=== PATIENT | male | born 1950 | race Caucasian/White ===

== ENCOUNTER → 2017-10-16 | Outpatient (REF) | payer MEDICARE ==
[2017-10-16 13:39] LABS: BASO % 0.6 % (0.0-1.0); EOS # 0.1 10^3/uL (0.0-0.50); EOS % 2.7 % (0.0-3.0); HEMATOCRIT 48.5 % (42.0-52.0); HEMOGLOBIN 15.5 g/dl (13.5-17.5); IMMATURE GRANULOCYTE % 0.4 % (0-3.0); LYMPH # 1.3 10^3/uL (1.5-4.5); LYMPH % 27.3 % (24.0-44.0); MEAN CORPUSCULAR HEMOGLOBIN 30.3 pg (27.0-33.0); MEAN CORPUSCULAR VOLUME 94.7 fl (80.0-96.0); MONO # 0.5 10^3/uL (0.0-0.8); MONO % 9.6 % (0.0-5.0); NEUTROPHILS # 2.8 10^3/uL (1.8-7.7); NEUTROPHILS % 59.4 % (36.0-66.0); PLATELET COUNT, AUTOMATED 178 10^3/uL (150-450); RED BLOOD COUNT 5.12 10^6/uL (4.30-6.10); RED CELL DISTRIBUTION WIDTH 13.2 % (11.5-14.5); WHITE BLOOD COUNT 4.8 10^3/uL (4.0-10.0)
[2017-10-16 13:57] LABS: FOLATE 16.2 NG/ML; TOTAL 25(OH) VITAMIN D 22.7 NG/ML (30.0-100.0); VITAMIN B12 LEVEL 456 PG/ML
[2017-10-16 14:02] LABS: ESTIMATED AVERAGE GLUCOSE 143 MG/DL (60-110); HEMOGLOBIN A1c 6.6 %
[2017-10-16 14:06] LABS: ALBUMIN 3.8 GM/DL (3.2-5.2); ALBUMIN/GLOBULIN RATIO 1.15 (1.00-1.93); ALKALINE PHOSPHATASE 54 U/L (45-117); ALT/SGPT 8 U/L (12-78); ANION GAP 6 MEQ/L (8-16); AST/SGOT 16 U/L (7-37); BILIRUBIN,TOTAL 0.6 MG/DL (0.2-1.0); BLOOD UREA NITROGEN 23 MG/DL (7-18); CARBON DIOXIDE LEVEL 29 MEQ/L (21-32); CHLORIDE LEVEL 109 MEQ/L (98-107); CHOLESTEROL LEVEL 220 MG/DL (<200); CHOLESTEROL RISK RATIO 5.789 (<5); CREATININE FOR GFR 0.91 MG/DL (0.70-1.30); FREE T4 0.96 NG/DL (0.76-1.46); GLOMERULAR FILTRATION RATE > 60.0 (>49); GLUCOSE, FASTING 99 MG/DL (70-100); HDL CHOLESTEROL 38 MG/DL (>40); LDL CHOLESTEROL 157.6 MG/DL (<100); NON-HDL-C 182 MG/DL; POTASSIUM SERUM 4.5 MEQ/L (3.5-5.1); SODIUM LEVEL 144 MEQ/L (136-145); TOTAL PROTEIN 7.1 GM/DL (6.4-8.2); TRIGLYCERIDES LEVEL 122 MG/DL (<150)
[2017-10-16 14:37] LABS: MALB URINE SIEMENS 12.7 MG/L; MAU/CREAT RATIO 9.6 MCG/MG (0.0-30.0)
== END ==
LOC: M SFHCADAM 07:50
DX: I50.32 Chronic diastolic (congestive) heart failure (principal); E66.01 Morbid (severe) obesity due to excess calories; E55.9 Vitamin D deficiency, unspecified; R73.01 Impaired fasting glucose; E53.8 Deficiency of other specified B group vitamins; Z68.41 Body mass index [BMI] 40.0-44.9, adult
CPT/HCPCS: 82746

== ENCOUNTER → 2017-12-31 | Outpatient (CLI) | payer MEDICARE | LOC: M RAD 12:13 | DX: I87.2 Venous insufficiency (chronic) (peripheral) (principal); M79.605 Pain in left leg; M79.604 Pain in right leg | CPT/HCPCS: 93970 ==

== ENCOUNTER 2018-02-22 19:07 | Inpatient (IN) | payer MEDICARE ==
[2018-02-22 23:46] LABS: BASO % 0.3 % (0.0-1.0); EOS # 0.1 10^3/uL (0.0-0.50); EOS % 1.6 % (0.0-3.0); HEMATOCRIT 46.6 % (42.0-52.0); HEMOGLOBIN 15.3 g/dl (13.5-17.5); IMMATURE GRANULOCYTE % 0.2 % (0-3.0); LYMPH % 15.8 % (24.0-44.0); MEAN CORPUSCULAR HEMOGLOBIN 30.6 pg (27.0-33.0); MEAN CORPUSCULAR HGB CONC 32.8 g/dl (32.0-36.5); MEAN CORPUSCULAR VOLUME 93.2 fl (80.0-96.0); MONO # 0.5 10^3/uL (0.0-0.8); MONO % 8.1 % (0.0-5.0); NEUTROPHILS # 4.6 10^3/uL (1.8-7.7); PLATELET COUNT, AUTOMATED 186 10^3/uL (150-450); RED CELL DISTRIBUTION WIDTH 13.6 % (11.5-14.5); WHITE BLOOD COUNT 6.2 10^3/uL (4.0-10.0)
[2018-02-23 00:03] LABS: ALBUMIN 3.7 GM/DL (3.2-5.2); ALBUMIN/GLOBULIN RATIO 1.16 (1.00-1.93); ALKALINE PHOSPHATASE 56 U/L (45-117); ALT/SGPT 8 U/L (12-78); ANION GAP 10 MEQ/L (8-16); AST/SGOT 17 U/L (7-37); BILIRUBIN,DIRECT 0.1 MG/DL (0.0-0.2); BILIRUBIN,TOTAL 0.5 MG/DL (0.2-1.0); BLOOD UREA NITROGEN 30 MG/DL (7-18); CALCIUM LEVEL 8.5 MG/DL (8.8-10.2); CARBON DIOXIDE LEVEL 25 MEQ/L (21-32); CHLORIDE LEVEL 107 MEQ/L (98-107); CPK CREATINE PHOSPHOKINASE 66 U/L (39-308); CREATININE FOR GFR 1.03 MG/DL (0.70-1.30); GLOMERULAR FILTRATION RATE > 60.0 (>49); GLUCOSE, FASTING 106 MG/DL (70-100); POTASSIUM SERUM 4.3 MEQ/L (3.5-5.1); SODIUM LEVEL 142 MEQ/L (136-145); THYROXINE (T4) 8.9 UG/DL (4.5-12.0); TOTAL PROTEIN 6.9 GM/DL (6.4-8.2); TROPONIN I < 0.02 NG/ML (< 0.10)
[2018-02-23 00:08] LABS: CK-MB VALUE MASS 1.6 NG/ML (<3.6); MB/CK RELATIVE INDEX 2.42 (< OR =4); NT-PRO BNP 728 PG/ML (<125)
[2018-02-23] MEDS: FUROSEMIDE 40 MG/4 ML VIAL (J1940) IV ×3 (01:41→16:00)
[2018-02-23] MEDS ORDERED: ACETAMINOPHEN TAB 650MG DOSE (2X325MG) PO (02:30)
[2018-02-23] MEDS: SINEMET 25-100 MG TAB PO ×5 (06:00→20:48)
[2018-02-23] MEDS: HEPARIN SOD (PORCINE) 5000 UNITS/ML VIAL SC ×3 (06:34→20:49)
[2018-02-23 08:33] LABS: HEMATOCRIT 44.5 % (42.0-52.0); HEMOGLOBIN 14.9 g/dl (13.5-17.5); MEAN CORPUSCULAR HEMOGLOBIN 30.3 pg (27.0-33.0); MEAN CORPUSCULAR HGB CONC 33.5 g/dl (32.0-36.5); MEAN CORPUSCULAR VOLUME 90.4 fl (80.0-96.0); PLATELET COUNT, AUTOMATED 186 10^3/uL (150-450); RED BLOOD COUNT 4.92 10^6/uL (4.30-6.10); RED CELL DISTRIBUTION WIDTH 13.5 % (11.5-14.5); WHITE BLOOD COUNT 5.8 10^3/uL (4.0-10.0)
[2018-02-23 08:59] LABS: ANION GAP 10 MEQ/L (8-16); BLOOD UREA NITROGEN 26 MG/DL (7-18); CALCIUM LEVEL 8.8 MG/DL (8.8-10.2); CARBON DIOXIDE LEVEL 25 MEQ/L (21-32); CHLORIDE LEVEL 107 MEQ/L (98-107); CREATININE FOR GFR 0.95 MG/DL (0.70-1.30); GLOMERULAR FILTRATION RATE > 60.0 (>49); GLUCOSE, FASTING 87 MG/DL (70-100); SODIUM LEVEL 142 MEQ/L (136-145)
[2018-02-23 09:04] LABS: CK-MB VALUE MASS 1.2 NG/ML (<3.6); CPK CREATINE PHOSPHOKINASE 56 U/L (39-308); MB/CK RELATIVE INDEX 2.14 (< OR =4); TROPONIN I < 0.02 NG/ML (< 0.10)
[2018-02-23] MEDS: ASPIRIN 81 MG ENTERIC TAB PO (09:42)
[2018-02-23] MEDS: metOLazone 2.5 MG TAB PO (09:42)
[2018-02-23] MEDS: MULTIVITAMINS/MINERALS THERAP 1 TAB PO (09:42)
[2018-02-23] MEDS: VITAMIN E 200 INTERNATIONAL UNITS CAP PO ×2 (12:33→20:49)
[2018-02-23 17:01] LABS: CPK CREATINE PHOSPHOKINASE 211 U/L (39-308); TROPONIN I < 0.02 NG/ML (< 0.10)
[2018-02-23 17:02] LABS: MB/CK RELATIVE INDEX 0.47 (< OR =4)
[2018-02-23] MEDS: POTASSIUM CHLORIDE 10 MEQ SR TABLET PO (20:49)
[2018-02-23] MEDS: BENZTROPINE 2 MG TAB PO (20:49)
[2018-02-24] MEDS: FUROSEMIDE 40 MG/4 ML VIAL (J1940) IV ×2 (00:21→08:33)
[2018-02-24 04:47] LABS: HEMATOCRIT 48.9 % (42.0-52.0); HEMOGLOBIN 16.3 g/dl (13.5-17.5); MEAN CORPUSCULAR HEMOGLOBIN 30.4 pg (27.0-33.0); MEAN CORPUSCULAR HGB CONC 33.3 g/dl (32.0-36.5); MEAN CORPUSCULAR VOLUME 91.2 fl (80.0-96.0); PLATELET COUNT, AUTOMATED 210 10^3/uL (150-450); RED BLOOD COUNT 5.36 10^6/uL (4.30-6.10); RED CELL DISTRIBUTION WIDTH 13.8 % (11.5-14.5); WHITE BLOOD COUNT 5.8 10^3/uL (4.0-10.0)
[2018-02-24 05:14] LABS: ANION GAP 10 MEQ/L (8-16); BLOOD UREA NITROGEN 31 MG/DL (7-18); CALCIUM LEVEL 9.7 MG/DL (8.8-10.2); CARBON DIOXIDE LEVEL 28 MEQ/L (21-32); CHLORIDE LEVEL 103 MEQ/L (98-107); CREATININE FOR GFR 1.11 MG/DL (0.70-1.30); GLOMERULAR FILTRATION RATE > 60.0 (>49); GLUCOSE, FASTING 128 MG/DL (70-100); POTASSIUM SERUM 3.5 MEQ/L (3.5-5.1); SODIUM LEVEL 141 MEQ/L (136-145)
[2018-02-24] MEDS: HEPARIN SOD (PORCINE) 5000 UNITS/ML VIAL SC (06:00)
[2018-02-24] MEDS: SINEMET 25-100 MG TAB PO ×3 (06:00→12:10)
[2018-02-24] MEDS: VITAMIN E 200 INTERNATIONAL UNITS CAP PO (08:34)
[2018-02-24] MEDS: BENZTROPINE 2 MG TAB PO (08:34)
[2018-02-24] MEDS: POTASSIUM CHLORIDE 10 MEQ SR TABLET PO (08:34)
[2018-02-24] MEDS: ASPIRIN 81 MG ENTERIC TAB PO (08:34)
[2018-02-24] MEDS: MULTIVITAMINS/MINERALS THERAP 1 TAB PO (12:10)
== END 2018-02-24 13:25 | disposition home or self-care (01) | DRG 292 ==
LOC: M ED INP 02-23 03:17 → M ED 19:07 → M ICU 02-23 05:31
DX: I50.33 Acute on chronic diastolic (congestive) heart failure (principal); Z68.41 Body mass index [BMI] 40.0-44.9, adult; G20 Parkinson's disease; E66.01 Morbid (severe) obesity due to excess calories; E55.9 Vitamin D deficiency, unspecified; E53.8 Deficiency of other specified B group vitamins; I48.2 Chronic atrial fibrillation; R73.01 Impaired fasting glucose; I87.2 Venous insufficiency (chronic) (peripheral); K59.00 Constipation, unspecified; Z79.82 Long term (current) use of aspirin; Z79.899 Other long term (current) drug therapy; L97.519 Non-pressure chronic ulcer of other part of right foot with unspecified severity; L97.529 Non-pressure chronic ulcer of other part of left foot with unspecified severity; Z91.14 Patient's other noncompliance with medication regimen

== ENCOUNTER → 2018-02-28 | Outpatient (REF) | payer MEDICARE ==
[2018-02-28 19:26] LABS: HEMATOCRIT 47.9 % (42.0-52.0); MEAN CORPUSCULAR HEMOGLOBIN 30.7 pg (27.0-33.0); MEAN CORPUSCULAR HGB CONC 33.4 g/dl (32.0-36.5); MEAN CORPUSCULAR VOLUME 91.8 fl (80.0-96.0); PLATELET COUNT, AUTOMATED 207 10^3/uL (150-450); RED BLOOD COUNT 5.22 10^6/uL (4.30-6.10); RED CELL DISTRIBUTION WIDTH 13.1 % (11.5-14.5)
[2018-02-28 19:40] LABS: ANION GAP 8 MEQ/L (8-16); BLOOD UREA NITROGEN 35 MG/DL (7-18); CALCIUM LEVEL 9.3 MG/DL (8.8-10.2); CARBON DIOXIDE LEVEL 30 MEQ/L (21-32); CHLORIDE LEVEL 101 MEQ/L (98-107); GLOMERULAR FILTRATION RATE > 60.0 (>49); GLUCOSE, FASTING 95 MG/DL (70-100); MAGNESIUM LEVEL 2.5 MG/DL (1.8-2.4); POTASSIUM SERUM 4.3 MEQ/L (3.5-5.1); SODIUM LEVEL 139 MEQ/L (136-145)
== END ==
LOC: M SFHCADAM 15:29
DX: I50.32 Chronic diastolic (congestive) heart failure (principal)
CPT/HCPCS: 83735

== ENCOUNTER 2018-03-03 22:01 | Emergency (ER) | payer MEDICARE ==
[2018-03-04 00:01] LABS: BASO % 0.1 % (0.0-1.0); EOS # 0.1 10^3/uL (0.0-0.50); EOS % 1.2 % (0.0-3.0); HEMATOCRIT 45.9 % (42.0-52.0); HEMOGLOBIN 15.3 g/dl (13.5-17.5); IMMATURE GRANULOCYTE % 0.3 % (0-3.0); LYMPH # 0.8 10^3/uL (1.5-4.5); LYMPH % 8.2 % (24.0-44.0); MEAN CORPUSCULAR HGB CONC 33.3 g/dl (32.0-36.5); MEAN CORPUSCULAR VOLUME 92.9 fl (80.0-96.0); MONO # 0.8 10^3/uL (0.0-0.8); NEUTROPHILS # 8.2 10^3/uL (1.8-7.7); NEUTROPHILS % 82.2 % (36.0-66.0); PLATELET COUNT, AUTOMATED 182 10^3/uL (150-450); RED BLOOD COUNT 4.94 10^6/uL (4.30-6.10); RED CELL DISTRIBUTION WIDTH 13.3 % (11.5-14.5)
[2018-03-04 00:12] LABS: INR 1.02; PROTHROMBIN TIME 13.5 SECONDS (12.1-14.4)
[2018-03-04 00:13] LABS: PARTIAL THROMBOPLASTIN TIME 28.5 SECONDS (25.4-37.6)
[2018-03-04] MEDS: GASTROGRAFIN SOLUTION 30ML PO ×2 (00:15→00:33)
[2018-03-04 00:26] LABS: ALBUMIN 3.7 GM/DL (3.2-5.2); ALBUMIN/GLOBULIN RATIO 1.16 (1.00-1.93); ALKALINE PHOSPHATASE 60 U/L (45-117); ALT/SGPT 8 U/L (12-78); AMYLASE 36 U/L (25-115); ANION GAP 8 MEQ/L (8-16); AST/SGOT 18 U/L (7-37); BILIRUBIN,DIRECT 0.1 MG/DL (0.0-0.2); BILIRUBIN,TOTAL 0.5 MG/DL (0.2-1.0); BLOOD UREA NITROGEN 30 MG/DL (7-18); CALCIUM LEVEL 8.5 MG/DL (8.8-10.2); CARBON DIOXIDE LEVEL 27 MEQ/L (21-32); CHLORIDE LEVEL 104 MEQ/L (98-107); CK-MB VALUE MASS 1.4 NG/ML (<3.6); CPK CREATINE PHOSPHOKINASE 57 U/L (39-308); CREATININE FOR GFR 1.05 MG/DL (0.70-1.30); GLOMERULAR FILTRATION RATE > 60.0 (>49); GLUCOSE, FASTING 117 MG/DL (70-100); LIPASE 77 U/L (73-393); MB/CK RELATIVE INDEX 2.45 (< OR =4); SODIUM LEVEL 139 MEQ/L (136-145); TOTAL PROTEIN 6.9 GM/DL (6.4-8.2); TROPONIN I < 0.02 NG/ML (< 0.10)
[2018-03-04 00:26] LABS: LACTIC ACID SEPSIS PROTOCOL 1.1 MMOL/L (0.4-2.0)
[2018-03-04 01:43] LABS: KETONE, URINE AUTO RFX TRACE mg/dL (NEGATIVE); LEUKOCYTE ESTERASE UR AUTO RFX NEGATIVE (NEGATIVE); MUCUS, URINE RFX SMALL (NEGATIVE); NITRITE, URINE AUTO RFX NEGATIVE (NEGATIVE); RBC, URINE AUTO RFX 3 /HPF (0-3); SPECIFIC GRAVITY UR AUTO RFX 1.026 (1.002-1.035); SQUAM EPITHELIAL CELL UR AURFX 0 /HPF (0-6); WBC, URINE AUTO RFX 1 /HPF (0-3)
== END 2018-03-04 03:19 | disposition home or self-care (01) ==
LOC: M ED 22:01
DX: K42.9 Umbilical hernia without obstruction or gangrene (principal); G20 Parkinson's disease; I48.91 Unspecified atrial fibrillation; I50.9 Heart failure, unspecified; I87.2 Venous insufficiency (chronic) (peripheral); E66.9 Obesity, unspecified; Z79.899 Other long term (current) drug therapy; Z79.82 Long term (current) use of aspirin
CPT/HCPCS: Q9963

== ENCOUNTER → 2018-03-05 | Outpatient (REF) | payer MEDICARE | LOC: M SFHCADAM 14:19 | DX: R73.03 Prediabetes (principal); Z53.8 Procedure and treatment not carried out for other reasons ==

== ENCOUNTER 2018-04-08 17:13 | Emergency (ER) | payer MEDICARE ==
[2018-04-08 17:47] LABS: CARBOXYHEMOGLOBIN 3.2 % (0.0-1.5)
== END 2018-04-08 20:16 | disposition home or self-care (01) ==
LOC: M ED 17:13
DX: T58.2X1A Toxic effect of carbon monoxide from incomplete combustion of other domestic fuels, accidental (unintentional), initial encounter (principal); Y92.099 Unspecified place in other non-institutional residence as the place of occurrence of the external cause; Y93.9 Activity, unspecified; M54.5 Low back pain; G20 Parkinson's disease; I25.10 Atherosclerotic heart disease of native coronary artery without angina pectoris; Z98.61 Coronary angioplasty status; Z79.899 Other long term (current) drug therapy
CPT/HCPCS: 82375

== ENCOUNTER 2018-04-20 00:20 | Inpatient (IN) | payer MEDICARE ==
[2018-04-20 01:40] LABS: BASO % 0.4 % (0.0-1.0); EOS # 0.1 10^3/uL (0.0-0.50); EOS % 2.3 % (0.0-3.0); HEMATOCRIT 43.5 % (42.0-52.0); HEMOGLOBIN 14.2 g/dl (13.5-17.5); IMMATURE GRANULOCYTE % 0.2 % (0-3.0); LYMPH # 0.8 10^3/uL (1.5-4.5); LYMPH % 17.4 % (24.0-44.0); MEAN CORPUSCULAR HEMOGLOBIN 30.9 pg (27.0-33.0); MEAN CORPUSCULAR HGB CONC 32.6 g/dl (32.0-36.5); MEAN CORPUSCULAR VOLUME 94.8 fl (80.0-96.0); MONO # 0.5 10^3/uL (0.0-0.8); MONO % 10.9 % (0.0-5.0); NEUTROPHILS # 3.3 10^3/uL (1.8-7.7); NEUTROPHILS % 68.8 % (36.0-66.0); PLATELET COUNT, AUTOMATED 180 10^3/uL (150-450); RED BLOOD COUNT 4.59 10^6/uL (4.30-6.10); RED CELL DISTRIBUTION WIDTH 13.4 % (11.5-14.5); WHITE BLOOD COUNT 4.8 10^3/uL (4.0-10.0)
[2018-04-20 02:00] LABS: ALBUMIN 3.4 GM/DL (3.2-5.2); ALKALINE PHOSPHATASE 57 U/L (45-117); ALT/SGPT 9 U/L (12-78); ANION GAP 8 MEQ/L (8-16); AST/SGOT 17 U/L (7-37); BILIRUBIN,DIRECT < 0.1 MG/DL (0.0-0.2); BILIRUBIN,TOTAL 0.4 MG/DL (0.2-1.0); BLOOD UREA NITROGEN 33 MG/DL (7-18); CALCIUM LEVEL 8.2 MG/DL (8.8-10.2); CARBON DIOXIDE LEVEL 27 MEQ/L (21-32); CHLORIDE LEVEL 111 MEQ/L (98-107); GLOMERULAR FILTRATION RATE > 60.0 (>49); GLUCOSE, FASTING 105 MG/DL (70-100); POTASSIUM SERUM 4.1 MEQ/L (3.5-5.1); SODIUM LEVEL 146 MEQ/L (136-145); TOTAL PROTEIN 6.5 GM/DL (6.4-8.2)
[2018-04-20] MEDS: NS 1,000 ML IV (03:28)
[2018-04-20] MEDS ORDERED: LACTULOSE 20 GM/30 ML SYRUP UD PO (05:15)
[2018-04-20] MEDS: NS 0.45% 1,000 ML IV (06:22)
[2018-04-20] MEDS: SINEMET 25-100 MG TAB PO ×5 (06:22→20:21)
[2018-04-20] MEDS: HEPARIN SOD (PORCINE) 5000 UNITS/ML VIAL SC ×3 (06:23→20:21)
[2018-04-20 07:04] LABS: HEMOGLOBIN 14.3 g/dl (13.5-17.5); MEAN CORPUSCULAR HEMOGLOBIN 30.9 pg (27.0-33.0); MEAN CORPUSCULAR HGB CONC 33.3 g/dl (32.0-36.5); MEAN CORPUSCULAR VOLUME 92.9 fl (80.0-96.0); PLATELET COUNT, AUTOMATED 190 10^3/uL (150-450); RED BLOOD COUNT 4.63 10^6/uL (4.30-6.10); RED CELL DISTRIBUTION WIDTH 13.4 % (11.5-14.5); WHITE BLOOD COUNT 5.2 10^3/uL (4.0-10.0)
[2018-04-20 07:27] LABS: ANION GAP 7 MEQ/L (8-16); BLOOD UREA NITROGEN 32 MG/DL (7-18); CALCIUM LEVEL 8.5 MG/DL (8.8-10.2); CARBON DIOXIDE LEVEL 26 MEQ/L (21-32); CHLORIDE LEVEL 113 MEQ/L (98-107); CREATININE FOR GFR 0.74 MG/DL (0.70-1.30); GLOMERULAR FILTRATION RATE > 60.0 (>49); GLUCOSE, FASTING 94 MG/DL (70-100); MAGNESIUM LEVEL 2.3 MG/DL (1.8-2.4); POTASSIUM SERUM 3.7 MEQ/L (3.5-5.1); SODIUM LEVEL 146 MEQ/L (136-145)
[2018-04-20] MEDS: VITAMIN E 200 INTERNATIONAL UNITS CAP PO ×2 (09:43→20:21)
[2018-04-20] MEDS: BENZTROPINE 2 MG TAB PO ×2 (09:43→20:21)
[2018-04-20] MEDS: MULTIVITAMINS/MINERALS THERAP 1 TAB PO (09:44)
[2018-04-20] MEDS: BISACODYL 5 MG TAB PO (09:44)
[2018-04-21] MEDS: HEPARIN SOD (PORCINE) 5000 UNITS/ML VIAL SC ×3 (05:37→22:00)
[2018-04-21] MEDS: SINEMET 25-100 MG TAB PO ×5 (05:38→21:59)
[2018-04-21 07:06] LABS: HEMATOCRIT 44.6 % (42.0-52.0); HEMOGLOBIN 14.4 g/dl (13.5-17.5); MEAN CORPUSCULAR HEMOGLOBIN 30.2 pg (27.0-33.0); MEAN CORPUSCULAR HGB CONC 32.3 g/dl (32.0-36.5); MEAN CORPUSCULAR VOLUME 93.5 fl (80.0-96.0); PLATELET COUNT, AUTOMATED 195 10^3/uL (150-450); RED BLOOD COUNT 4.77 10^6/uL (4.30-6.10); RED CELL DISTRIBUTION WIDTH 13.3 % (11.5-14.5); WHITE BLOOD COUNT 4.4 10^3/uL (4.0-10.0)
[2018-04-21 07:32] LABS: ANION GAP 7 MEQ/L (8-16); BLOOD UREA NITROGEN 22 MG/DL (7-18); CALCIUM LEVEL 8.4 MG/DL (8.8-10.2); CARBON DIOXIDE LEVEL 26 MEQ/L (21-32); CHLORIDE LEVEL 108 MEQ/L (98-107); CREATININE FOR GFR 0.82 MG/DL (0.70-1.30); GLOMERULAR FILTRATION RATE > 60.0 (>49); GLUCOSE, FASTING 99 MG/DL (70-100); POTASSIUM SERUM 3.8 MEQ/L (3.5-5.1); SODIUM LEVEL 141 MEQ/L (136-145)
[2018-04-21] MEDS: FLUBLOK(EGG FREE)(QUAD)INFLUENZA VACC 0.5ML SYRINGE (90682)18YRS&OLDER IM (09:22)
[2018-04-21] MEDS: PREVNAR 13 VACCINE SYRINGE (CPT CODE:90670) IM ×2 (09:24→09:27)
[2018-04-21] MEDS: MULTIVITAMINS/MINERALS THERAP 1 TAB PO (09:28)
[2018-04-21] MEDS: BENZTROPINE 2 MG TAB PO ×2 (09:28→21:59)
[2018-04-21] MEDS: VITAMIN E 200 INTERNATIONAL UNITS CAP PO ×2 (09:28→21:59)
[2018-04-21] MEDS: OLOPATADINE 0.1% OPHTH SOL 5ML(PATANOL) OD ×2 (12:05→17:05)
[2018-04-21] MEDS: ACETAMINOPHEN TAB 650MG DOSE (2X325MG) PO (13:00)
[2018-04-22] MEDS: HEPARIN SOD (PORCINE) 5000 UNITS/ML VIAL SC ×3 (06:09→22:15)
[2018-04-22] MEDS: SINEMET 25-100 MG TAB PO ×5 (06:09→22:15)
[2018-04-22 06:15] LABS: HEMATOCRIT 42.3 % (42.0-52.0); HEMOGLOBIN 13.9 g/dl (13.5-17.5); MEAN CORPUSCULAR HEMOGLOBIN 30.8 pg (27.0-33.0); MEAN CORPUSCULAR HGB CONC 32.9 g/dl (32.0-36.5); MEAN CORPUSCULAR VOLUME 93.6 fl (80.0-96.0); PLATELET COUNT, AUTOMATED 181 10^3/uL (150-450); RED BLOOD COUNT 4.52 10^6/uL (4.30-6.10); RED CELL DISTRIBUTION WIDTH 13.2 % (11.5-14.5); WHITE BLOOD COUNT 4.8 10^3/uL (4.0-10.0)
[2018-04-22 06:37] LABS: ANION GAP 4 MEQ/L (8-16); BLOOD UREA NITROGEN 16 MG/DL (7-18); CALCIUM LEVEL 8.7 MG/DL (8.8-10.2); CARBON DIOXIDE LEVEL 30 MEQ/L (21-32); CHLORIDE LEVEL 109 MEQ/L (98-107); CREATININE FOR GFR 0.86 MG/DL (0.70-1.30); GLOMERULAR FILTRATION RATE > 60.0 (>49); GLUCOSE, FASTING 93 MG/DL (70-100); POTASSIUM SERUM 3.9 MEQ/L (3.5-5.1); SODIUM LEVEL 143 MEQ/L (136-145)
[2018-04-22] MEDS: MULTIVITAMINS/MINERALS THERAP 1 TAB PO (09:15)
[2018-04-22] MEDS: BENZTROPINE 2 MG TAB PO ×2 (09:15→22:15)
[2018-04-22] MEDS: VITAMIN E 200 INTERNATIONAL UNITS CAP PO ×2 (09:15→22:15)
[2018-04-22] MEDS: OLOPATADINE 0.1% OPHTH SOL 5ML(PATANOL) OD ×2 (09:16→16:37)
[2018-04-23] MEDS: SINEMET 25-100 MG TAB PO ×5 (05:55→20:33)
[2018-04-23] MEDS: HEPARIN SOD (PORCINE) 5000 UNITS/ML VIAL SC ×3 (05:55→20:32)
[2018-04-23 06:00] LABS: HEMATOCRIT 42.4 % (42.0-52.0); HEMOGLOBIN 13.8 g/dl (13.5-17.5); MEAN CORPUSCULAR HEMOGLOBIN 30.6 pg (27.0-33.0); MEAN CORPUSCULAR HGB CONC 32.5 g/dl (32.0-36.5); PLATELET COUNT, AUTOMATED 182 10^3/uL (150-450); RED BLOOD COUNT 4.51 10^6/uL (4.30-6.10); RED CELL DISTRIBUTION WIDTH 13.3 % (11.5-14.5); WHITE BLOOD COUNT 4.2 10^3/uL (4.0-10.0)
[2018-04-23 06:25] LABS: ANION GAP 7 MEQ/L (8-16); BLOOD UREA NITROGEN 19 MG/DL (7-18); CALCIUM LEVEL 8.8 MG/DL (8.8-10.2); CARBON DIOXIDE LEVEL 29 MEQ/L (21-32); CHLORIDE LEVEL 109 MEQ/L (98-107); CREATININE FOR GFR 0.95 MG/DL (0.70-1.30); GLOMERULAR FILTRATION RATE > 60.0 (>49); GLUCOSE, FASTING 108 MG/DL (70-100); POTASSIUM SERUM 4.1 MEQ/L (3.5-5.1); SODIUM LEVEL 145 MEQ/L (136-145)
[2018-04-23] MEDS: MULTIVITAMINS/MINERALS THERAP 1 TAB PO (10:21)
[2018-04-23] MEDS: BENZTROPINE 2 MG TAB PO ×2 (10:22→20:33)
[2018-04-23] MEDS: VITAMIN E 200 INTERNATIONAL UNITS CAP PO ×2 (10:22→20:33)
[2018-04-23] MEDS: OLOPATADINE 0.1% OPHTH SOL 5ML(PATANOL) OD ×2 (10:23→17:27)
[2018-04-24] MEDS: HEPARIN SOD (PORCINE) 5000 UNITS/ML VIAL SC ×3 (06:51→20:56)
[2018-04-24] MEDS: SINEMET 25-100 MG TAB PO ×5 (06:51→20:55)
[2018-04-24 06:58] LABS: HEMATOCRIT 42.2 % (42.0-52.0); HEMOGLOBIN 13.8 g/dl (13.5-17.5); MEAN CORPUSCULAR HEMOGLOBIN 30.6 pg (27.0-33.0); MEAN CORPUSCULAR HGB CONC 32.7 g/dl (32.0-36.5); MEAN CORPUSCULAR VOLUME 93.6 fl (80.0-96.0); PLATELET COUNT, AUTOMATED 179 10^3/uL (150-450); RED BLOOD COUNT 4.51 10^6/uL (4.30-6.10); RED CELL DISTRIBUTION WIDTH 13.4 % (11.5-14.5); WHITE BLOOD COUNT 4.1 10^3/uL (4.0-10.0)
[2018-04-24 07:32] LABS: ANION GAP 7 MEQ/L (8-16); BLOOD UREA NITROGEN 22 MG/DL (7-18); CALCIUM LEVEL 8.5 MG/DL (8.8-10.2); CARBON DIOXIDE LEVEL 26 MEQ/L (21-32); CHLORIDE LEVEL 108 MEQ/L (98-107); CREATININE FOR GFR 0.87 MG/DL (0.70-1.30); GLOMERULAR FILTRATION RATE > 60.0 (>49); GLUCOSE, FASTING 95 MG/DL (70-100); POTASSIUM SERUM 3.7 MEQ/L (3.5-5.1); SODIUM LEVEL 141 MEQ/L (136-145)
[2018-04-24] MEDS: VITAMIN E 200 INTERNATIONAL UNITS CAP PO ×2 (09:13→20:55)
[2018-04-24] MEDS: BENZTROPINE 2 MG TAB PO ×2 (09:14→20:55)
[2018-04-24] MEDS: OLOPATADINE 0.1% OPHTH SOL 5ML(PATANOL) OD ×2 (09:14→16:59)
[2018-04-24] MEDS: MULTIVITAMINS/MINERALS THERAP 1 TAB PO (09:14)
[2018-04-25] MEDS: SINEMET 25-100 MG TAB PO ×5 (06:17→21:39)
[2018-04-25] MEDS: HEPARIN SOD (PORCINE) 5000 UNITS/ML VIAL SC ×3 (06:18→21:40)
[2018-04-25 06:45] LABS: HEMATOCRIT 43.1 % (42.0-52.0); HEMOGLOBIN 13.9 g/dl (13.5-17.5); MEAN CORPUSCULAR HEMOGLOBIN 30.5 pg (27.0-33.0); MEAN CORPUSCULAR HGB CONC 32.3 g/dl (32.0-36.5); MEAN CORPUSCULAR VOLUME 94.7 fl (80.0-96.0); PLATELET COUNT, AUTOMATED 177 10^3/uL (150-450); RED BLOOD COUNT 4.55 10^6/uL (4.30-6.10); RED CELL DISTRIBUTION WIDTH 13.3 % (11.5-14.5); WHITE BLOOD COUNT 4.4 10^3/uL (4.0-10.0)
[2018-04-25 07:07] LABS: ANION GAP 7 MEQ/L (8-16); BLOOD UREA NITROGEN 20 MG/DL (7-18); CALCIUM LEVEL 8.3 MG/DL (8.8-10.2); CARBON DIOXIDE LEVEL 27 MEQ/L (21-32); CHLORIDE LEVEL 107 MEQ/L (98-107); CREATININE FOR GFR 0.88 MG/DL (0.70-1.30); GLOMERULAR FILTRATION RATE > 60.0 (>49); GLUCOSE, FASTING 92 MG/DL (70-100); POTASSIUM SERUM 3.9 MEQ/L (3.5-5.1); SODIUM LEVEL 141 MEQ/L (136-145)
[2018-04-25] MEDS: VITAMIN E 200 INTERNATIONAL UNITS CAP PO ×2 (09:30→21:39)
[2018-04-25] MEDS: MULTIVITAMINS/MINERALS THERAP 1 TAB PO (09:30)
[2018-04-25] MEDS: BENZTROPINE 2 MG TAB PO ×2 (09:30→21:39)
[2018-04-25] MEDS: OLOPATADINE 0.1% OPHTH SOL 5ML(PATANOL) OD ×2 (09:31→17:21)
[2018-04-26] MEDS: HEPARIN SOD (PORCINE) 5000 UNITS/ML VIAL SC ×3 (06:58→20:50)
[2018-04-26] MEDS: SINEMET 25-100 MG TAB PO ×5 (06:58→20:50)
[2018-04-26 07:15] LABS: HEMATOCRIT 42.7 % (42.0-52.0); MEAN CORPUSCULAR HEMOGLOBIN 30.5 pg (27.0-33.0); MEAN CORPUSCULAR HGB CONC 32.8 g/dl (32.0-36.5); PLATELET COUNT, AUTOMATED 175 10^3/uL (150-450); RED BLOOD COUNT 4.59 10^6/uL (4.30-6.10); RED CELL DISTRIBUTION WIDTH 13.3 % (11.5-14.5); WHITE BLOOD COUNT 4.5 10^3/uL (4.0-10.0)
[2018-04-26 07:40] LABS: ANION GAP 6 MEQ/L (8-16); BLOOD UREA NITROGEN 17 MG/DL (7-18); CALCIUM LEVEL 8.9 MG/DL (8.8-10.2); CARBON DIOXIDE LEVEL 28 MEQ/L (21-32); CHLORIDE LEVEL 107 MEQ/L (98-107); CREATININE FOR GFR 0.84 MG/DL (0.70-1.30); GLOMERULAR FILTRATION RATE > 60.0 (>49); GLUCOSE, FASTING 100 MG/DL (70-100); POTASSIUM SERUM 4.1 MEQ/L (3.5-5.1); SODIUM LEVEL 141 MEQ/L (136-145)
[2018-04-26] MEDS: MULTIVITAMINS/MINERALS THERAP 1 TAB PO (09:23)
[2018-04-26] MEDS: VITAMIN E 200 INTERNATIONAL UNITS CAP PO ×2 (09:23→20:50)
[2018-04-26] MEDS: OLOPATADINE 0.1% OPHTH SOL 5ML(PATANOL) OD ×2 (09:23→18:22)
[2018-04-26] MEDS: BENZTROPINE 2 MG TAB PO ×2 (10:37→20:50)
[2018-04-26] MEDS: busPIRone 10 MG TAB PO ×2 (12:23→20:50)
[2018-04-27] MEDS: SINEMET 25-100 MG TAB PO ×3 (05:57→13:44)
[2018-04-27] MEDS: HEPARIN SOD (PORCINE) 5000 UNITS/ML VIAL SC (05:57)
[2018-04-27] MEDS: OLOPATADINE 0.1% OPHTH SOL 5ML(PATANOL) OD (09:49)
[2018-04-27] MEDS: busPIRone 10 MG TAB PO (09:49)
[2018-04-27] MEDS: VITAMIN E 200 INTERNATIONAL UNITS CAP PO (09:49)
[2018-04-27] MEDS: MULTIVITAMINS/MINERALS THERAP 1 TAB PO (09:49)
[2018-04-27] MEDS: BENZTROPINE 2 MG TAB PO (09:49)
[2018-04-27 12:26] LABS: BEDSIDE GLUCOSE 101 MG/DL (80-115)
== END 2018-04-27 15:05 | disposition home health service (06) | DRG 57 ==
LOC: M ED 00:20 → M ED INP 04:49 → M MS5PR 06:00
DX: G20 Parkinson's disease (principal); E87.0 Hyperosmolality and hypernatremia; I50.32 Chronic diastolic (congestive) heart failure; N17.9 Acute kidney failure, unspecified; Z68.41 Body mass index [BMI] 40.0-44.9, adult; R53.81 Other malaise; I48.2 Chronic atrial fibrillation; E66.01 Morbid (severe) obesity due to excess calories; F32.9 Major depressive disorder, single episode, unspecified; I87.2 Venous insufficiency (chronic) (peripheral); Z79.82 Long term (current) use of aspirin; Z79.899 Other long term (current) drug therapy

== ENCOUNTER 2018-05-02 06:57 | Day surgery (SDC) | payer MEDICARE ==
[2018-05-02] MEDS: NS 1,000 ML IV (07:15)
[2018-05-02] MEDS ORDERED: PROPOFOL 500 MG/50 ML VIAL As Ordered (07:39)
[2018-05-02] MEDS ORDERED: LIDOCAINE 2% INJ 100 MG/5 ML SDV (FOR ANES.) As Ordered (07:39)
== END 2018-05-02 08:30 | disposition home or self-care (01) ==
LOC: M OPP 06:57
DX: K59.00 Constipation, unspecified (principal); I48.91 Unspecified atrial fibrillation; E66.01 Morbid (severe) obesity due to excess calories; M19.90 Unspecified osteoarthritis, unspecified site; I27.0 Primary pulmonary hypertension; B30.9 Viral conjunctivitis, unspecified; F41.9 Anxiety disorder, unspecified; G20 Parkinson's disease; G47.30 Sleep apnea, unspecified; R06.83 Snoring; Z79.899 Other long term (current) drug therapy; Z80.1 Family history of malignant neoplasm of trachea, bronchus and lung; Z80.3 Family history of malignant neoplasm of breast
CPT/HCPCS: 45378

== ENCOUNTER → 2018-06-10 | Outpatient (REF) | payer MEDICARE ==
[2018-06-10 20:02] LABS: BASO % 0.7 % (0.0-1.0); EOS # 0.1 10^3/uL (0.0-0.50); HEMATOCRIT 46.8 % (42.0-52.0); HEMOGLOBIN 14.9 g/dl (13.5-17.5); IMMATURE GRANULOCYTE % 0.2 % (0-3.0); LYMPH # 1.1 10^3/uL (1.5-4.5); LYMPH % 20.5 % (24.0-44.0); MEAN CORPUSCULAR HEMOGLOBIN 30.2 pg (27.0-33.0); MEAN CORPUSCULAR HGB CONC 31.8 g/dl (32.0-36.5); MEAN CORPUSCULAR VOLUME 94.9 fl (80.0-96.0); MONO # 0.5 10^3/uL (0.0-0.8); MONO % 9.1 % (0.0-5.0); NEUTROPHILS # 3.7 10^3/uL (1.8-7.7); NEUTROPHILS % 67.5 % (36.0-66.0); PLATELET COUNT, AUTOMATED 212 10^3/uL (150-450); RED BLOOD COUNT 4.93 10^6/uL (4.30-6.10); RED CELL DISTRIBUTION WIDTH 13.4 % (11.5-14.5); WHITE BLOOD COUNT 5.5 10^3/uL (4.0-10.0)
[2018-06-10 20:12] LABS: ALKALINE PHOSPHATASE 52 U/L (45-117); ALT/SGPT 9 U/L (12-78); ANION GAP 7 MEQ/L (8-16); AST/SGOT 13 U/L (7-37); BILIRUBIN,TOTAL 0.4 MG/DL (0.2-1.0); BLOOD UREA NITROGEN 24 MG/DL (7-18); CALCIUM LEVEL 8.5 MG/DL (8.8-10.2); CARBON DIOXIDE LEVEL 28 MEQ/L (21-32); CHLORIDE LEVEL 106 MEQ/L (98-107); CHOLESTEROL LEVEL 196 MG/DL (<200); CREATININE FOR GFR 0.92 MG/DL (0.70-1.30); GLOMERULAR FILTRATION RATE > 60.0 (>49); GLUCOSE, FASTING 98 MG/DL (70-100); POTASSIUM SERUM 4.3 MEQ/L (3.5-5.1); SODIUM LEVEL 141 MEQ/L (136-145); TRIGLYCERIDES LEVEL 109 MG/DL (<150)
[2018-06-10 20:13] LABS: ALBUMIN 3.9 GM/DL (3.2-5.2); ALBUMIN/GLOBULIN RATIO 1.34 (1.00-1.93); CHOLESTEROL RISK RATIO 5.025 (<5); FREE T4 1.12 NG/DL (0.76-1.46); HDL CHOLESTEROL 39 MG/DL (>40); LDL CHOLESTEROL 135 MG/DL (<100); NON-HDL-C 157 MG/DL; TOTAL PROTEIN 6.8 GM/DL (6.4-8.2)
[2018-06-10 21:10] LABS: ESTIMATED AVERAGE GLUCOSE 134 MG/DL (60-110); HEMOGLOBIN A1c 6.3 %
== END ==
LOC: M SFHCADAM 11:35
DX: I50.32 Chronic diastolic (congestive) heart failure (principal); E66.01 Morbid (severe) obesity due to excess calories; F41.9 Anxiety disorder, unspecified; R73.01 Impaired fasting glucose
CPT/HCPCS: 84443

== ENCOUNTER 2018-07-14 12:01 | Emergency (ER) | payer MEDICARE ==
[~2018-07-14] VITALS: Ht 175.3 cm; Wt 127.3 kg
[~2018-07-14 12:01] MED LIST: AMIL5TAB4 PO; ASPI1TAB PO; ASPI325T PO; AUGM875T28 PO; BENZ2TAB5 PO; BISO5TAB5 PO; BUSP10TA PO; CARB25TA9 PO; EUCECRE3 TOP; FURO40TA2 PO; FURO80TA2 PO; KLOR10TA76 PO; LACT10SO29 PO; METO25TA PO; MIRA1TAB3 PO; TYLE167L PO; VITA100T20 PO; VITAE20CA PO; VITATAB73 PO; VITMTA PO; XARE20TA PO; [UNRECOGNIZED DRUG - OTHER]
[2018-07-14] MEDS ORDERED: BUSP10TA PO (12:13)
[2018-07-14 13:09] LABS: HEMOGLOBIN 15.8 g/dl (13.5-17.5); MEAN CORPUSCULAR HEMOGLOBIN 30.3 pg (27.0-33.0); MEAN CORPUSCULAR HGB CONC 32.9 g/dl (32.0-36.5); MEAN CORPUSCULAR VOLUME 92.1 fl (80.0-96.0); PLATELET COUNT, AUTOMATED 211 10^3/uL (150-450); RED BLOOD COUNT 5.21 10^6/uL (4.30-6.10); WHITE BLOOD COUNT 5.5 10^3/uL (4.0-10.0)
[2018-07-14 13:54] LABS: BLOOD UREA NITROGEN 24 MG/DL (7-18); CALCIUM LEVEL 8.4 MG/DL (8.8-10.2); CARBON DIOXIDE LEVEL 27 MEQ/L (21-32); CHLORIDE LEVEL 107 MEQ/L (98-107); CREATININE FOR GFR 0.82 MG/DL (0.70-1.30); GLOMERULAR FILTRATION RATE > 60.0 (>49); GLUCOSE, FASTING 106 MG/DL (70-100); POTASSIUM SERUM 3.9 MEQ/L (3.5-5.1); SODIUM LEVEL 141 MEQ/L (136-145)
[2018-07-14 14:12] VITALS: BP 144/64
== END 2018-07-14 14:30 | disposition home or self-care (01) ==
LOC: M ED 12:01
DX: F41.9 Anxiety disorder, unspecified (principal); G20 Parkinson's disease; I48.91 Unspecified atrial fibrillation; E66.8 Other obesity; Z79.899 Other long term (current) drug therapy

== ENCOUNTER → 2018-10-17 | Outpatient (REF) | payer MEDICARE ==
[~2018-10-17] MED LIST changes: +ASPI-1 PO; -ASPI1TAB PO; -ASPI325T PO; +ASPI81TA26 PO; -VITA100T20 PO; +VITA100T51 PO
[2018-10-17 15:53] LABS: ALBUMIN 3.7 GM/DL (3.2-5.2); ALT/SGPT 11 U/L (12-78); BILIRUBIN,TOTAL 0.4 MG/DL (0.2-1.0); BLOOD UREA NITROGEN 28 MG/DL (7-18); CALCIUM LEVEL 8.7 MG/DL (8.8-10.2); CARBON DIOXIDE LEVEL 29 MEQ/L (21-32); CHLORIDE LEVEL 107 MEQ/L (98-107); CREATININE FOR GFR 0.94 MG/DL (0.70-1.30); GLOMERULAR FILTRATION RATE > 60.0 (>49); GLUCOSE, FASTING 137 MG/DL (70-100); POTASSIUM SERUM 3.9 MEQ/L (3.5-5.1); SODIUM LEVEL 141 MEQ/L (136-145); TOTAL PROTEIN 6.6 GM/DL (6.4-8.2)
[2018-10-17 16:00] LABS: HEMATOCRIT 44.4 % (42.0-52.0); HEMOGLOBIN 14.2 g/dl (13.5-17.5); MEAN CORPUSCULAR HEMOGLOBIN 30.5 pg (27.0-33.0); MEAN CORPUSCULAR VOLUME 95.3 fl (80.0-96.0); PLATELET COUNT, AUTOMATED 198 10^3/uL (150-450); RED BLOOD COUNT 4.66 10^6/uL (4.30-6.10); WHITE BLOOD COUNT 5.8 10^3/uL (4.0-10.0)
== END ==
LOC: M SFHCADAM 13:30
PROVIDERS: ATTEND Physician Assistant
DX: R60.0 Localized edema (principal)

== ENCOUNTER 2018-10-20 17:38 | Inpatient (IN) | payer MEDICARE ==
[~2018-10-20] VITALS: Ht 175.3 cm; Wt 129.0 kg
[2018-10-20] MEDS ORDERED: FURO40TA2 PO (18:01)
--- NOTE | 2018-10-20 18:48 | REPVR ---
EXAM: CT Head Without Contrast EXAM DATE/TIME: 10/20/2018 6:05 PM CLINICAL HISTORY: 68 years old, male; Signs and symptoms; Other: Vertigo TECHNIQUE: Imaging protocol: Axial computed tomography images of the head/brain without contrast. Radiation optimization: All CT scans at this facility use at least one of these dose optimization techniques: automated exposure control; mA and/or kV adjustment per patient size (includes targeted exams where dose is matched to clinical indication); or iterative reconstruction. COMPARISON: No relevant prior studies available. FINDINGS: Brain: Global cerebral atrophy is consistent with patient's age. No hemorrhage. No significant white matter disease. No edema. Ventricles: Unremarkable. No ventriculomegaly. Bones/joints: Unremarkable. No acute fracture. Sinuses: Visualized sinuses are unremarkable. No acute sinusitis. Mastoid air cells: Visualized mastoid air cells are unremarkable. No mastoid effusion. Soft tissues: Unremarkable. IMPRESSION: No acute abnormality. Electronically signed by: Tawanda Eubanks On 10/20/2018 18:48:40 PM
[2018-10-20 19:08] LABS: BASO % 0.2 % (0.0-1.0); EOS % 0.3 % (0.0-3.0); HEMATOCRIT 49.1 % (42.0-52.0); LYMPH # 0.6 10^3/uL (1.5-4.5); LYMPH % 6.7 % (24.0-44.0); MEAN CORPUSCULAR HEMOGLOBIN 30.6 pg (27.0-33.0); MEAN CORPUSCULAR HGB CONC 32.6 g/dl (32.0-36.5); MEAN CORPUSCULAR VOLUME 93.9 fl (80.0-96.0); MONO # 0.6 10^3/uL (0.0-0.8); MONO % 6.7 % (0.0-5.0); NEUTROPHILS % 85.8 % (36.0-66.0); PLATELET COUNT, AUTOMATED 185 10^3/uL (150-450); RED BLOOD COUNT 5.23 10^6/uL (4.30-6.10); WHITE BLOOD COUNT 9.3 10^3/uL (4.0-10.0)
--- NOTE | 2018-10-20 19:31 | ECGEPIP ---
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
[2018-10-20 19:41] LABS: BLOOD UREA NITROGEN 28 MG/DL (7-18); CALCIUM LEVEL 8.7 MG/DL (8.8-10.2); CARBON DIOXIDE LEVEL 28 MEQ/L (21-32); CHLORIDE LEVEL 109 MEQ/L (98-107); CPK CREATINE PHOSPHOKINASE 3661 U/L (39-308); CREATININE FOR GFR 0.91 MG/DL (0.70-1.30); GLOMERULAR FILTRATION RATE > 60.0 (>49); GLUCOSE, FASTING 105 MG/DL (70-100); POTASSIUM SERUM 3.9 MEQ/L (3.5-5.1); SODIUM LEVEL 144 MEQ/L (136-145)
[2018-10-20] MEDS ORDERED: ISOVUE-370 76% 100ML VIAL (Q9967) As Ordered ONE (19:52)
[2018-10-20] MEDS ORDERED: ACETAMINOPHEN TAB 650MG DOSE (2X325MG) PO ONE (20:30)
--- NOTE | 2018-10-20 20:37 | REPVR ---
EXAM: CT Angiography Chest With Contrast EXAM DATE/TIME: 10/20/2018 7:58 PM CLINICAL HISTORY: 68 years old, male; Signs and symptoms and abnormal findings; Abnormal diagnostic tests; Elevated d-dimer; Cough and shortness of breath; Additional info: Cough, SOB, altered mentation and elevated d-dimer TECHNIQUE: Imaging protocol: Axial computed tomographic angiography images of the chest with intravenous contrast using CT angiography protocol. Coronal and sagittal reformatted images were created and reviewed. 3D rendering: MIP reconstructed images were created and reviewed. Radiation optimization: All CT scans at this facility use at least one of these dose optimization techniques: automated exposure control; mA and/or kV adjustment per patient size (includes targeted exams where dose is matched to clinical indication); or iterative reconstruction. Contrast material: ISOVUE 370 Contrast volume: 100 ml Contrast route: IV COMPARISON: CR Ribs uni W-PA CHEST ONLY LEFT 10/20/2018 6:45 PM FINDINGS: Limitations: This examination is limited for evaluation of peripheral pulmonary emboli given motion induced artifact. Pulmonary arteries: The main pulmonary trunk and right and left main pulmonary arteries are well-opacified without filling defects. No definite evidence of pulmonary artery embolism is seen. Aorta: Unremarkable. No aortic aneurysm. No aortic dissection. Lungs: Groundglass opacities are present within the dependent portions of both lungs, likely atelectasis. Dependent pulmonary edema or lower lobe pneumonitis is not excluded. No masood pulmonary consolidation is present. There are tiny calcified granulomas within the posterior right and left lower lobes. Pleural space: Normal. No pneumothorax. No pleural effusion. Heart: No CT scan evidence of right heart dysfunction. There are findings suggestive of left atrial enlargement. Spleen: Tiny calcified granuloma within the spleen. Lymph nodes: Unremarkable. No enlarged lymph nodes. Bones/joints: Degenerative spondylosis of the thoracic spine. No fracture or suspicious bone lesion. IMPRESSION: 1. No definite evidence of pulmonary artery embolism. 2. Left atrial enlargement. 3. Dependent groundglass lung opacities. Differential diagnosis includes atelectasis, dependent edema, and nonspecific pneumonitis. 4. Evidence of prior granulomatous disease. Electronically signed by: Tawanda Eubanks On 10/20/2018 20:36:50 PM
[2018-10-20 20:54] LABS: APPEARANCE, URINE CLEAR (CLEAR); BACTERIA, URINE AUTO NEGATIVE (NEGATIVE); BILIRUBIN, URINE AUTO NEGATIVE (NEGATIVE); BLOOD, URINE BLOOD NEGATIVE (NEGATIVE); COLOR, URINE YELLOW (YELLOW); GLUCOSE, URINE (UA) AUTO NEGATIVE (NEGATIVE); KETONE, URINE AUTO 1+ mg/dL (NEGATIVE); LEUKOCYTE ESTERASE, URINE AUTO NEGATIVE (NEGATIVE); MUCUS, URINE SMALL (NEGATIVE); NITRITE, URINE AUTO NEGATIVE (NEGATIVE); PROTEIN, URINE AUTO NEGATIVE (NEGATIVE); RBC, URINE AUTO 4 /HPF (0-3); SPECIFIC GRAVITY URINE AUTO 1.027 (1.002-1.035); SQUAMOUS EPITHELIAL CELL UR AU 0 /HPF (0-6); WBC, URINE AUTO 0 /HPF (0-3)
[2018-10-20] MEDS ORDERED: FUROSEMIDE 40 MG/4 ML VIAL (J1940) IV ONE (21:00)
[2018-10-20] MEDS ORDERED: ASPI81TA21 PO (21:23)
[2018-10-20] MEDS ORDERED: MUPI2OI TOP (21:23)
[2018-10-20] MEDS ORDERED: VITA-157 PO (21:23)
[2018-10-20] MEDS ORDERED: B COTAB3 PO (21:23)
[2018-10-20] MEDS ORDERED: VITMTA PO (21:23)
[2018-10-20] MEDS ORDERED: ACETAMINOPHEN 500 MG TAB PO PRN (22:00)
[2018-10-20] MEDS ORDERED: KETOROLAC 30 MG/ML VIAL (J1885) IV ONE (22:00)
--- NOTE | 2018-10-20 22:14 | HPEPDOC ---
General Date of Admission 10/20/18 Attending Physician: JAE MURDOCK MD Chief Complaint The patient is a 68-year-old male admitted with a reason for visit of rib pain after fall. Source: Patient, RN/, Old records Exam Limitations: No limitations Severity: Moderate Associated Symptoms: Shortness of breath, Weakness, Dizziness, Mechanical fall History of Present Illness 68 year old male with Morbid obesity, ALEXI not on BIPAP, Parkinson's disease, physical deconditioning with recurrent falls , Chronic A fib , Chronic diastolic CHF, chronic venous stasis presents to the ED s/p 2 mechanical falls today and complaining of left sided lower chest , flank and left upper quadrant pain where hurt himself when he fell. The pain is causing him to have difficulty in deep breathing . He also complained of dizziness and generalized weakness. He says that today his walker was far and he could not reach it before trying to walk. After the first fall he could get up by himself but he tried walking to sit in the sofa and he fell again this time he could not get up. He was down on the floor for about 2 to 3 hours shouting for help. Then his neighbor heard him and called the police and EMS. In the ED he had a CT head which was negative . he also had a CT angio of the chest for SOB and chest pain which was negative for Pulmonary embolism . Did show Left atrial enlargement. Dependent ground glass lung opacities. Differential diagnosis includes atelectasis, dependent edema, and nonspecific pneumonitis. Evidence of prior granulomatous disease. He also had a left Rib xray which was negative for any fractures. His labs has mild elevation of CPK and he was noted to have bipedal edema. He is admitted for [facility] anical fall, inability to ambulate, mild rhabdomyolysis and CHF exacerbation. He does say he does not take his lasix regularly. Home Medications Scheduled Aspirin (Aspir-Low) 81 Mg Tablet., 81 MG PO DAILY, (Reported) Benztropine Mesylate (Benztropine Mesylate) 2 Mg Tab, 2 MG PO BID, (Reported) Buspirone HCl (Buspirone HCl) 10 Mg Tab, 10 MG PO TID, (Reported) Carbidopa/Levodopa (Carbidopa-Levodopa 25-100 Tab) 1 Tab Tab, 2 TAB PO 5XD, (Reported) Multivitamins (Thera M Plus Tablet) 1 Each Tablet, 1 TAB PO DAILY, (Reported) Mupirocin (Mupirocin) 22 Gm Oint...g., 1 APLCT TOP DAILY, (Reported) TO FOOT ULCERS Vitamin B Complex (Vitamin B Complex) 1 Each Tablet, 1 TAB PO DAILY, (Reported) Vitamin E (Dl,Tocopheryl Acet) (Vitamin E) 400 Unit Capsule, 400 UNIT PO DAILY, (Reported) Scheduled PRN Furosemide (Furosemide) 40 Mg Tablet, 40 MG PO DAILY PRN for EDEMA, (Reported) Allergies Coded Allergies: No Known Allergies (Verified , 04/23/18) Past Medical History Medical History PARKINSON'S, DX 2011 - DR CHO MORBID OBESITY VIT D DEF VIT B12 DEF A FIB, CHRONIC - REFUSES ANTICOAG. CHF, CHRONIC DIASTOLIC IMPAIRED FASTING GLUCOSE CHRONIC VENOUS INSUFF, EDEMA CHR CONSTIPATION ECHO 02/23: EF 60%, LAE 63 MM, MILD PULM HTN MRI C SPINE AT NM NEURO, SPONDYLOSIS ALEXI, SEVERE Does not use BIPAP has returned machine 3 years back as he had to pay UMBILICAL HERNIA Surgical History APPENDECTOMY 1959 TONSILLECTOMY 1960 L ANKLE SURGERY 2012 COLONOSCOPY 04/2018 Social History * Smoker: Denies Alcohol: Denies Drugs: denies Review of Systems Constitutional: Denies: Chills, Fever, Night Sweats Eyes: Denies: Pain, Vision change ENT: Denies: Head Aches, Ear Pain, Dysphagia Skin: Reports: Rash, Lesions Pulmonary: Denies: Dyspnea, Cough Cardiovascular: Reports: Chest Pain, Edema, Lt Headedness Gastrointestinal: Denies: Nausea, Vomiting, Abdominal Pain, Diarrhea Genitourinary: Denies: Dysuria, Frequency, Incontinence, Retention Musculoskeletal: Reports: Leg Pain, Joint Pain Neurological: Reports: Weakness, Incoordination Physical Examination General Exam: Positive: Alert, Cooperative, Mild Distress (due to pain from the fall) Eye Exam: Positive: PERRLA, Conjunctiva & lids normal, EOMI; Negative: Sclera icteric ENT Exam: Positive: Atraumatic, Mucous membr. moist/pink, Pharynx Normal Chest Exam: Positive: Normal air movement, Diminished Heart Exam: Positive: Rate Normal, Irregular Rhythm, Normal S1, Normal S2; Negative: Murmurs, Rubs Telemetry: Positive: Atrial fibrillation Abdomen Exam: Positive: Normal bowel sounds, Soft, Tenderness (left flank and left upper quadrant), Other (obese) Extremity Exam: Positive: Edema, Tenderness, Swelling Skin Exam: Positive: Breakdown (abrasions on both the knees left> right), Other skin issue (bilateral erythematous stasis dermatitis with some rash ) Neuro Exam: Positive: Normal Speech, Strength at 5/5 X4 ext, Other (static trmor) Psych Exam: Positive: Memory Intact, Oriented x 3 Vital Signs Vital Signs Date Time Temp Pulse Resp B/P (MAP) Pulse Ox O2 Delivery O2 Flow Rate FiO2 10/20/18 20:50 98.1 10/20/18 20:09 104 114/75 (88) 96 Room Air 10/20/18 17:53 18 Laboratory Data Labs 24H Laboratory Tests 2 10/20/18 18:29: Immature Granulocyte % (Auto) 0.3, White Blood Count 9.3, Red Blood Count 5.23, Hemoglobin 16.0, Hematocrit 49.1, Mean Corpuscular Volume 93.9, Mean Corpuscular Hemoglobin 30.6, Mean Corpuscular Hemoglobin Concent 32.6, Red Cell Distribution Width 13.6, Platelet Count 185, Neutrophils (%) (Auto) 85.8H, Lymphocytes (%) (Auto) 6.7L, Monocytes (%) (Auto) 6.7H, Eosinophils (%) (Auto) 0.3, Basophils (%) (Auto) 0.2, Neutrophils # (Auto) 8.0H, Lymphocytes # (Auto) 0.6L, Monocytes # (Auto) 0.6, Eosinophils # (Auto) 0.0, Basophils # (Auto) 0.0, Nucleated Red Blood Cells % (auto) 0.0, D-Dimer, Quantitative 1611.88H, Anion Gap 7L, Glomerul ar Filtration Rate > 60.0, Blood Urea Nitrogen 28H, Creatinine 0.91, Sodium Level 144, Potassium Level 3.9, Chloride Level 109H, Carbon Dioxide Level 28, Calcium Level 8.7L, Total Creatine Kinase 3661H, Ammonia < 10, Creatine Kinase MB 88.0H, Creatine Kinase MB Relative Index 2.40, Troponin I 0.10, Thyroid Stimulating Hormone (TSH) 2.940 10/20/18 20:40: Urine Appearance CLEAR, Urine Color YELLOW, Urine pH 5.0, Urine Specific [place] 1.027, Urine Protein NEGATIVE, Urine Glucose (UA) NEGATIVE, Urine Ketones 1+H, Urine Urobilinogen 2.0H, Urine Bilirubin NEGATIVE, Urine Leukocyte Esterase NEGATIVE, Urine Blood NEGATIVE, Urine Nitrite NEGATIVE, Urine WBC (Auto) 0, Urine RBC (Auto) 4H, Urine Hyaline Casts (Auto) 0, Urine Bacteria (Auto) NEGATIVE, Urine Squamous Epithelial Cells 0, Urine Mucus (Auto) SMALL, Urine Sperm (Auto) CBC/BMP Laboratory Tests 10/20/18 18:29 Red Blood Count 5.23, Mean Corpuscular Volume 93.9, Mean Corpuscular Hemoglobin 30.6, Mean Corpuscular Hemoglobin Concent 32.6, Red Cell Distribution Width 13.6, Neutrophils (%) (Auto) 85.8 H, Lymphocytes (%) (Auto) 6.7 L, Monocytes (%) (Auto) 6.7 H, Eosinophils (%) (Auto) 0.3, Basophils (%) (Auto) 0.2, Neutrophils # (Auto) 8.0 H, Lymphocytes # (Auto) 0.6 L, Monocytes # (Auto) 0.6, Eosinophils # (Auto) 0.0, Basophils # (Auto) 0.0, Calcium Level 8.7 L, Total Creatine Kinase 3661 H Assessment/Plan 68 year old male with Morbid obesity, ALEXI not on BIPAP, Parkinson's disease, physical deconditioning with recurrent falls , Chronic A fib , Chronic diastolic CHF, chronic venous stasis presents to the ED s/p 2 mechanical falls today and complaining of left sided lower chest , flank and left upper quadrant pain where hurt himself when he fell. The pain is causing him to have difficulty in deep breathing . He also complained of dizziness and generalized weakness. He says that today his walker was far and he could not reach it before trying to walk. After the first fall he could get up by himself but he tried walking to sit in the sofa and he fell again this time he could not get up. He was down on the floor for about 2 to 3 hours shouting for help. Then his neighbor heard him and called the police and EMS. In the ED he had a CT head which was negative . he also had a CT angio of the chest for SOB and chest pain which was negative for Pulmonary embolism . Did show Left atrial enlargement. Dependent ground glass lung opacities. Differential diagnosis includes atelectasis, dependent edema, and nonspecific pneumonitis. Evidence of prior granulomatous disease. He had a left rib xray which was negative for any rib fractures. His labs has mild elevation of CPK and he was noted to have bipedal edema. He is admitted for mechanical fall, inability to ambulate, mild rhabdomyolysis and CHF exacerbation. Mechanical fall with inability to ambulate due to Parkinson disease related movement disorder. has had several falls this year. Was in rehab for a month earlier this year. has been progressively deteriorating in his balance and movement with generalized deconditioning. pain control with tylenol and ketorolac PT and OT may need placement Diastolic CHF exacerbation will continue with IV lasix fluid and slat restricted diet Parkinson's disease continue home med Rhabdomyolysis due to fall and being down for several hours. will not give fluid as patient is clearly fluid overloaded at this point Chronic venous stasis with stasis dermatitis continue lasix . will try TEDS if he can tolerate it. ALEXI was prescribed BIPAP has not used it for 3 years or more as he had to pay for the machine so he returned it. Morbid obesity complicating care Intertriginous candidiasis will give nystatin powder A fib rate controlled , not on any meds. On ASA. refused anticoagulation in the past. DVT prophylaxis ordered. Plan / VTE VTE Prophylaxis Ordered?: Yes JAE MURDOCK MD Oct 20, 2018 21:05
[2018-10-20 23:05] VITALS: BP 129/69
[2018-10-20] MEDS: HEPARIN SOD (PORCINE) 5000 UNITS/ML VIAL SC SCH (23:42)
[2018-10-20] MEDS: NYSTATIN 100,000 UNITS/GM TOPICAL PWD 15 GM TOP SCH (23:43)
[2018-10-21] MEDS: SINEMET 25-100 MG TAB PO SCH ×5 (05:28→20:05)
[2018-10-21 06:00] VITALS: BP 113/72
[2018-10-21 06:57] LABS: BASO % 0.3 % (0.0-1.0); EOS # 0.1 10^3/uL (0.0-0.50); HEMATOCRIT 42.9 % (42.0-52.0); HEMOGLOBIN 14.1 g/dl (13.5-17.5); LYMPH # 0.9 10^3/uL (1.5-4.5); LYMPH % 14.4 % (24.0-44.0); MEAN CORPUSCULAR HEMOGLOBIN 30.5 pg (27.0-33.0); MEAN CORPUSCULAR HGB CONC 32.9 g/dl (32.0-36.5); MEAN CORPUSCULAR VOLUME 92.7 fl (80.0-96.0); MONO # 0.6 10^3/uL (0.0-0.8); MONO % 10.6 % (0.0-5.0); NEUTROPHILS # 4.3 10^3/uL (1.8-7.7); NEUTROPHILS % 72.4 % (36.0-66.0); PLATELET COUNT, AUTOMATED 189 10^3/uL (150-450); RED BLOOD COUNT 4.63 10^6/uL (4.30-6.10)
[2018-10-21 07:23] LABS: BLOOD UREA NITROGEN 27 MG/DL (7-18); CALCIUM LEVEL 8.6 MG/DL (8.8-10.2); CARBON DIOXIDE LEVEL 27 MEQ/L (21-32); CHLORIDE LEVEL 110 MEQ/L (98-107); GLOMERULAR FILTRATION RATE > 60.0 (>49); GLUCOSE, FASTING 100 MG/DL (70-100); MAGNESIUM LEVEL 2.3 MG/DL (1.8-2.4); POTASSIUM SERUM 3.8 MEQ/L (3.5-5.1); SODIUM LEVEL 143 MEQ/L (136-145)
[2018-10-21] MEDS: busPIRone 10 MG TAB PO SCH ×3 (08:52→20:06)
[2018-10-21] MEDS: ASPIRIN 81 MG ENTERIC TAB PO SCH (08:52)
[2018-10-21] MEDS: HEPARIN SOD (PORCINE) 5000 UNITS/ML VIAL SC SCH ×2 (08:53→20:06)
[2018-10-21] MEDS: NYSTATIN 100,000 UNITS/GM TOPICAL PWD 15 GM TOP SCH ×2 (08:53→20:06)
[2018-10-21] MEDS ORDERED: FUROSEMIDE 40 MG/4 ML VIAL (J1940) IV SCH ×2 (09:00)
--- NOTE | 2018-10-21 09:06 | IPNPDOC ---
Subjective Date Seen The patient was seen on 10/21/18. Subjective Chief Complaint/HPI fall Events since last encounter States he felt dizzy and fell at home. See H&P for details. feels better today, thinks maybe he had vertigo. PT/OT eval pending. has wounds to LLE that he uses bleach bath and foam dressings for. Pulmonary: Denies: Dyspnea, Cough, Pleuritic Chest Pain, Other Symptoms Cardiovascular: Denies: Chest Pain, Palpitations, Orthopnea, Paroxysmal Noc. Dyspnea, Lt Headedness Gastrointestinal: Denies: Nausea, Vomiting, Abdominal Pain, Diarrhea, Constipation Genitourinary: Denies: Dysuria, Frequency, Incontinence, Retention Objective Physical Examination General Exam: Positive: Alert, Cooperative, Mild Distress (due to pain from the fall) Eye Exam: Positive: PERRLA, Conjunctiva & lids normal, EOMI; Negative: Sclera icteric ENT Exam: Positive: Atraumatic, Mucous membr. moist/pink, Pharynx Normal Chest Exam: Positive: Normal air movement, Diminished Heart Exam: Positive: Rate Normal, Irregular Rhythm, Normal S1, Normal S2; Negative: Murmurs, Rubs Telemetry: Positive: Atrial fibrillation Abdomen Exam: Positive: Normal bowel sounds, Soft, Other (obese, umbilical hernia, soft, reducible); Negative: Tenderness Extremity Exam: Positive: Edema, Tenderness, Swelling Skin Exam: Positive: Breakdown (abrasions on both the knees left> right), Other skin issue (bilateral erythematous stasis dermatitis with some rash ) Neuro Exam: Positive: Normal Speech, Strength at 5/5 X4 ext, Other (static tremor) Psych Exam: Positive: Memory Intact, Oriented x 3 Assessment /Plan Problems (1) Fall Status: Acute Problem Specific Plan: Consult Specialist Problem Text: PT/OT eval pending. will consult PFS (2) Afib Status: Chronic Problem Text: rate controlled. patient refuses anti-coagulation. On Heparin for DVT prophylaxis. (3) Parkinson disease Status: Chronic (4) CHF (congestive heart failure) Status: Chronic Problem Text: appears well compensated. received lasix 40 mg IV q12 hrs with significant diuresis. Will resume 40 mg po daily, which is home dosing. (5) Anxiety Status: Chronic Response to Treatment: Stable Problem Text: follows at [facility] as an outpatient Plan/VTE VTE Prophylaxis Ordered?: Yes VS, I&O, 24H, [facility] Vital Signs/I&O Vital Signs Date Time Temp Pulse Resp B/P (MAP) Pulse Ox O2 Delivery O2 Flow Rate FiO2 10/21/18 06:00 97.1 90 18 113/72 (86) 93 10/20/18 22:45 Room Air I&O- Last 24 Hours up to 6 AM 10/21/18 06:00 Intake Total 0 ml Output Total 1475 ml Balance -1475 ml Laboratory Data 24H LABS Laboratory Tests 2 10/20/18 18:29: Immature Granulocyte % (Auto) 0.3, White Blood Count 9.3, Red Blood Count 5.23, Hemoglobin 16.0, Hematocrit 49.1, Mean Corpuscular Volume 93.9, Mean Corpuscular Hemoglobin 30.6, Mean Corpuscular Hemoglobin Concent 32.6, Red Cell Distribution Width 13.6, Platelet Count 185, Neutrophils (%) (Auto) 85.8H, Lymphocytes (%) (Auto) 6.7L, Monocytes (%) (Auto) 6.7H, Eosinophils (%) (Auto) 0.3, Basophils (%) (Auto) 0.2, Neutrophils # (Auto) 8.0H, Lymphocytes # (Auto) 0.6L, Monocytes # (Auto) 0.6, Eosinophils # (Auto) 0.0, Basophils # (Auto) 0.0, Nucleated Red Blood Cells % (auto) 0.0, D-Dimer, Quantitative 1611.88H, Anion Gap 7L, Glomerular Filtration Rate > 60.0, Blood Urea Nitrogen 28H, Creatinine 0.91, Sodium Level 144, Potassium Level 3.9, Chloride Level 109H, Carbon Dioxide Level 28, Calcium Level 8.7L, Total Creatine Kinase 3661H, Ammonia < 10, Creatine Kinase MB 88.0H, Creatine Kinase MB Relative Index 2.40, Troponin I 0.10, Thyroid Stimulating Hormone (TSH) 2.940 10/20/18 20:40: Urine Appearance CLEAR, Urine Color YELLOW, Urine pH 5.0, Urine Specific [place] 1.027, Urine Protein NEGATIVE, Urine Glucose (UA) NEGATIVE, Urine Ketones 1+H, Urine Urobilinogen 2.0H, Urine Bilirubin NEGATIVE, Urine Leukocyte Esterase NEGATIVE, Urine Blood NEGATIVE, Urine Nitrite NEGATIVE, Urine WBC (Auto) 0, Urine RBC (Auto) 4H, Urine Hyaline Casts (Auto) 0, Urine Bacteria (Auto) NEGATIVE, Urine Squamous Epithelial Cells 0, Urine Mucus (Auto) SMALL, Urine Sperm (Auto) 10/21/18 06:46: Immature Granulocyte % (Auto) 0.3, White Blood Count 6.0, Red Blood Count 4.63, Hemoglobin 14.1, Hematocrit 42.9, Mean Corpuscular Volume 92.7, Mean Corpuscular Hemoglobin 30.5, Mean Corpuscular Hemoglobin Concent 32.9, Red Cell Distribution Width 13.8, Platelet Count 189, Neutrophils (%) (Auto) 72.4H, Lymphocytes (%) (Auto) 14.4L, Monocytes (%) (Auto) 10.6H, Eosinophils (%) (Auto) 2.0, Basophils (%) (Auto) 0.3, Neutrophils # (Auto) 4.3, Lymphocytes # (Auto) 0.9L, Monocytes # (Auto) 0.6, Eosinophils # (Auto) 0.1, Basophils # (Auto) 0.0, Nucleated Red Blood Cells % (auto) 0.0, Anion Gap 6L, Glomerular Filtration Rate > 60.0, Blood Urea Nitrogen 27H, Creatinine 1.00, Sodium Level 143, Potassium Level 3.8, Chloride Level 110H, Carbon Dioxide Level 27, Calcium Level 8.6L, Magnesium Level 2.3 CBC/BMP Laboratory Tests 10/20/18 18:29 Red Blood Count 5.23, Mean Corpuscular Volume 93.9, Mean Corpuscular Hemoglobin 30.6, Mean Corpuscular Hemoglobin Concent 32.6, Red Cell Distribution Width 13.6, Neutrophils (%) (Auto) 85.8 H, Lymphocytes (%) (Auto) 6.7 L, Monocytes (%) (Auto) 6.7 H, Eosinophils (%) (Auto) 0.3, Basophils (%) (Auto) 0.2, Neutrophils # (Auto) 8.0 H, Lymphocytes # (Auto) 0.6 L, Monocytes # (Auto) 0.6, Eosinophils # (Auto) 0.0, Basophils # (Auto) 0.0, Calcium Level 8.7 L, Total Creatine Kinase 3661 H 10/21/18 06:46 Red Blood Count 4.63, Mean Corpuscular Volume 92.7, Mean Corpuscular Hemoglobin 30.5, Mean Corpuscular Hemoglobin Concent 32.9, Red Cell Distribution Width 13.8, Neutrophils (%) (Auto) 72.4 H, Lymphocytes (%) (Auto) 14.4 L, Monocytes (%) (Auto) 10.6 H, Eosinophils (%) (Auto) 2.0, Basophils (%) (Auto) 0.3, Neutrophils # (Auto) 4.3, Lymphocytes # (Auto) 0.9 L, Monocytes # (Auto) 0.6, Eosinophils # (Auto) 0.1, Basophils # (Auto) 0.0, Calcium Level 8.6 L Attending Note Attending Note Patient seen and examined. Feels essentially back to normal. Before his fall, he experienced sense that he was being pulled to the left as he tried to walk. He had visual disturbance also that made it seem like everything was covered in mist and had sense that he was looking through the wrong end of a telescope. No headache. No history of migraines. These visual distortions have now resolved. Carolyn Mccarty Oct 21, 2018 09:06 Paresh Solis MD Oct 21, 2018 09:52
--- NOTE | 2018-10-21 09:35 | REP ---
Left rib series four views: There is no rib fracture or other rib abnormality. PA chest: Comparison is 04/20/2018. There is no pneumothorax, hemothorax or pulmonary contusion. No pleural thickening. Cardiac size appears enlarged, unchanged. Electronically Signed by Vipin Palafox MD 10/21/2018 07:39 A
[2018-10-21 14:00] VITALS: BP 135/79
[2018-10-21] MEDS: KETOROLAC 30 MG/ML VIAL (J1885) IV PRN (16:51)
[2018-10-21 22:00] VITALS: BP 122/67
[2018-10-22 06:00] VITALS: BP 164/69
[2018-10-22] MEDS: SINEMET 25-100 MG TAB PO SCH ×5 (06:19→20:12)
[2018-10-22 06:40] LABS: BASO % 0.4 % (0.0-1.0); EOS # 0.2 10^3/uL (0.0-0.50); EOS % 4.5 % (0.0-3.0); HEMATOCRIT 44.4 % (42.0-52.0); LYMPH % 21.5 % (24.0-44.0); MEAN CORPUSCULAR HEMOGLOBIN 29.5 pg (27.0-33.0); MEAN CORPUSCULAR HGB CONC 31.5 g/dl (32.0-36.5); MEAN CORPUSCULAR VOLUME 93.7 fl (80.0-96.0); MONO # 0.5 10^3/uL (0.0-0.8); MONO % 10.3 % (0.0-5.0); NEUTROPHILS # 2.8 10^3/uL (1.8-7.7); NEUTROPHILS % 63.1 % (36.0-66.0); PLATELET COUNT, AUTOMATED 179 10^3/uL (150-450); RED BLOOD COUNT 4.74 10^6/uL (4.30-6.10); WHITE BLOOD COUNT 4.5 10^3/uL (4.0-10.0)
[2018-10-22 06:57] LABS: BLOOD UREA NITROGEN 28 MG/DL (7-18); CALCIUM LEVEL 8.2 MG/DL (8.8-10.2); CARBON DIOXIDE LEVEL 28 MEQ/L (21-32); CHLORIDE LEVEL 106 MEQ/L (98-107); CREATININE FOR GFR 0.98 MG/DL (0.70-1.30); GLOMERULAR FILTRATION RATE > 60.0 (>49); GLUCOSE, FASTING 102 MG/DL (70-100); POTASSIUM SERUM 3.3 MEQ/L (3.5-5.1); SODIUM LEVEL 141 MEQ/L (136-145)
[2018-10-22] MEDS ORDERED: POTASSIUM CHLORIDE 10 MEQ SR TABLET PO ONE (08:30)
--- NOTE | 2018-10-22 08:36 | IPNPDOC ---
Subjective Date Seen The patient was seen on 10/22/18. Subjective Chief Complaint/HPI denies further dizziness. S/p PT eval yesterday with recommendations for sib- acute rehab. Patient is agreeable. Skin: Reports: Breakdown (chronic venous stasis of BLE ) Pulmonary: Denies: Dyspnea, Cough Cardiovascular: Denies: Chest Pain, Palpitations, Orthopnea, Paroxysmal Noc. D yspnea, Lt Headedness Gastrointestinal: Denies: Nausea, Vomiting, Abdominal Pain, Diarrhea, Constipation Objective Physical Examination General Exam: Positive: Alert, Cooperative; Negative: Mild Distress Eye Exam: Positive: PERRLA, Conjunctiva & lids normal, EOMI; Negative: Sclera icteric ENT Exam: Positive: Atraumatic, Mucous membr. moist/pink, Pharynx Normal Chest Exam: Positive: Normal air movement, Diminished Heart Exam: Positive: Rate Normal, Irregular Rhythm, Normal S1, Normal S2; Negative: Murmurs, Rubs Telemetry: Positive: Atrial fibrillation Abdomen Exam: Positive: Normal bowel sounds, Soft, Tenderness (left flank and left upper quadrant), Other (obese) Extremity Exam: Positive: Edema, Tenderness, Swelling Skin Exam: Positive: Breakdown (abrasions on both the knees left> right), Other skin issue (bilateral erythematous stasis dermatitis with some rash : foam dressing to Bilateral feet) Neuro Exam: Positive: Normal Speech, Strength at 5/5 X4 ext, Other (static tremor) Psych Exam: Positive: Memory Intact, Oriented x 3 Assessment /Plan Problems (1) Fall Status: Acute Problem Specific Plan: Consult Specialist Problem Text: 10/22/18: consider subacute rehab upon DC PT/OT eval pending. will consult PFS (2) Afib Status: Chronic Response to Treatment: Stable Problem Text: rate controlled. patient refuses anti-coagulation. On Heparin for DVT prophylaxis. (3) Parkinson disease Status: Chronic Response to Treatment: Stable Problem Specific Plan: Monitor Clinically (4) CHF (congestive heart failure) Status: Chronic Problem Text: 10/22/18: mild hypokalemia today after increased lasix dosing. 1 time replacement ordered. Appears well compensated. appears well compensated. received lasix 40 mg IV q12 hrs with significant diuresis. Will resume 40 mg po daily, which is home dosing. (5) Anxiety Status: Chronic Response to Treatment: Stable Problem Text: follows at the [facility] as an outpatient Plan/VTE VTE Prophylaxis Ordered?: Yes VS, I&O, 24H, [facility] Vital Signs/I&O Vital Signs Date Time Temp Pulse Resp B/P (MAP) Pulse Ox O2 Delivery O2 Flow Rate FiO2 10/22/18 06:00 97.8 98 20 164/69 (100) 94 10/20/18 22:45 Room Air I&O- Last 24 Hours up to 6 AM 10/22/18 06:00 Intake Total 1590 ml Output Total 1290 ml Balance 300 ml Laboratory Data 24H LABS Laboratory Tests 2 10/22/18 05:24: Immature Granulocyte % (Auto) 0.2, White Blood Count 4.5, Red Blood Count 4.74, Hemoglobin 14.0, Hematocrit 44.4, Mean Corpuscular Volume 93.7, Mean Corpuscular Hemoglobin 29.5, Mean Corpuscular Hemoglobin Concent 31.5L, Red Cell Dis tribution Width 13.5, Platelet Count 179, Neutrophils (%) (Auto) 63.1, Lymphocytes (%) (Auto) 21.5L, Monocytes (%) (Auto) 10.3H, Eosinophils (%) (Auto) 4.5H, Basophils (%) (Auto) 0.4, Neutrophils # (Auto) 2.8, Lymphocytes # (Auto) 1.0L, Monocytes # (Auto) 0.5, Eosinophils # (Auto) 0.2, Basophils # (Auto) 0.0, Nucleated Red Blood Cells % (auto) 0.0, Anion Gap 7L, Glomerular Filtration Rate > 60.0, Blood Urea Nitrogen 28H, Creatinine 0.98, Sodium Level 141, Potassium Level 3.3L, Chloride Level 106, Carbon Dioxide Level 28, Calcium Level 8.2L CBC/BMP Laboratory Tests 10/22/18 05:24 Red Blood Count 4.74, Mean Corpuscular Volume 93.7, Mean Corpuscular Hemoglobin 29.5, Mean Corpuscular Hemoglobin Concent 31.5 L, Red Cell Distribution Width 13.5, Neutrophils (%) (Auto) 63.1, Lymphocytes (%) (Auto) 21.5 L, Monocytes (%) (Auto) 10.3 H, Eosinophils (%) (Auto) 4.5 H, Basophils (%) (Auto) 0.4, Neutrophils # (Auto) 2.8, Lymphocytes # (Auto) 1.0 L, Monocytes # (Auto) 0.5, Eosinophils # (Auto) 0.2, Basophils # (Auto) 0.0, Calcium Level 8.2 L Carolyn Mccarty Oct 22, 2018 08:36 Paresh Solis MD Oct 22, 2018 11:47
[2018-10-22] MEDS: NYSTATIN 100,000 UNITS/GM TOPICAL PWD 15 GM TOP SCH ×2 (09:01→20:12)
[2018-10-22] MEDS: HEPARIN SOD (PORCINE) 5000 UNITS/ML VIAL SC SCH ×2 (09:01→20:12)
[2018-10-22] MEDS: ASPIRIN 81 MG ENTERIC TAB PO SCH (09:02)
[2018-10-22] MEDS: FUROSEMIDE 40 MG TAB PO SCH (09:02)
[2018-10-22] MEDS: busPIRone 10 MG TAB PO SCH ×3 (09:02→20:11)
[2018-10-22] MEDS: KETOROLAC 30 MG/ML VIAL (J1885) IV PRN (10:03)
[2018-10-22 14:00] VITALS: BP 149/69
[2018-10-22 22:00] VITALS: BP 124/64
[2018-10-23] MEDS: SINEMET 25-100 MG TAB PO SCH ×2 (05:40→09:00)
[2018-10-23 06:00] VITALS: BP 128/64
[2018-10-23 06:36] LABS: BASO % 0.2 % (0.0-1.0); EOS # 0.2 10^3/uL (0.0-0.50); EOS % 5.8 % (0.0-3.0); HEMATOCRIT 43.3 % (42.0-52.0); LYMPH # 0.9 10^3/uL (1.5-4.5); LYMPH % 20.9 % (24.0-44.0); MEAN CORPUSCULAR HEMOGLOBIN 29.9 pg (27.0-33.0); MEAN CORPUSCULAR HGB CONC 32.3 g/dl (32.0-36.5); MEAN CORPUSCULAR VOLUME 92.5 fl (80.0-96.0); MONO # 0.4 10^3/uL (0.0-0.8); MONO % 10.2 % (0.0-5.0); NEUTROPHILS # 2.6 10^3/uL (1.8-7.7); NEUTROPHILS % 62.9 % (36.0-66.0); PLATELET COUNT, AUTOMATED 180 10^3/uL (150-450); RED BLOOD COUNT 4.68 10^6/uL (4.30-6.10); WHITE BLOOD COUNT 4.1 10^3/uL (4.0-10.0)
[2018-10-23 06:55] LABS: BLOOD UREA NITROGEN 23 MG/DL (7-18); CALCIUM LEVEL 8.4 MG/DL (8.8-10.2); CARBON DIOXIDE LEVEL 28 MEQ/L (21-32); CHLORIDE LEVEL 110 MEQ/L (98-107); CREATININE FOR GFR 0.82 MG/DL (0.70-1.30); GLOMERULAR FILTRATION RATE > 60.0 (>49); GLUCOSE, FASTING 102 MG/DL (70-100); POTASSIUM SERUM 3.5 MEQ/L (3.5-5.1); SODIUM LEVEL 143 MEQ/L (136-145)
[2018-10-23] MEDS: NYSTATIN 100,000 UNITS/GM TOPICAL PWD 15 GM TOP SCH (09:00)
[2018-10-23] MEDS: ASPIRIN 81 MG ENTERIC TAB PO SCH (09:00)
[2018-10-23] MEDS: busPIRone 10 MG TAB PO SCH (09:00)
[2018-10-23] MEDS: FUROSEMIDE 40 MG TAB PO SCH (09:00)
[2018-10-23] MEDS: HEPARIN SOD (PORCINE) 5000 UNITS/ML VIAL SC SCH (09:00)
[2018-10-23] MEDS ORDERED: FURO40TA2 PO (09:25)
--- NOTE | 2018-10-23 11:25 | DSES ---
DATE OF ADMISSION: 10/20/2018 DATE OF DISCHARGE: 10/23/2018 PCP: Teresa Castellon PA-C HISTORY: This is a 68-year-old male, morbidly obese, history of Parkinson's disease, obstructive sleep apnea, noncompliant with CPAP with physical deconditioning who suffered a fall at home who presented to the emergency room after suffering two falls today can complaining of left sided lower chest flank and left upper quadrant pain where he hurt himself when he fell, he was having difficulty deep breathing as the result of the pain. He was admitted to the hospital for mechanical fall with decreased ability to ambulate, acute diastolic congestive heart failure, and rhabdomyolysis as he was on the floor for 2-3 hours and had and elevated [place] 3661 on presentation. During his hospitalization his respiratory status has improved with IV Lasix, he has been transitioned back over to his at home oral dose. His renal function remains stable despite an elevated CK. He underwent x-rays of the ribs in the emergency room which were negative for fracture. He also underwent CT scan of the head which was without any acute abnormality. CT angio was without any acute findings as well. He has had some improvement during his hospitalization. He has been seen by physical therapy who have recommended short term rehabilitation. Patient and family services have coordinated this for him and he will be discharged for short term rehabilitation. This patient would likely benefit from [facility] assisted living and I have had this conversation with him before, hopefully, we will be able to transition into this as we move forward. DISCHARGE DIAGNOSES: Include: Acute on chronic diastolic congestive heart failure. Mechanical fall with decreased ability to ambulate, and generalized weakness. Rhabdomyolysis. Parkinson's disease. Morbid obesity. Obstructive sleep apnea, noncompliance with CPAP. DISCHARGE MEDICATIONS: Include: Aspirin 81 mg by mouth daily, benztropine 2 mg by mouth twice a day, buspirone 10 mg by mouth three times a day, carbidopa/levodopa 25/100 two tablets five times daily, furosemide 40 mg daily, multivitamin one tablet daily, nystatin powder topically to abdominal folds and groin daily, vitamin B complex one tablet daily, vitamin E 400 units by mouth daily. DISCHARGE PLAN: Followup with Teresa Castellon upon discharge from short term rehabilitation. His activity should be as tolerated. His diet should be 2 gram sodium with 1800 mL fluid restriction.
[2018-10-23] MEDS ORDERED: CALCIUM CARBONATE 500 MG CHEW U/D PO ONE (11:45)
== END 2018-10-23 13:07 | DRG 292 ==
LOC: M ED 17:38 → EDBD 17:38 → M ED INP 21:46 → M MSPAV 23:04
PROVIDERS: ADMIT Internal Medicine Nephrology; ATTEND Family Medicine
DX: I50.33 Acute on chronic diastolic (congestive) heart failure (principal); M62.82 Rhabdomyolysis; Z68.41 Body mass index [BMI] 40.0-44.9, adult; E66.01 Morbid (severe) obesity due to excess calories; G47.33 Obstructive sleep apnea (adult) (pediatric); G20 Parkinson's disease; R29.6 Repeated falls; I48.2 Chronic atrial fibrillation; B37.2 Candidiasis of skin and nail; E55.9 Vitamin D deficiency, unspecified; I87.2 Venous insufficiency (chronic) (peripheral); F41.9 Anxiety disorder, unspecified; E53.8 Deficiency of other specified B group vitamins; R73.01 Impaired fasting glucose; K59.09 Other constipation; Z90.49 Acquired absence of other specified parts of digestive tract; Z79.82 Long term (current) use of aspirin; Z79.899 Other long term (current) drug therapy; Z91.19 Patient's noncompliance with other medical treatment and regimen

== ENCOUNTER → 2018-10-30 | Outpatient (REF) | payer MEDICARE ==
[~2018-10-30] MED LIST changes: +ASPI81TA21 PO; +B COTAB3 PO; +MUPI2OI TOP; +VITA-157 PO
[2018-10-30 10:40] LABS: HEMOGLOBIN 16.1 g/dl (13.5-17.5); MEAN CORPUSCULAR HEMOGLOBIN 30.3 pg (27.0-33.0); MEAN CORPUSCULAR HGB CONC 32.2 g/dl (32.0-36.5); MEAN CORPUSCULAR VOLUME 94.2 fl (80.0-96.0); PLATELET COUNT, AUTOMATED 223 10^3/uL (150-450); RED BLOOD COUNT 5.31 10^6/uL (4.30-6.10)
[2018-10-30 11:14] LABS: BLOOD UREA NITROGEN 18 MG/DL (7-18); CALCIUM LEVEL 8.9 MG/DL (8.8-10.2); CARBON DIOXIDE LEVEL 30 MEQ/L (21-32); CHLORIDE LEVEL 103 MEQ/L (98-107); CREATININE FOR GFR 1.05 MG/DL (0.70-1.30); GLOMERULAR FILTRATION RATE > 60.0 (>49); GLUCOSE, FASTING 93 MG/DL (70-100); NT-PRO BNP 670 PG/ML (<125); POTASSIUM SERUM 3.9 MEQ/L (3.5-5.1); SODIUM LEVEL 139 MEQ/L (136-145)
== END ==
PROVIDERS: ATTEND Family Medicine
DX: I50.9 Heart failure, unspecified (principal)

== ENCOUNTER → 2018-11-12 | Outpatient (REF) | payer MEDICARE ==
[2018-11-12 10:48] LABS: BLOOD UREA NITROGEN 13 MG/DL (7-18); CALCIUM LEVEL 8.9 MG/DL (8.8-10.2); CARBON DIOXIDE LEVEL 28 MEQ/L (21-32); CHLORIDE LEVEL 105 MEQ/L (98-107); CREATININE FOR GFR 0.91 MG/DL (0.70-1.30); GLOMERULAR FILTRATION RATE > 60.0 (>49); GLUCOSE, FASTING 118 MG/DL (70-100); NT-PRO BNP 708 PG/ML (<125); POTASSIUM SERUM 3.4 MEQ/L (3.5-5.1); SODIUM LEVEL 140 MEQ/L (136-145)
[2018-11-12 10:53] LABS: HEMATOCRIT 43.8 % (42.0-52.0); HEMOGLOBIN 14.4 g/dl (13.5-17.5); MEAN CORPUSCULAR HEMOGLOBIN 30.3 pg (27.0-33.0); MEAN CORPUSCULAR HGB CONC 32.9 g/dl (32.0-36.5); PLATELET COUNT, AUTOMATED 184 10^3/uL (150-450); RED BLOOD COUNT 4.76 10^6/uL (4.30-6.10); WHITE BLOOD COUNT 3.7 10^3/uL (4.0-10.0)
== END ==
PROVIDERS: ATTEND Family Medicine
DX: I50.9 Heart failure, unspecified (principal)

== ENCOUNTER → 2018-12-17 | Outpatient (REF) | payer MEDICARE ==
[2018-12-17 19:22] LABS: ALBUMIN 3.7 GM/DL (3.2-5.2); BLOOD UREA NITROGEN 20 MG/DL (7-18); CALCIUM LEVEL 8.7 MG/DL (8.8-10.2); CARBON DIOXIDE LEVEL 28 MEQ/L (21-32); CHLORIDE LEVEL 105 MEQ/L (98-107); CREATININE FOR GFR 0.88 MG/DL (0.70-1.30); GLOMERULAR FILTRATION RATE > 60.0 (>49); GLUCOSE, FASTING 98 MG/DL (70-100); PHOSPHORUS LEVEL 3.7 MG/DL (2.5-4.9); POTASSIUM SERUM 4.2 MEQ/L (3.5-5.1); SODIUM LEVEL 140 MEQ/L (136-145)
== END ==
LOC: M SFHCADAM 15:02
PROVIDERS: ATTEND Physician Assistant Medical
DX: I50.32 Chronic diastolic (congestive) heart failure (principal)
CPT/HCPCS: 80069; G0463

== ENCOUNTER → 2019-03-19 | Outpatient (REF) | payer MEDICARE, MEDICAID ==
[~2019-03-19] MED LIST changes: -BISO5TAB5 PO; +BISO5TAB9 PO
[2019-03-19 09:12] LABS: BASO % 0.6 % (0.0-1.0); EOS # 0.2 10^3/uL (0.0-0.5); EOS % 4.4 % (0.0-3.0); HEMOGLOBIN 15.5 g/dl (13.5-17.5); LYMPH # 1.5 10^3/uL (1.5-5.0); LYMPH % 29.6 % (24.0-44.0); MEAN CORPUSCULAR HEMOGLOBIN 30.5 pg (27.0-33.0); MEAN CORPUSCULAR VOLUME 92.3 fl (80.0-96.0); MONO # 0.5 10^3/uL (0.0-0.8); NEUTROPHILS # 2.8 10^3/uL (1.5-8.5); NEUTROPHILS % 56.2 % (36.0-66.0); PLATELET COUNT, AUTOMATED 196 10^3/uL (150-450); RED BLOOD COUNT 5.09 10^6/uL (4.30-6.10)
[2019-03-19 09:20] LABS: HEMOGLOBIN A1c 6.3 %
[2019-03-19 09:36] LABS: ALBUMIN 3.9 GM/DL (3.2-5.2); ALT/SGPT < 6 U/L (12-78); BILIRUBIN,TOTAL 0.6 MG/DL (0.2-1.0); BLOOD UREA NITROGEN 21 MG/DL (7-18); CALCIUM LEVEL 9.4 MG/DL (8.8-10.2); CARBON DIOXIDE LEVEL 27 MEQ/L (21-32); CHLORIDE LEVEL 107 MEQ/L (98-107); CHOLESTEROL LEVEL 200 MG/DL (<200); CREATININE FOR GFR 0.99 MG/DL (0.70-1.30); FREE T4 0.99 NG/DL (0.76-1.46); GLOMERULAR FILTRATION RATE > 60.0 (>49); GLUCOSE, FASTING 102 MG/DL (70-100); HDL CHOLESTEROL 40 MG/DL (>40); LDL CHOLESTEROL 139 MG/DL (<100); MAGNESIUM LEVEL 2.2 MG/DL (1.8-2.4); NON-HDL-C 160 MG/DL; POTASSIUM SERUM 3.7 MEQ/L (3.5-5.1); SODIUM LEVEL 143 MEQ/L (136-145); TOTAL PROTEIN 6.7 GM/DL (6.4-8.2); TRIGLYCERIDES LEVEL 107 MG/DL (<150)
[2019-03-19 09:39] LABS: TOTAL 25(OH) VITAMIN D 27.5 NG/ML (30.0-100.0)
== END ==
PROVIDERS: ATTEND Physician Assistant Medical
DX: I50.32 Chronic diastolic (congestive) heart failure (principal); I48.2 Chronic atrial fibrillation; G20 Parkinson's disease; E53.8 Deficiency of other specified B group vitamins; E55.9 Vitamin D deficiency, unspecified; R73.01 Impaired fasting glucose

== ENCOUNTER → 2019-05-16 | Outpatient (REF) | payer MEDICARE, MEDICAID ==
[~2019-05-16] MED LIST changes: +ACET-907 PO; +ASPI-161 PO; +CALC500T60 PO; +CIPR-249 PO; +DOXY100C37 PO; +ENTA1TAB PO; +FLAG500T PO; +LOPE2TAB12 PO; +MECL12.575 PO; +MOM30SS PO; +PEPT525S PO; +ZOFR4TAB16 PO
[2019-05-16 19:29] LABS: BLOOD UREA NITROGEN 13 MG/DL (7-18); CALCIUM LEVEL 8.8 MG/DL (8.8-10.2); CARBON DIOXIDE LEVEL 30 MEQ/L (21-32); CHLORIDE LEVEL 107 MEQ/L (98-107); GLOMERULAR FILTRATION RATE > 60.0 (>49); GLUCOSE, FASTING 107 MG/DL (70-100); POTASSIUM SERUM 3.6 MEQ/L (3.5-5.1); SODIUM LEVEL 142 MEQ/L (136-145)
== END ==
LOC: M SFHCADAM 15:27
PROVIDERS: ATTEND Physician Assistant Medical
DX: K52.9 Noninfective gastroenteritis and colitis, unspecified (principal)
CPT/HCPCS: 80048; 83735; G0463

== ENCOUNTER → 2019-05-17 | Outpatient (REF) | payer MEDICARE, MEDICAID ==
[~2019-05-17] MED LIST changes: -ACET-907 PO; -ASPI-161 PO; -CALC500T60 PO; -CIPR-249 PO; -DOXY100C37 PO; -ENTA1TAB PO; -FLAG500T PO; -LOPE2TAB12 PO; -MECL12.575 PO; -MOM30SS PO; -PEPT525S PO; -ZOFR4TAB16 PO
== END ==
LOC: M SFHCADAM 10:55
PROVIDERS: ATTEND Physician Assistant Medical
DX: R19.7 Diarrhea, unspecified (principal)

== ENCOUNTER 2019-05-29 03:40 | Inpatient (IN) | payer MEDICARE, MEDICAID ==
[~2019-05-29] VITALS: Ht 175.3 cm; Wt 124.4 kg
[2019-05-29] MEDS: GASTROGRAFIN SOLUTION 30ML PO SCH ×4 (04:10→05:00)
[2019-05-29 04:24] LABS: BASO % 0.6 % (0.0-1.0); EOS # 0.3 10^3/uL (0.0-0.5); EOS % 5.4 % (0.0-3.0); HEMATOCRIT 46.3 % (42.0-52.0); HEMOGLOBIN 15.4 g/dl (13.5-17.5); LYMPH # 1.2 10^3/uL (1.5-5.0); LYMPH % 24.2 % (24.0-44.0); MEAN CORPUSCULAR HGB CONC 33.3 g/dl (32.0-36.5); MEAN CORPUSCULAR VOLUME 93.2 fl (80.0-96.0); MONO # 0.4 10^3/uL (0.0-0.8); MONO % 8.7 % (0.0-5.0); NEUTROPHILS # 3.1 10^3/uL (1.5-8.5); NEUTROPHILS % 60.9 % (36.0-66.0); PLATELET COUNT, AUTOMATED 187 10^3/uL (150-450); RED BLOOD COUNT 4.97 10^6/uL (4.30-6.10)
[2019-05-29] MEDS ORDERED: NS 500 ML IV ONE (04:30)
[2019-05-29] MEDS ORDERED: LOPE2TAB12 PO (04:33)
[2019-05-29] MEDS ORDERED: CALC500T60 PO (04:33)
[2019-05-29] MEDS ORDERED: ENTA1TAB PO (04:33)
[2019-05-29] MEDS ORDERED: FURO40TA2 PO (04:33)
[2019-05-29] MEDS ORDERED: PEPT525S PO (04:33)
[2019-05-29] MEDS ORDERED: ASPI-161 PO (04:33)
[2019-05-29] MEDS ORDERED: ZOFR4TAB16 PO (04:33)
[2019-05-29] MEDS ORDERED: MOM30SS PO (04:33)
[2019-05-29] MEDS ORDERED: ACET-907 PO (04:33)
[2019-05-29 04:36] LABS: ALBUMIN 3.7 GM/DL (3.2-5.2); ALT/SGPT 11 U/L (12-78); BILIRUBIN,DIRECT < 0.1 MG/DL (0.0-0.2); BILIRUBIN,TOTAL 0.7 MG/DL (0.2-1.0); BLOOD UREA NITROGEN 20 MG/DL (7-18); CALCIUM LEVEL 8.5 MG/DL (8.8-10.2); CARBON DIOXIDE LEVEL 31 MEQ/L (21-32); CHLORIDE LEVEL 105 MEQ/L (98-107); CREATININE FOR GFR 1.06 MG/DL (0.70-1.30); GLOMERULAR FILTRATION RATE > 60.0 (>49); GLUCOSE, FASTING 106 MG/DL (70-100); LIPASE 39 U/L (73-393); POTASSIUM SERUM 3.5 MEQ/L (3.5-5.1); SODIUM LEVEL 142 MEQ/L (136-145)
[2019-05-29] MEDS ORDERED: ISOVUE-370 76% 100ML VIAL (Q9967) As Ordered ONE (05:50)
--- NOTE | 2019-05-29 06:23 | REPVR ---
PROCEDURE INFORMATION: Exam: CT Abdomen And Pelvis With Contrast Exam date and time: 05/29/2019 4:18 AM Age: 69 years old Clinical history: Other: Diarrhea; Additional info: Severe ongoing diarrhea TECHNIQUE: Imaging protocol: Computed tomography of the abdomen and pelvis with intravenous contrast. Radiation optimization: All CT scans at this facility use at least one of these dose optimization techniques: automated exposure control; mA and/or kV adjustment per patient size (includes targeted exams where dose is matched to clinical indication); or iterative reconstruction. Contrast material: ISO; Contrast volume: 100 ml; Contrast route: AC; Other contrast: Route: Oral, Material: gastro, Volume: 580ml; COMPARISON: CT ABD/PEL W/PO CONTRAST ONLY 03/04/2018 1:31 AM FINDINGS: Lungs: There are mild bibasilar chronic changes. Heart: The left atrium is significantly dilated. Liver: The liver is hypoattenuated. Gallbladder and bile ducts: Normal. No calcified stones. No ductal dilation. Pancreas: Normal. No ductal dilation. Spleen: Evaluation of the spleen is limited due to heterogeneous phase of imaging. Adrenals: Normal. No mass. Kidneys and ureters: There is 2.3 cm exophytic left lower renal pole cyst. There is 1.4 cm right upper renal pole cyst. There is 1.3 cm right lower renal pole cyst. There is no hydronephrosis Stomach and bowel: There is apparent thickening of the rectum. There is sigmoid colon diverticulosis. Appendix: No evidence of appendicitis. Intraperitoneal space: Unremarkable. No free air. No significant fluid collection. Vasculature: There is mild aortic and iliac calcifications. Lymph nodes: Unremarkable. No enlarged lymph nodes. Bladder: Unremarkable as visualized. Reproductive: Unremarkable as visualized. Bones/joints: There is bulky anterior thoracic spine and lumbar spine osteophytes. There are multilevel lumbar spine DJD and facet arthrosis multilevel neural foraminal narrowing. Soft tissues: There is moderate size bilateral, left more than right fat containing inguinal hernias. There is 4.6 x 4.8 cm periumbilical fat-containing hernia. Other findings: There is a partially imaged 2.4 x 1.6 cm right infrahilar partially calcified nodule (axial image 1). IMPRESSION: 1. Apparent thickening rectal wall suspicious for proctitis. 2. Sigmoid diverticulosis. 3. Moderate colonic stool burden. 4. Moderate bilateral, left more than right fat containing inguinal hernias. 5. 4.6 x 4.8 cm periumbilical fat-containing hernia. 6. Fatty infiltration of the liver. 7. Significant left atrial dilatation which could be secondary to mitral valvular disease. Correlate with echocardiography. 8. 2.4 x 1.6 cm partially calcified partially imaged right infrahilar nodule could be partially calcified lymph node however correlation with dedicated CT of the chest is suggested. Electronically signed by: Zheng Kelly On 05/29/2019 06:22:43 AM
[2019-05-29] MEDS ORDERED: FLAG500T PO (06:31)
[2019-05-29] MEDS ORDERED: DOXY100C37 PO (06:31)
[2019-05-29] MEDS: CIPROFLOXACIN 400 MG in IV 1 EA IV SCH ×2 (07:57→21:14)
[2019-05-29] MEDS ORDERED: NS 1,000 ML IV ONE (08:00)
[2019-05-29] MEDS ORDERED: ACETAMINOPHEN TAB 650MG DOSE (2X325MG) PO PRN (09:30)
[2019-05-29] MEDS: metroNIDAZOLE 500 MG in IV 1 EA IV SCH ×2 (10:02→18:09)
--- NOTE | 2019-05-29 10:13 | HPE ---
DATE OF ADMISSION: 05/29/2019 PRIMARY CARE PROVIDER: Teresa Castellon NP. Patient is a [facility] patient. CHIEF COMPLAINT: Diarrhea. HISTORY OF PRESENT ILLNESS: This is a 69-year-old male with a past medical history significant for Parkinson's disease, morbid obesity, atrial fibrillation chronic, refused anticoagulation, B12 and D deficiency, chronic diastolic failure ejection fraction (EF) of 60%, obstructive sleep apnea (ALEXI), umbilical hernia, panic disorder, generalized anxiety disorder, colonoscopy by Dr. Cortez in April 2018, presents to the emergency room with complaint of bilateral lower extremity weakness secondary to persistent diarrhea that he has had for about 6 weeks. According to the patient, he had seen Teresa Castellon with a 2-week history of diarrhea on 05/16/2019. The patient states that the diarrhea is about 2-3 times at nighttime, 3-4 times during the day with causing significant weakness that he is taking [id number] to get to the bathroom and from the bathroom with his walker. Patient lives at [facility] and has had about an 8-10 pound weight loss without fever, nausea or vomiting. Denies any bright red blood per rectum, melena, black tarry stools or hematemesis. Patient was using Pepto Bismol to help with no improvement. Patient denies being on a bowel regimen at home. No recent antibiotic use and no history of C difficile in the past. He has not had any recent travel or any sick contacts. He complains of some lightheadedness today but no falls and he has been very, very careful using his walker. Patient describes worsening of abdominal distention over the past few days with gurgling. He had about a 5/10 pain that is all over the abdomen, sometime will radiate to both sides to the back to the rectum. Otherwise, has had no other complaints. Denies any shortness of breath, palpitations aside from one episode of lightheadedness. No dizziness or falls at home. No fever or chills. Has a weight loss of about 8-10 pounds. Appetite has been decreased and not eating very much at home but no dysphagia or odynophagia. PAST MEDICAL HISTORY: Morbid obesity. Vitamin D and B12 deficiencies. Chronic atrial fibrillation refused anticoagulation. Parkinson's disease 2011, Dr. Barry Diastolic heart failure, EF of 60%. Mild pulmonary hypertension. Spondylosis. Chronic venous insufficiency and chronic edema. Chronic constipation. Impaired glucose. Obstructive sleep apnea which is severe requiring BiPAP. Umbilical hernia. Panic disorder. Generalized anxiety disorder. ALLERGIES: No known drug allergies. PAST SURGICAL HISTORY: Appendectomy. Tonsillectomy. Left ankle surgery. Colonoscopy by Dr. Cortez in 2018. FAMILY HISTORY: Father at age 75 with bone cancer. Mother at age 72 with lung cancer. She had been a smoker. Sister with borderline diabetes in her 60s. SOCIAL HISTORY: Patient denies any cigarette, drug use or alcohol use. Previously drank on the weekends but none currently. 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 Currently retired. Healthcare proxy is his ex- [phone]. REVIEW OF SYSTEMS: Per history of present illness (HPI). 12-point system otherwise negative. PHYSICAL EXAMINATION: Temperature 96.8, pulse 86, respiratory rate 16, blood pressure 182/93, pulse ox 96% on room air. Generally, patient is awake, alert, oriented to person, place and time. He appears disheveled, older than his stated age. Obese. No jugular venous distention (JVD). No thyromegaly. Anicteric. No jaundice. Pupils round and reactive. No cervical lymphadenopathy. Moist mucous membranes. Lungs are clear to auscultation. No wheezing, rales or rhonchi. Heart: S1, S2, sinus rhythm. No murmurs, rubs or gallops. Abdomen is obese, soft, slightly tender but no rebound or guarding. Hyperactive bowel sounds. No hepatosplenomegaly. Extremities: Petechial hemorrhages noted in bilateral lower extremities. Chronic venous stasis changes and 1+ pitting edema. White count 5, hemoglobin 15, hematocrit 46, platelet count 187. Sodium 142, potassium 3.5, chloride 105, bicarbonate 31, BUN 20, creatinine 1.06, glucose 106, lactic acid 1.1, calcium 8.5, total bilirubin 0.7, direct bilirubin less than 0.1, AST 16, ALT 11, alkaline phosphatase 49, total protein 7, albumin 3.7, lipase 39. Microbiology: None. Imaging study: CT abdomen and pelvis: Apparent thickening of the rectal wall suspicious for proctitis, sigmoid diverticulosis, moderate colonic stool burden. Moderate bilateral left more than right fat containing inguinal hernia 4 x 6 x 4.8. Periumbilical fat containing hernia. Fatty infiltration of the liver. Significant left atrial dilatation secondary to mitral valve disease. Correlate with echocardiogram. 2.4 x 1.6 partially calcified right infrahilar nodule, could be calcified lymph node with dedicated CT chest suggested. ASSESSMENT/PLAN: This is a 69-year-old male with history of chronic diastolic heart failure, chronic constipation, EF of 60%. Obstructive sleep apnea, umbilical hernia, panic disorder, generalized anxiety disorder with moderate chronic stool burden admitted for proctitis. IMPRESSION: 1. Proctitis with possible overflow diarrhea from moderate colonic stool burden. Patient has been sent for a GI panel and currently on Cipro, Flagyl. Differ to primary team [facility] for any bowel regimen for the moderate colonic stool burden. Currently on liquid diet. Can advance if tolerated. 2. Abnormal right infrahilar nodule 2.4 x 1.6 cm. Differ to [facility] for dedicated CT of the chest if warranted versus outpatient followup. 3. Parkinson disease: May resume on home dose of carbidopa levadopa. 4. Morbid obesity: Outpatient followup. 5. Vitamin D and B12 deficiency. Placed on vitamins. 6. History of chronic atrial fibrillation: Currently rate controlled. Refuses anticoagulation. 7. Chronic diastolic heart failure: 2 liter fluid restriction with strict input and output and daily weights. He may resume home medications. 8. Chronic venous insufficiency: Elevate lower extremities. 9. Obstructive sleep apnea currently not on CPAP. 10. Umbilical hernia: No incarceration. 11. Panic disorder: Resume all psych medications. 12. Deep venous thrombosis (DVT) prophylaxis with compression stockings and Lovenox once daily. Patient has been signed out to [facility]. HASEEB
[2019-05-29] MEDS: busPIRone 10 MG TAB PO SCH ×2 (10:18→18:09)
[2019-05-29] MEDS: MULTIVITAMINS/MINERALS THERAP 1 TAB PO SCH (10:18)
[2019-05-29] MEDS: ASPIRIN 81 MG ENTERIC TAB PO SCH (10:18)
[2019-05-29] MEDS: SINEMET 25-100 MG TAB PO SCH ×4 (10:40→21:16)
[2019-05-29] MEDS: VITAMIN E 400 INTERNATIONAL UNITS CAP PO SCH (10:40)
[2019-05-29] MEDS: BENZTROPINE 2 MG TAB PO SCH ×2 (10:40→21:16)
[2019-05-29] MEDS: ENTACAPONE 200MG TABLET (COMTAN) PO SCH (11:58)
[2019-05-29 15:56] VITALS: BP 134/73
[2019-05-29 22:00] VITALS: BP 130/73
[2019-05-30] MEDS: metroNIDAZOLE 500 MG in IV 1 EA IV SCH ×3 (02:02→17:38)
[2019-05-30 06:00] VITALS: BP 142/73
[2019-05-30 06:18] LABS: BASO % 0.5 % (0.0-1.0); EOS # 0.2 10^3/uL (0.0-0.5); HEMATOCRIT 43.2 % (42.0-52.0); LYMPH % 18.1 % (24.0-44.0); MEAN CORPUSCULAR HEMOGLOBIN 30.6 pg (27.0-33.0); MEAN CORPUSCULAR HGB CONC 32.4 g/dl (32.0-36.5); MEAN CORPUSCULAR VOLUME 94.5 fl (80.0-96.0); MONO # 0.6 10^3/uL (0.0-0.8); MONO % 10.1 % (0.0-5.0); NEUTROPHILS # 3.7 10^3/uL (1.5-8.5); NEUTROPHILS % 67.1 % (36.0-66.0); PLATELET COUNT, AUTOMATED 180 10^3/uL (150-450); RED BLOOD COUNT 4.57 10^6/uL (4.30-6.10); WHITE BLOOD COUNT 5.5 10^3/uL (4.0-10.0)
[2019-05-30] MEDS: SINEMET 25-100 MG TAB PO SCH ×5 (06:21→20:44)
[2019-05-30] MEDS: ENTACAPONE 200MG TABLET (COMTAN) PO SCH ×2 (06:21→12:15)
[2019-05-30] MEDS: BENZTROPINE 2 MG TAB PO SCH ×2 (06:21→17:39)
[2019-05-30 06:49] LABS: ALT/SGPT 9 U/L (12-78); BILIRUBIN,TOTAL 1.1 MG/DL (0.2-1.0); BLOOD UREA NITROGEN 13 MG/DL (7-18); CALCIUM LEVEL 8.2 MG/DL (8.8-10.2); CARBON DIOXIDE LEVEL 26 MEQ/L (21-32); CHLORIDE LEVEL 109 MEQ/L (98-107); CREATININE FOR GFR 0.82 MG/DL (0.70-1.30); GLOMERULAR FILTRATION RATE > 60.0 (>49); GLUCOSE, FASTING 93 MG/DL (70-100); POTASSIUM SERUM 3.4 MEQ/L (3.5-5.1); SODIUM LEVEL 141 MEQ/L (136-145)
--- NOTE | 2019-05-30 08:32 | IPNPDOC ---
Date Seen The patient was seen on 05/30/19. Progress Note SUBJECTIVE: Patient is a -year-old [RACE] [GENDER] with OBJECTIVE PHYSICAL EXAMINATION: VITAL SIGNS: Please see below. GENERAL: HEENT: CARDIOVASCULAR: . RESPIRATORY: . ABDOMINAL: EXTREMITIES: NEUROLOGICAL: PSYCHOLOGICAL: LABORATORY DATA, IMAGING STUDIES, MICROBIOLOGY: Please see below. Echocardiogram: . DVT prophylaxis ordered?: ASSESSMENT AND PLAN: Pt is a 69-yoM with history of chronic HFpEF (EF 60%), chronic constipation, ALEXI, umbilical hernia, panic disorder, generalized anxiety disorder with moderate chronic stool burden admitted for proctitis. IMPRESSION: #Proctitis with possible overflow diarrhea from moderate colonic stool burden. GI panel neg, cont Cipro, Flagyl (started 05/29/19). Advance diet as tolerated. #Abnormal right infrahilar nodule 2.4 x 1.6 cm: differ to [facility] for dedicated CT of the chest if warranted versus outpatient followup. #Hx of chronic atrial fibrillation: CHADSVASC 3, Rate controlled. Refuses anticoagulation. #Chronic diastolic heart failure: 2 L fluid restriction with strict input and output and daily weights, resume home medications. #Parkinson disease: continue home meds # Morbid obesity (BMI 40): Outpatient followup. #Vitamin D and B12 deficiency: cont vitamins. # Chronic venous insufficiency: Elevate lower extremities. #ALEXI: currently not on CPAP. #Umbilical hernia: No incarceration, +BM, monitor. #Panic disorder: continue home medications. DVT prophylaxis with compression stockings and Lovenox once daily DNR/DNI VS[facility] Vital Signs/I&O Vital Signs Date Time Temp Pulse Resp B/P (MAP) Pulse Ox O2 Delivery O2 Flow Rate FiO2 05/30/19 06:00 97.5 77 18 142/73 (96) 94 Room Air I&O- Last 24 Hours up to 6 AM 05/30/19 06:00 Intake Total 1580 ml Output Total 275 ml Balance 1305 ml Laboratory Data 24H LABS Laboratory Tests 2 05/29/19 09:18: Urine Color EDNA, Urine Appearance CLEAR, Urine pH 5.0, Urine Specific [place] 1.032, Urine Protein NEGATIVE, Urine Glucose (UA) NEGATIVE, Urine Ketones TRACEH, Urine Blood NEGATIVE, Urine Nitrite NEGATIVE, Urine Bilirubin NEGATIVE, Urine Urobilinogen 0.2, Urine Leukocyte Esterase NEGATIVE, Urine WBC (Auto) 1, Urine RBC (Auto) 4H, Urine Hyaline Casts (Auto) 0, Urine Bacteria (Auto) NEGATIVE, Urine Squamous Epithelial Cells 0, Urine Mucus (Auto) SMALL, Urine Sperm (Auto) 05/30/19 05:42: Immature Granulocyte % (Auto) 0.2, Neutrophils (%) (Auto) 67.1H, Lymphocytes (%) (Auto) 18.1L, Monocytes (%) (Auto) 10.1H, Eosinophils (%) (Auto) 4.0H, B asophils (%) (Auto) 0.5, Neutrophils # (Auto) 3.7, Lymphocytes # (Auto) 1.0L, Monocytes # (Auto) 0.6, Eosinophils # (Auto) 0.2, Basophils # (Auto) 0.0, Nucleated Red Blood Cells % (auto) 0.0, Anion Gap 6L, Glomerular Filtration Rate > 60.0, Calcium Level 8.2L, Total Bilirubin 1.1#H, Aspartate Amino Transf (AST/SGOT) 12, Alanine Aminotransferase (ALT/SGPT) 9L, Alkaline Phosphatase 40L, Total Protein 6.0L, Albumin 3.0L, Albumin/Globulin Ratio 1.00 CBC/BMP Laboratory Tests 05/30/19 05:42 Microbiology Microbiology 05/29/19 Gastrointestinal Tract Panel (PCR) - Final, Complete KOR,ODETTE Mares MD May 30, 2019 08:32
[2019-05-30] MEDS: ASPIRIN 81 MG ENTERIC TAB PO SCH (08:39)
[2019-05-30] MEDS: CIPROFLOXACIN 400 MG in IV 1 EA IV SCH ×2 (08:39→20:44)
[2019-05-30] MEDS: VITAMIN E 400 INTERNATIONAL UNITS CAP PO SCH (08:40)
[2019-05-30] MEDS: MULTIVITAMINS/MINERALS THERAP 1 TAB PO SCH (08:40)
[2019-05-30] MEDS: busPIRone 10 MG TAB PO SCH ×2 (08:40→17:38)
[2019-05-30] MEDS ORDERED: POTASSIUM CHLORIDE 10 MEQ SR TABLET PO ONE (09:00)
--- NOTE | 2019-05-30 09:31 | IPNPDOC ---
Subjective Date Seen The patient was seen on 05/30/19. Subjective Chief Complaint/HPI Abd pain improved. Stool somewhat frequent "pudding consistency". No blood Constitutional: Denies: Chills, Fever Pulmonary: Denies: Dyspnea, Cough Cardiovascular: Denies: Chest Pain, Palpitations Gastrointestinal: Reports: Diarrhea; Denies: Nausea, Vomiting, Abdominal Pain, Constipation Objective Physical Examination General Exam: Positive: Alert, No Acute Distress Chest Exam: Positive: Clear to auscultation; Negative: Rales, Rhonchi, Wheezing Heart Exam: Positive: Rate Normal, Regular Rhythm Abdomen Exam: Positive: Normal bowel sounds, Soft; Negative: Tenderness Extremity Exam: Positive: Edema (trace - 1+ edmea with venous stasis changes) Assessment /Plan Problems (1) Proctitis Status: Acute Problem Text: cont Cipro/Flagyl Advance diet as tolerated (2) Lung nodule Problem Text: . 2.4 x 1.6 cm partially calcified partially imaged right infrahilar nodule could be partially calcified lymph node however correlation with dedicated CT of the chest is suggested. Get CT chest (3) Parkinson disease Status: Chronic Response to Treatment: Stable (4) Diastolic CHF, chronic Status: Chronic Response to Treatment: Stable (5) Afib Status: Chronic Response to Treatment: Stable Problem Text: declines anticoag (6) Umbilical hernia Status: Chronic Problem Text: remains asx 05/29 CT AP: 4. Moderate bilateral, left more than right fat containing inguinal hernias. 5. 4.6 x 4.8 cm periumbilical fat-containing hernia. Plan/VTE VTE Prophylaxis Ordered?: Yes (start Lovenox) Plan Therapy: PT VS, I&O, 24H, [facility] Vital Signs/I&O Vital Signs Date Time Temp Pulse Resp B/P (MAP) Pulse Ox O2 Delivery O2 Flow Rate FiO2 05/30/19 06:00 97.5 77 18 142/73 (96) 94 Room Air I&O- Last 24 Hours up to 6 AM 05/30/19 06:00 Intake Total 1580 ml Output Total 275 ml Balance 1305 ml Laboratory Data 24H LABS Laboratory Tests 2 05/30/19 05:42: Immature Granulocyte % (Auto) 0.2, Neutrophils (%) (Auto) 67.1H, Lymphocytes (%) (Auto) 18.1L, Monocytes (%) (Auto) 10.1H, Eosinophils (%) (Auto) 4.0H, Basophils (%) (Auto) 0.5, Neutrophils # (Auto) 3.7, Lymphocytes # (Auto) 1.0L, Monocytes # (Auto) 0.6, Eosinophils # (Auto) 0.2, Basophils # (Auto) 0.0, Nucleated Red Blood Cells % (auto) 0.0, Anion Gap 6L, Glomerular Filtration Rate > 60.0, Calcium Level 8.2L, Total Bilirubin 1.1#H, Aspartate Amino Transf (AST/SGOT) 12, Alanine Aminotransferase (ALT/SGPT) 9L, Alkaline Phosphatase 40L, Total Protein 6.0L, Albumin 3.0L, Albumin/Globulin Ratio 1.00 CBC/BMP Laboratory Tests 05/30/19 05:42 Microbiology Microbiology 05/29/19 Gastrointestinal Tract Panel (PCR) - Final, Complete FERMIN PITTMAN PA-C May 30, 2019 09:31 Albert Swan M.D. May 30, 2019 18:13
[2019-05-30] MEDS: ENOXAPARIN 40 MG/0.4 ML SYRINGE (J1650) SC SCH (11:02)
[2019-05-30 14:00] VITALS: BP 106/62
[2019-05-30 22:00] VITALS: BP 126/70
[2019-05-31] MEDS: metroNIDAZOLE 500 MG in IV 1 EA IV SCH ×3 (02:02→17:41)
[2019-05-31] MEDS: ENTACAPONE 200MG TABLET (COMTAN) PO SCH ×2 (05:39→12:47)
[2019-05-31] MEDS: SINEMET 25-100 MG TAB PO SCH ×5 (05:39→20:54)
[2019-05-31] MEDS: BENZTROPINE 2 MG TAB PO SCH ×2 (05:40→17:41)
[2019-05-31 06:00] VITALS: BP 139/86
[2019-05-31 06:05] LABS: HEMATOCRIT 44.2 % (42.0-52.0); HEMOGLOBIN 14.2 g/dl (13.5-17.5); MEAN CORPUSCULAR HEMOGLOBIN 30.3 pg (27.0-33.0); MEAN CORPUSCULAR HGB CONC 32.1 g/dl (32.0-36.5); MEAN CORPUSCULAR VOLUME 94.2 fl (80.0-96.0); PLATELET COUNT, AUTOMATED 167 10^3/uL (150-450); RED BLOOD COUNT 4.69 10^6/uL (4.30-6.10); WHITE BLOOD COUNT 4.5 10^3/uL (4.0-10.0)
[2019-05-31 06:28] LABS: ALBUMIN 3.2 GM/DL (3.2-5.2); ALT/SGPT 9 U/L (12-78); BILIRUBIN,TOTAL 0.7 MG/DL (0.2-1.0); BLOOD UREA NITROGEN 10 MG/DL (7-18); CALCIUM LEVEL 8.8 MG/DL (8.8-10.2); CARBON DIOXIDE LEVEL 26 MEQ/L (21-32); CHLORIDE LEVEL 110 MEQ/L (98-107); CREATININE FOR GFR 0.86 MG/DL (0.70-1.30); GLOMERULAR FILTRATION RATE > 60.0 (>49); GLUCOSE, FASTING 94 MG/DL (70-100); POTASSIUM SERUM 3.7 MEQ/L (3.5-5.1); SODIUM LEVEL 141 MEQ/L (136-145); TOTAL PROTEIN 6.6 GM/DL (6.4-8.2)
[2019-05-31] MEDS: VITAMIN E 400 INTERNATIONAL UNITS CAP PO SCH (09:35)
[2019-05-31] MEDS: ASPIRIN 81 MG ENTERIC TAB PO SCH (09:35)
[2019-05-31] MEDS: busPIRone 10 MG TAB PO SCH ×2 (09:35→17:41)
[2019-05-31] MEDS: CIPROFLOXACIN 400 MG in IV 1 EA IV SCH ×2 (09:35→20:54)
[2019-05-31] MEDS: ENOXAPARIN 40 MG/0.4 ML SYRINGE (J1650) SC SCH (09:35)
[2019-05-31] MEDS: MULTIVITAMINS/MINERALS THERAP 1 TAB PO SCH (09:35)
[2019-05-31 09:57] VITALS: BP 132/81
--- NOTE | 2019-05-31 11:40 | REP ---
REASON FOR EXAM: Calcified nodule seen on lung base images obtained 05/29/2019 during abdominal and pelvis CT scanning. There is no mediastinal or hilar adenopathy. Benign calcified mediastinal and right hilar lymph nodes are noted. There are no pleural or pericardial effusions. There is no changed in the imaged upper abdomen compared to the prior abdominal and pelvic CT. The images osseous structures are unchanged compared to the prior chest CT of 10/20/2018. Evaluation of the lung abernathy show no acute abnormal nodules, masses, or opacities. The lung abernathy are essentially unchanged when compared to the latest prior chest CT 10/20/2018. Mild bibasilar dependent subsegmental atelectatic changes are present status quo. There is unchanged pleural thickening in the lower lobe region bilaterally. IMPRESSION: Stable chronic changes as described above. There is no evidence of acute disease. Electronically Signed by Tyler Burden DO 05/31/2019 12:24 P
[2019-05-31 14:00] VITALS: BP 118/77
--- NOTE | 2019-05-31 15:36 | IPNPDOC ---
Subjective Date Seen The patient was seen on 05/31/19. Objective Physical Examination General Exam: Positive: Alert, No Acute Distress Chest Exam: Positive: Clear to auscultation; Negative: Rales, Rhonchi, Wheezing Heart Exam: Positive: Rate Normal, Regular Rhythm Abdomen Exam: Positive: Normal bowel sounds, Soft; Negative: Tenderness Extremity Exam: Positive: Edema (trace - 1+ edmea with venous stasis changes) Assessment /Plan Problems (1) Proctitis Status: Acute Problem Text: cont Cipro/Flagyl Advance diet as tolerated (2) Lung nodule Problem Text: . 2.4 x 1.6 cm partially calcified partially imaged right infrahilar nodule could be partially calcified lymph node however correlation with dedicated CT of the chest is suggested. Get CT chest (3) Parkinson disease Status: Chronic Response to Treatment: Stable (4) Diastolic CHF, chronic Status: Chronic Response to Treatment: Stable (5) Afib Status: Chronic Response to Treatment: Stable Problem Text: declines anticoag (6) Umbilical hernia Status: Chronic Problem Text: remains asx 05/29 CT AP: 4. Moderate bilateral, left more than right fat containing inguinal hernias. 5. 4.6 x 4.8 cm periumbilical fat-containing hernia. Plan/VTE VTE Prophylaxis Ordered?: Yes (start Lovenox) Plan Therapy: PT VS, I&O, 24H, Fishbone Vital Signs/I&O Vital Signs Date Time Temp Pulse Resp B/P (MAP) Pulse Ox O2 Delivery O2 Flow Rate FiO2 05/31/19 14:00 97.7 69 22 118/77 (91) 94 Room Air I&O- Last 24 Hours up to 6 AM 05/31/19 05:59 Intake Total 740 ml Output Total 1150 ml Balance -410 ml Laboratory Data 24H LABS Laboratory Tests 2 05/31/19 05:39: Nucleated Red Blood Cells % (auto) 0.0, Anion Gap 5L, Glomerular Filtration Rate > 60.0, Calcium Level 8.8, Total Bilirubin 0.7, Aspartate Amino Transf (AST/S GOT) 15, Alanine Aminotransferase (ALT/SGPT) 9L, Alkaline Phosphatase 46, Total Protein 6.6, Albumin 3.2, Albumin/Globulin Ratio 0.94L CBC/BMP Laboratory Tests 05/31/19 05:39 Microbiology Microbiology 05/29/19 Gastrointestinal Tract Panel (PCR) - Final, Complete Reji,Pedro D MD May 31, 2019 15:36
[2019-05-31 22:00] VITALS: BP 113/56
[2019-06-01] MEDS: ENTACAPONE 200MG TABLET (COMTAN) PO SCH ×2 (05:38→13:06)
[2019-06-01] MEDS: CIPROFLOXACIN 500 MG TAB PO SCH ×2 (05:38→17:20)
[2019-06-01] MEDS: metroNIDAZOLE (FLAGYL) 500 MG TAB PO SCH ×3 (05:38→21:23)
[2019-06-01] MEDS: SINEMET 25-100 MG TAB PO SCH ×5 (05:39→21:23)
[2019-06-01] MEDS: BENZTROPINE 2 MG TAB PO SCH ×2 (05:39→17:20)
[2019-06-01 06:00] VITALS: BP 128/72
[2019-06-01 06:39] LABS: HEMATOCRIT 43.4 % (42.0-52.0); HEMOGLOBIN 14.1 g/dl (13.5-17.5); MEAN CORPUSCULAR HEMOGLOBIN 30.2 pg (27.0-33.0); MEAN CORPUSCULAR HGB CONC 32.5 g/dl (32.0-36.5); MEAN CORPUSCULAR VOLUME 92.9 fl (80.0-96.0); PLATELET COUNT, AUTOMATED 172 10^3/uL (150-450); RED BLOOD COUNT 4.67 10^6/uL (4.30-6.10); WHITE BLOOD COUNT 4.2 10^3/uL (4.0-10.0)
[2019-06-01 07:00] LABS: ALBUMIN 3.2 GM/DL (3.2-5.2); ALT/SGPT 8 U/L (12-78); BILIRUBIN,TOTAL 0.6 MG/DL (0.2-1.0); BLOOD UREA NITROGEN 8 MG/DL (7-18); CALCIUM LEVEL 8.5 MG/DL (8.8-10.2); CARBON DIOXIDE LEVEL 28 MEQ/L (21-32); CHLORIDE LEVEL 109 MEQ/L (98-107); CREATININE FOR GFR 0.86 MG/DL (0.70-1.30); GLOMERULAR FILTRATION RATE > 60.0 (>49); GLUCOSE, FASTING 92 MG/DL (70-100); POTASSIUM SERUM 3.6 MEQ/L (3.5-5.1); SODIUM LEVEL 143 MEQ/L (136-145); TOTAL PROTEIN 6.4 GM/DL (6.4-8.2)
[2019-06-01] MEDS: MULTIVITAMINS/MINERALS THERAP 1 TAB PO SCH (09:26)
[2019-06-01] MEDS: ASPIRIN 81 MG ENTERIC TAB PO SCH (09:26)
[2019-06-01] MEDS: VITAMIN E 400 INTERNATIONAL UNITS CAP PO SCH (09:26)
[2019-06-01] MEDS: busPIRone 10 MG TAB PO SCH ×2 (09:26→17:20)
[2019-06-01] MEDS: ENOXAPARIN 40 MG/0.4 ML SYRINGE (J1650) SC SCH (09:26)
[2019-06-01 14:00] VITALS: BP 124/72
--- NOTE | 2019-06-01 14:50 | IPN ---
DATE: 06/01/2019 [place] is fairly stable. He is a little despondent today. He does feel better after talking to Dr. Mendoza last night. He is having some mild abdominal distress today. He is on oral Cipro and Flagyl for his proctitis. CT scan of the chest showed no concerning lung nodules. PHYSICAL EXAMINATION: Afebrile. Vital signs stable. He is alert and conversant. LUNGS: Clear. HEART: Regular rhythm. ABDOMEN: Soft, nontender, nondistended. No masses. EXTREMITIES: Trace peripheral edema. LABORATORIES: CMP unremarkable. CBC normal. IMPRESSION: 1. Proctitis. Plan discharge to [facility] tomorrow on oral antibiotics. I think that the antibiotics are probably what is bothering her stomach. 2. Lung nodule, not confirmed by CT scan. 3. Parkinson's, stable. He requires placement from this.
[2019-06-01 22:00] VITALS: BP 121/69
[2019-06-02] MEDS: BENZTROPINE 2 MG TAB PO SCH ×2 (05:54→17:40)
[2019-06-02] MEDS: metroNIDAZOLE (FLAGYL) 500 MG TAB PO SCH ×3 (05:54→21:08)
[2019-06-02] MEDS: CIPROFLOXACIN 500 MG TAB PO SCH ×2 (05:54→17:40)
[2019-06-02] MEDS: SINEMET 25-100 MG TAB PO SCH ×5 (05:54→21:09)
[2019-06-02] MEDS: ENTACAPONE 200MG TABLET (COMTAN) PO SCH ×2 (05:54→12:57)
[2019-06-02 06:00] VITALS: BP 149/85
[2019-06-02 08:03] LABS: ALBUMIN 3.4 GM/DL (3.2-5.2); ALT/SGPT 12 U/L (12-78); BILIRUBIN,TOTAL 0.5 MG/DL (0.2-1.0); BLOOD UREA NITROGEN 14 MG/DL (7-18); CARBON DIOXIDE LEVEL 25 MEQ/L (21-32); CHLORIDE LEVEL 112 MEQ/L (98-107); CREATININE FOR GFR 0.92 MG/DL (0.70-1.30); GLOMERULAR FILTRATION RATE > 60.0 (>49); GLUCOSE, FASTING 104 MG/DL (70-100); POTASSIUM SERUM 3.8 MEQ/L (3.5-5.1); SODIUM LEVEL 142 MEQ/L (136-145); TOTAL PROTEIN 6.7 GM/DL (6.4-8.2)
[2019-06-02 08:53] LABS: HEMATOCRIT 45.2 % (42.0-52.0); HEMOGLOBIN 14.8 g/dl (13.5-17.5); MEAN CORPUSCULAR HEMOGLOBIN 30.6 pg (27.0-33.0); MEAN CORPUSCULAR HGB CONC 32.7 g/dl (32.0-36.5); MEAN CORPUSCULAR VOLUME 93.6 fl (80.0-96.0); PLATELET COUNT, AUTOMATED 190 10^3/uL (150-450); RED BLOOD COUNT 4.83 10^6/uL (4.30-6.10); WHITE BLOOD COUNT 4.3 10^3/uL (4.0-10.0)
[2019-06-02] MEDS: MULTIVITAMINS/MINERALS THERAP 1 TAB PO SCH (09:52)
[2019-06-02] MEDS: VITAMIN E 400 INTERNATIONAL UNITS CAP PO SCH (09:52)
[2019-06-02] MEDS: ENOXAPARIN 40 MG/0.4 ML SYRINGE (J1650) SC SCH (09:52)
[2019-06-02] MEDS: ASPIRIN 81 MG ENTERIC TAB PO SCH (09:52)
[2019-06-02] MEDS: busPIRone 10 MG TAB PO SCH ×2 (09:52→17:41)
--- NOTE | 2019-06-02 11:09 | IPNPDOC ---
Subjective Date Seen The patient was seen on 06/02/19. Subjective Chief Complaint/HPI diarrhea Events since last encounter Patient is down to 1-2 loose stools per day. denies c/o. Constitutional: Denies: Chills, Fever, Night Sweats Pulmonary: Denies: Dyspnea, Cough Cardiovascular: Denies: Chest Pain, Palpitations, Orthopnea, Paroxysmal Noc. Dy spnea, Lt Headedness Gastrointestinal: Denies: Nausea, Vomiting, Abdominal Pain, Diarrhea, Constipation Objective Physical Examination General Exam: Positive: Alert, No Acute Distress Chest Exam: Positive: Clear to auscultation; Negative: Rales, Rhonchi, Wheezing Heart Exam: Positive: Rate Normal, Regular Rhythm Abdomen Exam: Positive: Normal bowel sounds, Soft; Negative: Tenderness Assessment /Plan Problems (1) Proctitis Status: Acute Problem Text: 06/02/2019: PT eval today, plan on return to [facility] tomorrow. cont Cipro/Flagyl Advance diet as tolerated 04/2018 colon poor prep but no obvious lesion-Reindl 05/28/19 IBD serology P (2) Lung nodule Problem Text: 06/02/2019: .CT chest completed: unchanged. Stable chronic changes as described above. There is no evidence of acute disease. Electronically Signed by Tyler Burden DO 05/31/2019 12:24 P 2.4 x 1.6 cm partially calcified partially imaged right infrahilar nodule could be partially calcified lymph node however correlation with dedicated CT of the chest is suggested. (3) Parkinson disease Status: Chronic Response to Treatment: Stable (4) Diastolic CHF, chronic Status: Chronic Response to Treatment: Stable (5) Afib Status: Chronic Response to Treatment: Stable Problem Text: declines anticoag (6) Umbilical hernia Status: Chronic Problem Text: remains asx 05/29 CT AP: 4. Moderate bilateral, left more than right fat containing inguinal hernias. 5. 4.6 x 4.8 cm periumbilical fat-containing hernia. Plan/VTE VTE Prophylaxis Ordered?: Yes (start Lovenox) Plan Therapy: PT VS, I&O, 24H, Fishbone Vital Signs/I&O Vital Signs Date Time Temp Pulse Resp B/P (MAP) Pulse Ox O2 Delivery O2 Flow Rate FiO2 06/02/19 06:00 98.6 71 17 149/85 (106) 94 Room Air I&O- Last 24 Hours up to 6 AM 06/02/19 06:00 Intake Total 960 ml Output Total 300 ml Balance 660 ml Laboratory Data 24H LABS Laboratory Tests 2 06/02/19 05:53: Nucleated Red Blood Cells % (auto) 0.0, Anion Gap 5L, Glomerular Filtration Rate > 60.0, Calcium Level 9.0, Total Bilirubin 0.5, Aspartate Amino Transf (AST/SGOT) 46H, Alanine Aminotransferase (ALT/SGPT) 12, Alkaline Phosphatase 50, Total Protein 6.7, Albumin 3.4, Albumin/Globulin Ratio 1.03 CBC/BMP Laboratory Tests 06/02/19 05:53 Microbiology Microbiology 05/29/19 Gastrointestinal Tract Panel (PCR) - Final, Complete Carolyn Mccarty Jun 02, 2019 11:09 Albert Swan M.D. Jun 02, 2019 16:56
[2019-06-02 14:00] VITALS: BP 133/69
[2019-06-02 22:00] VITALS: BP 137/86
[2019-06-03] MEDS: SINEMET 25-100 MG TAB PO SCH ×5 (05:30→21:02)
[2019-06-03] MEDS: metroNIDAZOLE (FLAGYL) 500 MG TAB PO SCH ×3 (05:30→21:01)
[2019-06-03] MEDS: BENZTROPINE 2 MG TAB PO SCH ×2 (05:30→17:22)
[2019-06-03] MEDS: CIPROFLOXACIN 500 MG TAB PO SCH ×2 (05:30→17:21)
[2019-06-03] MEDS: ENTACAPONE 200MG TABLET (COMTAN) PO SCH ×2 (05:30→13:09)
[2019-06-03 06:00] VITALS: BP 134/86
[2019-06-03] MEDS: MULTIVITAMINS/MINERALS THERAP 1 TAB PO SCH (08:51)
[2019-06-03] MEDS: busPIRone 10 MG TAB PO SCH ×2 (08:51→17:22)
[2019-06-03] MEDS: VITAMIN E 400 INTERNATIONAL UNITS CAP PO SCH (08:52)
[2019-06-03] MEDS: ASPIRIN 81 MG ENTERIC TAB PO SCH (08:52)
[2019-06-03] MEDS: ENOXAPARIN 40 MG/0.4 ML SYRINGE (J1650) SC SCH (08:52)
[2019-06-03] MEDS: MECLIZINE 12.5 MG TAB PO SCH ×3 (09:00→21:01)
--- NOTE | 2019-06-03 09:52 | IPNPDOC ---
Subjective Date Seen The patient was seen on 06/03/19. Subjective Chief Complaint/HPI diarrhea Events since last encounter Patient has had 2 episodes of weakness, dizziness and vomiting with position change. patient states this has happened before and caused his falls at home. Usually is associated with position change. BP stable during positions change, no orthostasis observed. Constitutional: Denies: Chills, Fever, Night Sweats ENT: Denies: Head Aches, Ear Pain, Dysphagia Skin: Denies: Rash, Lesions, Breakdown Pulmonary: Denies: Dyspnea, Cough Cardiovascular: Denies: Chest Pain, Palpitations, Orthopnea, Paroxysmal Noc. Dyspnea, Lt Headedness Gastrointestinal: Denies: Nausea, Vomiting, Abdominal Pain, Diarrhea, Constipation Neurological: Reports: Weakness, Other Symptoms (dizziness); Denies: Change in speech, Confusion, Seizures Objective Physical Examination General Exam: Positive: Alert, No Acute Distress Chest Exam: Positive: Clear to auscultation; Negative: Rales, Rhonchi, Wheezing Heart Exam: Positive: Rate Normal, Regular Rhythm Abdomen Exam: Positive: Normal bowel sounds, Soft; Negative: Tenderness Neuro Exam: Positive: Other (left lateral nystagmus observed with + dizziness and nausea with EOM) Assessment /Plan Problems (1) Dizziness Problem Text: PT eval for BPPV. Will trial meclizine. patient agreeable. (2) Proctitis Status: Acute Problem Text: 06/02/2019: PT eval today, plan on return to [facility] tomorrow. cont Cipro/Flagyl Advance diet as tolerated 04/2018 colon poor prep but no obvious lesion-Reindl 05/28/19 IBD serology P (3) Lung nodule Problem Text: 06/02/2019: .CT chest completed: unchanged. Stable chronic changes as described above. There is no evidence of acute disease. Electronically Signed by Tyler Burden DO 05/31/2019 12:24 P 2.4 x 1.6 cm partially calcified partially imaged right infrahilar nodule could be partially calcified lymph node however correlation with dedicated CT of the chest is suggested. (4) Parkinson disease Status: Chronic Response to Treatment: Stable (5) Diastolic CHF, chronic Status: Chronic Response to Treatment: Stable (6) Afib Status: Chronic Response to Treatment: Stable Problem Text: declines anticoag (7) Umbilical hernia Status: Chronic Problem Text: remains asx 05/29 CT AP: 4. Moderate bilateral, left more than right fat containing inguinal hernias. 5. 4.6 x 4.8 cm periumbilical fat-containing hernia. Plan/VTE VTE Prophylaxis Ordered?: Yes (start Lovenox) Plan Therapy: PT VS, I&O, 24H, Fishbone Vital Signs/I&O Vital Signs Date Time Temp Pulse Resp B/P (MAP) Pulse Ox O2 Delivery O2 Flow Rate FiO2 06/03/19 06:00 97.7 75 16 134/86 (102) 94 Room Air I&O- Last 24 Hours up to 6 AM 06/03/19 06:00 Intake Total 2100 ml Output Total 825 ml Balance 1275 ml Laboratory Data 24H LABS Laboratory Tests 2 06/02/19 17:51: Bedside Glucose (Misc Panel) 137H Microbiology Microbiology 05/29/19 Gastrointestinal Tract Panel (PCR) - Final, Complete Carolyn Mccarty [facility] Jun 03, 2019 09:52
[2019-06-03 14:00] VITALS: BP 156/58
[2019-06-03 14:10] LABS: Chitobioside Carbohydrat (ACCA 8 units (0-90); Laminaribioside Carbohyd (ALCA 27 units (0-60); Mannobioside Carbohydrat (AMCA 11 units (0-100); Saccharomyces cerevisiae IgG A 17 units (0-50)
[2019-06-03 22:00] VITALS: BP 101/68
[2019-06-04] MEDS: ENTACAPONE 200MG TABLET (COMTAN) PO SCH ×2 (05:27→11:47)
[2019-06-04] MEDS: metroNIDAZOLE (FLAGYL) 500 MG TAB PO SCH (05:27)
[2019-06-04] MEDS: CIPROFLOXACIN 500 MG TAB PO SCH (05:27)
[2019-06-04] MEDS: BENZTROPINE 2 MG TAB PO SCH (05:27)
[2019-06-04] MEDS: SINEMET 25-100 MG TAB PO SCH ×3 (05:27→11:47)
[2019-06-04 06:00] VITALS: BP 110/69
[2019-06-04 08:33] LABS: BASO % 0.5 % (0.0-1.0); EOS # 0.3 10^3/uL (0.0-0.5); EOS % 7.8 % (0.0-3.0); HEMATOCRIT 42.6 % (42.0-52.0); LYMPH # 0.7 10^3/uL (1.5-5.0); LYMPH % 18.2 % (24.0-44.0); MEAN CORPUSCULAR HEMOGLOBIN 30.8 pg (27.0-33.0); MEAN CORPUSCULAR HGB CONC 32.9 g/dl (32.0-36.5); MEAN CORPUSCULAR VOLUME 93.8 fl (80.0-96.0); MONO # 0.4 10^3/uL (0.0-0.8); MONO % 10.4 % (0.0-5.0); NEUTROPHILS # 2.4 10^3/uL (1.5-8.5); NEUTROPHILS % 62.8 % (36.0-66.0); PLATELET COUNT, AUTOMATED 174 10^3/uL (150-450); RED BLOOD COUNT 4.54 10^6/uL (4.30-6.10); WHITE BLOOD COUNT 3.8 10^3/uL (4.0-10.0)
[2019-06-04] MEDS: VITAMIN E 400 INTERNATIONAL UNITS CAP PO SCH (08:50)
[2019-06-04] MEDS: MULTIVITAMINS/MINERALS THERAP 1 TAB PO SCH (08:50)
[2019-06-04] MEDS: MECLIZINE 12.5 MG TAB PO SCH (08:50)
[2019-06-04] MEDS: ASPIRIN 81 MG ENTERIC TAB PO SCH (08:50)
[2019-06-04] MEDS: busPIRone 10 MG TAB PO SCH (08:50)
[2019-06-04] MEDS: ENOXAPARIN 40 MG/0.4 ML SYRINGE (J1650) SC SCH (08:51)
[2019-06-04 09:04] LABS: ALBUMIN 3.2 GM/DL (3.2-5.2); ALT/SGPT 19 U/L (12-78); BILIRUBIN,TOTAL 0.5 MG/DL (0.2-1.0); BLOOD UREA NITROGEN 17 MG/DL (7-18); CALCIUM LEVEL 8.4 MG/DL (8.8-10.2); CARBON DIOXIDE LEVEL 26 MEQ/L (21-32); CHLORIDE LEVEL 113 MEQ/L (98-107); GLOMERULAR FILTRATION RATE > 60.0 (>49); GLUCOSE, FASTING 97 MG/DL (70-100); POTASSIUM SERUM 3.6 MEQ/L (3.5-5.1); SODIUM LEVEL 143 MEQ/L (136-145); TOTAL PROTEIN 6.2 GM/DL (6.4-8.2)
[2019-06-04] MEDS ORDERED: FLAG500T PO (12:05)
[2019-06-04] MEDS ORDERED: CIPR-249 PO (12:05)
[2019-06-04] MEDS ORDERED: MECL12.575 PO (12:05)
--- NOTE | 2019-06-05 19:10 | DSES ---
DATE OF ADMISSION: 05/29/2019 DATE OF DISCHARGE: 06/04/2019 PRIMARY CARE PROVIDER: YULIYA Lowe ATTENDING PHYSICIAN: Elías Alfaro MD HISTORY OF PRESENT ILLNESS: 69-year-old gentleman who presented to [facility] Emergency Department (ED) for complaints of recurrent diarrhea since 05/16/2019. Patient was worked up in the ED. CT abdomen and pelvis completed as well as chest CT. Patient was noted to have thickening of the rectal wall suspicious for proctitis and some sigmoid diverticulosis with moderate colonic stool burden. Patient was also noted to have bilateral fat containing inguinal hernias as well as a periumbilical fat containing hernia, fatty infiltration of the liver, atrial dilation. Chest CT proved stable chronic changes with no acute disease. Patient was subsequently admitted to the family medicine service. HOSPITAL COURSE: Patient was placed on ciprofloxacin as well as Flagyl. He tolerated that well and his stool frequency slowed significantly and he is down to one bowel movement per day. Patient notes that his stool has started to bulk more and is less soft. Patient developed some symptoms of significant dizziness associated with position change. This was also accompanied by left lateral nystagmus as well as concerns for benign paroxysmal positional vertigo (BPPV) versus central hypofunction related to his Parkinsonism. His symptoms improved with meclizine three times a day as needed as well as physical therapy treatment for the BPPV. Patient was able to ambulate 200 feet without difficulty today and has returned to his baseline activity. On physical exam today, vital signs are stable, he is afebrile. Hemoglobin and hematocrit are stable. White blood cell count is 3.8. Chemistry showed normal electrolytes as well as stable renal function. HEENT: Neck is supple without lymphadenopathy or jugular venous distention (JVD). CARDIOVASCULAR: Heart rate and rhythm are regular. PULMONARY: Lungs are clear. ABDOMEN: Soft and nontender. BILATERAL LOWER EXTREMITIES: Without any edema. NEUROLOGIC: Patient is alert and oriented times three. PSYCHIATRIC: Affect was flat. Conversation is appropriate and congruent. Patient does maintain eye contact. ASSESSMENT AND DISCHARGE DIAGNOSES: 1. Proctitis. 2. Diverticulosis. 3. Dizziness most likely associated with BPPV. 4. Pulmonary nodule. 5. Parkinson's disease. 6. Morbid obesity. 7. History of chronic atrial fibrillation. 8. Diastolic congestive heart failure. 9. Chronic venous insufficiency. 10. History of obstructive sleep apnea (ALEXI). 11. Inguinal and umbilical hernia. PLAN: Patient will be discharged back to [facility] living. Diet is 2 gram sodium. Activity is as tolerated. MEDICATIONS: Are as follows: New prescriptions: - ciprofloxacin 500 mg by mouth twice a day - meclizine 12.5 mg by mouth three times a day as needed for dizziness - Flagyl 500 mg one by mouth every 8 hours for the next 7 days Continued medications include: - Tylenol 325 mg tablet two by mouth every 4 hours as needed for pain - aspirin enteric-coated 81 mg by mouth daily - benztropine mesylate 2 mg by mouth twice a day - Pepto Bismol 30 mL by mouth four times a day as needed for dyspepsia - buspirone 10 mg tablets two by mouth twice a day - calcium carbonate 500 mg two by mouth three times a day as needed for dyspepsia - carbidopa-levodopa two tablets by mouth five times per day - entacapone 200 mg by mouth twice a day - furosemide 40 mg by mouth daily - loperamide 2 mg by mouth twice a day as needed for diarrhea - Milk of Magnesia 10 mL by mouth daily as needed for constipation - multivitamin one tablet daily - Zofran 4 mg by mouth every 4 hours as needed for nausea - vitamin B complex one by mouth daily - vitamin E 400 IU daily Patient is to followup with his primary care provider (PCP) within the next 5-7 days. Patient is discharged in stable and satisfactory condition with no further questions at the time of discharge.
== END 2019-06-04 13:39 | DRG 394 ==
LOC: M ED 03:40 → M ED INP 07:24 → M MSPAV 15:56
PROVIDERS: ADMIT General Practice; ATTEND Family Medicine
DX: K62.89 Other specified diseases of anus and rectum (principal); I48.20 Chronic atrial fibrillation, unspecified; I50.32 Chronic diastolic (congestive) heart failure; Z68.41 Body mass index [BMI] 40.0-44.9, adult; G20 Parkinson's disease; E66.01 Morbid (severe) obesity due to excess calories; E53.8 Deficiency of other specified B group vitamins; R19.7 Diarrhea, unspecified; K40.20 Bilateral inguinal hernia, without obstruction or gangrene, not specified as recurrent; H81.10 Benign paroxysmal vertigo, unspecified ear; R73.01 Impaired fasting glucose; E55.9 Vitamin D deficiency, unspecified; R91.1 Solitary pulmonary nodule; I87.2 Venous insufficiency (chronic) (peripheral); G47.33 Obstructive sleep apnea (adult) (pediatric); F41.0 Panic disorder [episodic paroxysmal anxiety]; K57.30 Diverticulosis of large intestine without perforation or abscess without bleeding; K42.9 Umbilical hernia without obstruction or gangrene; F41.1 Generalized anxiety disorder; I27.20 Pulmonary hypertension, unspecified; K59.09 Other constipation; Z90.49 Acquired absence of other specified parts of digestive tract; Z79.899 Other long term (current) drug therapy; Z79.82 Long term (current) use of aspirin

== ENCOUNTER 2019-06-05 13:24 | Emergency (ER) | payer MEDICARE, MEDICAID ==
[~2019-06-05] VITALS: Ht 175.3 cm; Wt 125.0 kg
[~2019-06-05 13:24] MED LIST changes: +ACET-907 PO; +ASPI-161 PO; +CALC500T60 PO; +CIPR-249 PO; +DOXY100C37 PO; +ENTA1TAB PO; +FLAG500T PO; +LOPE2TAB12 PO; +MECL12.575 PO; +MOM30SS PO; +PEPT525S PO; +ZOFR4TAB16 PO
--- NOTE | 2019-06-05 14:27 | REP ---
Clinical: Altered mental status. Comparison: 10/20/2018 . Findings: Age-related atrophy and microvascular ischemic changes are appreciated. The ventricles and sulci are symmetric. Resendiz-white differentiation is maintained. There is no evidence for acute intracranial hemorrhage, mass/mass effect, pathology or infarction. No extra-axial fluid collection. Calvarium is intact. Paranasal sinuses and mastoid air cells are clear. Impression: Age related atrophy and microvascular ischemic changes. No acute intracranial hemorrhage, infarction, or mass/mass effect. Electronically Signed by Emmanuel Hassan MD 06/05/2019 02:18 P
[2019-06-05 14:49] LABS: BILIRUBIN, URINE MANUAL NEGATIVE (NEGATIVE); GLUCOSE, URINE (UA) MANUAL NEGATIVE (NEGATIVE); KETONE, URINE MANUAL NEGATIVE (NEGATIVE); UROBILINOGEN, URINE MANUAL NORMAL (NORMAL)
[2019-06-05 14:52] LABS: BASO % 0.9 % (0.0-1.0); EOS # 0.3 10^3/uL (0.0-0.5); EOS % 5.5 % (0.0-3.0); HEMATOCRIT 48.6 % (42.0-52.0); HEMOGLOBIN 15.8 g/dl (13.5-17.5); LYMPH # 0.7 10^3/uL (1.5-5.0); LYMPH % 15.4 % (24.0-44.0); MEAN CORPUSCULAR HGB CONC 32.5 g/dl (32.0-36.5); MEAN CORPUSCULAR VOLUME 95.3 fl (80.0-96.0); MONO # 0.4 10^3/uL (0.0-0.8); NEUTROPHILS # 3.1 10^3/uL (1.5-8.5); PLATELET COUNT, AUTOMATED 184 10^3/uL (150-450); WHITE BLOOD COUNT 4.5 10^3/uL (4.0-10.0)
[2019-06-05 15:24] LABS: ALBUMIN 3.6 GM/DL (3.2-5.2); ALT/SGPT 21 U/L (12-78); BILIRUBIN,DIRECT < 0.1 MG/DL (0.0-0.2); BILIRUBIN,TOTAL 0.5 MG/DL (0.2-1.0); BLOOD UREA NITROGEN 16 MG/DL (7-18); CALCIUM LEVEL 8.5 MG/DL (8.8-10.2); CARBON DIOXIDE LEVEL 26 MEQ/L (21-32); CHLORIDE LEVEL 112 MEQ/L (98-107); CK-MB VALUE MASS < 1.0 NG/ML (<3.6); CPK CREATINE PHOSPHOKINASE 44 U/L (39-308); CREATININE FOR GFR 0.99 MG/DL (0.70-1.30); GLOMERULAR FILTRATION RATE > 60.0 (>49); GLUCOSE, FASTING 112 MG/DL (70-100); MB/CK RELATIVE INDEX 2.27 (< OR =4); POTASSIUM SERUM 3.6 MEQ/L (3.5-5.1); SODIUM LEVEL 144 MEQ/L (136-145); TOTAL PROTEIN 6.7 GM/DL (6.4-8.2); TROPONIN I < 0.02 NG/ML (< 0.10)
--- NOTE | 2019-06-05 16:15 | ECGEPIP ---
[facility] - ED Test Date: 2019-06-05 Pat Name: MOSES TSANG Department: Room: - Gender: Male Yoke Presser: EILEEN : 1950 Requested By: Melinda Mishra Order Number: [id number] Reading MD: Melinda Mishra Measurements Intervals [place] Rate: 79 P: [place]: 0 QRS: 1 QRSD: 102 T: -11 QT: 393 QTc: 451 Interpretive Statements ATRIAL FIBRILLATION WITH ABERRANT CONDUCTION OR VENTRICULAR PREMATURE COMPLEXES ABNORMAL RHYTHM ECG NSTTW abnormalities low voltage limb DECREASED RATE 10/20/18 Electronically Signed on 06-05-2019 16:15:06 EST by Melinda Mishra
[2019-06-05 16:34] VITALS: BP 156/88
[2019-06-05] MEDS ORDERED: ALPRAZolam 0.25 MG TAB PO ONE (17:00)
== END 2019-06-05 17:24 | disposition home or self-care (01) ==
LOC: EDBD 13:24 → M ED 13:24
DX: G20 Parkinson's disease (principal); I48.91 Unspecified atrial fibrillation; F41.1 Generalized anxiety disorder; F41.0 Panic disorder [episodic paroxysmal anxiety]; I11.9 Hypertensive heart disease without heart failure; Z79.82 Long term (current) use of aspirin; Z79.899 Other long term (current) drug therapy

== ENCOUNTER → 2019-08-22 | Outpatient (REF) | payer MEDICARE, MEDICAID ==
[~2019-08-22] MED LIST changes: +BISO5TAB14 PO; -BISO5TAB9 PO; -MECL12.575 PO; +MECL12.589 PO
[2019-08-22 09:36] LABS: BASO % 0.2 % (0.0-1.0); EOS # 0.1 10^3/uL (0.0-0.5); EOS % 1.8 % (0.0-3.0); HEMATOCRIT 48.2 % (42.0-52.0); HEMOGLOBIN 15.7 g/dl (13.5-17.5); LYMPH % 22.8 % (24.0-44.0); MEAN CORPUSCULAR HGB CONC 32.6 g/dl (32.0-36.5); MEAN CORPUSCULAR VOLUME 95.1 fl (80.0-96.0); MONO # 0.4 10^3/uL (0.0-0.8); MONO % 7.9 % (0.0-5.0); NEUTROPHILS # 3.1 10^3/uL (1.5-8.5); NEUTROPHILS % 67.1 % (36.0-66.0); PLATELET COUNT, AUTOMATED 180 10^3/uL (150-450); RED BLOOD COUNT 5.07 10^6/uL (4.30-6.10); WHITE BLOOD COUNT 4.6 10^3/uL (4.0-10.0)
[2019-08-22 10:11] LABS: ALBUMIN 3.9 GM/DL (3.2-5.2); ALT/SGPT 9 U/L (12-78); BILIRUBIN,TOTAL 0.5 MG/DL (0.2-1.0); BLOOD UREA NITROGEN 19 MG/DL (7-18); CALCIUM LEVEL 8.9 MG/DL (8.8-10.2); CARBON DIOXIDE LEVEL 28 MEQ/L (21-32); CHLORIDE LEVEL 107 MEQ/L (98-107); CHOLESTEROL LEVEL 192 MG/DL (<200); CHOLESTEROL RISK RATIO 5.647 (<5); CREATININE FOR GFR 0.96 MG/DL (0.70-1.30); GLOMERULAR FILTRATION RATE > 60.0 (>49); GLUCOSE, FASTING 108 MG/DL (70-100); HDL CHOLESTEROL 34 MG/DL (>40); LDL CHOLESTEROL 137 MG/DL (<100); NON-HDL-C 158 MG/DL; POTASSIUM SERUM 4.5 MEQ/L (3.5-5.1); SODIUM LEVEL 140 MEQ/L (136-145); TRIGLYCERIDES LEVEL 107 MG/DL (<150)
[2019-08-22 10:14] LABS: VITAMIN B12 LEVEL 615 PG/ML (247-911)
[2019-08-22 13:15] LABS: HEMOGLOBIN A1c 6.2 %
== END ==
PROVIDERS: ATTEND Physician Assistant Medical
DX: I50.32 Chronic diastolic (congestive) heart failure (principal); R60.1 Generalized edema; E78.5 Hyperlipidemia, unspecified; E53.8 Deficiency of other specified B group vitamins; R73.03 Prediabetes; Z79.899 Other long term (current) drug therapy

== ENCOUNTER → 2019-09-23 | Outpatient (REF) | payer MEDICARE, MEDICAID ==
[2019-09-23 11:59] LABS: BASO % 0.5 % (0.0-1.0); EOS # 0.1 10^3/uL (0.0-0.5); EOS % 2.6 % (0.0-3.0); HEMATOCRIT 48.4 % (42.0-52.0); HEMOGLOBIN 16.1 g/dl (13.5-17.5); LYMPH # 0.8 10^3/uL (1.5-5.0); MEAN CORPUSCULAR HEMOGLOBIN 31.8 pg (27.0-33.0); MEAN CORPUSCULAR HGB CONC 33.3 g/dl (32.0-36.5); MEAN CORPUSCULAR VOLUME 95.5 fl (80.0-96.0); MONO # 0.3 10^3/uL (0.0-0.8); MONO % 7.7 % (0.0-5.0); PLATELET COUNT, AUTOMATED 180 10^3/uL (150-450); RED BLOOD COUNT 5.07 10^6/uL (4.30-6.10); WHITE BLOOD COUNT 4.3 10^3/uL (4.0-10.0)
[2019-09-23 12:27] LABS: HEMOGLOBIN A1c 6.5 %
[2019-09-23 12:46] LABS: ALBUMIN 3.9 GM/DL (3.2-5.2); ALT/SGPT 11 U/L (12-78); BILIRUBIN,TOTAL 0.7 MG/DL (0.2-1.0); BLOOD UREA NITROGEN 19 MG/DL (7-18); CARBON DIOXIDE LEVEL 30 MEQ/L (21-32); CHLORIDE LEVEL 105 MEQ/L (98-107); CHOLESTEROL LEVEL 203 MG/DL (<200); CREATININE FOR GFR 1.01 MG/DL (0.70-1.30); GLOMERULAR FILTRATION RATE > 60.0 (>49); GLUCOSE, FASTING 114 MG/DL (70-100); HDL CHOLESTEROL 35 MG/DL (>40); LDL CHOLESTEROL 141 MG/DL (<100); NON-HDL-C 168 MG/DL; POTASSIUM SERUM 3.9 MEQ/L (3.5-5.1); SODIUM LEVEL 140 MEQ/L (136-145); TOTAL PROTEIN 7.1 GM/DL (6.4-8.2); TRIGLYCERIDES LEVEL 134 MG/DL (<150)
== END ==
PROVIDERS: ATTEND Physician Assistant Medical
DX: I50.32 Chronic diastolic (congestive) heart failure (principal); E53.8 Deficiency of other specified B group vitamins; E78.2 Mixed hyperlipidemia; R60.1 Generalized edema; R73.03 Prediabetes

== ENCOUNTER → 2019-10-03 | Outpatient (REF) | payer MEDICARE, MEDICAID ==
[2019-10-03 10:03] LABS: BASO % 0.7 % (0.0-1.0); EOS # 0.2 10^3/uL (0.0-0.5); EOS % 3.7 % (0.0-3.0); HEMATOCRIT 47.1 % (42.0-52.0); HEMOGLOBIN 15.2 g/dl (13.5-17.5); LYMPH # 0.9 10^3/uL (1.5-5.0); LYMPH % 19.4 % (24.0-44.0); MEAN CORPUSCULAR HEMOGLOBIN 30.6 pg (27.0-33.0); MEAN CORPUSCULAR HGB CONC 32.3 g/dl (32.0-36.5); MONO # 0.4 10^3/uL (0.0-0.8); MONO % 8.9 % (0.0-5.0); NEUTROPHILS # 3.1 10^3/uL (1.5-8.5); NEUTROPHILS % 67.1 % (36.0-66.0); PLATELET COUNT, AUTOMATED 173 10^3/uL (150-450); RED BLOOD COUNT 4.96 10^6/uL (4.30-6.10); WHITE BLOOD COUNT 4.6 10^3/uL (4.0-10.0)
[2019-10-03 10:29] LABS: ALBUMIN 3.6 GM/DL (3.2-5.2); BLOOD UREA NITROGEN 23 MG/DL (7-18); CALCIUM LEVEL 8.7 MG/DL (8.8-10.2); CARBON DIOXIDE LEVEL 31 MEQ/L (21-32); CHLORIDE LEVEL 109 MEQ/L (98-107); CREATININE FOR GFR 0.98 MG/DL (0.70-1.30); GLOMERULAR FILTRATION RATE > 60.0 (>49); GLUCOSE, FASTING 115 MG/DL (70-100); PHOSPHORUS LEVEL 3.1 MG/DL (2.5-4.9); POTASSIUM SERUM 4.7 MEQ/L (3.5-5.1); SODIUM LEVEL 142 MEQ/L (136-145)
[2019-10-03 10:49] LABS: HEMOGLOBIN A1c 6.4 %
[2019-10-03 11:04] LABS: ALBUMIN 3.6 GM/DL (3.2-5.2); ALT/SGPT 8 U/L (12-78); BILIRUBIN,TOTAL 0.6 MG/DL (0.2-1.0); BLOOD UREA NITROGEN 24 MG/DL (7-18); CALCIUM LEVEL 8.9 MG/DL (8.8-10.2); CARBON DIOXIDE LEVEL 30 MEQ/L (21-32); CHLORIDE LEVEL 109 MEQ/L (98-107); CHOLESTEROL LEVEL 195 MG/DL (<200); CHOLESTEROL RISK RATIO 5.909 (<5); CREATININE FOR GFR 0.97 MG/DL (0.70-1.30); GLOMERULAR FILTRATION RATE > 60.0 (>49); GLUCOSE, FASTING 112 MG/DL (70-100); HDL CHOLESTEROL 33 MG/DL (>40); LDL CHOLESTEROL 143 MG/DL (<100); NON-HDL-C 162 MG/DL; POTASSIUM SERUM 4.7 MEQ/L (3.5-5.1); SODIUM LEVEL 142 MEQ/L (136-145); TOTAL PROTEIN 6.9 GM/DL (6.4-8.2); TRIGLYCERIDES LEVEL 95 MG/DL (<150); VITAMIN B12 LEVEL 630 PG/ML (247-911)
== END ==
PROVIDERS: ATTEND Physician Assistant Medical
DX: I50.23 Acute on chronic systolic (congestive) heart failure (principal); E53.8 Deficiency of other specified B group vitamins; E78.2 Mixed hyperlipidemia; R73.03 Prediabetes

== ENCOUNTER → 2019-11-17 | Outpatient (REF) | payer MEDICARE, MEDICAID ==
[2019-11-17 18:28] LABS: CREATININE, URINE 52.9 MG/DL; MALB URINE SIEMENS 9.1 MG/L; MAU/CREAT RATIO 17.2 MCG/MG (0.0-30.0)
== END ==
PROVIDERS: ATTEND Physician Assistant Medical
DX: R73.03 Prediabetes (principal); I50.32 Chronic diastolic (congestive) heart failure; R60.1 Generalized edema; E53.8 Deficiency of other specified B group vitamins; E78.2 Mixed hyperlipidemia

== ENCOUNTER → 2020-05-20 | Outpatient (REF) | payer MEDICARE, MEDICAID ==
[~2020-05-20] MED LIST changes: -LACT10SO29 PO; +LACT20EL PO
[2020-05-20 08:42] LABS: BASO % 0.5 % (0.0-1.0); EOS # 0.3 10^3/uL (0.0-0.5); HEMATOCRIT 46.7 % (42.0-52.0); HEMOGLOBIN 15.1 g/dl (13.5-17.5); LYMPH % 22.5 % (24.0-44.0); MEAN CORPUSCULAR HEMOGLOBIN 31.3 pg (27.0-33.0); MEAN CORPUSCULAR HGB CONC 32.3 g/dl (32.0-36.5); MEAN CORPUSCULAR VOLUME 96.7 fl (80.0-96.0); MONO # 0.4 10^3/uL (0.0-0.8); MONO % 8.4 % (0.0-5.0); NEUTROPHILS # 2.6 10^3/uL (1.5-8.5); NEUTROPHILS % 60.1 % (36.0-66.0); PLATELET COUNT, AUTOMATED 172 10^3/uL (150-450); RED BLOOD COUNT 4.83 10^6/uL (4.30-6.10); WHITE BLOOD COUNT 4.3 10^3/uL (4.0-10.0)
[2020-05-20 08:48] LABS: HEMOGLOBIN A1c 5.9 %
[2020-05-20 08:59] LABS: ALBUMIN 3.8 GM/DL (3.2-5.2); ALT/SGPT < 6 U/L (12-78); BILIRUBIN,TOTAL 0.7 MG/DL (0.2-1.0); BLOOD UREA NITROGEN 18 MG/DL (7-18); CALCIUM LEVEL 9.3 MG/DL (8.8-10.2); CARBON DIOXIDE LEVEL 29 MEQ/L (21-32); CHLORIDE LEVEL 107 MEQ/L (98-107); CHOLESTEROL LEVEL 182 MG/DL (<200); CHOLESTEROL RISK RATIO 5.352 (<5); CREATININE FOR GFR 1.05 MG/DL (0.70-1.30); FREE T4 0.99 NG/DL (0.76-1.46); GLOMERULAR FILTRATION RATE > 60.0 (>49); GLUCOSE, FASTING 101 MG/DL (70-100); HDL CHOLESTEROL 34 MG/DL (>40); LDL CHOLESTEROL 123 MG/DL (<100); NON-HDL-C 148 MG/DL; POTASSIUM SERUM 4.7 MEQ/L (3.5-5.1); SODIUM LEVEL 140 MEQ/L (136-145); TOTAL PROTEIN 6.5 GM/DL (6.4-8.2); TRIGLYCERIDES LEVEL 124 MG/DL (<150)
[2020-05-20 11:52] LABS: VITAMIN B12 LEVEL 602 PG/ML (247-911)
== END ==
PROVIDERS: ATTEND Physician Assistant Medical
DX: I50.32 Chronic diastolic (congestive) heart failure (principal); E78.2 Mixed hyperlipidemia; R73.03 Prediabetes

== ENCOUNTER → 2020-06-23 | Outpatient (REF) | payer MEDICARE, MEDICAID ==
[~2020-06-23] MED LIST changes: -MECL12.589 PO; +MECL12.590 PO
== END ==
PROVIDERS: ATTEND Internal Medicine
DX: Z20.828 Contact with and (suspected) exposure to other viral communicable diseases (principal)

== ENCOUNTER → 2020-06-28 | Outpatient (REF) | payer MEDICARE, MEDICAID | PROVIDERS: ATTEND Internal Medicine | DX: Z20.828 Contact with and (suspected) exposure to other viral communicable diseases (principal) ==

== ENCOUNTER → 2020-07-05 | Outpatient (REF) | payer MEDICARE, MEDICAID | PROVIDERS: ATTEND Internal Medicine | DX: Z20.828 Contact with and (suspected) exposure to other viral communicable diseases (principal) ==

== ENCOUNTER → 2020-07-12 | Outpatient (REF) | payer MEDICARE, MEDICAID | PROVIDERS: ATTEND Internal Medicine | DX: Z11.52 Encounter for screening for COVID-19 (principal) ==

== ENCOUNTER → 2020-07-19 | Outpatient (REF) | payer MEDICARE, MEDICAID | PROVIDERS: ATTEND Internal Medicine | DX: Z20.822 Contact with and (suspected) exposure to COVID-19 (principal) ==

== ENCOUNTER → 2020-07-26 | Outpatient (REF) | payer MEDICARE, MEDICAID | PROVIDERS: ATTEND Internal Medicine | DX: Z20.822 Contact with and (suspected) exposure to COVID-19 (principal) ==

== ENCOUNTER → 2020-08-02 | Outpatient (REF) | payer MEDICARE, MEDICAID | PROVIDERS: ATTEND Internal Medicine | DX: Z20.822 Contact with and (suspected) exposure to COVID-19 (principal) ==

== ENCOUNTER → 2020-08-09 | Outpatient (REF) | payer MEDICARE, MEDICAID | PROVIDERS: ATTEND Internal Medicine | DX: Z20.822 Contact with and (suspected) exposure to COVID-19 (principal) ==

== ENCOUNTER → 2020-08-16 | Outpatient (REF) | payer MEDICARE, MEDICAID | PROVIDERS: ATTEND Internal Medicine | DX: Z20.822 Contact with and (suspected) exposure to COVID-19 (principal) ==

== ENCOUNTER → 2020-08-23 | Outpatient (REF) | payer MEDICARE, MEDICAID | PROVIDERS: ATTEND Internal Medicine | DX: Z20.822 Contact with and (suspected) exposure to COVID-19 (principal) ==

== ENCOUNTER 2020-11-03 11:15 | Inpatient (IN) | payer MEDICARE, MEDICAID ==
[~2020-11-03] VITALS: Ht 175.3 cm; Wt 124.1 kg
[2020-11-03] MEDS: VITAMIN E 400 INTERNATIONAL UNITS CAP PO SCH (09:00)
[~2020-11-03 11:15] MED LIST changes: +MECL-136 PO; -MECL12.590 PO; -VITA-157 PO; +VITAE40CA PO
--- NOTE | 2020-11-03 12:47 | REP ---
INDICATION: headache. COMPARISON: Comparison head CT study 05 June 2019.. TECHNIQUE: Helical scanning is acquired. 5 mm axial images were reformatted. Coronal MPR images were generated. FINDINGS: Bone window settings demonstrate an intact bony calvarium. There is no evidence of skull fracture or incidental bony calvarial lesion. The visualized paranasal sinuses appear clear. No intraorbital abnormality is seen. On soft tissue window setting images; the lateral, third, and fourth ventricles are normal in size and position. Resendiz-white differentiation pattern is normal above and below the tentorium. There are is no evidence of intracranial hemorrhage. No mass, edema, infarction, or midline shift is seen. No extra-axial fluid collection is appreciated. There is vascular calcification in the distal carotid arteries at the carotid siphons. Minimal generalized volume loss is present. No change from comparison study. IMPRESSION: Mild generalized volume loss and vascular calcification again noted. No acute intracranial abnormality.. <Electronically signed by Ham Bryant > 11/03/20 [id number]
[2020-11-03 12:54] LABS: BASO % 0.6 % (0.0-1.0); EOS # 0.2 10^3/uL (0.0-0.5); EOS % 3.3 % (0.0-3.0); HEMATOCRIT 47.8 % (42.0-52.0); HEMOGLOBIN 15.6 g/dl (13.5-17.5); LYMPH # 0.9 10^3/uL (1.5-5.0); LYMPH % 17.3 % (24.0-44.0); MEAN CORPUSCULAR HGB CONC 32.6 g/dl (32.0-36.5); MONO # 0.3 10^3/uL (0.0-0.8); MONO % 6.3 % (2.0-8.0); NEUTROPHILS # 3.8 10^3/uL (1.5-8.5); NEUTROPHILS % 72.3 % (36.0-66.0); PLATELET COUNT, AUTOMATED 173 10^3/uL (150-450); RED BLOOD COUNT 5.03 10^6/uL (4.30-6.10); WHITE BLOOD COUNT 5.2 10^3/uL (4.0-10.0)
[2020-11-03 12:58] LABS: PROTHROMBIN TIME 13.4 SECONDS (12.5-14.3)
[2020-11-03 12:59] LABS: PARTIAL THROMBOPLASTIN TIME 30.3 SECONDS (24.2-38.5)
[2020-11-03] MEDS ORDERED: MECL-136 PO (12:59)
[2020-11-03] MEDS ORDERED: OYST1TAB PO (12:59)
[2020-11-03] MEDS ORDERED: GABA-1171 PO (12:59)
[2020-11-03] MEDS ORDERED: EQL50TAB2 PO (12:59)
[2020-11-03 13:38] LABS: BLOOD UREA NITROGEN 19 MG/DL (7-18); CALCIUM LEVEL 9.2 MG/DL (8.8-10.2); CARBON DIOXIDE LEVEL 28 MEQ/L (21-32); CHLORIDE LEVEL 107 MEQ/L (98-107); CPK CREATINE PHOSPHOKINASE 36 U/L (39-308); CREATININE FOR GFR 0.82 MG/DL (0.70-1.30); FREE T4 0.99 NG/DL (0.76-1.46); GLOMERULAR FILTRATION RATE > 60.0 (>49); GLUCOSE, FASTING 114 MG/DL (70-100); MAGNESIUM LEVEL 2.2 MG/DL (1.8-2.4); MB/CK RELATIVE INDEX 2.78 (< OR =4); PHOSPHORUS LEVEL 2.5 MG/DL (2.5-4.9); POTASSIUM SERUM 4.1 MEQ/L (3.5-5.1); SODIUM LEVEL 139 MEQ/L (136-145); TROPONIN I < 0.02 NG/ML (< 0.10)
--- NOTE | 2020-11-03 13:57 | REP ---
INDICATION: CVA. COMPARISON: Comparison chest x-ray 20 October 2018. TECHNIQUE: Portable upright AP chest radiograph. FINDINGS: The lungs are well inflated and free of infiltrate. Pleural angles are sharp. Heart size is normal. Pulmonary vasculature is not increased. Exam quality is inhibited by patient body habitus. IMPRESSION: No active disease. <Electronically signed by Ham Bryant > 11/03/20 1855
[2020-11-03 14:03] LABS: RSV AMPLIFICATION NEGATIVE (NEGATIVE)
[2020-11-03] MEDS ORDERED: ACETAMINOPHEN TAB 650MG DOSE (2X325MG) PO PRN (14:35)
[2020-11-03] MEDS ORDERED: MECLIZINE 12.5 MG TAB PO PRN (14:35)
[2020-11-03] MEDS ORDERED: LOPERAMIDE 2 MG CAPLET PO PRN (14:35)
[2020-11-03] MEDS ORDERED: MOM 30ML SUSPENSION UDC PO PRN (14:35)
[2020-11-03 15:15] VITALS: BP 142/73
[2020-11-03 16:52] LABS: ALBUMIN 3.5 GM/DL (3.2-5.2); ALT/SGPT 20 U/L (12-78); BILIRUBIN,DIRECT < 0.1 MG/DL (0.0-0.2); BILIRUBIN,TOTAL 0.7 MG/DL (0.2-1.0); PROLACTIN 6.3 NG/ML (2.1-17.7); TOTAL PROTEIN 6.6 GM/DL (6.4-8.2)
[2020-11-03] MEDS: MULTIVITAMINS/MINERALS THERAP 1 TAB PO SCH (17:15)
[2020-11-03] MEDS: SINEMET 25-100 MG TAB PO SCH ×2 (17:15→22:01)
[2020-11-03] MEDS: busPIRone 10 MG TAB PO SCH (17:15)
[2020-11-03] MEDS: ASPIRIN 81MG ENTERIC TABLET PO SCH (17:15)
[2020-11-03] MEDS: BENZTROPINE 2 MG TAB PO SCH (18:00)
[2020-11-03] MEDS ORDERED: KETOROLAC 30 MG/ML 1ML VIAL IV ONE (18:30)
[2020-11-03] MEDS ORDERED: METOCLOPRAMIDE INJ 10MG/2ML VIAL (J2765 PER 1) IV ONE (18:30)
[2020-11-03] MEDS ORDERED: FUROSEMIDE 40MG/4ML VIAL (J1940) IV ONE (18:35)
[2020-11-03] MEDS ORDERED: metOLazone 5 MG TAB PO ONE (18:35)
--- NOTE | 2020-11-03 19:01 | HPEPDOC ---
[facility] Medical History & Physical Date of Admission Nov 03, 2020 Date of Service: Nov 03, 2020 History and Physical CHIEF COMPLAINT: I couldn't talk. I couldn't walk and my neck hurts HISTORY OF PRESENT ILLNESS: 70-year-old male group home patient with past medical history significant for chronic atrial fibrillation refused anticoagulation only on aspirin 81 mg, was brought in by ambulance due to altered mental status with history of Parkinson's disease since 2011 was in his usual state of health yesterday but woke up this morning, unable to speak. Patient said that his neck hurt and felt like his whole head was in a plastic bubble and felt very hot. This lasted until midmorning when EMS arrived. He denied any fever, chills, headache, nausea, vomiting, abdominal pain, shortness of breath, chest pain, pressure, tightness, lightheadedness or dizziness during this time. No medications were taken for pain. By the time EMS arrived, he was able to whisper his words. He denied any receptive aphasia and could understand questions and he knew the right words to use that could not speak. He denied any dysphagia, choking sensation odynophagia. . He usually walks with a walker but was unable to stand up and walk today due to worsening lower extremity weakness. He has chronic low back pain and has paresthesias unchanged from before. He denied any urine or bowel incontinence. In the emergency room. CT of the head was negative. Chest x-ray was unremarkable. Patient was able to speak appropriately without any expressive aphasia. Urine was negative. CBC, metabolic panel were negative coronavirus was negative. MRI of the brain, MRI of the lumbar spine are pending. Hospitalist was asked to admit the patient for evaluation of expressive aphasia and bilateral lower extremity weakness. PAST MEDICAL HISTORY: Morbid obesity. Vitamin D and B12 deficiencies. Chronic atrial fibrillation refused anticoagulation. Parkinson's disease 2011, Dr. Barry Diastolic heart failure, EF of 60%. Mild pulmonary hypertension. Spondylosis. Chronic venous insufficiency and chronic edema. Chronic constipation. Impaired glucose. Obstructive sleep apnea which is severe requiring BiPAP. Umbilical hernia. Panic disorder. Generalized anxiety disorder. ALLERGIES: No known drug allergies. PAST SURGICAL HISTORY: Appendectomy. Tonsillectomy. Left ankle surgery. Colonoscopy by Dr. Cortez in 2018. FAMILY HISTORY: Father at age 75 with bone cancer. Mother at age 72 with lung cancer. She had been a smoker. Sister with borderline diabetes in her 60s. SOCIAL HISTORY: Patient denies any cigarette, drug use or alcohol use. Previously drank on the weekends but none currently. 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 Currently retired. Healthcare proxy is his ex- [phone]. REVIEW OF SYSTEMS: 10 POINT ROS NEGATIVE ASIDE FROM + FINDINGS ON HPI PHYSICAL EXAMINATION: VITALS: SEE BELOW GEN: Awake, alert, oriented 3. Speech is fluent. No distress HEENT: Thick neck. Tongue is midline. Face is symmetric. No JVD, thyromegaly or cervical lymphadenopathy HEART: S1, S2, irregularly irregular, not tachycardic LUNGS: Air entry is equal bilaterally. Clear to auscultation ABD: Obese, soft, nontender, nondistended, normoactive bowel sounds. No rebound or guarding EXT: Chronic venous stasis changes with brownish discoloration. Chronic 1-2+ pitting edema bilaterally NEURO: Face is symmetric. Tongue is midline. Uvula is midline. Speech is fluent. Motor function 5 out of 5 times bilateral upper extremities 4 out of 5 bilateral lower extremities. Negative Babinski bilaterally . DTRs intact. LABS/MICROBIOLOGY/IMAGING STUDIES: SEE BELOW ASSESSMENT AND PLAN: 70-year-old male group home patient with past medical history significant for chronic atrial fibrillation refused anticoagulation only on aspirin 81 mg, was brought in by ambulance due to altered mental status with history of Parkinson's disease since 2011 was in his usual state of health yesterday but woke up this morning, unable to speak. Patient said that his neck hurt and felt like his whole head was in a plastic bubble and felt very hot. This lasted until midmorning when EMS arrived. He denied any fever, chills, headache, nausea, vomiting, abdominal pain, shortness of breath, chest pain, pressure, tightness, lightheadedness or dizziness during this time. No medications were taken for pain. By the time EMS arrived, he was able to whisper his words. He denied any receptive aphasia and could understand questions and he knew the right words to use that could not speak. He denied any dysphagia, choking sensation odynophagia. . He usually walks with a walker but was unable to stand up and walk today due to worsening lower extremity weakness. He has chronic low back pain and has paresthesias unchanged from before. He denied any urine or bowel incontinence. In the emergency room. CT of the head was negative. Chest x-ray was unremarkable. Patient was able to speak appropriately without any expressive aphasia. Urine was negative. CBC, metabolic panel were negative coronavirus was negative. MRI of the brain, MRI of the lumbar spine are pending. Hospitalist was asked to admit the patient for evaluation of expressive aphasia and bilateral lower extremity weakness. Expressive aphasia, resolved/ transient ischemic attack Bilateral lower extremity weakness Headache Uncontrolled hypertension Chronic lower extremity edema Morbid obesity. Vitamin D and B12 deficiencies. Chronic atrial fibrillation refused anticoagulation. Parkinson's disease 2012, Dr. Barry Diastolic heart failure, EF of 60%. Mild pulmonary hypertension. Spondylosis. Chronic venous insufficiency and chronic edema. Chronic constipation. Impaired glucose. Obstructive sleep apnea which is severe requiring BiPAP. Umbilical hernia. Panic disorder. Generalized anxiety disorder. Plan: Due to risk factor of atrial fibrillation and neurologic deficits. Patient will be evaluated for CVA with MRI, MRA of the brain neurochecks every 4 hourly for the next 24 hours due to lower extremity weakness and complaints of back pain. MRI of the lumbar spine will also be obtained. Neurologist, Dr. Barry has been consulted. Patient still refuses to be on anticoagulation and incessant only taking aspirin. A. fib is rate controlled. He is resumed on all his home med ications are no signs of aspiration at this time due to fall risk. He will be placed on fall precautions with assisted ambulation only, but activity as tolerated with a walker. Physical therapy, occupational therapy, and acute rehabilitation unit screen ordered. Patient has been given 1 dose of IV Reglan and Toradol for his headache. Blood pressure is treated with his home medications, but we need to titrate for better pressure control. May resume his home BiPAP. Vital Signs Vital Signs Date Time Temp Pulse Resp B/P (MAP) Pulse Ox O2 Delivery O2 Flow Rate FiO2 11/03/20 14:15 102 94 11/03/20 12:00 136/73 (94) 11/03/20 11:21 96.6 20 Room Air Laboratory Data Labs 24H Laboratory Tests 2 11/03/20 11:53: Immature Granulocyte % (Auto) 0.2, Neutrophils (%) (Auto) 72.3H, Lymphocytes (%) (Auto) 17.3L, Monocytes (%) (Auto) 6.3, Eosinophils (%) (Auto) 3.3H, Basophils (%) (Auto) 0.6, Neutrophils # (Auto) 3.8, Lymphocytes # (Auto) 0.9L, Monocytes # (Auto) 0.3, Eosinophils # (Auto) 0.2, Basophils # (Auto) 0.0, Nucleated Red Blood Cells % (auto) 0.0, Prothrombin Time 13.4, Prothromb Time International Ratio 1.00, Activated Partial Thromboplast Time 30.3, Anion Gap 4L, Glomerular Filtration Rate > 60.0, Calcium Level 9.2, Phosphorus Level 2.5, Magnesium Level 2.2, Total Creatine Kinase 36L, Creatine Kinase MB 1.0, Creatine Kinase MB Relative Index 2.78, Troponin I < 0.02, Thyroid Stimulating Hormone (TSH) 2.600, Free Thyroxine 0.99 11/03/20 13:02: Urine Color YELLOW, Urine Appearance CLEAR, Urine pH 5.0, Urine Specific [place] 1.023, Urine Protein NEGATIVE, Urine Glucose (UA) NEGATIVE, Urine Ketones TRACEH, Urine Blood 1+H, Urine Nitrite NEGATIVE, Urine Bilirubin 1+H, Urine Urobilinogen 0.2, Urine Leukocyte Esterase NEGATIVE, Urine WBC (Auto) 1, Urine RBC (Auto) 8H, Urine Hyaline Casts (Auto) 0, Urine Bacteria (Auto) NEGATIVE, Urine Squamous Epithelial Cells 0, Urine Mucus (Auto) SMALL, Urine Sperm (Auto) , Coronavirus (COVID-19)(PCR) NEGATIVE, Influenza Type A (RT-PCR) NEGATIVE, Influenza Type B (RT-PCR) NEGATIVE, Respiratory Syncytial Virus (PCR) NEGATIVE CBC/BMP Laboratory Tests 11/03/20 11:53 Microbiology Microbiology 11/03/20 Group A Streptococcus Screen (JORGE) - Final, Resulted 11/03/20 Group A Streptococcus Screen (JORGE), Resulted Pending Home Medications Scheduled Aspirin (Aspirin EC) 81 Mg Tablet.dr, 81 MG PO DAILY Benztropine Mesylate (Benztropine Mesylate) 2 Mg Tab, 2 MG PO BID 0600, 1800 Buspirone HCl (Buspirone HCl) 10 Mg Tab, 20 MG PO BID 0900, 1800 Calcium Carbonate (Calcium) 500 Mg Tablet, 1,000 MG PO BID Carbidopa/Levodopa (Carbidopa-Levodopa 25-100 Tab) 1 Tab Tab, 2 TAB PO 5XD 0600, 0900, 1200, 1700, 2100 Entacapone (Entacapone) 200 Mg Tablet, 200 MG PO QID 0600, 0900, 1200, 1500 Furosemide (Furosemide) 40 Mg Tablet, 40 MG PO DAILY Gabapentin (Gabapentin) 100 Mg Capsule, 100 MG PO TID Multivitamins (Thera M Plus Tablet) 1 Each Tablet, 1 TAB PO DAILY Vitamin B Complex (Vitamin B Complex) 1 Each Tablet, 1 TAB PO DAILY Vitamin E (Dl,Tocopheryl Acet) (Vitamin E) 400 Unit Capsule, 400 UNIT PO DAILY Scheduled PRN Acetaminophen (Tylenol) 325 Mg Tablet, 650 MG PO Q4H PRN for PAIN Bismuth Subsalicylate (Pepto-Bismol) 525 Mg/15 Ml Oral.susp, 30 ML PO QID PRN for DYSPEPSIA Loperamide HCl (Imodium A-D) 2 Mg Tablet, 2 MG PO BID PRN for DIARRHEA Meclizine HCl (Meclizine HCl) 12.5 Mg Tablet, 12.5 MG PO TID PRN for MINOR DISCOMFORT Milk Of Magnesia (Milk of Magnesia) 2,400 Mg/10 Ml Oral.susp, 10 ML PO DAILY PRN for CONSTIPATION Ondansetron HCl (Zofran) 4 Mg Tablet, 4 MG PO Q4H PRN for NAUSEA Allergies Coded Allergies: No Known Allergies (Verified , 04/23/18) A-FIB/CHADSVASC A-FIB History Current/History of A-Fib/PAF?: Yes Current PO Anticoag Therapy: No Age/Risk Factor Scoring CHADSVASC: CHADSVASC Response (Comments) Value Age Risk Factor Age 65-74 years old 1 Gender Risk Factor Male 0 Hx of CHF Yes 1 Hx of HTN Yes 1 Hx of Stroke/TIA/or VTE No 0 Hx of Diabetes No 0 Hx of Vascular Disease No 0 Total 3 Treatment Treatment ordered: NONE Reason Anticoagulant not given: Patient refusal ZAYRA SANTAMARIA MD Nov 03, 2020 14:50
--- NOTE | 2020-11-03 20:30 | REPVR ---
PROCEDURE INFORMATION: Exam: MR Head Without Contrast Exam date and time: 11/03/2020 7:59 PM Age: 70 years old Clinical indication: Pain; Headache not specified; Additional info: CVA TECHNIQUE: Imaging protocol: MR of the head without contrast. COMPARISON: CT Head without contrast 11/03/2020 12:25 PM FINDINGS: Mild age-related volume loss. Major vascular flow voids at the skull base are preserved. No extra-axial fluid collection. No midline shift or intracranial mass effect. Mild nonspecific white matter gliosis, probable chronic microvascular ischemia. No cerebral edema or pathologic susceptibility. No diffusion restriction. Visualized paranasal sinuses and mastoid air cells are clear. IMPRESSION: No acute intracranial abnormality. Electronically signed by: Erik Reardon On 11/03/2020 20:30:04 PM
--- NOTE | 2020-11-03 20:31 | REPVR ---
PROCEDURE INFORMATION: Exam: MRA Head Without Contrast; Arteriography Exam date and time: 11/03/2020 7:59 PM Age: 70 years old Clinical indication: Pain; Headache; Additional info: CVA TECHNIQUE: Imaging protocol: Magnetic resonance angiography head without contrast. Exam focused on the arteries. COMPARISON: CT Head without contrast 11/03/2020 12:25 PM FINDINGS: ANTERIOR CIRCULATION: Right internal carotid artery: Intracranial segment is patent with no significant stenosis. No aneurysm. Right middle cerebral artery: No occlusion or significant stenosis. No aneurysm. Right anterior cerebral artery: No occlusion or significant stenosis. No aneurysm. Left internal carotid artery: Intracranial segment is patent with no significant stenosis. No aneurysm. Left middle cerebral artery: No occlusion or significant stenosis. No aneurysm. Left anterior cerebral artery: No occlusion or significant stenosis. No aneurysm. POSTERIOR CIRCULATION: Right vertebral artery: No occlusion or significant stenosis. No aneurysm. Left vertebral artery: No occlusion or significant stenosis. No aneurysm. Basilar artery: No occlusion or significant stenosis. No aneurysm. Right posterior cerebral artery: No occlusion or significant stenosis. No aneurysm. Left posterior cerebral artery: No occlusion or significant stenosis. No aneurysm. IMPRESSION: No stenosis or occlusion. Electronically signed by: Erik Reardon On 11/03/2020 20:31:33 PM
--- NOTE | 2020-11-03 20:40 | REPVR ---
PROCEDURE INFORMATION: Exam: MR Lumbar Spine Without Contrast Exam date and time: 11/03/2020 7:59 PM Age: 70 years old Clinical indication: Low back pain; Additional info: B/l blu yin TECHNIQUE: Imaging protocol: Multiplanar magnetic resonance images of the lumbar spine without intravenous contrast. COMPARISON: No relevant prior studies available. FINDINGS: Patient motion. Vertebral body height and AP alignment is preserved. Multilevel disc desiccation and disc space narrowing. There is degenerative endplate signal. No evidence of discitis/osteomyelitis. Conus medullaris terminates L1. No epidural fluid collection. L1-L2: Mild disc bulge with mild facet joint arthropathy and bilateral facet joint effusions. No significant central or foraminal stenosis. L2-L3: Mild disc bulge with ohrn-za-rbrogwfr bilateral facet joint arthropathy. No significant central or foraminal stenosis. L3-L4: Awbt-ig-wcuvelal disc bulge with moderate facet joint arthropathy and posterior laxity of ligamentum flavum. No significant central canal stenosis. There is ucaz-sw-wvtqrxur bilateral foraminal stenosis. L4-L5: Disc osteophyte complex with moderate bilateral facet joint arthropathy and posterior laxity of ligamentum flavum. There is moderate to severe central canal stenosis, moderate right foraminal stenosis and mild left foraminal stenosis. L5-S1: Disc osteophyte complex with bilateral facet joint arthropathy. There is mild central canal stenosis and moderate to severe bilateral foraminal stenosis. IMPRESSION: Degenerative findings as above greatest at L4-L5 where there is moderate to severe central canal stenosis. Electronically signed by: Erik Reardon On 11/03/2020 20:39:51 PM
[2020-11-03] MEDS: OYSTER SHELL CALCIUM 500 MG TAB PO SCH (21:00)
[2020-11-03 22:00] VITALS: BP 132/75
--- NOTE | 2020-11-03 23:04 | ECGEPIP ---
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
[2020-11-04] MEDS: SINEMET 25-100 MG TAB PO SCH ×5 (05:58→21:08)
[2020-11-04] MEDS: BENZTROPINE 2 MG TAB PO SCH ×2 (05:58→17:55)
[2020-11-04 06:00] VITALS: BP 135/77
[2020-11-04] MEDS: ENTACAPONE 200MG TABLET (COMTAN) PO SCH ×4 (06:00→15:11)
[2020-11-04] MEDS: OYSTER SHELL CALCIUM 500 MG TAB PO SCH ×2 (08:43→21:00)
[2020-11-04] MEDS: busPIRone 10 MG TAB PO SCH ×2 (08:44→17:54)
[2020-11-04] MEDS: MULTIVITAMINS/MINERALS THERAP 1 TAB PO SCH (08:44)
[2020-11-04] MEDS: VITAMIN E 400 INTERNATIONAL UNITS CAP PO SCH (08:44)
[2020-11-04] MEDS: ASPIRIN 81MG ENTERIC TABLET PO SCH (08:45)
[2020-11-04] MEDS: FUROSEMIDE 40 MG TAB PO SCH (08:45)
--- NOTE | 2020-11-04 11:05 | IPNPDOC ---
Date Seen The patient was seen on 11/04/20. Progress Note SUBJECTIVE: still c/o b/l LE weakness. no expressive or receptive aphasia. denies "feeling like my whole head is in a bubble." no f/chills /sob/cough/ PHYSICAL EXAMINATION: VITALS: SEE BELOW GEN: Awake, alert, oriented 3. Speech is fluent. No distress HEENT: NCAT Thick neck. Tongue is midline. Face is symmetric. No JVD, thyromegaly or cervical lymphadenopathy HEART: S1, S2, irregularly irregular, not tachycardic LUNGS: Air entry is equal bilaterally. Clear to auscultation ABD: Obese, soft, nontender, nondistended, normoactive bowel sounds. No rebound or guarding EXT: Chronic venous stasis changes with brownish discoloration. Chronic 1-2+ pitting edema bilaterally NEURO: Face is symmetric. Tongue is midline. Uvula is midline. Speech is fluent. Motor function 5 out of 5 times bilateral upper extremities 4 out of 5 bilateral lower extremities. Negative Babinski bilaterally . DTRs intact. LABS/MICROBIOLOGY/IMAGING STUDIES: SEE BELOW ASSESSMENT AND PLAN: 70-year-old male [facility] patient with past medical history significant for chronic atrial fibrillation refused anticoagulation only on aspirin 81 mg, was brought in by ambulance due to altered mental status with history of Parkinson's disease since 2011 was in his usual state of health yesterday but woke up this morning, unable to speak. Patient said that his neck hurt and felt like his whole head was in a plastic bubble and felt very hot. This lasted until midmorning when EMS arrived. He denied any fever, chills, headache, nausea, vomiting, abdominal pain, shortness of breath, chest pain, pressure, tightness, lightheadedness or dizziness during this time. No medications were taken for pain. By the time EMS arrived, he was able to whisper his words. He denied any receptive aphasia and could understand questions and he knew the right words to use that could not speak. He denied any dysphagia, choking sensation o dynophagia. . He usually walks with a walker but was unable to stand up and walk today due to worsening lower extremity weakness. He has chronic low back pain and has paresthesias unchanged from before. He denied any urine or bowel incontinence. In the emergency room. CT of the head was negative. Chest x-ray was unremarkable. Patient was able to speak appropriately without any expressive aphasia. Urine was negative. CBC, metabolic panel were negative coronavirus was negative. MRI of the brain, MRI of the lumbar spine are pending. Hospitalist was asked to admit the patient for evaluation of expressive aphasia and bilateral lower extremity weakness. Expressive aphasia, resolved/ transient ischemic attack-normal MRI Brain/MRA brain -outpt neuro fu within 7 days. neurology consulted. back to baseline mentation Severe spinal stenosis lumbar spine -c/o Bilateral lower extremity weakness -PT/OT consulted. outpt referral to neurosurgery. -lives at [facility] -per physical therapy. Headache -resolved Uncontrolled hypertension -improved Chronic lower extremity edema - on lasix Morbid obesity. -complicating care Vitamin D and B12 deficiencies. -chronic Chronic atrial fibrillation refused anticoagulation. -on asa. mri brain negative for cva Parkinson's disease 2011, Dr. Barry -neurology consulted to adjust meds if needed Diastolic heart failure, EF of 60%. -compensated Mild pulmonary hypertension. -complicating care Spondylosis. Chronic venous insufficiency and chronic edema. -on lasix. fluid restrict 2l Chronic constipation. -bowel regimen disposition: dc in am . home care referral for pt/ot services. pfs aware. VS, I&O, 24H, Fishbone Vital Signs/I&O Vital Signs Date Time Temp Pulse Resp B/P (MAP) Pulse Ox O2 Delivery O2 Flow Rate FiO2 11/04/20 06:00 98.6 76 18 135/77 (96) 96 Room Air I&O- Last 24 Hours up to 6 AM 11/04/20 06:00 Intake Total 0 ml Output Total 1000 ml Balance -1000 ml Laboratory Data 24H LABS Laboratory Tests 2 11/03/20 11:53: Immature Granulocyte % (Auto) 0.2, Neutrophils (%) (Auto) 72.3H, Lymphocytes (%) (Auto) 17.3L, Monocytes (%) (Auto) 6.3, Eosinophils (%) (Auto) 3.3H, Basophils (%) (Auto) 0.6, Neutrophils # (Auto) 3.8, Lymphocytes # (Auto) 0.9L, Monocytes # (Auto) 0.3, Eosinophils # (Auto) 0.2, Basophils # (Auto) 0.0, Nucleated Red Blood Cells % (auto) 0.0, Prothrombin Time 13.4, Prothromb Time International Ratio 1.00, Activated Partial Thromboplast Time 30.3, Anion Gap 4L, Glomerular Filtration Rate > 60.0, Calcium Level 9.2, Phosphorus Level 2.5, Magnesium Level 2.2, Total Creatine Kinase 36L, Creatine Kinase MB 1.0, Creatine Kinase MB Relative Index 2.78, Troponin I < 0.02, Thyroid Stimulating Hormone (TSH) 2.600, Free Thyroxine 0.99 11/03/20 13:02: Urine Color YELLOW, Urine Appearance CLEAR, Urine pH 5.0, Urine Specific [place] 1.023, Urine Protein NEGATIVE, Urine Glucose (UA) NEGATIVE, Urine Ketones TRACEH, Urine Blood 1+H, Urine Nitrite NEGATIVE, Urine Bilirubin 1+H, Urine Urobilinogen 0.2, Urine Leukocyte Esterase NEGATIVE, Urine WBC (Auto) 1, Urine RBC (Auto) 8H, Urine Hyaline Casts (Auto) 0, Urine Bacteria (Auto) NEGATIVE, Urine Squamous Epithelial Cells 0, Urine Mucus (Auto) SMALL, Urine Sperm (Auto) , Coronavirus (COVID-19)(PCR) NEGATIVE, Influenza Type A (RT-PCR) NEGATIVE, Influenza Type B (RT-PCR) NEGATIVE, Respiratory Syncytial Virus (PCR) NEGATIVE 11/03/20 15:57: Total Bilirubin 0.7, Direct Bilirubin < 0.1, Aspartate Amino Transf (AST/SGOT) 22, Alanine Aminotransferase (ALT/SGPT) 20, Alkaline Phosphatase 41L, Ammonia 15, Total Protein 6.6, Albumin 3.5, Albumin/Globulin Ratio 1.1, Procalcitonin 0.05, Prolactin 6.3 CBC/BMP Laboratory Tests 11/03/20 11:53 Microbiology Microbiology 11/03/20 Group A Streptococcus Screen (JORGE) - Final, Complete 11/03/20 Group A Streptococcus Screen (JORGE) - Final, Complete ZAYRA SANTAMARIA MD Nov 04, 2020 11:05
[2020-11-04 14:00] VITALS: BP 135/81
[2020-11-04 22:00] VITALS: BP 131/77
[2020-11-05] MEDS: BENZTROPINE 2 MG TAB PO SCH (05:48)
[2020-11-05] MEDS: SINEMET 25-100 MG TAB PO SCH ×2 (05:48→08:21)
[2020-11-05] MEDS: ENTACAPONE 200MG TABLET (COMTAN) PO SCH ×2 (05:48→08:22)
[2020-11-05 06:34] VITALS: BP 137/90
[2020-11-05] MEDS: MULTIVITAMINS/MINERALS THERAP 1 TAB PO SCH (08:21)
[2020-11-05] MEDS: VITAMIN E 400 INTERNATIONAL UNITS CAP PO SCH (08:21)
[2020-11-05] MEDS: ASPIRIN 81MG ENTERIC TABLET PO SCH (08:22)
[2020-11-05] MEDS: busPIRone 10 MG TAB PO SCH (08:22)
[2020-11-05] MEDS: OYSTER SHELL CALCIUM 500 MG TAB PO SCH (08:22)
[2020-11-05] MEDS: FUROSEMIDE 40 MG TAB PO SCH (08:23)
--- NOTE | 2020-11-05 09:30 | DS.PDOC ---
Discharge Summary General Date of Admission Nov 03, 2020 at 14:30 Date of Discharge 11/05/20 Discharge Summary DISCHARGE DIAGNOSES: Expressive aphasia, resolved/ transient ischemic attack Bilateral lower extremity weakness Headache Uncontrolled hypertension Chronic lower extremity edema Morbid obesity. Vitamin D and B12 deficiencies. Chronic atrial fibrillation refused anticoagulation. Parkinson's disease 2011, Dr. Barry Diastolic heart failure, EF of 60%. Mild pulmonary hypertension. Spondylosis. Chronic venous insufficiency and chronic edema. Chronic constipation. Impaired glucose. Obstructive sleep apnea which is severe requiring BiPAP. Umbilical hernia. Panic disorder. Generalized anxiety disorder. DISCHARGE MEDICATIONS: SEE BELOW DISCHARGE INSTRUCTIONS: NEUROLOGIST 1WK/PCP 5DAY FU APPT HOSPITAL COURSE: 70-year-old male [place] [facility] patient with past medical history significant for chronic atrial fibrillation refused anticoagulation only on aspirin 81 mg, was brought in by ambulance due to altered mental status with history of Parkinson's disease since 2011 was in his usual state of health yesterday but woke up this morning, unable to speak. Patient said that his neck hurt and felt like his whole head was in a plastic bubble and felt very hot. This lasted until midmorning when EMS arrived. He denied any fever, chills, headache, nausea, vomiting, abdominal pain, shortness of breath, chest pain, pressure, tightness, lightheadedness or dizziness during this time. No medications were taken for pain. By the time EMS arrived, he was able to whisper his words. He denied any receptive aphasia and could understand questions and he knew the right words to use that could not speak. He denied any dysphagia, choking sensation odynophagia. . He usually walks with a walker but was unable to stand up and walk today due to worsening lower extremity weakness. He has chronic low back pain and has paresthesias unchanged from before. He denied any urine or bowel incontinence. In the emergency room. CT of the head was negative. Chest x-ray was unremarkable. Patient was able to speak appropriately without any expressive aphasia. Urine was negative. CBC, metabolic panel were negative coronavirus was negative. MRI of the brain, MRI of the lumbar spine are pending. Hospitalist was asked to admit the patient for evaluation of expressive aphasia and bilateral lower extremity weakness. Expressive aphasia, resolved/ transient ischemic attack-normal MRI Brain/MRA brain -outpt neuro fu within 7 days. neurology consulted. back to baseline mentation Severe spinal stenosis lumbar spine -c/o Bilateral lower extremity weakness -PT/OT consulted. outpt referral to neurosurgery. -lives at [facility] -per physical therapy. Headache -resolved Uncontrolled hypertension -improved Chronic lower extremity edema - on lasix Morbid obesity. -complicating care Vitamin D and B12 deficiencies. -chronic Chronic atrial fibrillation refused anticoagulation. -on asa. mri brain negative for cva Parkinson's disease 2011, Dr. Barry -neurology consulted to adjust meds if needed Diastolic heart failure, EF of 60%. -compensated Mild pulmonary hypertension. -complicating care Spondylosis. Chronic venous insufficiency and chronic edema. -on lasix. fluid restrict 2l Chronic constipation. -bowel regimen TIME SPENT ON DISCHARGE: 30 MIN DISCHARGE PHYSICAL EXAMINATION: VITALS: SEE BELOW GEN: Awake, alert, oriented 3. Speech is fluent. No distress. No use of respiratory accessory mm. no tripod positioning HEENT: NCAT Thick neck. Tongue is midline. Face is symmetric. No JVD, thyromegaly or cervical lymphadenopathy HEART: S1, S2, irregularly irregular, not tachycardic no s3 no carotid bruit LUNGS: Air entry is equal bilaterally. Clear to auscultation. no kyphoscoliosis ABD: Obese, soft, nontender, nondistended, normoactive bowel sounds. No rebound or guarding EXT: Chronic venous stasis changes with brownish discoloration. Chronic 1-2+ pitting edema bilaterally NEURO: Face is symmetric. Tongue is midline. Uvula is midline. Speech is fluent. Motor function 5 out of 5 times bilateral upper extremities 4 out of 5 bilateral lower extremities. Negative Babinski bilaterally . DTRs intact. LABS/MICROBIOLOGY/IMAGING STUDIES: SEE BELOW Vital Signs/I&Os Vital Signs Date Time Temp Pulse Resp B/P (MAP) Pulse Ox O2 Delivery O2 Flow Rate FiO2 11/05/20 06:34 96.8 87 20 137/90 (106) 97 Room Air I&O- Last 24 Hours up to 6 AM 11/05/20 06:00 Intake Total 1050 ml Output Total 1500 ml Balance -450 ml Microbiology Microbiology 11/03/20 Group A Streptococcus Screen (JORGE) - Final, Complete 11/03/20 Group A Streptococcus Screen (JORGE) - Final, Complete Discharge Medications Scheduled Aspirin (Aspirin EC) 81 Mg Tablet., 81 MG PO DAILY, (Reported) Benztropine Mesylate (Benztropine Mesylate) 2 Mg Tab, 2 MG PO BID, (Reported) 0600, 1800 Buspirone HCl (Buspirone HCl) 10 Mg Tab, 20 MG PO BID, (Reported) 0900, 1800 Calcium Carbonate (Calcium) 500 Mg Tablet, 1,000 MG PO BID, (Reported) Carbidopa/Levodopa (Carbidopa-Levodopa 25-100 Tab) 1 Tab Tab, 2 TAB PO 5XD, (Reported) 0600, 0900, 1200, 1700, 2100 Entacapone (Entacapone) 200 Mg Tablet, 200 MG PO QID, (Reported) 0600, 0900, 1200, 1500 Furosemide (Furosemide) 40 Mg Tablet, 40 MG PO DAILY, (Reported) Gabapentin (Gabapentin) 100 Mg Capsule, 100 MG PO TID, (Reported) Multivitamins (Thera M Plus Tablet) 1 Each Tablet, 1 TAB PO DAILY, (Reported) Vitamin B Complex (Vitamin B Complex) 1 Each Tablet, 1 TAB PO DAILY, (Reported) Vitamin E (Dl,Tocopheryl Acet) (Vitamin E) 400 Unit Capsule, 400 UNIT PO DAILY, (Reported) Scheduled PRN Acetaminophen (Tylenol) 325 Mg Tablet, 650 MG PO Q4H PRN for PAIN, (Reported) Bismuth Subsalicylate (Pepto-Bismol) 525 Mg/15 Ml Oral.susp, 30 ML PO QID PRN for DYSPEPSIA, (Reported) Loperamide HCl (Imodium A-D) 2 Mg Tablet, 2 MG PO BID PRN for DIARRHEA, (Reported) Meclizine HCl (Meclizine HCl) 12.5 Mg Tablet, 12.5 MG PO TID PRN for MINOR DISCOMFORT, (Reported) Milk Of Magnesia (Milk of Magnesia) 2,400 Mg/10 Ml Oral.susp, 10 ML PO DAILY PRN for CONSTIPATION, (Reported) Ondansetron HCl (Zofran) 4 Mg Tablet, 4 MG PO Q4H PRN for NAUSEA, (Reported) Allergies Coded Allergies: No Known Allergies (Verified , 04/23/18) ZAYRA SANTAMARIA MD Nov 05, 2020 09:29
--- NOTE | 2020-11-06 18:27 | CR ---
CONSULTATION DATE: 11/04/2020 REFERRING PHYSICIAN: Gloria Kate MD REASON FOR CONSULTATION: Difficulty walking, talking and neck pain. HISTORY OF PRESENT ILLNESS: Fransisco Chaudhari is a 70-year-old man with a history of chronic atrial fibrillation, GI bleed, Parkinson's disease since 2011, who woke up in the morning and had trouble speaking. He felt his legs were freezing and had trouble walking. He had freezing episodes when walking He felt neck pain and felt his whole head was in a plastic bubble and felt hot. The patient denied fever, chills, headaches, abdominal pain, shortness of breath, chest pain, dizziness. The patient was able to answer and understand questions. He said that he knew the right word but could not say it at times. He denied dysphagia, dysarthria , diplopia, urinary incontinence, falls or loss of consciousness. PAST MEDICAL HISTORY: 1. Morbid obesity. 2. GI bleed. 3. Chronic atrial fibrillation and anticoagulation was stopped due to his GI bleed. 4. Parkinson's disease. 5. Pulmonary hypertension. 6. Spondylosis. 7. Chronic venous insufficiency and edema. 8. Constipation. 9. Obstructive sleep apnea syndrome on BiPAP. 10. Panic disorder. 11. Generalized anxiety. CURRENT MEDICATIONS: Sinemet 25/100 mg, 5 times aday with Comtan 200 mg qid, Benztropine 2 mg bid, Aspirin, Buspar, Calcium, Lasix, Gabaoentin 100 mg tid, B, E and multivitamins, Meclizine, Zofran, Tylenol, Bismuth, imodium. ALLERGIES: None. PAST SURGICAL HISTORY: 1. Appendectomy. 2. Tonsillectomy. 3. Left ankle surgery. 4. Colonoscopy. FAMILY HISTORY: Father of bone cancer. Mother of lung cancer. Sister with borderline diabetes. SOCIAL HISTORY: The patient denies smoking, alcohol, illicit drugs. He lives at [facility]. REVIEW OF SYSTEMS: All systems were reviewed and found to be noncontributory except as mentioned in history of present illness. PHYSICAL EXAMINATION: VITAL SIGNS: Temperature 97.6, pulse 77, respiratory rate 18, blood pressure 135/81, 98% saturation on room air. HEART: Irregular rate and rhythm. LUNGS: Clear to auscultation. ABDOMEN: Soft, nontender, nondistended. EXTREMITIES: 1-2+ pedal edema. He has venous stasis changes in his ankles and shins. He has a resting tremor of both hands, right worse. NEUROLOGICAL: The patient is awake, alert, oriented to place, person and time. Normal speech, comprehension and repetition. Extraocular muscles are intact. No facial weakness. Tongue and uvula are midline. 5/5 strength in all four extremities. He has bilateral cogwheel rigidity. Gait is shuffling. He uses a walker for ambulation. DIAGNOSTIC STUDIES: MRI scan of brain showed mild small vessel ischemic disease of brain. MRA brain was unremarkable. MRI of lumbosacral spine showed L4-5 moderate severe lumbosacral stenosis with bilateral foraminal stenosis at L4-5, L5-S1 levels. Scans were reviewed. CBC, \metabolic profile were normal. TSH was 2.6 and T4 was 0.99. Prolactin level was 6.3. ASSESSMENT: 1. Multifactorial gait difficulty. 2. Parkinson's disease. 3. Moderately severe lumbosacral spinal stenosis with bilateral foraminal stenosis. 4. Mild small vessel ischemic disease of the brain without stroke. 5. Atrial fibrillation with a history of GI bleed due to which his anticoagulation was stopped. PLAN: 1. Continue carbidopa/levodopa 25/100 mg five times a day. 2. Entacapone 200 mg p.o. q.i.d. with carbidopa/levodopa. 3. Benztropine 2 mg p.o. b.i.d. 4. Aspirin 81 mg p.o. daily. 5. Physical and occupational therapy. 6. Refer to orthopedics on an outpatient basis. 7. Consider rasagiline 1 mg on outpatient basis for further treatment of his Parkinson's disease. He should continue using walker and wheelchair as needed. 8. Follow with our office in 1-2 weeks after hospital discharge. HASEEB
--- NOTE | 2020-11-07 10:05 | EEG ---
ELECTROENCEPHALOGRAM DATE: 11/04/2020 DIAGNOSIS: Altered mental status. EEG# [id number]. REFERRING PHYSICIAN: Gloria Kate MD HISTORY: Patient is a 70-year-old man with a history of Parkinsonism currently taking Sinemet, Comtan, benztropine, metolazone, buspirone, Lasix, etc. He was admitted at [facility] due to difficulty walking, weakness of the legs, and altered mental status. TECHNICAL DESCRIPTION: This digital EEG was recorded by 21-scalp, ear, and two EKG electrodes and was reviewed in bipolar and referential montages following reformatting in 10-20 international electrode placement system. INTERPRETATION: Patient was noted to be in awake and drowsy states during this EEG. Resting and awake background rhythm consisted of well-formed posterior dominant rhythm with anterior-posterior gradient comprising 9 Hz alpha activity measuring 15-40 microvolts in amplitude, which was symmetric and reactive to eye opening. Attenuation of posterior dominant rhythm was seen during transition into drowsiness. Stage 1 and 2 sleep were reviewed and were symmetric bilaterally. Hyperventilation was not performed. Photic stimulation remained unremarkable. EKG revealed normal sinus rhythm. No focal, lateralizing, or epileptiform abnormalities were seen. No relevant clinical activity was noted. EKG revealed atrial fibrillation and irregular heartbeat. CONCLUSION: This EEG in awake, drowsy states, stage 1 and 2 sleep is within normal limits.
== END 2020-11-05 10:35 | DRG 92 ==
LOC: EDBD 11:15 → M ED 11:15 → M ED INP 14:30 → ENRESERV 14:46 → M MS5PR 15:15
PROVIDERS: ADMIT General Practice; ATTEND General Practice
DX: R47.01 Aphasia (principal); I48.20 Chronic atrial fibrillation, unspecified; Z68.41 Body mass index [BMI] 40.0-44.9, adult; G45.9 Transient cerebral ischemic attack, unspecified; I50.32 Chronic diastolic (congestive) heart failure; G20 Parkinson's disease; E66.01 Morbid (severe) obesity due to excess calories; M48.061 Spinal stenosis, lumbar region without neurogenic claudication; I11.0 Hypertensive heart disease with heart failure; E55.9 Vitamin D deficiency, unspecified; E53.8 Deficiency of other specified B group vitamins; I27.20 Pulmonary hypertension, unspecified; M47.816 Spondylosis without myelopathy or radiculopathy, lumbar region; R60.0 Localized edema; Z79.82 Long term (current) use of aspirin; Z90.49 Acquired absence of other specified parts of digestive tract; Z79.899 Other long term (current) drug therapy; Z20.822 Contact with and (suspected) exposure to COVID-19; K59.09 Other constipation; R53.1 Weakness; R51.9 Headache, unspecified; F41.0 Panic disorder [episodic paroxysmal anxiety]; G47.33 Obstructive sleep apnea (adult) (pediatric); R73.01 Impaired fasting glucose; K42.9 Umbilical hernia without obstruction or gangrene

== ENCOUNTER → 2020-11-25 | Outpatient (REF) | payer MEDICARE, MEDICAID ==
[~2020-11-25] MED LIST changes: +EQL50TAB2 PO; +GABA-1171 PO; +OYST1TAB PO
[2020-11-25 09:20] LABS: BASO % 0.5 % (0.0-1.0); EOS # 0.3 10^3/uL (0.0-0.5); EOS % 6.3 % (0.0-3.0); HEMATOCRIT 44.8 % (42.0-52.0); HEMOGLOBIN 14.7 g/dl (13.5-17.5); LYMPH % 22.9 % (24.0-44.0); MEAN CORPUSCULAR HEMOGLOBIN 31.5 pg (27.0-33.0); MEAN CORPUSCULAR HGB CONC 32.8 g/dl (32.0-36.5); MEAN CORPUSCULAR VOLUME 95.9 fl (80.0-96.0); MONO # 0.3 10^3/uL (0.0-0.8); MONO % 7.7 % (2.0-8.0); NEUTROPHILS # 2.7 10^3/uL (1.5-8.5); NEUTROPHILS % 62.1 % (36.0-66.0); PLATELET COUNT, AUTOMATED 198 10^3/uL (150-450); RED BLOOD COUNT 4.67 10^6/uL (4.30-6.10); WHITE BLOOD COUNT 4.4 10^3/uL (4.0-10.0)
[2020-11-25 09:37] LABS: HEMOGLOBIN A1c 6.1 %
[2020-11-25 09:57] LABS: ALBUMIN 3.5 GM/DL (3.2-5.2); ALT/SGPT 8 U/L (12-78); BILIRUBIN,TOTAL 0.5 MG/DL (0.2-1.0); BLOOD UREA NITROGEN 20 MG/DL (7-18); CALCIUM LEVEL 8.7 MG/DL (8.8-10.2); CARBON DIOXIDE LEVEL 26 MEQ/L (21-32); CHLORIDE LEVEL 106 MEQ/L (98-107); CHOLESTEROL LEVEL 185 MG/DL (<200); CHOLESTEROL RISK RATIO 5.285 (<5); CREATININE FOR GFR 0.95 MG/DL (0.70-1.30); GLOMERULAR FILTRATION RATE > 60.0 (>49); GLUCOSE, FASTING 125 MG/DL (70-100); HDL CHOLESTEROL 35 MG/DL (>40); LDL CHOLESTEROL 117 MG/DL (<100); NON-HDL-C 150 MG/DL; POTASSIUM SERUM 3.8 MEQ/L (3.5-5.1); SODIUM LEVEL 140 MEQ/L (136-145); TOTAL PROTEIN 6.6 GM/DL (6.4-8.2); TRIGLYCERIDES LEVEL 166 MG/DL (<150)
[2020-11-25 13:26] LABS: FOLATE > 24.0 NG/ML; TOTAL 25(OH) VITAMIN D 25.3 NG/ML (30.0-100.0); VITAMIN B12 LEVEL 489 PG/ML
== END ==
PROVIDERS: ATTEND Physician Assistant Medical
DX: R73.03 Prediabetes (principal); E66.1 Drug-induced obesity; E53.8 Deficiency of other specified B group vitamins; E55.9 Vitamin D deficiency, unspecified

== ENCOUNTER → 2021-03-30 | Outpatient (REF) | payer MEDICARE, MEDICAID ==
[~2021-03-30] MED LIST changes: -DOXY100C37 PO; +DOXY1CAP62 PO; -KLOR10TA76 PO; +POTA-136 PO
[2021-03-30 11:10] LABS: BLOOD UREA NITROGEN 26 MG/DL (7-18); CALCIUM LEVEL 8.9 MG/DL (8.8-10.2); CARBON DIOXIDE LEVEL 28 MEQ/L (21-32); CHLORIDE LEVEL 110 MEQ/L (98-107); CREATININE FOR GFR 1.02 MG/DL (0.70-1.30); GLOMERULAR FILTRATION RATE > 60.0 (>49); GLUCOSE, FASTING 129 MG/DL (70-100); POTASSIUM SERUM 3.8 MEQ/L (3.5-5.1); SODIUM LEVEL 142 MEQ/L (136-145)
== END ==
PROVIDERS: ATTEND Physician Assistant Medical
DX: I87.2 Venous insufficiency (chronic) (peripheral) (principal)

== ENCOUNTER → 2021-04-12 | Outpatient (REF) | payer MEDICARE, MEDICAID ==
[2021-04-12 10:58] LABS: APPEARANCE, URINE CLEAR (CLEAR); BACTERIA, URINE AUTO NEGATIVE (NEGATIVE); BILIRUBIN, URINE AUTO 1+ (NEGATIVE); BLOOD, URINE BLOOD NEGATIVE (NEGATIVE); CALCIUM OXALATE CRYSTALS MODERATE; COLOR, URINE YELLOW (YELLOW); GLUCOSE, URINE (UA) AUTO NEGATIVE (NEGATIVE); KETONE, URINE AUTO TRACE mg/dL (NEGATIVE); LEUKOCYTE ESTERASE, URINE AUTO NEGATIVE (NEGATIVE); MUCUS, URINE SMALL (NEGATIVE); NITRITE, URINE AUTO NEGATIVE (NEGATIVE); PROTEIN, URINE AUTO NEGATIVE (NEGATIVE); RBC, URINE AUTO 1 /HPF (0-3); SPECIFIC GRAVITY URINE AUTO 1.021 (1.002-1.035); SQUAMOUS EPITHELIAL CELL UR AU 0 /HPF (0-6); UROBILINOGEN, URINE AUTO 0.2 mg/dL (0.0-2.0); WBC, URINE AUTO 3 /HPF (0-3)
== END ==
PROVIDERS: ATTEND Family Medicine
DX: R35.0 Frequency of micturition (principal)

== ENCOUNTER → 2021-04-19 | Outpatient (REF) | payer MEDICARE, MEDICAID ==
[~2021-04-19] MED LIST changes: +DOXY-443 PO; -DOXY1CAP62 PO
[2021-04-19 13:40] LABS: BASO % 0.4 % (0.0-1.0); EOS # 0.3 10^3/uL (0.0-0.5); EOS % 5.9 % (0.0-3.0); HEMATOCRIT 47.6 % (42.0-52.0); HEMOGLOBIN 15.4 g/dl (13.5-17.5); MEAN CORPUSCULAR HEMOGLOBIN 31.2 pg (27.0-33.0); MEAN CORPUSCULAR HGB CONC 32.4 g/dl (32.0-36.5); MEAN CORPUSCULAR VOLUME 96.6 fl (80.0-96.0); MONO # 0.5 10^3/uL (0.0-0.8); MONO % 10.1 % (2.0-8.0); NEUTROPHILS % 63.2 % (36.0-66.0); PLATELET COUNT, AUTOMATED 185 10^3/uL (150-450); RED BLOOD COUNT 4.93 10^6/uL (4.30-6.10); WHITE BLOOD COUNT 4.8 10^3/uL (4.0-10.0)
[2021-04-19 14:19] LABS: ALBUMIN 3.7 GM/DL (3.2-5.2); ALT/SGPT 16 U/L (12-78); BILIRUBIN,TOTAL 0.5 MG/DL (0.2-1.0); BLOOD UREA NITROGEN 21 MG/DL (7-18); CALCIUM LEVEL 9.6 MG/DL (8.8-10.2); CARBON DIOXIDE LEVEL 34 MEQ/L (21-32); CHLORIDE LEVEL 108 MEQ/L (98-107); CHOLESTEROL LEVEL 197 MG/DL (<200); CHOLESTEROL RISK RATIO 5.969 (<5); CREATININE FOR GFR 1.16 MG/DL (0.70-1.30); GLOMERULAR FILTRATION RATE > 60.0 (>49); GLUCOSE, FASTING 84 MG/DL (70-100); HDL CHOLESTEROL 33 MG/DL (>40); LDL CHOLESTEROL 128 MG/DL (<100); NON-HDL-C 164 MG/DL; SODIUM LEVEL 145 MEQ/L (136-145); TOTAL 25(OH) VITAMIN D 28.6 NG/ML (30.0-100.0); TOTAL PROTEIN 6.7 GM/DL (6.4-8.2); TRIGLYCERIDES LEVEL 178 MG/DL (<150); VITAMIN B12 LEVEL 621 PG/ML (247-911)
[2021-04-19 14:21] LABS: CREATININE, URINE 86.5 MG/DL; MALB URINE SIEMENS 8.7 MG/L
[2021-04-19 14:31] LABS: HEMOGLOBIN A1c 6.3 %
== END ==
LOC: M SFHCADAM 10:06
PROVIDERS: ATTEND Physician Assistant Medical
DX: I50.32 Chronic diastolic (congestive) heart failure (principal); G20 Parkinson's disease; E66.01 Morbid (severe) obesity due to excess calories; E55.9 Vitamin D deficiency, unspecified; E78.2 Mixed hyperlipidemia; G47.33 Obstructive sleep apnea (adult) (pediatric); R73.03 Prediabetes; E53.8 Deficiency of other specified B group vitamins
CPT/HCPCS: 80053; 80061; 82043; 82306; 82607; 83036; 84443; 85025; G0463

== ENCOUNTER → 2021-05-18 | Outpatient (REF) | payer MEDICARE, MEDICAID ==
[2021-05-18 11:30] LABS: BASO % 0.5 % (0.0-1.0); EOS # 0.4 10^3/uL (0.0-0.5); EOS % 8.7 % (0.0-3.0); HEMATOCRIT 42.9 % (42.0-52.0); HEMOGLOBIN 13.9 g/dl (13.5-17.5); LYMPH % 25.1 % (24.0-44.0); MEAN CORPUSCULAR HEMOGLOBIN 30.8 pg (27.0-33.0); MEAN CORPUSCULAR HGB CONC 32.4 g/dl (32.0-36.5); MEAN CORPUSCULAR VOLUME 95.1 fl (80.0-96.0); MONO # 0.4 10^3/uL (0.0-0.8); MONO % 10.4 % (2.0-8.0); NEUTROPHILS # 2.2 10^3/uL (1.5-8.5); NEUTROPHILS % 55.1 % (36.0-66.0); PLATELET COUNT, AUTOMATED 173 10^3/uL (150-450); RED BLOOD COUNT 4.51 10^6/uL (4.30-6.10)
[2021-05-18 12:05] LABS: BLOOD UREA NITROGEN 21 MG/DL (7-18); CALCIUM LEVEL 8.9 MG/DL (8.8-10.2); CARBON DIOXIDE LEVEL 27 MEQ/L (21-32); CHLORIDE LEVEL 108 MEQ/L (98-107); GLOMERULAR FILTRATION RATE > 60.0 (>49); GLUCOSE, FASTING 150 MG/DL (70-100); POTASSIUM SERUM 3.9 MEQ/L (3.5-5.1); SODIUM LEVEL 141 MEQ/L (136-145)
[2021-05-18 12:06] LABS: ALBUMIN 3.4 GM/DL (3.2-5.2); ALT/SGPT 12 U/L (12-78); BILIRUBIN,TOTAL 0.5 MG/DL (0.2-1.0); CHOLESTEROL LEVEL 179 MG/DL (<200); CHOLESTEROL RISK RATIO 5.774 (<5); HDL CHOLESTEROL 31 MG/DL (>40); LDL CHOLESTEROL 121 MG/DL (<100); NON-HDL-C 148 MG/DL; TOTAL PROTEIN 6.5 GM/DL (6.4-8.2); TRIGLYCERIDES LEVEL 136 MG/DL (<150)
[2021-05-18 12:13] LABS: HEMOGLOBIN A1c 6.2 %
== END ==
PROVIDERS: ATTEND Physician Assistant Medical
DX: I50.32 Chronic diastolic (congestive) heart failure (principal); E66.01 Morbid (severe) obesity due to excess calories; E78.01 Familial hypercholesterolemia; G47.33 Obstructive sleep apnea (adult) (pediatric); G20 Parkinson's disease; Z79.899 Other long term (current) drug therapy

== ENCOUNTER → 2021-06-07 | Outpatient (REF) | payer MEDICARE, MEDICAID ==
[~2021-06-07] MED LIST changes: +COLA100C5 PO; +EUCECRE8 TOP; +KEPP250T5 PO; +LEVE250T5 PO; +MIRA1POW3 PO; +MIRA3350 PO; +MIRT-62 PO; +TUMS500C PO; +VITA-298 PO
[2021-06-08 10:22] LABS: APPEARANCE, URINE CLEAR (CLEAR); BACTERIA, URINE AUTO NEGATIVE (NEGATIVE); BILIRUBIN, URINE AUTO NEGATIVE (NEGATIVE); BLOOD, URINE BLOOD NEGATIVE (NEGATIVE); CALCIUM OXALATE CRYSTALS SMALL; COLOR, URINE AMBER (YELLOW); GLUCOSE, URINE (UA) AUTO NEGATIVE (NEGATIVE); KETONE, URINE AUTO TRACE mg/dL (NEGATIVE); LEUKOCYTE ESTERASE, URINE AUTO NEGATIVE (NEGATIVE); MUCUS, URINE SMALL (NEGATIVE); NITRITE, URINE AUTO NEGATIVE (NEGATIVE); PROTEIN, URINE AUTO NEGATIVE (NEGATIVE); RBC, URINE AUTO 0 /HPF (0-3); SPECIFIC GRAVITY URINE AUTO 1.023 (1.002-1.035); SQUAMOUS EPITHELIAL CELL UR AU 0 /HPF (0-6); UROBILINOGEN, URINE AUTO 0.2 mg/dL (0.0-2.0); WBC, URINE AUTO 1 /HPF (0-3)
== END ==
PROVIDERS: ATTEND Family Medicine
DX: R35.0 Frequency of micturition (principal); R32 Unspecified urinary incontinence; R30.9 Painful micturition, unspecified

== ENCOUNTER 2021-06-16 07:58 | Inpatient (IN) | payer MEDICARE, MEDICAID ==
[~2021-06-16] VITALS: Ht 175.3 cm; Wt 129.0 kg
[~2021-06-16 07:58] MED LIST changes: -COLA100C5 PO; -EUCECRE8 TOP; -KEPP250T5 PO; -LEVE250T5 PO; -MIRA1POW3 PO; -MIRA3350 PO; -MIRT-62 PO; -TUMS500C PO; -VITA-298 PO
--- OUTSIDE RECORDS SUMMARY | 2021-06-16 09:24 | CCD ---
Author Author [facility] Organization [facility] Address Unknown Phone Unavailable Care Team Providers Care Broom Man Name Role Phone Teresa Castellon Unavailable PROBLEMS Type Condition ICD9-CM Code [id number] Code Onset Dates Condition S tatus W/U Status Risk SNOMED Code Notes Problem Morbid (severe) obesity due to excess calories E66 .01 Active confirmed 252163912 Problem Generalized edema R60.1 Active confirmed 44 3487304 Problem Vitamin D deficiency E55.9 Active confirmed 67886028 Problem B12 deficiency E53.8 Active confirmed 38921 4004 Problem Mixed hyperlipidemia E78.2 Active confirmed 953458965 Problem Slow transit constipation K59.01 Active confirmed 15597886 Problem ALEXI (obstructive sleep apnea) G47.33 Active confirm ed 81426703 Problem Distal paresthesia R20.2 Active confirmed 7 9557898 Problem Venous insufficiency I87.2 Active confirmed 15159705 Increase furosemide 40 mg from just one in the morning to one in the morning and one at noon, check a basic metabolic profile in one week Problem Adjustment disorder with anxiety F43.22 Active conf irmed 39692051 Problem 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 to breakdown of skin L97.511 Active confirmed 194294844 Problem Tinnitus of both ears H93.13 Active confirmed [id number] He is agreeable to a referral to audiology Problem Physical deconditioning R53.81 Active confirmed 85394289580483 Problem Chronic diastolic (congestive) heart failure I50.3 2 Active confirmed 858462264 Problem Altered mental status, unspecified altered mental stat us type R41.82 Active confirmed 093741122 Problem Anxiety F41.9 Active confirmed 75211416 Problem Parkinson's disease G20 Active confirmed 07639832 Problem Panic disorder F41.0 Active confirmed 19719 1005 Problem Longstanding persistent atrial fibrillation I48.11 Active confirmed 675387802 Problem Generalized anxiety disorder F41.1 Active confirme d 96529861 Problem Type 2 diabetes mellitus wit hout complication, without long-term current use of insulin E11.9 Active confirmed 574544779 ALLERGIES No Known Allergies ENCOUNTERS from 1952 to 2021-05-20 Encounter Location Date Provider Diagnosis [facility] [address] [place] [address] May, Teresa Castellon Venous insufficiency I87.2 IMMUNIZATIONS Vaccine Route Administration Date Status Influenza 18 yrs & older Flublok Unknown Apr 21, 2018 Administered Pneumococcal Adult 0.5mL Pneumovax 23 IM Intramuscular November 17 020 Administered TDAP 0.5mL (Boostrix) IM Intramuscular December 09, 2015 Administe red Pneumococcal 0.5mL Prevnar 13 Unknown Apr 21, 2018 Ad ministered Influenza 6mo & up Fluzone Unknown Jul 05, 2017 Admin istered Influenza 6mo & up Fluzone IM Intramuscular Jun 14, 2015 Admi nistered SOCIAL HISTORY Tobacco Use: Social History Observation Description Date Details (start date - stop date) Never Smoker Sex Assigned At : Social History Observation Description Sex Assigned At Unknown Audit Question Answer Notes Total Score: 0 Interpretation: Alcohol Education Drug and Alcohol Question Answer Notes Total Score: 0 Interpretation: No problems reported Alcohol Screening: Question Answer Notes Points 2 Interpretation Negative BMI Care Goal Follow-Up Question Answer Notes Above Normal BMI Follow-Up Dietary management educatio n, guidance, and counseling Tobacco Use: Question Answer Notes Are you a: never smoker REASON FOR REFERRAL No Information VITAL SIGNS No information MEDICATIONS Medication SIG (Take, Route, Frequency, Duration) Notes Start Da te End Date Status Sinemet 25-100 MG 2 tablet Orally five times daily for 30 days Jun, Active Benztropine Mesylate 2 MG 1 tab Orally Twice a day for 30 day(s) Oct, Active Imodium A-D 2 MG 1 tablet as needed Orally twice daily May, Active Furosemide 40 MG 1 tablet Orally twice a day for 30 Days Active Melatonin 3 MG 1 tablet at bedtime as needed Orally Once a day for 30 day(s) Jul, Not-Taking Meclizine HCl 12.5 MG 1 tablet as needed Orally three times purnima y for 30 Days Active Milk of Magnesia 2400 MG/10ML 5 ml Orally Twice a day, PRN for 3 0 day(s) November, Active Acetaminophen 325 MG 2 tablet as needed ,PRN every 4 hrs for 30 days November, Active Hospital bed as directed G20 Daily for 1 days Aug, Not-Taking diphenhydrAMINE HCl 25 MG 1 tab Orally every 6 hrs prn pruritis for 5 day(s) Apr, Active Calcium 500 MG 1 tablet with meals Orally Twice a day for 30 da y(s) Dec, Active Gabapentin 100 MG 1 capsule Orally three times a day for 30 days Active busPIRone HCl 10 MG 2 tablet Orally Twice a day for 30 days Dec, Active Vitamin B Complex . 1 tab(s) Orally daily for 30 day(s) Active Ondansetron HCl 4 MG TAKE ONE TABLET BY MOUTH EVERY 4 HOURS N EEDED for 30 Active Multi Vitamin Daily 1 tablet Orally Once a day for 30 day(s) Active Aspirin 81 MG 1 tablet Orally Once a day for 30 day(s) Active Simvastatin 40 MG 1 tablet in the evening Orally Once a day for 90 day(s) November, Not-Taking Eucerin - as directed bilateral legs a fter washing with soap and water daily for 90 days Oct, Not-Taking Pepto-Bismol Max Strength 525 MG/15ML 30 ml Orally Fou r times a Day as needed for dyspepsia for 30 Days May, Active Vitamin E 400 UNIT 1 capsule Orally Once a day for 30 day(s) Dec, Active Comtan 200 MG 1 tablet Orally four times a day for 30 days Mar, Active PROCEDURES No Information RESULTS No Results REASON FOR VISIT lasix MEDICAL (GENERAL) HISTORY Type Description Date Medical History Parkinson's, dx 2011 - Dr Barry Medical History morbid obesity Medical History Vit D def Medical History Vit B12 def Medical History A fib, chronic - refuses anticoag. Medical History CHF, chronic diastolic Medical History DM2 Medical History chronic venous insuff, edema Medical History chr constipation Medical History echo 02/23: EF 60%, LAE 63 mm, mikld pulm HTN Medical History MRI C spoine at [facility], spondylosis Medical History ALEXI, severe--returned BIPAP (referred ba ck to [facility] 02/23) Medical History Umbillical hernia Medical History panic d/o/ARAM Medical History COVID vaccine - ?Pfizer Surgical History appendectomy 1959 Surgical History tonsillectomy 1959 Surgical History L ankle surgery 2012 Surgical History Colonoscopy 04/2018 Hospitalization History CHF, A fib 2001 Hospitalization History cellulitis both lower legs 08/27/15 Hospitalization History CHF, umbillical hernia 02/2018 Hospitalization History Dehydration 04/2018 Hospitalization History [facility] 2018 Hospitalization History TIA, expressive aphasia 10/27 Goals Section No Information Health Concerns No Information MEDICAL EQUIPMENT No Information MENTAL STATUS No Information FUNCTIONAL STATUS No Information ASSESSMENTS Encounter Date Diagnosis Assessment Notes Treatment Notes Treatm ent Clinical Notes May, Venous insufficiency (ICD-10 - I87.2) PLAN OF TREATMENT Medication Medication Name Sig Start Date Stop Date Multi Vitamin Daily 1 tablet Orally Once a day for 30 day(s) Pepto-Bismol Max Strength 525 MG/15ML 30 ml Orally Fou r times a Day as needed for dyspepsia for 30 Days May, Gabapentin 100 MG 1 capsule Orally three times a day for 30 days Furosemide 40 MG 1 tablet Orally twice a day for 30 Days Sinemet 25-100 MG 2 tablet Orally five times daily for 30 days 1 Jun, Benztropine Mesylate 2 MG 1 tab Orally Twice a day for 30 day(s) Oct, Aspirin 81 MG 1 tablet Orally Once a day for 30 day(s) Calcium 500 MG 1 tablet with meals Orally Twice a day f or 30 day(s) Dec, Comtan 200 MG 1 tablet Orally four times a day for 30 days Mar, Vitamin B Complex . 1 tab(s) Orally daily for 30 day(s) Next Appt Details Provider Name:Teresa Barrycea, 2021-10-31 09:00:00 AM, [address], , [place], [address], Insurance Providers Payer Name Payer Address Payer Phone Insured Name Patient Relati onship to Insured Coverage Start Date Coverage End Date MEDICAID [id number] [address] [facility] [id number] [place] MEDICARE Part A and B [address] [facility] [id number] [phone] [employer] self
--- OUTSIDE RECORDS SUMMARY | 2021-06-16 09:24 | CCD ---
Author Author [facility] Organization [facility] Address Unknown Phone Unavailable Care Team Providers Care Industrial Economics Teacher Name Role Phone Teresa Castellon Unavailable PROBLEMS Type Condition ICD9-CM Code [id number] Code Onset Dates Condition S tatus W/U Status Risk SNOMED Code Notes Problem Morbid (severe) obesity due to excess calories E66 .01 Active confirmed 346615609 Problem Generalized edema R60.1 Active confirmed 44 4132657 Problem Vitamin D deficiency E55.9 Active confirmed 34589829 Problem B12 deficiency E53.8 Active confirmed 50948 4004 Problem Mixed hyperlipidemia E78.2 Active confirmed 504549938 Problem Slow transit constipation K59.01 Active confirmed 94776743 Problem ALEXI (obstructive sleep apnea) G47.33 Active confirm ed 96839568 Problem Distal paresthesia R20.2 Active confirmed 7 3380191 Problem Venous insufficiency I87.2 Active confirmed 92609422 Increase furosemide 40 mg from just one in the morning to one in the morning and one at noon, check a basic metabolic profile in one week Problem Adjustment disorder with anxiety F43.22 Active conf irmed 27038077 Problem 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 to breakdown of skin L97.511 Active confirmed 928747160 Problem Tinnitus of both ears H93.13 Active confirmed [id number] He is agreeable to a referral to audiology Problem Physical deconditioning R53.81 Active confirmed [id number] Problem Chronic diastolic (congestive) heart failure I50.3 2 Active confirmed 217707837 Problem Altered mental status, unspecified altered mental stat us type R41.82 Active confirmed 309685786 Problem Anxiety F41.9 Active confirmed 09054085 Problem Parkinson's disease G20 Active confirmed 69884327 Problem Panic disorder F41.0 Active confirmed 13451 1005 Problem Longstanding persistent atrial fibrillation I48.11 Active confirmed 363126811 Problem Generalized anxiety disorder F41.1 Active confirme d 60346587 Problem Type 2 diabetes mellitus wit hout complication, without long-term current use of insulin E11.9 Active confirmed 914457128 ALLERGIES No Known Allergies ENCOUNTERS from 1950 to 2021-05-17 Encounter Location Date Provider Diagnosis [facility] [address] [place] [address] May, Teresa Castellon Venous insufficiency I87.2 IMMUNIZATIONS Vaccine Route Administration Date Status Pneumococcal Adult 0.5mL Pneumovax 23 IM Intramuscular November 17 020 Administered Influenza 18 yrs & older Flublok Unknown Apr 21, 2018 Administered TDAP 0.5mL (Boostrix) IM Intramuscular December [...] as needed Orally twice daily May, Active Multi Vitamin Daily 1 tablet Orally Once a day for 30 day(s) Active Melatonin 3 MG 1 tablet at [...] times a day for 30 days Active Furosemide 40 MG 1 tablet Orally Once a day for 30 Days Active Vitamin B Complex . 1 tab(s) Orally daily for 30 day(s) Active Ondansetron HCl 4 MG TAKE ONE TABLET BY MOUTH EVERY 4 HOURS N EEDED for 30 Active Vitamin E 400 UNIT 1 capsule Orally Once a day for 30 day(s) Dec, Active Aspirin 81 MG 1 tablet Orally [...] for dyspepsia for 30 Days May, Active busPIRone HCl 10 MG 2 tablet Orally Twice a day for 30 days Dec, Active Comtan 200 MG 1 tablet Orally four times a day for 30 days Mar, Active PROCEDURES No Information RESULTS No Results REASON FOR VISIT refill MEDICAL (GENERAL) HISTORY Type Description Date Medical [...] HTN Medical History MRI C spoine at [facility], spondylosis Medical History ALEXI, severe--returned BIPAP (referred ba ck to [facility] 02/23) Medical History Umbillical hernia Medical [...] Medication Name Sig Start Date Stop Date Furosemide 40 MG 1 tablet Orally Once a day for 30 Days Pepto-Bismol Max Strength 525 MG/15ML 30 ml Orally Fou r times a Day as needed for dyspepsia for 30 Days May, Gabapentin 100 MG 1 capsule Orally three times a day for 30 days Multi Vitamin Daily 1 tablet Orally Once a day for 30 day(s) Sinemet 25-100 MG 2 tablet Orally five [...] Details Provider Name:Teresa Barrycea, 2021-10-31 09:00:00 AM, [address], , [place], [address], Insurance Providers Payer Name Payer Address Payer Phone Insured Name Patient Relati onship to Insured Coverage Start Date Coverage End Date MEDICAID [place] [address] [facility] [address] [place] MEDICARE Part A and B [address] [facility] [address] [phone] [employer] [employer] self
--- OUTSIDE RECORDS SUMMARY | 2021-06-16 09:24 | CCD ---
Author Author [facility] Organization [facility] Address Unknown Phone Unavailable Care Team Providers Care Cash Van Salesperson Name Role Phone Teresa Castellon Unavailable PROBLEMS Type Condition ICD9-CM Code [id number] Code Onset Dates Condition S tatus W/U Status Risk SNOMED Code Notes Problem Morbid (severe) obesity due to excess calories E66 .01 Active confirmed 282719922 Problem Generalized edema R60.1 Active confirmed 44 5281001 Problem Vitamin D deficiency E55.9 Active confirmed 56733739 Problem B12 deficiency E53.8 Active confirmed 93957 4004 Problem Mixed hyperlipidemia E78.2 Active confirmed 635359629 Problem Slow transit constipation K59.01 Active confirmed 75369466 Problem ALEXI (obstructive sleep apnea) G47.33 Active confirm ed 19555404 Problem Distal paresthesia R20.2 Active confirmed 7 2418431 Problem Venous insufficiency I87.2 Active confirmed 16360441 Increase furosemide 40 mg from just one in the morning to one in the morning and one at noon, check a basic metabolic profile in one week Problem Adjustment disorder with anxiety F43.22 Active conf irmed 31265011 Problem 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 to breakdown of skin L97.511 Active confirmed 895252630 Problem Tinnitus of both ears H93.13 Active confirmed 1881273119931 He is agreeable to a referral to audiology Problem Physical deconditioning R53.81 Active confirmed 59595072519832 Problem Chronic diastolic (congestive) heart failure I50.3 2 Active confirmed 006082994 Problem Altered mental status, unspecified altered mental stat us type R41.82 Active confirmed 669435950 Problem Anxiety F41.9 Active confirmed 34085385 Problem Parkinson's disease G20 Active confirmed 54868067 Problem Panic disorder F41.0 Active confirmed 84138 1005 Problem Longstanding persistent atrial fibrillation I48.11 Active confirmed 701303821 Problem Generalized anxiety disorder F41.1 Active confirme d 18687036 Problem Type 2 diabetes mellitus wit hout complication, without long-term current use of insulin E11.9 Active confirmed 482936312 ALLERGIES No Known Allergies ENCOUNTERS from 1950 to 2021-05-09 Encounter Location Date Provider Diagnosis [facility] [address] [place] [address] May, Teresa Castellon IMMUNIZATIONS Vaccine Route Administration Date Status Influenza [...] days Active Furosemide 40 MG 1 tablet in am & 1 at noon Orally Twice a day for 30 Days Active Vitamin [...] Information RESULTS No Results REASON FOR VISIT refills MEDICAL (GENERAL) HISTORY Type Description Date Medical [...] HTN Medical History MRI C spoine at [facility], spondylosis Medical History ALEXI, severe--returned BIPAP (referred ba ck to [facility] 02/23) Medical History Umbillical hernia Medical [...] No Information FUNCTIONAL STATUS No Information ASSESSMENTS No Information PLAN OF TREATMENT Medication Medication Name Sig Start Date Stop Date Multi Vitamin Daily 1 tablet Orally Once a day for 30 day(s) Pepto-Bismol Max Strength 525 MG/15ML 30 ml Orally Fou r times a Day as needed for dyspepsia for 30 Days May, Calcium 500 MG 1 tablet with meals Orally Twice a day f or 30 day(s) Dec, Gabapentin 100 MG 1 capsule Orally three times a day for 30 days Sinemet 25-100 MG 2 tablet Orally five times daily for 30 days Jun, Vitamin B Complex . 1 tab(s) Orally daily for 30 day(s) Aspirin 81 MG 1 tablet Orally Once a day for 30 day(s) Benztropine Mesylate 2 MG 1 tab Orally Twice a day for 30 day(s) Oct, Comtan 200 MG 1 tablet Orally four times a day for 30 days Mar, Next Appt Details Provider Name:Teresa Castellon, 2021-10-31 09:00:00 AM, [address], , [place], [address], Insurance Providers Payer Name Payer Address Payer Phone Insured Name Patient Relati onship to Insured Coverage Start Date Coverage End Date MEDICAID [place] [address] [facility] [address] [place] self MEDICARE Part A and B [address] [facility] [address] [employer] [employer]
--- OUTSIDE RECORDS SUMMARY | 2021-06-16 09:24 | CCD ---
Author Author [facility] Organization [facility] Address Unknown Phone Unavailable Care Team Providers Care Metal Control Coordinator Name Role Phone Teresa Castellon Unavailable PROBLEMS Type Condition ICD9-CM Code [id number] Code Onset Dates Condition S tatus W/U Status Risk SNOMED Code Notes Problem Morbid (severe) obesity due to excess calories E66 .01 Active confirmed 864273599 Problem Generalized edema R60.1 Active confirmed 44 9824655 Problem Vitamin D deficiency E55.9 Active confirmed 05394484 Problem B12 deficiency E53.8 Active confirmed 38814 4004 Problem Mixed hyperlipidemia E78.2 Active confirmed 842625152 Problem Slow transit constipation K59.01 Active confirmed 15756587 Problem ALEXI (obstructive sleep apnea) G47.33 Active confirm ed 57718669 Problem Distal paresthesia R20.2 Active confirmed 7 5665652 Problem Venous insufficiency I87.2 Active confirmed 12412718 Increase furosemide 40 mg from just one in the morning to one in the morning and one at noon, check a basic metabolic profile in one week Problem Adjustment disorder with anxiety F43.22 Active conf irmed 21920133 Problem 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 to breakdown of skin L97.511 Active confirmed 957199396 Problem Tinnitus of both ears H93.13 Active confirmed 0324171897334 He is agreeable to a referral to audiology Problem Physical deconditioning R53.81 Active confirmed 56565303936454 Problem Chronic diastolic (congestive) heart failure I50.3 2 Active confirmed 782820048 Problem Altered mental status, unspecified altered mental stat us type R41.82 Active confirmed 807127076 Problem Anxiety F41.9 Active confirmed 90732127 Problem Parkinson's disease G20 Active confirmed 29752413 Problem Panic disorder F41.0 Active confirmed 27230 1005 Problem Longstanding persistent atrial fibrillation I48.11 Active confirmed 465026383 Problem Generalized anxiety disorder F41.1 Active confirme d 58076333 Problem Type 2 diabetes mellitus wit hout complication, without long-term current use of insulin E11.9 Active confirmed 382938709 ALLERGIES No Known Allergies ENCOUNTERS from 1950 to 2021-04-26 Encounter Location Date Provider Diagnosis [facility] [address] [place] [address] Apr, Teresa Castellon Medicare annual wellness visit, subseque nt Z00.00 ; Chronic diastolic (congestive) heart failure I50.32 ; Parkinson's disease G20 ; Generalized edema R60.1 ; Morbid (severe) obesity due to excess calories E66.01 ; B12 deficiency E53.8 ; Vitamin D deficiency E55.9 ; Mixed hyperlipidemia E78.2 ; ALEXI (obstructive sleep apnea) G47.33 ; Physical deconditioning R53.81 and Type 2 diabetes mellitus without complication, without long-term current use of insulin E11.9 IMMUNIZATIONS Vaccine Route Administration Date Status Influenza [...] REASON FOR REFERRAL No Information VITAL SIGNS Weight 282.2 lbs Apr, Height 69 in Apr, BMI 41.67 kg/m2 Apr, Heart Rate 92 /min Apr, Respiratory Rate 18 /min Apr, Temperature 98 degrees Fahrenheit Apr, Oximetry 96 Apr, Blood pressure systolic 130 mm Hg Apr, Blood pressure diastolic 80 mm Hg Apr, MEDICATIONS Medication SIG (Take, Route, Frequency, Duration) Notes Start Da te End Date Status Melatonin 3 MG 1 tablet at bedtime as needed Orally Once a day for 30 day(s) Jul, Not-Taking Pepto-Bismol Max Strength 525 MG/15ML 30 ml Orally Fou r times a Day as needed for dyspepsia for 30 Days May, Active Imodium A-D 2 MG 1 tablet as needed Orally twice daily May, Active Multi Vitamin Daily 1 tablet Orally Once a day for 30 day(s) Active Aspirin 81 MG 1 tablet Orally Once a day for 30 day(s) Active Meclizine HCl 12.5 MG 1 tablet as [...] prn pruritis for 5 day(s) Apr, Active Sinemet 25-100 MG 2 tablet Orally five times daily Jun, Active Benztropine Mesylate 2 MG 1 tab Orally Twice a day for 30 day(s) Oct, Active Furosemide 40 MG 1 tablet in am & 1 at noon Orally Twice a day for 30 Days Active Comtan 200 MG 1 tablet Orally four times a day Mar, 9 Active Ondansetron HCl 4 MG TAKE ONE TABLET BY MOUTH EVERY 4 HOURS N EEDED for 30 Active Vitamin E 400 UNIT 1 capsule Orally Once a day for 30 day(s) Dec, Active Calcium 500 MG 1 tablet with meals Orally Twice a day for 30 da y(s) Dec, Active Simvastatin 40 MG 1 tablet in the evening Orally Once a day for 90 day(s) November, Not-Taking Eucerin - as directed bilateral legs a fter washing with soap and water daily for 90 days Oct, Not-Taking Gabapentin 100 MG 1 capsule Orally three times a day Active busPIRone HCl 10 MG 2 tablet Orally Twice a day for 30 days Dec, Active Vitamin B Complex . 1 tab(s) Orally daily for 30 day(s) Active PROCEDURES No Information RESULTS Component Value Reference Range CBC with Differential Reviewed date:04/21/2021 16:09:55 Interpretation: Performing Lab:[facility] LABORATORY [address] [facility] [address] , ,[place] [address] WHITE BLOOD COUNT 4.8 4.0-10.0 RED BLOOD COUNT 4.93 4.30-6.10 HEMOGLOBIN 15.4 13.5-17.5 HEMATOCRIT 47.6 42.0-52.0 MEAN CORPUSCULAR VOLUME 96.6 80.0-96.0 MEAN CORPUSCULAR HEMOGLOBIN 31.2 27.0-33.0 MEAN CORPUSCULAR HGB CONC 32.4 32.0-36.5 RED CELL DISTRIBUTION WIDTH 13.5 11.5-14.5 PLATELET COUNT, AUTOMATED 185 150-450 NEUTROPHILS % 63.2 36.0-66.0 LYMPH % 20.0 24.0-44.0 MONO % 10.1 2.0-8.0 EOS % 5.9 0.0-3.0 BASO % 0.4 0.0-1.0 NEUTROPHILS # 3.0 1.5-8.5 LYMPH # 1.0 1.5-5.0 MONO # 0.5 0.0-0.8 EOS # 0.3 0.0-0.5 BASO # 0.0 0.0-0.2 Comprehensive Metabolic Profile (CMP) Reviewed date:04/21/2021 16:09:55 Interpretation: Performing Lab:[facility] LABORATORY [address] [facility] [address] , ,[place] [address] GLUCOSE, FASTING 84 70-100 BLOOD UREA NITROGEN 21 7-18 CREATININE FOR GFR 1.16 0.70-1.30 GLOMERULAR FILTRATION RATE > 60.0 >49 SODIUM LEVEL 145 136-145 POTASSIUM SERUM 4.0 3.5-5.1 CHLORIDE LEVEL 108 98-107 CARBON DIOXIDE LEVEL 34 21-32 CALCIUM LEVEL 9.6 8.8-10.2 AST/SGOT 17 7-37 ALT/SGPT 16 12-78 ALKALINE PHOSPHATASE 41 45-117 BILIRUBIN,TOTAL 0.5 0.2-1.0 TOTAL PROTEIN 6.7 6.4-8.2 ALBUMIN 3.7 3.2-5.2 ALBUMIN/GLOBULIN RATIO 1.2 HEMOGLOBIN A1c Reviewed date:04/21/2021 16:09:55 Interpretation: Performing Lab:[facility] LABORATORY [address] [place] [address] , ,[place] [address] HEMOGLOBIN A1c 6.3 ESTIMATED AVERAGE GLUCOSE 134 60-110 LIPID PANEL (CARDIAC RISK) Reviewed date:04/21/2021 16:09:55 Interpretation: Performing Lab:[facility] LABORATORY [address] [place] [address] , ,[place] [address] TRIGLYCERIDES LEVEL 178 <150 CHOLESTEROL LEVEL 197 <200 HDL CHOLESTEROL 33 >40 LDL CHOLESTEROL 128 <100 NON-HDL-C 164 CHOLESTEROL RISK RATIO 5.969 <5 TSH Reviewed date:04/21/2021 16:09:55 Interpretation: Performing Lab:[facility] LABORATORY [address] [facility] [address] , ,[facility] THYROID STIMULATING HORMONE 2.040 0.358-3.740 MICROALBUMIN RANDOM Reviewed date:04/21/2021 16:09:55 Interpretation: Performing Lab:[facility] LABORATORY [address] [facility] [address] , ,[facility] CREATININE, URINE 86.5 MALB URINE SIEMENS 8.7 SIENNA/CREAT RATIO 10.0 0.0-30.0 VITAMIN D 25-HYDROXY Reviewed date:04/21/2021 16:09:55 Interpretation: Performing Lab:[facility] LABORATORY [address] [facility] [address] , ,[place] [address] TOTAL 25(OH) VITAMIN D 28.6 30.0-100.0 VITAMIN B12 LEVEL Reviewed date:04/21/2021 16:09:55 Interpretation: Performing Lab:[facility], [facility] LABORATORY [address] [facility] [address] , ,[place] [address] VITAMIN B12 LEVEL [phone] REASON FOR VISIT MED evaluation MEDICAL (GENERAL) HISTORY Type Description Date Medical [...] HTN Medical History MRI C spoine at [facility], spondylosis Medical History ALEXI, severe--returned BIPAP (referred ba ck to [facility] 02/23) Medical History Umbillical hernia Medical History panic d/o/ARAM Medical History COVID vaccine - ?Pfizer Surgical History appendectomy 1959 Surgical History tonsillectomy 1959 Surgical History L ankle surgery 2012 Surgical History Colonoscopy 04/2018 Hospitalization History CHF, A fib 2001 Hospitalization History cellulitis both lower legs 08/27/15 Hospitalization History CHF, umbillical hernia 02/2018 Hospitalization History Dehydration 04/2018 Hospitalization History [facility] Rehab 2018 Hospitalization History TIA, expressive aphasia 10/27 Goals Section No Information Health Concerns No Information MEDICAL EQUIPMENT No Information MENTAL STATUS No Information FUNCTIONAL STATUS No Information ASSESSMENTS Encounter Date Diagnosis Assessment Notes Treatment Notes Treatm ent Clinical Notes Apr, Medicare annual wellness visit, subsequent (ICD- 10 - Z00.00) Counseled on RHM, safety, imms. Apr, Chronic diastolic (congestive) heart failure (IC D-10 - I50.32) Appears compensated, this is really the best I have seen him in a long time. He looks great. Apr, Parkinson's disease (ICD-10 - G20) Symptoms stable, follows with Neuro, TV the end of the month. Apr, Generalized edema (ICD-10 - R60.1) Apr, Morbid (severe) obesity due to excess calories ( ICD-10 - E66.01) Pt was counselled on the importance of diet and exercise in maintaining a healthy weight and that patients weight currently poses a health risk. Pt verbalizes understanding Apr, B12 deficiency (ICD-10 - E53.8) Repeat BW today Apr, Vitamin D deficiency (ICD-10 - E55.9) Repeat BW today Apr, Mixed hyperlipidemia (ICD-10 - E78.2) Repeat BW today Apr, ALEXI (obstructive sleep apnea) (ICD-10 - G47.33) Declines CPAP. Apr, Physical deconditioning (ICD-10 - R53.81) Apr, Type 2 diabetes mellitus wit hout complication, without long-term current use of insulin (ICD-10 - E11.9) Due for f/u BW today. PLAN OF TREATMENT Treatment Notes Assessment Notes Clinical Notes Medicare annual wellness visit, subsequent Counseled on RHM, safety, imms. Chronic diastolic (congestive) heart failure Appears c ompensated, this is really the best I have seen him in a long time. He looks great. Parkinson's disease Symptoms stable, follows [facility], TV the end of the month. Morbid (severe) obesity due to excess calories Pt was counselled on the importance of diet and exercise in maintaining a healthy weight and that patients weight currently poses a health risk. Pt verbalizes understanding B12 deficiency Repeat BW today Vitamin D deficiency Repeat BW today Mixed hyperlipidemia Repeat BW today ALXEI (obstructive sleep apnea) Declines CPAP. Type 2 diabetes mellitus without complic ation, without long-term current use of insulin Due for f/u BW today. Next Appt Details BW today f/u in 6 m Reason: Provider Name:Teresa Castellon, 2021-10-31 09:00:00 AM, [address], , [place], [address], Insurance Providers Payer Name Payer Address Payer Phone Insured Name Patient Relati onship to Insured Coverage Start Date Coverage End Date MEDICAID [place] [address] [facility] [id number] [phone] [place] [employer] self MEDICARE Part A and B [address] [facility] [phone] [employer] self
--- OUTSIDE RECORDS SUMMARY | 2021-06-16 09:24 | CCD ---
Author Author [facility] Organization [facility] Address Unknown Phone Unavailable Care Team Providers Care Transportation Aide Name Role Phone Teresa Castellon Unavailable PROBLEMS Type Condition ICD9-CM Code [id number] Code Onset Dates Condition S tatus W/U Status Risk SNOMED Code Notes Problem Morbid (severe) obesity due to excess calories E66 .01 Active confirmed 324419237 Problem Generalized edema R60.1 Active confirmed 44 0059595 Problem Vitamin D deficiency E55.9 Active confirmed 56408948 Problem B12 deficiency E53.8 Active confirmed 59196 4004 Problem Mixed hyperlipidemia E78.2 Active confirmed 960722888 Problem Slow transit constipation K59.01 Active confirmed 72424529 Problem Distal paresthesia R20.2 Active confirmed 7 2369917 Problem Pre-diabetes R73.03 Active confirmed 8312823 02 Problem Physical deconditioning R53.81 Active confirmed 03724730250529 Problem Venous insufficiency I87.2 Active confirmed 52864269 Increase furosemide 40 mg from just one in the morning to one in the morning and one at noon, check a basic metabolic profile in one week Problem Adjustment disorder with anxiety F43.22 Active conf irmed 28529651 Problem Tinnitus of both ears H93.13 Active confirmed [id number] He is agreeable to a referral to audiology Problem Anxiety F41.9 Active confirmed 04246926 Problem Chronic diastolic (congestive) heart failure I50.3 2 Active confirmed 776695513 Problem Altered mental status, unspecified altered mental stat us type R41.82 Active confirmed 304563626 Problem ALEXI (obstructive sleep apnea) G47.33 Active confirm ed 60213932 Problem Parkinson's disease G20 Active confirmed 40956828 Problem 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 to breakdown of skin L97.511 Active confirmed 589961651 Problem Panic disorder F41.0 Active confirmed 34383 1005 Problem Longstanding persistent atrial fibrillation I48.11 Active confirmed 901341087 Problem Generalized anxiety disorder F41.1 Active confirme d [id number] ALLERGIES No Known Allergies ENCOUNTERS from 1950 to 2021-04-15 Encounter Location Date Provider Diagnosis [facility] [phone] [place] [address] Apr, Teresa Castellon Altered mental status, unspe cified altered mental status type R41.82 IMMUNIZATIONS Vaccine Route Administration Date Status Influenza [...] Notes Start Da te End Date Status Benztropine Mesylate 2 MG 1 tab Orally Twice a day for 30 day(s) Oct, Active Multi Vitamin Daily 1 tablet Orally Once a day for 30 day(s) Active Comtan 200 MG 1 tablet Orally four times a day Mar, 9 Active Eucerin - as directed bilateral legs a fter washing with soap and water daily for 90 days Oct, Not-Taking Vitamin B Complex . 1 tab(s) Orally daily for 30 day(s) Active Milk of Magnesia 2400 MG/10ML 5 ml Orally Twice a day, PRN for 3 0 day(s) November, Active Sinemet 25-100 MG 2 tablet Orally five times daily Jun, Active Pepto-Bismol Max Strength 525 MG/15ML 30 ml Orally Fou r times a Day as needed for dyspepsia for 30 Days May, Active Ondansetron HCl 4 MG TAKE ONE TABLET BY MOUTH EVERY 4 HOURS N EEDED for 30 Active Aspirin 81 MG 1 tablet Orally Once a day for 30 day(s) Active Simvastatin 40 MG 1 tablet in the evening Orally Once a day for 90 day(s) November, Not-Taking Gabapentin 100 MG 1 capsule Orally three times a day Active Melatonin 3 MG 1 tablet at bedtime as needed Orally Once a day for 30 day(s) Jul, Not-Taking Hospital bed as directed G20 Daily for 1 days Aug, Not-Taking Furosemide 40 MG 1 tablet in am & 1 at noon Orally Twice a day for 30 Days Active Acetaminophen 325 MG 2 tablet as needed ,PRN every 4 hrs for 30 days November, Active busPIRone HCl 10 MG 2 tablet Orally Twice a day for 30 days Dec, Active Calcium 500 MG 1 tablet with meals Orally Twice a day for 30 da y(s) Dec, Active Imodium A-D 2 MG 1 tablet as needed Orally twice daily May, Active diphenhydrAMINE HCl 25 MG 1 tab Orally every 6 hrs prn pruritis for 5 day(s) Apr, Active Vitamin E 400 UNIT 1 capsule Orally Once a day for 30 day(s) Dec, Active Meclizine HCl 12.5 MG 1 tablet as needed Orally three times purnima y for 30 Days Active PROCEDURES No Information RESULTS No Results REASON FOR VISIT itching to back MEDICAL (GENERAL) HISTORY Type Description Date Medical History Parkinson's, dx 2011 - Dr Barry Medical History morbid obesity Medical History Vit D def Medical History Vit B12 def Medical History A fib, chronic - refuses anticoag. Medical History CHF, chronic diastolic Medical History impaired fasting glucose Medical History chronic venous insuff, edema Medical History chr constipation Medical History echo 02/23: EF 60%, LAE 63 mm, mikld pulm HTN Medical History MRI C [place] [facility] [place] [facility], spondylosis Medical History ALEXI, severe--returned BIPAP (referred ba ck to [place] [facility] 02/23) Medical History Umbillical hernia Medical [...] Treatment Notes Treatm ent Clinical Notes Apr, Altered mental status, unspe cified altered mental status type (ICD- 10 - R41.82) PLAN OF TREATMENT Medication Medication Name Sig Start Date Stop Date Vitamin E 400 UNIT 1 capsule Orally Once a day for 30 day(s) Dec, diphenhydrAMINE HCl 25 MG 1 tab Orally every 6 hrs prn pruri tis for 5 day(s) Apr, Furosemide 40 MG 1 tablet in am & 1 at noon Orally Twice a day f or 30 Days Treatment Notes Test Name Order Date URINE CULTURE 2021-04-08 [facility]A URINALYSIS 2021-04-08 Next Appt Details Provider Name:Teresa Barrycea, 2021-04-19 09:30:00 AM, [address], , [place], [address], Insurance Providers Payer Name Payer Address Payer Phone Insured Name Patient Relati onship to Insured Coverage Start Date Coverage End Date MEDICAID [employer] [address] [facility] [id number] [phone] [employer]ANG MEDICARE Part A and B [address] [facility] [address] [phone] [employer]
--- OUTSIDE RECORDS SUMMARY | 2021-06-16 09:24 | CCD ---
Author Author [facility] Organization [facility] Address Unknown Phone Unavailable Care Team Providers Care Inspector Wreath Name Role Phone Teresa Castellon Unavailable PROBLEMS Type Condition ICD9-CM Code [id number] Code Onset Dates Condition S tatus W/U Status Risk SNOMED Code Notes Problem Morbid (severe) obesity due to excess calories E66 .01 Active confirmed 606956382 Problem Generalized edema R60.1 Active confirmed 44 7496261 Problem Vitamin D deficiency E55.9 Active confirmed 46625768 Problem B12 deficiency E53.8 Active confirmed 16019 4004 Problem Mixed hyperlipidemia E78.2 Active confirmed 480817131 Problem Slow transit constipation K59.01 Active confirmed 02506114 Problem ALEXI (obstructive sleep apnea) G47.33 Active confirm ed 30052489 Problem Distal paresthesia R20.2 Active confirmed 7 0186129 Problem Venous insufficiency I87.2 Active confirmed 69295368 Increase furosemide 40 mg from just one in the morning to one in the morning and one at noon, check a basic metabolic profile in one week Problem Adjustment disorder with anxiety F43.22 Active conf irmed 25873669 Problem 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 to breakdown of skin L97.511 Active confirmed 032615665 Problem Tinnitus of both ears H93.13 Active confirmed 6162611989260 He is agreeable to a referral to audiology Problem Physical deconditioning R53.81 Active confirmed 00154846671846 Problem Chronic diastolic (congestive) heart failure I50.3 2 Active confirmed 398177011 Problem Altered mental status, unspecified altered mental stat us type R41.82 Active confirmed 161450184 Problem Anxiety F41.9 Active confirmed 25832847 Problem Parkinson's disease G20 Active confirmed 22340637 Problem Panic disorder F41.0 Active confirmed 55811 1005 Problem Longstanding persistent atrial fibrillation I48.11 Active confirmed 270351525 Problem Generalized anxiety disorder F41.1 Active confirme d 17867427 Problem Type 2 diabetes mellitus wit hout complication, without long-term current use of insulin E11.9 Active confirmed 069903424 ALLERGIES No Known Allergies ENCOUNTERS from 1950 to 2021-04-22 Encounter Location Date Provider Diagnosis [facility] [address] [place] [address] Mar, Teresa Castellon IMMUNIZATIONS Vaccine Route Administration Date [...] 30 day(s) Active PROCEDURES No Information RESULTS No Results REASON FOR VISIT call back MEDICAL (GENERAL) HISTORY Type Description Date [...] HTN Medical History MRI C spoine at [place] [facility], spondylosis Medical History ALEXI, severe--returned BIPAP (referred ba ck to [place] [facility] 02/23) Medical History Umbillical hernia Medical [...] Information ASSESSMENTS No Information PLAN OF TREATMENT Next Appt Details Provider Name:Teresa Barrycea, 2021-10-31 09:00:00 AM, [facility] [facility] , [place], [address], Insurance Providers Payer Name Payer Address Payer Phone Insured Name Patient Relati onship to Insured Coverage Start Date Coverage End Date MEDICARE Part A and B [address] [facility] [address] [phone] [employer] self MEDICAID ditlo [address] [facility] [id number] [employer]
--- OUTSIDE RECORDS SUMMARY | 2021-06-16 09:24 | CCD ---
Author Author [facility] Organization [facility] Address Unknown Phone Unavailable Care Team Providers Care Drum Saw Operator Name Role Phone Teresa Castellon Unavailable PROBLEMS Type Condition ICD9-CM Code [id number] Code Onset Dates Condition S tatus W/U Status Risk SNOMED Code Notes Problem Morbid (severe) obesity due to excess calories E66 .01 Active confirmed 397772507 Problem Generalized edema R60.1 Active confirmed 44 1810184 Problem Vitamin D deficiency E55.9 Active confirmed 90618054 Problem B12 deficiency E53.8 Active confirmed 86613 4004 Problem Mixed hyperlipidemia E78.2 Active confirmed 286996953 Problem Slow transit constipation K59.01 Active confirmed 78906998 Problem Distal paresthesia R20.2 Active confirmed 7 8596042 Problem Pre-diabetes R73.03 Active confirmed 4378460 02 Problem Physical deconditioning R53.81 Active confirmed 07499434714300 Problem Venous insufficiency I87.2 Active confirmed 53593559 Increase furosemide 40 mg from just one in the morning to one in the morning and one at noon, check a basic metabolic profile in one week Problem Adjustment disorder with anxiety F43.22 Active conf irmed 37346597 Problem Tinnitus of both ears H93.13 Active confirmed 6969149502877 He is agreeable to a referral to audiology Problem Anxiety F41.9 Active confirmed 31669392 Problem Chronic diastolic (congestive) heart failure I50.3 2 Active confirmed 501731616 Problem Altered mental status, unspecified altered mental stat us type R41.82 Active confirmed 568053351 Problem ALEXI (obstructive sleep apnea) G47.33 Active confirm ed 63792292 Problem Parkinson's disease G20 Active confirmed 57478425 Problem 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 to breakdown of skin L97.511 Active confirmed 259625644 Problem Panic disorder F41.0 Active confirmed 16764 1005 Problem Longstanding persistent atrial fibrillation I48.11 Active confirmed 610174202 Problem Generalized anxiety disorder F41.1 Active confirme d 69087450 ALLERGIES No Known Allergies ENCOUNTERS from 1950 to 2021-04-12 Encounter Location Date Provider Diagnosis [facility] [address] [place] [address] Apr, 2021 Teresa Castellon IMMUNIZATIONS Vaccine Route Administration Date [...] HTN Medical History MRI C spoine at [place] [facility], spondylosis Medical History ALEXI, severe--returned BIPAP (referred ba ck to [place] [facility] 02/23) Medical History Umbillical hernia Medical History panic d/o/ARAM Medical History COVID vaccine - ?Pfizer Surgical History appendectomy 1959 Surgical History tonsillectomy 1959 Surgical History L ankle surgery 2012 Surgical History Colonoscopy 04/2018 Hospitalization History CHF, A fib 2001 Hospitalization History cellulitis both lower legs 08/27/15 Hospitalization History CHF, umbillical hernia 02/2018 Hospitalization History Dehydration 04/2018 Hospitalization History [facility] Rehab 2018 Hospitalization History TIA, [...] Twice a day f or 30 Days Next Appt Details Provider Name:Teresa Castellon, 2021-04-19 09:30:00 AM, [address], , [place], [address], Insurance Providers Payer Name Payer Address Payer Phone Insured Name Patient Relati onship to Insured Coverage Start Date Coverage End Date MEDICARE Part A and B [address] [place] [address] [place] [employer] MEDICAID [employer] [address] [facility] [phone] [place]
--- OUTSIDE RECORDS SUMMARY | 2021-06-16 09:24 | CCD ---
Author Author [facility] Organization [facility] Address Unknown Phone Unavailable Care Team Providers Care Desizing Machine Offbearer Name Role Phone Teresa Castellon Unavailable PROBLEMS Type Condition ICD9-CM Code EME13-OH Code Onset Dates Condition S tatus W/U Status Risk SNOMED Code Notes Problem Morbid (severe) obesity due to excess calories E66 .01 Active confirmed 985803777 Problem Generalized edema R60.1 Active confirmed 44 9250037 Problem Vitamin D deficiency E55.9 Active confirmed 36038108 Problem B12 deficiency E53.8 Active confirmed 91050 4004 Problem Mixed hyperlipidemia E78.2 Active confirmed 867352873 Problem Slow transit constipation K59.01 Active confirmed 59427407 Problem ALEXI (obstructive sleep apnea) G47.33 Active confirm ed 85766509 Problem Distal paresthesia R20.2 Active confirmed 7 6077218 Problem Venous insufficiency I87.2 Active confirmed 27490875 Increase furosemide 40 mg from just one in the morning to one in the morning and one at noon, check a basic metabolic profile in one week Problem Adjustment disorder with anxiety F43.22 Active conf irmed 35152585 Problem 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 to breakdown of skin L97.511 Active confirmed 305608044 Problem Tinnitus of both ears H93.13 Active confirmed 7956669247096 He is agreeable to a referral to audiology Problem Physical deconditioning R53.81 Active confirmed 59227795341976 Problem Chronic diastolic (congestive) heart failure I50.3 2 Active confirmed 941156734 Problem Altered mental status, unspecified altered mental stat us type R41.82 Active confirmed 266385142 Problem Anxiety F41.9 Active confirmed 69057190 Problem Parkinson's disease G20 Active confirmed 47443007 Problem Panic disorder F41.0 Active confirmed 34787 1005 Problem Longstanding persistent atrial fibrillation I48.11 Active confirmed 569747086 Problem Generalized anxiety disorder F41.1 Active confirme d 31854640 Problem Type 2 diabetes mellitus wit hout complication, without long-term current use of insulin E11.9 Active confirmed 912520816 ALLERGIES No Known Allergies ENCOUNTERS from 1950 to 2021-04-22 Encounter Location Date Provider Diagnosis [facility] [address] [place] [address] Apr, 2021 Teresa Castellon IMMUNIZATIONS Vaccine Route [...] Information RESULTS No Results REASON FOR VISIT Blood work results MEDICAL (GENERAL) HISTORY Type Description Date Medical [...] HTN Medical History MRI C [place]ine at [place] [facility], spondylosis Medical History ALEXI, severe--returned BIPAP (referred ba ck to [place] [facility] 02/23) Medical History Umbillical hernia Medical [...] Details Provider Name:Teresa Barrycea, 2021-10-31 09:00:00 AM, [address], , [place], [address], Insurance Providers Payer Name Payer Address Payer Phone Insured Name Patient Relati onship to Insured Coverage Start Date Coverage End Date MEDICAID [employer] [address] [facility] [address] [place] MEDICARE Part A and B [address] [facility] [phone] [employer]
--- OUTSIDE RECORDS SUMMARY | 2021-06-16 09:24 | CCD ---
Author Author [facility] Organization [facility] Address Unknown Phone Unavailable Care Team Providers Care Forest Patrolman Name Role Phone Teresa Castellon Unavailable PROBLEMS Type Condition ICD9-CM Code [id number] Code Onset Dates Condition S tatus W/U Status Risk SNOMED Code Notes Problem Morbid (severe) obesity due to excess calories E66 .01 Active confirmed 378677270 Problem Generalized edema R60.1 Active confirmed 44 1754044 Problem Vitamin D deficiency E55.9 Active confirmed 49174031 Problem B12 deficiency E53.8 Active confirmed 46728 4004 Problem Mixed hyperlipidemia E78.2 Active confirmed 719025346 Problem Slow transit constipation K59.01 Active confirmed 24252772 Problem ALEXI (obstructive sleep apnea) G47.33 Active confirm ed 84336224 Problem Distal paresthesia R20.2 Active confirmed 7 6080596 Problem Venous insufficiency I87.2 Active confirmed 68967920 Increase furosemide 40 mg from just one in the morning to one in the morning and one at noon, check a basic metabolic profile in one week Problem Adjustment disorder with anxiety F43.22 Active conf irmed 01922876 Problem 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 to breakdown of skin L97.511 Active confirmed 282798251 Problem Tinnitus of both ears H93.13 Active confirmed 0723537088080 He is agreeable to a referral to audiology Problem Physical deconditioning R53.81 Active confirmed 48908233878917 Problem Chronic diastolic (congestive) heart failure I50.3 2 Active confirmed 155978026 Problem Altered mental status, unspecified altered mental stat us type R41.82 Active confirmed 089095600 Problem Anxiety F41.9 Active confirmed 62848487 Problem Parkinson's disease G20 Active confirmed 42776206 Problem Panic disorder F41.0 Active confirmed 17540 1005 Problem Longstanding persistent atrial fibrillation I48.11 Active confirmed 962235593 Problem Generalized anxiety disorder F41.1 Active confirme d 38000598 Problem Type 2 diabetes mellitus wit hout complication, without long-term current use of insulin E11.9 Active confirmed 112406057 ALLERGIES No Known Allergies ENCOUNTERS from 1950 to 2021-06-07 Encounter Location Date Provider Diagnosis [facility] [address] [place] [address] May, Teresa Cande IMMUNIZATIONS Vaccine Route Administration Date Status Influenza [...] a day for 30 day(s) Oct, Active Comtan 200 MG 1 tablet Orally four times a day for 30 days Mar, Active Eucerin - as directed bilateral legs a fter washing with soap and water daily for 90 days Oct, Not-Taking Melatonin 3 MG 1 tablet at bedtime as needed Orally Once a day for 30 day(s) Jul, Not-Taking Multi Vitamin Daily 1 tablet Orally Once a day for 30 day(s) Active Sinemet 25-100 MG 2 tablet Orally five times daily for 30 days Jun, Active Meclizine HCl 12.5 MG 1 tablet as needed Orally three times purnima y for 30 Days Active Imodium A-D 2 MG 1 tablet as needed Orally twice daily May, Active Acetaminophen 325 MG 2 tablet as needed ,PRN every 4 hrs for 30 days November, Active Hospital bed as directed G20 Daily for 1 days Aug, Not-Taking diphenhydrAMINE HCl 25 MG 1 tab Orally every 6 hrs prn pruritis for 5 day(s) Apr, Active Gabapentin 100 MG 1 capsule Orally three times a day for 30 days Active Furosemide 40 MG 1 tablet Orally twice a day for 30 Days Active busPIRone HCl 10 MG 2 tablet Orally Twice a day for 30 days Dec, Active Aspirin 81 MG 1 tablet Orally Once a day for 30 day(s) Active Simvastatin 40 MG 1 tablet in the evening Orally Once a day for 90 day(s) November, Not-Taking Remeron 15 MG 1 tablet at bedtime Orally qhs for 30 day(s) May, Active Calcium 500 MG 1 tablet with meals Orally Twice a day for 30 da y(s) Dec, Active Milk of Magnesia 2400 MG/10ML 5 ml Orally Twice a day, PRN for 3 0 day(s) November, Active Ondansetron HCl 4 MG TAKE ONE TABLET BY MOUTH EVERY 4 HOURS N EEDED for 30 Active Pepto-Bismol Max Strength 525 MG/15ML 30 ml Orally Fou r times a Day as needed for dyspepsia for 30 Days May, Active Vitamin E 400 UNIT 1 capsule Orally Once a day for 30 day(s) Dec, Active Vitamin B Complex . 1 tab(s) Orally daily for 30 day(s) Active PROCEDURES No Information RESULTS No Results REASON FOR VISIT Medications MEDICAL (GENERAL) HISTORY Type Description Date Medical [...] HTN Medical History [facility], spondylosis Medical History ALEXI, severe--returned BIPAP (referred ba ck to [facility] 02/23) Medical History Umbillical hernia Medical History panic d/o/ARAM Medical History COVID vaccine - ?Pfizer Surgical History appendectomy 1959 Surgical History tonsillectomy 1959 Surgical History L ankle surgery 2012 Surgical History Colonoscopy 04/2018 Hospitalization History CHF, A fib 2001 Hospitalization History cellulitis both lower legs 08/27/15 Hospitalization History CHF, umbillical hernia 02/2018 Hospitalization History Dehydration 04/2018 Hospitalization History [facility] Rehab 2018 Hospitalization History TIA, expressive aphasia 10/27 Goals Section No Information Health Concerns No Information MEDICAL EQUIPMENT No Information MENTAL STATUS No Information FUNCTIONAL STATUS No Information ASSESSMENTS No Information PLAN OF TREATMENT Medication Medication Name Sig Start Date Stop Date Remeron 15 MG 1 tablet at bedtime Orally qhs for 30 day(s) May, Pepto-Bismol Max Strength 525 MG/15ML 30 ml Orally Fou r times a Day as needed for dyspepsia for 30 Days May, Furosemide 40 MG 1 tablet Orally twice a day for 30 Days Sinemet 25-100 MG 2 tablet Orally five times daily for 30 days Jun, Multi Vitamin Daily 1 tablet Orally Once a day for 30 day(s) Benztropine Mesylate 2 MG 1 tab Orally Twice a day for 30 day(s) Oct, Comtan 200 MG 1 tablet Orally four times a day for 30 days Mar, Calcium 500 MG 1 tablet with meals Orally Twice a day f or 30 day(s) Dec, Gabapentin 100 MG 1 capsule Orally three times a day for 30 days Vitamin B Complex . 1 tab(s) Orally daily for 30 day(s) Aspirin 81 MG 1 tablet Orally Once a day for 30 day(s) Next Appt Details Provider Name:Teresa Castellon, 2021-10-31 09:00:00 AM, [address], , [place], [address], Insurance Providers Payer Name Payer Address Payer Phone Insured Name Patient Relati onship to Insured Coverage Start Date Coverage End Date MEDICARE Part A and B [address] [facility] [phone] [phone] MOS[place] [employer] [facility] MEDICAID [employer] [address] [facility] [id number] [employer] [employer] self
--- OUTSIDE RECORDS SUMMARY | 2021-06-16 09:24 | CCD ---
Author Author [facility] Organization [facility] Address Unknown Phone Unavailable Care Team Providers Care Net Developer Contract Name Role Phone Teresa Castellon Unavailable PROBLEMS Type Condition ICD9-CM Code ZSY72-UT Code Onset Dates Condition S tatus W/U Status Risk SNOMED Code Notes Problem Morbid (severe) obesity due to excess calories E66 .01 Active confirmed 516580328 Problem Generalized edema R60.1 Active confirmed 44 5696762 Problem Vitamin D deficiency E55.9 Active confirmed 51620805 Problem B12 deficiency E53.8 Active confirmed 82386 4004 Problem Mixed hyperlipidemia E78.2 Active confirmed 272697943 Problem Slow transit constipation K59.01 Active confirmed 82542217 Problem ALEXI (obstructive sleep apnea) G47.33 Active confirm ed 17065845 Problem Distal paresthesia R20.2 Active confirmed 7 5494283 Problem Venous insufficiency I87.2 Active confirmed 84952172 Increase furosemide 40 mg from just one in the morning to one in the morning and one at noon, check a basic metabolic profile in one week Problem Adjustment disorder with anxiety F43.22 Active conf irmed 31692977 Problem 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 to breakdown of skin L97.511 Active confirmed 680726405 Problem Tinnitus of both ears H93.13 Active confirmed 6499766343056 He is agreeable to a referral to audiology Problem Physical deconditioning R53.81 Active confirmed 25249543998917 Problem Chronic diastolic (congestive) heart failure I50.3 2 Active confirmed 300132857 Problem Altered mental status, unspecified altered mental stat us type R41.82 Active confirmed 636046750 Problem Anxiety F41.9 Active confirmed 43375893 Problem Parkinson's disease G20 Active confirmed 35527438 Problem Panic disorder F41.0 Active confirmed 74040 1005 Problem Longstanding persistent atrial fibrillation I48.11 Active confirmed 310903542 Problem Generalized anxiety disorder F41.1 Active confirme d 84033802 Problem Type 2 diabetes mellitus wit hout complication, without long-term current use of insulin E11.9 Active confirmed 750362138 ALLERGIES No Known Allergies ENCOUNTERS from 1950 to 2021-06-01 Encounter Location Date Provider Diagnosis [facility] [address] [place] [address] May, Teresa Castellon IMMUNIZATIONS Vaccine Route [...] Information RESULTS No Results REASON FOR VISIT mertazapine MEDICAL (GENERAL) HISTORY Type Description Date Medical [...] HTN Medical History MRI C spoine at [facility], spondylosis Medical History ALEXI, severe--returned BIPAP (referred ba ck to [facility] 02/23) Medical History Umbillical hernia Medical History panic d/o/ARAM Medical History COVID vaccine - ?Pfizer Surgical History appendectomy 1959 Surgical History tonsillectomy 1959 Surgical History L ankle surgery 2012 Surgical History Colonoscopy 04/2018 Hospitalization History CHF, A fib 2001 Hospitalization History cellulitis both lower legs 08/27/15 Hospitalization History CHF, umbillical hernia 02/2018 Hospitalization History Dehydration 04/2018 Hospitalization History [facility] Rehab 2018 Hospitalization History TIA, expressive aphasia [...] times daily for 30 days 1 Jun, Multi Vitamin Daily 1 tablet Orally [...] Details Provider Name:Teresa Castellon, 2021-10-31 09:00:00 AM, [address], , [place], [address], Insurance Providers Payer Name Payer Address Payer Phone Insured Name Patient Relati onship to Insured Coverage Start Date Coverage End Date MEDICARE Part A and B [address] [place] [address] [phone] [employer] self MEDICAID [employer] [address] [facility] [address] MOS[employer] self
--- OUTSIDE RECORDS SUMMARY | 2021-06-16 09:24 | CCD ---
Author Author [facility] Organization [facility] Address Unknown Phone Unavailable Care Team Providers Care Shop Coordinator Name Role Phone Teresa Castellon Unavailable PROBLEMS Type Condition ICD9-CM Code GZU86-CH Code Onset Dates Condition S tatus W/U Status Risk SNOMED Code Notes Problem Morbid (severe) obesity due to excess calories E66 .01 Active confirmed 564033401 Problem Generalized edema R60.1 Active confirmed 44 2666402 Problem Vitamin D deficiency E55.9 Active confirmed 65514230 Problem B12 deficiency E53.8 Active confirmed 37827 4004 Problem Mixed hyperlipidemia E78.2 Active confirmed 048558040 Problem Slow transit constipation K59.01 Active confirmed 36587128 Problem ALEXI (obstructive sleep apnea) G47.33 Active confirm ed 88935832 Problem Distal paresthesia R20.2 Active confirmed 7 2781139 Problem Venous insufficiency I87.2 Active confirmed 04167312 Increase furosemide 40 mg from just one in the morning to one in the morning and one at noon, check a basic metabolic profile in one week Problem Adjustment disorder with anxiety F43.22 Active conf irmed 21272375 Problem 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 to breakdown of skin L97.511 Active confirmed 103457446 Problem Tinnitus of both ears H93.13 Active confirmed 2256582683419 He is agreeable to a referral to audiology Problem Physical deconditioning R53.81 Active confirmed 49573693229483 Problem Chronic diastolic (congestive) heart failure I50.3 2 Active confirmed 718670162 Problem Altered mental status, unspecified altered mental stat us type R41.82 Active confirmed 166786310 Problem Anxiety F41.9 Active confirmed 06315416 Problem Parkinson's disease G20 Active confirmed 16134498 Problem Panic disorder F41.0 Active confirmed 63245 1005 Problem Longstanding persistent atrial fibrillation I48.11 Active confirmed 287426780 Problem Generalized anxiety disorder F41.1 Active confirme d 58701250 Problem Type 2 diabetes mellitus wit hout complication, without long-term current use of insulin E11.9 Active confirmed 978426380 ALLERGIES No Known Allergies ENCOUNTERS from 1950 to 2021-06-01 Encounter Location Date Provider Diagnosis [facility] [address] [place] [address] May, Teresa Castellon IMMUNIZATIONS Vaccine Route [...] Information RESULTS No Results REASON FOR VISIT extreme anxiety MEDICAL (GENERAL) HISTORY Type Description Date Medical [...] 02/2018 Hospitalization History Dehydration 04/2018 Hospitalization History [facility] Rehab 2018 Hospitalization History TIA, [...] Details Provider Name:Teresa Castellon, 2021-10-31 09:00:00 AM, [address], , [place], [address], Insurance Providers Payer Name Payer Address Payer Phone Insured Name Patient Relati onship to Insured Coverage Start Date Coverage End Date MEDICARE Part A and B [address] [facility] [address] [phone] [employer] self MEDICAID [employer] [address] [facility] [address] MOS[employer] self
--- OUTSIDE RECORDS SUMMARY | 2021-06-16 09:24 | CCD ---
Author Author [facility] Organization [facility] Address Unknown Phone Unavailable Care Team Providers Care Swim Instructor Name Role Phone Teresa Castellon Unavailable PROBLEMS Type Condition ICD9-CM Code NGG80-DR Code Onset Dates Condition S tatus W/U Status Risk SNOMED Code Notes Problem Morbid (severe) obesity due to excess calories E66 .01 Active confirmed 177851591 Problem Generalized edema R60.1 Active confirmed 44 0817379 Problem Vitamin D deficiency E55.9 Active confirmed 66574108 Problem B12 deficiency E53.8 Active confirmed 03858 4004 Problem Mixed hyperlipidemia E78.2 Active confirmed 420509179 Problem Slow transit constipation K59.01 Active confirmed 81131176 Problem ALEXI (obstructive sleep apnea) G47.33 Active confirm ed 02198933 Problem Distal paresthesia R20.2 Active confirmed 7 7007769 Problem Venous insufficiency I87.2 Active confirmed 34378793 Increase furosemide 40 mg from just one in the morning to one in the morning and one at noon, check a basic metabolic profile in one week Problem Adjustment disorder with anxiety F43.22 Active conf irmed 12203511 Problem 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 to breakdown of skin L97.511 Active confirmed 460579194 Problem Tinnitus of both ears H93.13 Active confirmed 4758299404339 He is agreeable to a referral to audiology Problem Physical deconditioning R53.81 Active confirmed 28749109992186 Problem Chronic diastolic (congestive) heart failure I50.3 2 Active confirmed 459277832 Problem Altered mental status, unspecified altered mental stat us type R41.82 Active confirmed 253862352 Problem Anxiety F41.9 Active confirmed 48188149 Problem Parkinson's disease G20 Active confirmed 85765702 Problem Panic disorder F41.0 Active confirmed 35022 1005 Problem Longstanding persistent atrial fibrillation I48.11 Active confirmed 238373420 Problem Generalized anxiety disorder F41.1 Active confirme d 28697669 Problem Type 2 diabetes mellitus wit hout complication, without long-term current use of insulin E11.9 Active confirmed 063777278 ALLERGIES No Known Allergies ENCOUNTERS from 1950 to 2021-05-09 Encounter Location Date Provider Diagnosis [facility] [address] [place] [address] May, Teresa Castellon IMMUNIZATIONS Vaccine Route [...] HTN Medical History MRI C spoine at [facility], spondylosis Medical History ALEXI, severe--returned BIPAP (referred ba ck to [facility] 02/23) Medical History Umbillical hernia Medical [...] Details Provider Name:Teresa Castellon, 2021-10-31 09:00:00 AM, [address], , [place], [address], Insurance Providers Payer Name Payer Address Payer Phone Insured Name Patient Relati onship to Insured Coverage Start Date Coverage End Date MEDICARE Part A and B [address] [place] [address] [employer] self MEDICAID [employer] [address] [facility] [address] [employer]
--- OUTSIDE RECORDS SUMMARY | 2021-06-16 09:24 | CCD ---
Author Author [facility] Organization [facility] Address Unknown Phone Unavailable Care Team Providers Care Steel Hanger Name Role Phone Elías Alfaro Unavailable PROBLEMS Type Condition ICD9-CM Code BUO98-GT Code Onset Dates Condition S tatus W/U Status Risk SNOMED Code Notes Problem Morbid (severe) obesity due to excess calories E66 .01 Active confirmed 725481464 Problem Generalized edema R60.1 Active confirmed 44 7243525 Problem Vitamin D deficiency E55.9 Active confirmed 74304195 Problem B12 deficiency E53.8 Active confirmed 24887 4004 Problem Mixed hyperlipidemia E78.2 Active confirmed 959027665 Problem Slow transit constipation K59.01 Active confirmed 59996359 Problem ALEXI (obstructive sleep apnea) G47.33 Active confirm ed 04739295 Problem Distal paresthesia R20.2 Active confirmed 7 1077056 Problem Venous insufficiency I87.2 Active confirmed 88410458 Increase furosemide 40 mg from just one in the morning to one in the morning and one at noon, check a basic metabolic profile in one week Problem Adjustment disorder with anxiety F43.22 Active conf irmed 26544872 Problem 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 to breakdown of skin L97.511 Active confirmed 426404300 Problem Tinnitus of both ears H93.13 Active confirmed 8868136693421 He is agreeable to a referral to audiology Problem Physical deconditioning R53.81 Active confirmed 91891278185807 Problem Chronic diastolic (congestive) heart failure I50.3 2 Active confirmed 566621018 Problem Altered mental status, unspecified altered mental stat us type R41.82 Active confirmed 184046350 Problem Anxiety F41.9 Active confirmed 92851843 Problem Parkinson's disease G20 Active confirmed 99168238 Problem Panic disorder F41.0 Active confirmed 01676 1005 Problem Longstanding persistent atrial fibrillation I48.11 Active confirmed 358549949 Problem Generalized anxiety disorder F41.1 Active confirme d 65938716 Problem Type 2 diabetes mellitus wit hout complication, without long-term current use of insulin E11.9 Active confirmed 970772877 ALLERGIES No Known Allergies ENCOUNTERS from 1950 to 2021-05-04 Encounter Location Date Provider Diagnosis [facility] [address] [facility] [phone] [place] [address] Apr, Elías Alfaro IMMUNIZATIONS Vaccine Route Administration Date Status Influenza [...] Information RESULTS No Results REASON FOR VISIT SOB after COVID booster MEDICAL (GENERAL) HISTORY Type Description Date Medical [...] HTN Medical History [place] [facility], spondylosis Medical History ALEXI, severe--returned BIPAP (referred ba ck to [place] [facility] 02/23) Medical History Umbillical hernia Medical [...] OF TREATMENT Next Appt Details Provider Name:Teresa Castellon, 2021-10-31 09:00:00 AM, [address], , [place], [address], Insurance Providers Payer Name Payer Address Payer Phone Insured Name Patient Relati onship to Insured Coverage Start Date Coverage End Date MEDICARE Part A and B [address] [facility] [address] [phone] MOS[employer]ANG MEDICAID [employer] [address] [facility] [address] MOS[employer]ANG
--- OUTSIDE RECORDS SUMMARY | 2021-06-16 09:25 | CCD ---
Author Author [facility] Organization [facility] Address Unknown Phone Unavailable Care Team Providers Care Puppy Trainer Name Role Phone Shantelrohan Jenae Unavailable PROBLEMS Type Condition ICD9-CM Code TKF16-CS Code Onset Dates Condition S tatus W/U Status Risk SNOMED Code Notes Problem Generalized edema R60.1 Active confirmed 44 0952218 Problem Parkinson's disease G20 Active confirmed 36087414 Problem B12 deficiency E53.8 Active confirmed 55811 4004 Problem Morbid (severe) obesity due to excess calories E66 .01 Active confirmed 954643549 Problem Slow transit constipation K59.01 Active confirmed 44663077 Problem Vitamin D deficiency E55.9 Active confirmed 35109414 Problem Pre-diabetes R73.03 Active confirmed 2947282 02 Problem Mixed hyperlipidemia E78.2 Active confirmed 506590351 Problem Physical deconditioning R53.81 Active confirmed 94321014301024 Problem Venous insufficiency I87.2 Active confirmed 10037207 Increase furosemide 40 mg from just one in the morning to one in the morning and one at noon, check a basic metabolic profile in one week Problem Anxiety F41.9 Active confirmed 45602569 Problem Generalized anxiety disorder F41.1 Active confirme d 72788633 Problem ALEXI (obstructive sleep apnea) G47.33 Active confirm ed 76038037 Problem Tinnitus of both ears H93.13 Active confirmed 8557759521526 He is agreeable to a referral to audiology Problem Distal paresthesia R20.2 Active confirmed 7 1927882 Problem Chronic diastolic (congestive) heart failure I50.3 2 Active confirmed 926819364 Problem Adjustment disorder with anxiety F43.22 Active conf irmed 28450789 Problem 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 to breakdown of skin L97.511 Active confirmed 742494085 Problem Panic disorder F41.0 Active confirmed 25609 1005 Problem Longstanding persistent atrial fibrillation I48.11 Active confirmed 744395735 ALLERGIES No Known Allergies ENCOUNTERS from 1950 to 2021-04-12 Encounter Location Date Provider Diagnosis [facility] [address] [place] [address] Apr, 2021 Jenae Anita-Tartell Urinary frequency R35.0 IMMUNIZATIONS Vaccine Route Administration Date Status Influenza [...] Notes Start Da te End Date Status Comtan 200 MG 1 tablet Orally four times a day Mar, 201 9 Active Vitamin B Complex . 1 tab(s) Orally daily for 30 day(s) Active Sinemet 25-100 MG 2 tablet Orally five times daily Jun, Active Simvastatin 40 MG 1 tablet in the evening Orally Once a day for 90 day(s) November, Not-Taking Vitamin E 400 UNIT 1 capsule Orally Once a day for 30 day(s) Dec, Active Melatonin 3 MG 1 tablet at bedtime as needed Orally Once a day for 30 day(s) Jul, Not-Taking Calcium 500 MG 1 tablet with meals Orally Twice a day for 30 da y(s) Dec, Active Ondansetron HCl 4 MG TAKE ONE TABLET BY MOUTH EVERY 4 HOURS N EEDED for 30 Active Milk of Magnesia 2400 MG/10ML 5 ml Orally Twice a day, PRN for 3 0 day(s) November, Active Pepto-Bismol Max Strength 525 MG/15ML 30 ml Orally Fou r times a Day as needed for dyspepsia for 30 Days May, Active Hospital bed as directed G20 Daily for 1 days Aug, Not-Taking busPIRone HCl 10 MG 2 tablet Orally Twice a day for 30 days Dec, Active Acetaminophen 325 MG 2 tablet as needed ,PRN every 4 hrs for 30 days November, Active Multi Vitamin Daily 1 tablet Orally Once a day for 30 day(s) Active Imodium A-D 2 MG 1 tablet as needed Orally twice daily May, Active Gabapentin 100 MG 1 capsule Orally three times a day Active Meclizine HCl 12.5 MG 1 tablet as needed Orally three times purnima y for 30 Days Active Furosemide 40 MG 1 tablet in am & 1 at noon Orally Twice a day for 30 Days Active Aspirin 81 MG 1 tablet Orally Once a day for 30 day(s) Active Eucerin - as directed bilateral legs a fter washing with soap and water daily for 90 days Oct, Not-Taking Benztropine Mesylate 2 MG 1 tab Orally Twice a day for 30 day(s) Oct, Active PROCEDURES No Information RESULTS No Results REASON FOR VISIT No Information MEDICAL (GENERAL) HISTORY Type Description Date Medical [...] HTN Medical History MRI C [place] [facility] [place] [facility], spondylosis Medical History ALEXI, severe--returned BIPAP (referred ba ck to [place] [facility] 02/23) Medical History Umbillical hernia Medical History panic d/o/ARAM Medical History COVID vaccine - ?Pfizer Surgical History appendectomy 1959 Surgical History tonsillectomy 1960 Surgical History L ankle surgery 2012 Surgical History Colonoscopy 04/2018 Hospitalization History CHF, A fib 2001 Hospitalization History cellulitis both lower legs 08/27/15 Hospitalization History CHF, umbillical hernia 02/2018 Hospitalization History Dehydration 04/2018 Hospitalization History [facility] Rehab 2018 Hospitalization History TIA, expressive aphasia 10/27 Goals Section No Information Health Concerns No Information MEDICAL EQUIPMENT No Information MENTAL STATUS No Information FUNCTIONAL STATUS No Information ASSESSMENTS Encounter Date Diagnosis Assessment Notes Treatment Notes Treatm ent Clinical Notes Apr, Urinary frequency (ICD-10 - R35.0) PLAN OF TREATMENT Medication Medication Name Sig Start Date Stop Date Furosemide 40 MG 1 tablet in am & 1 at noon Orally Twice a day f or 30 Days Future Test Test Name Order Date UA URINALYSIS [id number] URINE CULTURE [id number] Next Appt Details Provider Name:Teresa Barrycea, 2021-04-19 09:30:00 AM, [address], , [place], [address], Insurance Providers Payer Name Payer Address Payer Phone Insured Name Patient Relati onship to Insured Coverage Start Date Coverage End Date MEDICARE Part A and B [address] [place] [address] [employer] [employer] MEDICAID [employer] [address] [facility] [address] MOS[employer]
--- OUTSIDE RECORDS SUMMARY | 2021-06-16 09:25 | CCD ---
Author Author [facility] Organization [facility] Address Unknown Phone Unavailable Care Team Providers Care Ios Programmer Name Role Phone Ginette Madsen Unavailable PROBLEMS Type Condition ICD9-CM Code VAR50-YH Code Onset Dates Condition S tatus W/U Status Risk SNOMED Code Notes Problem Generalized edema R60.1 Active confirmed 44 2459507 Problem Parkinson's disease G20 Active confirmed 85876166 Problem B12 deficiency E53.8 Active confirmed 85440 4004 Problem Morbid (severe) obesity due to excess calories E66 .01 Active confirmed 791576423 Problem Slow transit constipation K59.01 Active confirmed 86518698 Problem Vitamin D deficiency E55.9 Active confirmed 19538017 Problem Pre-diabetes R73.03 Active confirmed 9426239 02 Problem Mixed hyperlipidemia E78.2 Active confirmed 317590108 Problem Physical deconditioning R53.81 Active confirmed 13788449840788 Problem Venous insufficiency I87.2 Active confirmed 94708701 Increase furosemide 40 mg from just one in the morning to one in the morning and one at noon, check a basic metabolic profile in one week Problem Anxiety F41.9 Active confirmed 38300632 Problem Generalized anxiety disorder F41.1 Active confirme d 06975449 Problem ALEXI (obstructive sleep apnea) G47.33 Active confirm ed 98191743 Problem Tinnitus of both ears H93.13 Active confirmed 6120846096473 He is agreeable to a referral to audiology Problem Distal paresthesia R20.2 Active confirmed 7 4723616 Problem Chronic diastolic (congestive) heart failure I50.3 2 Active confirmed 174482354 Problem Adjustment disorder with anxiety F43.22 Active conf irmed 21840219 Problem 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 to breakdown of skin L97.511 Active confirmed 909860523 Problem Panic disorder F41.0 Active confirmed 58840 1005 Problem Longstanding persistent atrial fibrillation I48.11 Active confirmed 252798657 ALLERGIES No Known Allergies ENCOUNTERS from 1950 to 2021-04-01 Encounter Location Date Provider Diagnosis [address] [place] [address] Mar, Ginette Cale Venous insufficiency I87.2 and Dry skin L85.3 IMMUNIZATIONS Vaccine Route Administration Date Status Influenza [...] FOR REFERRAL No Information VITAL SIGNS Weight 286.8 lbs Mar, Height 69 in 15 Mar, 2021 BMI 42.35 kg/m2 Mar, Heart Rate 82 /min Mar, Respiratory Rate 18 /min Mar, Temperature 98.7 degrees Fahrenheit Mar, Oximetry 100 Mar, Blood pressure systolic 148 mm Hg Mar, Blood pressure diastolic 80 mm Hg Mar, MEDICATIONS Medication SIG (Take, Route, Frequency, Duration) Notes Start Da te End Date Status Comtan 200 MG 1 tablet Orally four times a day Mar, 9 Active Vitamin B Complex . 1 [...] Information RESULTS No Results REASON FOR VISIT edema in legs MEDICAL (GENERAL) HISTORY Type Description Date Medical History Parkinson's, dx 2011 - Dr Barry Medical History morbid obesity Medical History Vit D def Medical History Vit B12 def Medical History A fib, chronic - refuses anticoag. Medical History CHF, chronic diastolic Medical History impaired fasting glucose Medical History chronic venous insuff, edema Medical History chr constipation Medical History echo 8/18: EF 60%, LAE 63 mm, mikld pulm HTN Medical History [facility] [place] [facility], spondylosis Medical History ALEXI, severe--returned BIPAP (referred ba ck to [facility] 02/23) Medical History Umbillical hernia Medical [...] Notes Treatment Notes Treatm ent Clinical Notes Mar, Venous insufficiency (ICD-10 - I87.2) In crease furosemide 40 mg from just one in the morning to one in the morning and one at noon, check a basic metabolic profile in one week Mar, Dry skin (ICD-10 - L85.3) Apply OTC cream daily PLAN OF TREATMENT Medication Medication Name Sig Start Date Stop Date Furosemide 40 MG 1 tablet in am & 1 at noon Orally Twice a day f or 30 Days Future Test Test Name Order Date Basic Metabolic Profile (BMP) [id number] Next Appt Details prn with PCP Reason: Provider Name:Teresa Barrycea, 2021-04-19 09:30:00 AM, [address] , [place], [address], Insurance Providers Payer Name Payer Address Payer Phone Insured Name Patient Relati onship to Insured Coverage Start Date Coverage End Date MEDICARE Part A and B [address] [place] [address] MOS[employer] self MEDICAID [employer] [address] [facility] [id number] MOS[employer]ANG
--- OUTSIDE RECORDS SUMMARY | 2021-06-16 09:25 | CCD ---
Author Author [facility] Organization [facility] Address Unknown Phone Unavailable Support Name Relationship Address Phone RETIRED Next Of Kin [address] [place] [address] DISABLED Next Of Kin Unknown Unavailable KENZIEJAX ADRIANYonny CAMPBELL Next Of Kin [address] [place] [address] RE Next Of Kin Unknown Unavailable GOLD STAR FEED Next Of Kin [address] [place] [address] BINA LAM Next Of Kin [address] [place] [address] MARIALUISA, (EX ) BINA Next Of Kin [address] [place] [address] [place] [address] BINA TSANG Next Of [place] [address] [place] [address] BINA GTZ Next Of Kin [address] [place] [address] Bina Strong ECON [address] [facility] [address] [place] [address] Unavailable BINA LAM ECON [address] [place] [address] [phone] Care Team Providers Care Gin Operator Name Role Phone Leydi Barry MD Unavailable Unavailable Leydi Barry MD Unavailable Unavailable Leydi Barry MD Unavailable Unavailable Leydi Barry MD Unavailable Unavailable Leydi Barry MD Unavailable Unavailable Leydi Barry MD Unavailable Unavailable Leydi Barry MD Unavailable Unavailable Leydi Barry MD Unavailable Unavailable Leydi Barry MD Unavailable Unavailable Leydi Barry MD Unavailable Unavailable Leydi Barry MD Unavailable Unavailable Leydi Barry MD Unavailable Unavailable Leydi Barry MD Unavailable Unavailable Leydi Barry MD Unavailable Unavailable Leydi Barry MD Unavailable Unavailable Leydi Barry MD Unavailable Unavailable Ali, Leydi MD Unavailable Unavailable Ali, Leydi MD Unavailable Unavailable Ali, Leydi MD Unavailable Unavailable Ali, Leydi MD Unavailable Unavailable Ali, Leydi MD Unavailable Unavailable Ali, Leydi MD Unavailable Unavailable Ali, Leydi MD Unavailable Unavailable Ali, Leydi MD Unavailable Unavailable Ali, Leydi MD Unavailable Unavailable Ali, Leydi MD Unavailable Unavailable Ali, Leydi MD Unavailable Unavailable Ali, Leydi MD Unavailable Unavailable Ali, Leydi MD Unavailable Unavailable Ali, Leydi MD Unavailable Unavailable Ali, Leydi MD Unavailable Unavailable Ali, Leydi MD Unavailable Unavailable Ali, Leydi MD Unavailable Unavailable Ali, Leydi MD Unavailable Unavailable Ali, Leydi MD Unavailable Unavailable Ali, Leydi MD Unavailable Unavailable Ali, Leydi MD Unavailable Unavailable Ali, Leydi MD Unavailable Unavailable Ali, Leydi MD Unavailable Unavailable Ali, Leydi MD Unavailable Unavailable Ali, Leydi MD Unavailable Unavailable Ali, Leydi MD Unavailable Unavailable Ali, Leydi MD Unavailable Unavailable Ali, Leydi MD Unavailable Unavailable Ali, Leydi MD Unavailable Unavailable Ali, Leydi MD Unavailable Unavailable Ali, Leydi MD Unavailable Unavailable Ali, Leydi MD Unavailable Unavailable Ali, Leydi MD Unavailable Unavailable Ali, Leydi MD Unavailable Unavailable Ali, Leydi MD Unavailable Unavailable Ali, Leydi MD Unavailable Unavailable Re-disclosure Warning The records that you are about to access may contain information from federally-assisted alcohol or drug abuse programs. If such information is present, then the following federally mandated warning applies: This information has been disclosed to you from records protected by federal confidentiality rules (42 CFR part 2). The federal rules prohibit you from making any further disclosure of this information unless further disclosure is expressly permitted by the written consent of the person to whom it pertains or as otherwise permitted by 42 CFR part 2. A general authorization for the release of medical or other information is NOT sufficient for this purpose. The Federal rules restrict any use of the information to criminally investigate or prosecute any alcohol or drug abuse patient.The records that you are about to access may contain highly sensitive health information, the redisclosure of which is protected by Article 27-F of the [facility] Public Health law. If you continue you may have access to information: Regarding HIV / AIDS; Provided by facilities licensed or operated by the [facility] Office of Mental Health; or Provided by the [facility] Office for People With Developmental Disabilities. If such information is present, then the following [facility] mandated warning applies: This information has been disclosed to you from confidential records which are protected by state law. State law prohibits you from making any further disclosure of this information without the specific written consent of the person to whom it pertains, or as otherwise permitted by law. Any unauthorized further disclosure in violation of state law may result in a fine or penitentiary sentence or both. A general authorization for the release of medical or other information is NOT sufficient authorization for further disc losure. Family History Family Member Name Family Member Gender Family Member Status Date o f Status Description Data Source(s) Unknown Unknown Problem MEDENT ([facility]) Bone father Encounters Encounter Providers Location Date Indications Data Source(s ) Unknown [address] [facility] [id number] 06/01/2021 12:00:00 AM EST [facility]) Unknown [address] [facility] [place] [address] 05/31/2021 12:00:00 AM EST eCW1 ([facility]) Unknown [address] [facility] [place] [address] 05/31/2021 12:00:00 AM EST eCW1 ([facility]) Unknown [address] [facility] [place] [address] 05/19/2021 12:00:00 AM EST eCW1 ([facility]) Unknown [address] [facility] [place] [address] 05/09/2021 12:00:00 AM EDT eCW1 ([facility]) Unknown [address] [facility] [place] [address] 05/09/2021 12:00:00 AM EDT eCW1 ([facility]) Unknown [address] [facility] [place] [address] 05/04/2021 12:00:00 AM EDT eCW1 ([facility]) Unknown [address] [facility] [place] [address] 04/22/2021 12:00:00 AM EDT eCW1 ([facility]) Office Visit, Est Pt., Level [address] FC [address] [place] [address] 04/19/2021 12:00:00 AM EDT eCW1 ([facility]) Unknown [address] [place] [address] Y [address] 04/12/2021 12:00:00 AM EDT eCW1 ([facility]) Unknown [address] [place] [address] Y [address] 04/11/2021 12:00:00 AM EDT eCW1 ([facility]) Unknown [address] [place] [address] Y [address] 04/08/2021 12:00:00 AM EDT eCW1 ([facility]) Unknown [address] [place] [address] 04/05/2021 12:00:00 AM EDT eCW1 ([facility]) Outpatient [address] [place] [phone] 03/23/2021 12:00:00 AM EDT eCW1 ([facility]) Unknown [address] [place] [address] Y [address] 03/07/2021 12:00:00 AM EDT eCW1 ([facility]) Outpatient [address] [place] [id number] 02/15/2021 12:00:00 AM EDT eCW1 ([facility]) Unknown [address] [place] [phone] 01/25/2021 12:00:00 AM EDT eCW1 ([facility]) Office Visit Attender: Leydi Barry MD Main office - [place] 01/12/2021 02:45:00 PM EDT MEDENT ([facility]) Unknown [address] [place] [phone] 12/17/2020 12:00:00 AM EDT eCW1 [facility]) (TV_Virtual) Virtual [facility] Visit [address] [place] [address] 12/15/2020 12:00:00 AM EDT eCW1 ([facility]) Outpatient [address] [facility] [address] 11/19/2020 12:00:00 AM EDT eCW1 ([facility]) Unknown [address] [facility] [address] 11/19/2020 12:00:00 AM EDT eCW1 ([facility]) Office Visit, Est Pt., Level 4 [address] [place] [address] 11/15/2020 12:00:00 AM EDT eCW1 ([facility]) Unknown [address] [facility] [address] 11/11/2020 12:00:00 AM EDT eCW1 ([facility]) Unknown [address] [facility] [address] 11/09/2020 12:00:00 AM EDT eCW1 ([facility]) Unknown [address] [facility] [address] 11/04/2020 12:00:00 AM EDT eCW1 ([facility]) (TV_Virtual) Virtual [facility] Visit [address] [place] [address] 10/26/2020 12:00:00 AM EDT eCW1 ([facility]) Unknown [address] [facility] [address] 10/18/2020 12:00:00 AM EDT eCW1 ([facility]) Outpatient Attender: Leydi Barry MD Main office - [place] 10/12/2020 02:45:00 PM EDT MEDENT ([facility], ) Outpatient [address] [facility] [address] 09/27/2020 12:00:00 AM EDT eCW1 ([facility]) (TV_Virtual) [facility] Visit [address] [place] [address] 09/03/2020 12:00:00 AM EST eCW1 ([facility]) (TV_Virtual) Virtual Enc [facility] Health Visit [address] [place] [phone] 07/27/2020 12:00:00 AM EST [facility] Unknown [address] [facility] [address] 07/19/2020 12:00:00 AM EST eCW1 ([facility]) Outpatient [address] [facility] [address] 07/07/2020 12:00:00 AM EST eCW1 ([facility]) Unknown [address] [place] [id number] 06/22/2020 12:00:00 AM EST eCW1 ([facility]) Unknown [address] [facility] [address] 06/18/2020 12:00:00 AM EST eCW1 ([facility]) ([facility]) [facility] Scheduled Visit [address] [place] [phone] 06/17/2020 12:00:00 AM EST eCW1 ([facility]) Office Visit, Est Pt., Level 4 PC [address] [place] [address] 05/28/2020 12:00:00 AM EST eCW1 ([facility]) Unknown [address] [facility] [address] 05/21/2020 12:00:00 AM EST eCW1 ([facility]) Unknown [address] [facility] [address] 05/19/2020 12:00:00 AM EST eCW1 ([facility]) Unknown [address] [facility] [address] 05/14/2020 12:00:00 AM EST eCW1 ([facility]) Outpatient Attender: Leydi Barry MD Main office - [place] 05/13/2020 11:30:00 AM EST MEDENT ([facility]) [place] [address] [facility] [place] [address] 05/12/2020 12:00:00 AM EST eCW1 ([facility]) [place] [address] [facility] [place] [address] 05/12/2020 12:00:00 AM EST eCW1 ([facility]) Unknown [address] [facility] [place] [address] 05/05/2020 12:00:00 AM EDT eCW1 ([facility]) Unknown [address] [facility] [address] 04/26/2020 12:00:00 AM EDT eCW1 ([facility]) Office Visit, Est Pt., Level 3 PC [address] [place] [address] 04/23/2020 12:00:00 AM EDT eCW1 ([facility]) Unknown [address] [facility] [place] [address] 04/20/2020 12:00:00 AM EDT eCW1 ([facility]) ([facility] Scheduled Visit [address] [place] [phone] 04/19/2020 12:00:00 AM EDT eCW1 ([facility]) Immunizations Vaccine Date Status Description Data Source(s) COVID-19 VACCINE Pfizer 05/02/2021 12:00:00 AM EDT completed [facility] Vaccine Series Complete: YESThis Data wa s Submitted to [facility] Via [employer] ([employer]). COVID-19 VACCINE Pfizer 08/23/2020 12:00:00 AM EST completed [facility] Vaccine Series Complete: YESThis Data wa s Submitted to [facility] [employer] ([employer]). COVID-19 VACCINE Pfizer 08/02/2020 12:00:00 AM EST completed [facility] Vaccine Series Complete: NOThis Data was Submitted to [facility] [employer] ([employer]). INFLUENZA VIRUS VACCINE QUADRIVAL SPLIT 2020-21(65 YR UP)/PF 04/22/2020 12:00:00 AM EDT completed [facility] Medications Medication Brand Name Start Date Product Form Dose Route Admi nistrative Instructions Pharmacy Instructions Status Indications Reaction Description Data Source(s) Mirtazapine 15 MG Oral Tablet [Remeron] Remeron 15 MG Remero n 15 MG 05/31/2021 12:00:00 AM EST 1.0 {tablet_at_bedtime} active Remeron 15 MG eCW1 ([facility]) Mirtazapine 15 MG Oral Tablet [Remeron] Remeron 15 MG Remero n 15 MG 05/31/2021 12:00:00 AM EST 1.0 {tablet_at_bedtime} active Remeron 15 MG eCW1 ([facility]) Mirtazapine 15 MG Oral Tablet [Remeron] Remeron 15 MG Remero n 15 MG 05/31/2021 12:00:00 AM EST 1.0 {tablet_at_bedtime} active Remeron 15 MG eCW1 ([facility]) 240 mcg/0.7 mL 05/21/2021 12:00:00 AM EST syringe 0 INJECT DIRECTED INJECT DIRECTED SOLD: 05/21/2021 [facility] Diphenhydramine Hydrochloride 25 MG Oral Tablet diphen hydrAMINE HCl 25 MG diphenhydrAMINE HCl 25 MG 04/12/2021 12:00:00 AM EDT active diphenhydrAMINE HCl 25 MG eCW1 ([facility]) Diphenhydramine Hydrochloride 25 MG Oral Tablet diphen hydrAMINE HCl 25 MG diphenhydrAMINE HCl 25 MG 04/12/2021 12:00:00 AM EDT active diphenhydrAMINE HCl 25 MG eCW1 ([facility]) Diphenhydramine Hydrochloride 25 MG Oral Tablet diphen hydrAMINE HCl 25 MG diphenhydrAMINE HCl 25 MG 04/12/2021 12:00:00 AM EDT active diphenhydrAMINE HCl 25 MG eCW1 ([facility]) Diphenhydramine Hydrochloride 25 MG Oral Tablet diphen hydrAMINE HCl 25 MG diphenhydrAMINE HCl 25 MG 04/12/2021 12:00:00 AM EDT active diphenhydrAMINE HCl 25 MG eCW1 ([facility]) Diphenhydramine Hydrochloride 25 MG Oral Tablet diphen hydrAMINE HCl 25 MG diphenhydrAMINE HCl 25 MG 04/12/2021 12:00:00 AM EDT active diphenhydrAMINE HCl 25 MG eCW1 ([facility]) Diphenhydramine Hydrochloride 25 MG Oral Tablet diphen hydrAMINE HCl 25 MG diphenhydrAMINE HCl 25 MG 04/12/2021 12:00:00 AM EDT active diphenhydrAMINE HCl 25 MG eCW1 ([facility]) Diphenhydramine Hydrochloride 25 MG Oral Tablet diphen hydrAMINE HCl 25 MG diphenhydrAMINE HCl 25 MG 04/12/2021 12:00:00 AM EDT active diphenhydrAMINE HCl 25 MG eCW1 ([facility]) Diphenhydramine Hydrochloride 25 MG Oral Tablet diphen hydrAMINE HCl 25 MG diphenhydrAMINE HCl 25 MG 04/12/2021 12:00:00 AM EDT active diphenhydrAMINE HCl 25 MG eCW1 ([facility]) Diphenhydramine Hydrochloride 25 MG Oral Tablet diphen hydrAMINE HCl 25 MG diphenhydrAMINE HCl 25 MG 04/12/2021 12:00:00 AM EDT active diphenhydrAMINE HCl 25 MG eCW1 ([facility]) Diphenhydramine Hydrochloride 25 MG Oral Tablet diphen hydrAMINE HCl 25 MG diphenhydrAMINE HCl 25 MG 04/12/2021 12:00:00 AM EDT active diphenhydrAMINE HCl 25 MG eCW1 ([facility]) Diphenhydramine Hydrochloride 25 MG Oral Tablet diphen hydrAMINE HCl 25 MG diphenhydrAMINE HCl 25 MG 04/12/2021 12:00:00 AM EDT active diphenhydrAMINE HCl 25 MG eCW1 ([facility]) Diphenhydramine Hydrochloride 25 MG Oral Tablet diphen hydrAMINE HCl 25 MG diphenhydrAMINE HCl 25 MG 04/12/2021 12:00:00 AM EDT active diphenhydrAMINE HCl 25 MG eCW1 ([facility]) Bromocriptine 2.5 MG Oral Tablet Bromocriptine Mesylate 01/2021 12:00:00 AM EDT active MEDENT ([facility]) Eucerin - Eucerin - 10/18/2020 12:00:00 AM EDT suspended Eucerin - eCW1 ([facility]) Eucerin - Eucerin - 10/18/2020 12:00:00 AM EDT suspended Eucerin - eCW1 ([facility]) Eucerin - Eucerin - 10/18/2020 12:00:00 AM EDT suspended Eucerin - eCW1 ([facility]) Eucerin - Eucerin - 10/18/2020 12:00:00 AM EDT suspended Eucerin - eCW1 ([facility]) Eucerin - Eucerin - 10/18/2020 12:00:00 AM EDT suspended Eucerin - eCW1 ([facility]) Eucerin - Eucerin - 10/18/2020 12:00:00 AM EDT suspended Eucerin - eCW1 ([facility]) Eucerin - Eucerin - 10/18/2020 12:00:00 AM EDT suspended Eucerin - eCW1 ([facility]) Eucerin - Eucerin - 10/18/2020 12:00:00 AM EDT suspended Eucerin - eCW1 ([facility]) Eucerin - Eucerin - 10/18/2020 12:00:00 AM EDT act elmer Eucerin - eCW1 ([facility]) Eucerin - Eucerin - 10/18/2020 12:00:00 AM EDT suspended Eucerin - eCW1 ([facility]) Eucerin - Eucerin - 10/18/2020 12:00:00 AM EDT suspended Eucerin - eCW1 ([facility]) Eucerin - Eucerin - 10/18/2020 12:00:00 AM EDT suspended Eucerin - eCW1 ([facility]) Eucerin - Eucerin - 10/18/2020 12:00:00 AM EDT suspended Eucerin - eCW1 ([facility]) Eucerin - Eucerin - 10/18/2020 12:00:00 AM EDT act elmer Eucerin - eCW1 ([facility]) Eucerin - Eucerin - 10/18/2020 12:00:00 AM EDT act elmer Eucerin - eCW1 ([facility]) Eucerin - Eucerin - 10/18/2020 12:00:00 AM EDT act elmer Eucerin - eCW1 ([facility]) Eucerin - Eucerin - 10/18/2020 12:00:00 AM EDT suspended Eucerin - eCW1 ([facility]) Eucerin - Eucerin - 10/18/2020 12:00:00 AM EDT suspended Eucerin - eCW1 ([facility]) Eucerin - Eucerin - 10/18/2020 12:00:00 AM EDT suspended Eucerin - eCW1 ([facility]) Eucerin - Eucerin - 10/18/2020 12:00:00 AM EDT suspended Eucerin - eCW1 ([facility]) Eucerin - Eucerin - 10/18/2020 12:00:00 AM EDT suspended Eucerin - eCW1 ([facility]) Eucerin - Eucerin - 10/18/2020 12:00:00 AM EDT suspended Eucerin - eCW1 ([facility]) Eucerin - Eucerin - 10/18/2020 12:00:00 AM EDT suspended Eucerin - eCW1 ([facility]) Eucerin - Eucerin - 10/18/2020 12:00:00 AM EDT suspended Eucerin - eCW1 ([facility]) Eucerin - Eucerin - 10/18/2020 12:00:00 AM EDT act elmer Eucerin - eCW1 ([facility]) Eucerin - Eucerin - 10/18/2020 12:00:00 AM EDT suspended Eucerin - eCW1 ([facility]) Eucerin - Eucerin - 10/18/2020 12:00:00 AM EDT suspended Eucerin - eCW1 ([facility]) gabapentin 100 MG Oral Capsule Gabapentin 10/12/2020 12:00:00 AM EDT ORAL active MEDENT ([facility] ) Carbidopa 50 MG / Levodopa 200 MG Extended Release Ora l Tablet Carbidopa- Levodopa ER 09/01/2020 12:00:00 AM EST ORAL completed MEDENT ([facility] ) Insurance Providers Payer name Policy type / Coverage type Policy ID Covered republican ID Covered republican's relationship to james Policy James Plan Information DWAYNE WORKERS COMP [id number] SP [id number] OTHER WORKERS COMP [id number] SP [id number] MEDICARE [id number] SP [id number] A MEDICARE [id number] SP [id number] [employer]AR [employer] CARE OPTIONS [id number] SP [id number] A[employer] CARE OPTIONS [id number] SP [id number] MEDICAID [id number] S [id number] MEDICARE C [id number] S [id number] [facility] OPTIONS [id number] SP [id number] [facility]-Medicaid [id number] ANS-Medicare Part B [id number] ANSI-Commercial [id number] ANS-Medicaid [id number] ANS-Medicare Part B [id number] ANSI-Commercial [id number] ANS-Medicaid [id number] ANSI-Medicare Part B [id number] ANSI-Commercial [id number] ANSI-Commercial [id number] ANSI-Medicare Part B [id number] ANSI-Medicaid [id number] ANSI-Medicaid [id number] ANSI-Medicare Part B [id number] ANSI-Commercial [id number] ANSI-Commercial [id number] ANSI-Medicare Part B [id number] ANSI-Commercial [id number] ANSI-Medicare Part B [id number] SELF PAY ANSI-Commercial [id number] ANSI-Medicare Part B [id number] ANSI-Commercial [id number] ANSI-Medicare Part B [id number] ANSI-Medicare Part B [id number] ANSI-Commercial [id number] ANSI-Commercial [id number] ANSI-Medicare Part B [id number] ANSI-Medicare Part B [id number] ANSI-Commercial [id number] ANSI-Medicare Part B [id number] ANSI-Commercial [id number] ANSI-Commercial [id number] ANSI-Medicare Part B [id number] ANSI-Medicare Part B [id number] ANSI-Commercial [id number] ANSI-Medicare Part B 573gxtu9-f382-9k0d-045t-iql602992g4x 166hmtl5-h119-0e1y-542i-cka383777h2n ANSI-Commercial o469v161-xy7d-10m2-666v-426t7q66e6oe i968h892-nt3h-92e6-196a-923l5h52s9yu ANSI-Medicare Part B [id number]14y2g5 y97395u3-2188-0959-7r91-36194987y3y6 ANSI-Commercial 7wox6aef-48y1-876k-7xi2-q76ogx2b8yd5 5ypg7vqb-89b6-969n-3fc9-r27xeg1u6mv5 ANSI-Medicare Part B t845ft0p-kz4m-3e6g-mda7-4qq941i53028 g295zh8p-et2w-1y1o-lbg7-1pq775k72675 ANSI-Commercial 996824u4-662k-5mm9-3l87-8259t035m0m8 041846b5-025f-3yl1-3f97-3086e841w1s6 ANSI-Commercial xq936c30-ty6t-5300-v256-1g12q495v329 vd811p41-cb2w-0871-x633-1d00o156i768 ANSI-Medicare Part B 6dj7l49r-i507-9ka0-8369-q6595342l251 4iw1g20p-h556-5rp1-6247-q1862728a260 ANSI-Medicare Part B rk8462h4-968r-8w28-013l-73gg66k58vy0 sc5226f3-565a-3z63-669w-83zd55y62iv3 ANSI-Commercial 77h4142g-4083-9v38-s193-7p7930k71t32 62f9495e-6171-4e12-r001-0b8436c33x15 ANSI-Commercial 9r37l394-9424-98e0-23y2-4ev8782v7qd0 0d12j883-4733-15b6-92f0-3wj7666n1ce5 ANSI-Medicare Part B 185sr2z2-27e6-0s38-[id number] 732og3f2-86x5-3n04-x736-7317a4019456 ANSI-Commercial [id number] ANSI-Medicare Part B [id number] ANSI-Commercial [id number] ANSI-Medicare Part B [id number] ANSI-Commercial [id number] ANSI-Medicare Part B [id number] ANSI-Commercial [id number] ANSI-Medicare Part B [id number] ANSI-Commercial [id number] ANSI-Medicare Part B [id number] ANSI-Commercial [id number] ANSI-Medicare Part B [id number] ANSI-Medicare Part B [id number] ANSI-Commercial [id number] ANSI-Commercial [id number] ANSI-Medicare Part B [id number] ANSI-Commercial [id number] ANSI-Medicare Part B [id number] ANSI-Commercial [id number] ANSI-Medicare Part B [id number] ANSI-Medicare Part B [id number] ANSI-Commercial [id number] [facility] Part B [id number] Self [id number] Medicare [place] Medicare Primary [id number] Self [id number] MEDICARE [id number] A ANSI-Medicare Part B [id number] ANSI-Commercial [id number] ANSI-Commercial [id number] ANSI-Medicare Part B [id number] ANSI-Medicare Part B [id number] ANSI-Commercial [id number] ANSI-Commercial [id number] ANSI-Medicare Part B [id number] AARP O [id number] S [id number] 111 [facility] PART B C [id number] S [id number] ANSI-Commercial [id number] ANSI-Medicare Part B [id number] ANSI-Commercial [id number] ANSI-Medicare Part B [id number] MEDICARE C [id number] S [id number] A [facility] [id number] SP [id number] [place] [id number] S [id number] [place] [id number] S [id number] [place] 140/640 P [id number] S [id number] [place] [id number] SP [id number] A [id number] MEDICARE [id number] SP [id number] EMEDNY [id number] SP [id number] MEDICAID -O/P EMERGENCY ROOM [id number] MEDICARE PART A -O/P [id number] 18 [id number] MEDICAID [id number] SP [id number] Problems, Conditions, and Diagnoses Code Display Name Description Problem Type Effective Dates Data Source(s) E11.9 [id number] Type 2 diabetes justin itus without complication, without long-term current use of insulin Problem 04/19/2021 12:00:00 AM EDT eCW1 ([facility]) R41.82 [id number] Altered mental status, unspecifi ed altered mental status type Problem 04/12/2021 12:00:00 AM EDT eCW1 ([facility]) H93.13 [id number] Tinnitus of both ears Problem 02/16/2021 12:00:00 AM EDT eCW1 ([facility]) F41.1 [id number] Generalized anxiety disorder Problem 021 12:00:00 AM EDT eCW ([facility]) Surgeries/Procedures Procedure Description Date Indications Data Source(s) PHYSICIAN TELEPHONE EVALUATION 11-20 MIN 01/12/2021 12 :00:00 AM EDT MED[facility] ([facility], ) INITIAL HOSPITAL CARE/DAY 70 MINUTES 11/04/2020 12:00: 00 AM EDT [facility] ([facility], ) OFFICE OUTPATIENT VISIT 15 MINUTES 10/12/2020 12:00:00 AM EDT [facility] ([facility], ) Results ID Date Data Source [id number] 04/19/2021 12:00:00 AM EDT [facility] ([facility]) Name Value Range Interpretation Code Description Data Erinn rce(s) Supporting Document(s) Microalbumin/Creatinine [Mass Ratio] in Urine 86.5 CREATININE, URINE eCW1 ([facility]) Albumin/Creatinine [Mass Ratio] in Urine 8.7 MALB URINE SIEMENS eCW1 ([facility]) Microalbumin/Creatinine [Ratio] in Urine 10.0 0.0-30.0 SIENNA/CREAT RATIO [facility] ([facility]) ID Date Data Source TSH 04/19/2021 12:00:00 AM EDT eCW1 ([facility]) Name Value Range Interpretation Code Description Data Erinn rce(s) Supporting Document(s) 2.040 0.358-3.740 THYROID STIMULATING HORM ONE eCW1 ([facility]) ID Date Data Source LIPID PANEL (CARDIAC RISK) 04/19/2021 12:00:00 AM EDT eCW1 ( [facility]) Name Value Range Interpretation Code Description Data Erinn rce(s) Supporting Document(s) Triglyceride [Mass/volume] in Serum or Plasma by calculation 178 <150 TRIGLYCERIDES LEVEL eCW1 ([facility]) Cholesterol in HDL [Moles/volume] in Serum or Plasma 33 >40 HDL CHOLESTEROL eCW1 ([facility]) Cholesterol [Moles/volume] in Serum or Plasma 197 <200 CHOLESTEROL LEVEL eCW1 ([facility]) Cholesterol in LDL [Mass/volume] in Serum or Plasma by calculation 128 <100 LDL CHOLESTEROL eCW1 ([facility]) 5.969 <5 CHOLESTEROL RISK RATIO eCW1 ([facility]) 164 NON-HDL-C eCW1 ([facility]) ID Date Data Source [id number] 04/19/2021 12:00:00 AM EDT eCW1 ([facility]) Name Value Range Interpretation Code Description Data Erinn rce(s) Supporting Document(s) Hemoglobin A1c/Hemoglobin.total in Blood 6.3 HEMOGLOBIN A1c eCW1 ([facility]) ID Date Data Source Comprehensive Metabolic Profile (CMP) 04/19/2021 12:00:00 AM EDT eCW1 ([facility]) Name Value Range Interpretation Code Description Data Erinn rce(s) Supporting Document(s) 84 70-100 GLUCOSE, FASTING eCW1 ([facility]) 21 7-18 BLOOD UREA NITROGEN eCW1 ([facility]) > 60.0 >49 GLOMERULAR FILTRATION RATE eCW 1 ([facility]) 145 136-145 SODIUM LEVEL eCW1 ([facility]) 1.16 0.70-1.30 CREATININE FOR GFR eCW1 ([facility]) 108 98-107 CHLORIDE LEVEL eCW1 ([facility]) 4.0 3.5-5.1 POTASSIUM SERUM eCW1 ([facility]) 34 21-32 CARBON DIOXIDE LEVEL eCW1 ([facility]) 17 7-37 AST/SGOT eCW1 ([facility]) 9.6 8.8-10.2 CALCIUM LEVEL eCW1 ([facility]) 16 12-78 ALT/SGPT eCW1 ([facility]) 41 45-117 ALKALINE PHOSPHATASE eCW1 ([facility]) 6.7 6.4-8.2 TOTAL PROTEIN eCW1 ([facility]) 0.5 0.2-1.0 BILIRUBIN,TOTAL eCW1 ([facility]) 3.7 3.2-5.2 ALBUMIN eCW1 ([facility]) 1.2 ALBUMIN/GLOBULIN RATIO eCW1 ([facility]) ID Date Data Source CBC with Differential 04/19/2021 12:00:00 AM EDT eCW1 ([facility]) Name Value Range Interpretation Code Description Data Erinn rce(s) Supporting Document(s) 4.93 4.30-6.10 RED BLOOD COUNT eCW1 ([facility]) 15.4 13.5-17.5 HEMOGLOBIN eCW1 ([facility]) 4.8 4.0-10.0 WHITE BLOOD COUNT eCW1 ([facility]) 96.6 80.0-96.0 MEAN CORPUSCULAR VOLUME e CW1 ([facility]) 31.2 27.0-33.0 MEAN CORPUSCULAR HEMOGLOB IN eCW1 ([facility]) 47.6 42.0-52.0 HEMATOCRIT eCW1 ([facility]) 32.4 32.0-36.5 MEAN CORPUSCULAR HGB CONC eCW1 ([facility]) 13.5 11.5-14.5 RED CELL DISTRIBUTION WID TH eCW1 ([facility]) 185 150-450 PLATELET COUNT, AUTOMATED eCW1 ([facility]) 5.9 0.0-3.0 EOS % eCW1 ([facility]) 10.1 2.0-8.0 MONO % eCW1 ([facility]) 20.0 24.0-44.0 LYMPH % eCW1 ([facility]) 63.2 36.0-66.0 NEUTROPHILS % eCW1 ([facility]) 3.0 1.5-8.5 NEUTROPHILS # eCW1 ([facility]) 0.4 0.0-1.0 BASO % eCW1 ([facility]) 1.0 1.5-5.0 LYMPH # eCW1 ([facility]) 0.5 0.0-0.8 MONO # eCW1 ([facility]) 0.3 0.0-0.5 EOS # eCW1 ([facility]) 0.0 0.0-0.2 BASO # eCW1 ([facility]) ID Date Data Source VITAMIN B12 LEVEL 04/19/2021 12:00:00 AM EDT eCW1 ([facility]) Name Value Range Interpretation Code Description Data Erinn rce(s) Supporting Document(s) 406 892-186 VITAMIN B12 LEVEL eCW1 ([facility]) ID Date Data Source VITAMIN D 25-HYDROXY 04/19/2021 12:00:00 AM EDT eCW1 ([facility]) Name Value Range Interpretation Code Description Data Erinn rce(s) Supporting Document(s) 28.6 30.0-100.0 TOTAL 25(OH) VITAMIN D eC W1 ([facility]) ID Date Data Source [id number] 11/03/2020 01:02:00 PM EDT [facility] Name Value Range Interpretation Code Description Data Erinn rce(s) Supporting Document(s) SARS coronavirus 2 RNA [Presence] in Res piratory specimen by GISELE with probe detection NEGATIVE [facility] This lab was ordered by [facility] a nd reported by [facility]. ID Date Data Source [id number] 08/23/2020 10:00:00 AM EST [facility] Name Value Range Interpretation Code Description Data Erinn rce(s) Supporting Document(s) SARS coronavirus 2 RNA Not Detected [facility] This lab was ordered by [facility] and reported by [facility]. ID Date Data Source [id number] 08/16/2020 06:20:00 AM EST [facility] Name Value Range Interpretation Code Description Data Erinn rce(s) Supporting Document(s) SARS coronavirus 2 RNA Not Detected [facility] This lab was ordered by [facility] and reported by [facility]. ID Date Data Source [id number] 08/09/2020 09:00:00 AM EST [facility] Name Value Range Interpretation Code Description Data Erinn rce(s) Supporting Document(s) SARS coronavirus 2 RNA Not Detected [facility] This lab was ordered by [facility] and reported by [facility]. ID Date Data Source [id number] 08/02/2020 01:00:00 PM EST [facility] Name Value Range Interpretation Code Description Data Erinn rce(s) Supporting Document(s) SARS coronavirus 2 RNA Not Detected [facility] This lab was ordered by [facility] and reported by [facility]. ID Date Data Source [id number] 07/26/2020 06:25:00 AM EST [facility] Name Value Range Interpretation Code Description Data Erinn rce(s) Supporting Document(s) SARS coronavirus 2 RNA Not Detected [facility] This lab was ordered by [facility] and reported by [facility]. ID Date Data Source [id number] 07/19/2020 06:00:00 AM EST [facility] Name Value Range Interpretation Code Description Data Erinn rce(s) Supporting Document(s) SARS coronavirus 2 RNA Not Detected [facility] This lab was ordered by [facility] and reported by [facility]. ID Date Data Source [id number] 07/12/2020 07:30:00 AM EST [facility] Name Value Range Interpretation Code Description Data Erinn rce(s) Supporting Document(s) SARS coronavirus 2 RNA [facility] This lab was ordered by [facility] and reported by [facility]. ID Date Data Source [id number] 07/05/2020 07:35:00 AM EST [facility] Name Value Range Interpretation Code Description Data Erinn rce(s) Supporting Document(s) SARS coronavirus 2 RNA [facility] This lab was ordered by [facility] and reported by [facility]. ID Date Data Source [id number] 06/28/2020 09:30:00 AM EST [facility] Name Value Range Interpretation Code Description Data Erinn rce(s) Supporting Document(s) SARS coronavirus 2 RNA [facility] This lab was ordered by [facility] and reported by [facility]. ID Date Data Source [id number] 06/23/2020 11:35:00 AM EST [facility] Name Value Range Interpretation Code Description Data Erinn rce(s) Supporting Document(s) SARS coronavirus 2 RNA [facility] This lab was ordered by [facility] and reported by [facility]. ID Date Data Source [id number] 06/23/2020 12:00:00 AM EST [facility] Name Value Range Interpretation Code Description Data Erinn rce(s) Supporting Document(s) SARS-CoV2 Rapid Antigen [facility] This lab was ordered by [facility] and reported by [facility]. ID Date Data Source [id number] 06/18/2020 02:42:00 PM EST [facility] Name Value Range Interpretation Code Description Data Erinn rce(s) Supporting Document(s) SARS coronavirus 2 RNA [facility] This lab was ordered by [facility] and reported by [facility]. Procedure Social History Code Duration Value Status Description Data Source(s ) Smoking 04/19/2021 12:00:00 AM EDT Never Smoker completed Never S moker eCW1 ([facility]) Smoking 04/19/2021 12:00:00 AM EDT Never Smoker completed Never S moker eCW1 ([facility]) Smoking 04/19/2021 12:00:00 AM EDT Never Smoker completed Never S moker eCW1 ([facility]) Smoking 04/19/2021 12:00:00 AM EDT Never Smoker completed Never S moker eCW1 ([facility]) Smoking 04/19/2021 12:00:00 AM EDT Never Smoker completed Never S moker eCW1 ([facility]) Smoking 04/19/2021 12:00:00 AM EDT Never Smoker completed Never S moker eCW1 ([facility]) Smoking 04/19/2021 12:00:00 AM EDT Never Smoker completed Never S moker eCW1 ([facility]) Smoking 04/19/2021 12:00:00 AM EDT Never Smoker completed Never S moker eCW1 ([facility]) Smoking 04/19/2021 12:00:00 AM EDT Never Smoker completed Never S moker eCW1 ([facility]) Smoking 04/19/2021 12:00:00 AM EDT Never Smoker completed Never S moker eCW1 ([facility]) Smoking 03/23/2021 12:00:00 AM EDT Never Smoker completed Never S moker eCW1 ([facility]) Smoking 03/23/2021 12:00:00 AM EDT Never Smoker completed Never S moker eCW1 ([facility]) Smoking 03/23/2021 12:00:00 AM EDT Never Smoker completed Never S moker eCW1 ([facility]) Smoking 03/23/2021 12:00:00 AM EDT Never Smoker completed Never S moker eCW1 ([facility]) Smoking 02/15/2021 12:00:00 AM EDT Never Smoker completed Never S moker eCW1 ([facility]) Smoking 02/15/2021 12:00:00 AM EDT Never Smoker completed Never S moker eCW1 ([facility]) Smoking 01/27/2021 12:00:00 AM EDT Never Smoker completed Never S moker eCW1 ([facility]) Smoking 11/15/2020 12:00:00 AM EDT Never Smoker completed Never S moker eCW1 ([facility]) Smoking 11/15/2020 12:00:00 AM EDT Never Smoker completed Never S moker eCW1 ([facility]) Smoking 11/15/2020 12:00:00 AM EDT Never Smoker completed Never S moker eCW1 ([facility]) Smoking 11/15/2020 12:00:00 AM EDT Never Smoker completed Never S moker eCW1 ([facility]) Smoking 11/15/2020 12:00:00 AM EDT Never Smoker completed Never S moker eCW1 ([facility]) Smoking 05/28/2020 12:00:00 AM EST Never Smoker completed Never S moker eCW1 ([facility]) Smoking 05/28/2020 12:00:00 AM EST Never Smoker completed Never S moker eCW1 ([facility]) Smoking 05/28/2020 12:00:00 AM EST Never Smoker completed Never S moker eCW1 ([facility]) Smoking 05/28/2020 12:00:00 AM EST Never Smoker completed Never S moker eCW1 ([facility]) Smoking 05/28/2020 12:00:00 AM EST Never Smoker completed Never S moker eCW1 ([facility]) Smoking 05/28/2020 12:00:00 AM EST Never Smoker completed Never S moker eCW1 ([facility]) Smoking 05/28/2020 12:00:00 AM EST Never Smoker completed Never S moker eCW1 ([facility]) Smoking 05/28/2020 12:00:00 AM EST Never Smoker completed Never S moker eCW1 ([facility]) Smoking 05/28/2020 12:00:00 AM EST Never Smoker completed Never S moker eCW1 ([facility]) Smoking 05/28/2020 12:00:00 AM EST Never Smoker completed Never S moker eCW1 ([facility]) Smoking 05/28/2020 12:00:00 AM EST Never Smoker completed Never S moker eCW1 ([facility]) Smoking 05/28/2020 12:00:00 AM EST Never Smoker completed Never S moker eCW1 ([facility]) Smoking 05/28/2020 12:00:00 AM EST Never Smoker completed Never S moker eCW1 ([facility]) Smoking 05/28/2020 12:00:00 AM EST Never Smoker completed Never S moker eCW1 ([facility]) Smoking 05/28/2020 12:00:00 AM EST Never Smoker completed Never S moker eCW1 ([facility]) Smoking 04/23/2020 12:00:00 AM EDT Never Smoker completed Never S moker eCW1 ([facility]) Smoking 04/23/2020 12:00:00 AM EDT Never Smoker completed Never S moker eCW1 ([facility]) Smoking 04/23/2020 12:00:00 AM EDT Never Smoker completed Never S moker eCW1 ([facility]) Smoking 04/23/2020 12:00:00 AM EDT Never Smoker completed Never S moker eCW1 ([facility]) Smoking 04/23/2020 12:00:00 AM EDT Never Smoker completed Never S moker eCW1 ([facility]) Smoking 04/23/2020 12:00:00 AM EDT Never Smoker completed Never S moker eCW1 ([facility]) Smoking 04/23/2020 12:00:00 AM EDT Never Smoker completed Never S moker eCW1 ([facility]) Vital Signs ID Date Data Source UNK Name Value Range Interpretation Code Description Data Source(s) Body weight 282.2 [lb_av] 282.2 [lb_av] eCW1 ([facility]) Body height 69 [in_i] 69 [in_i] eCW1 ([facility]) Body mass index (BMI) [Ratio] 41.67 kg/m2 41.67 kg/m2 W1 ([facility]) Heart rate 92 /min 92 /min eCW1 ([facility]) Respiratory rate 18 /min 18 /min eCW1 ([facility]) Body temperature 98 [degF] 98 [degF] eCW1 ([facility]) Systolic blood pressure 130 mm[Hg] 130 mm[Hg] e CW1 ([facility]) Diastolic blood pressure 80 mm[Hg] 80 mm[Hg] eCW1 ([facility]) Body weight 286.8 [lb_av] 286.8 [lb_av] eCW1 ([facility]) Body height 69 [in_i] 69 [in_i] eCW1 ([facility]) Body mass index (BMI) [Ratio] 42.35 kg/m2 42.35 kg/m2 eCW1 ([facility]) Heart rate 82 /min 82 /min eCW1 ([facility]) Respiratory rate 18 /min 18 /min eCW1 ([facility]) Body temperature 98.7 [degF] 98.7 [degF] eCW1 ( [facility]) Systolic blood pressure 148 mm[Hg] 148 mm[Hg] e CW1 ([facility]) Diastolic blood pressure 80 mm[Hg] 80 mm[Hg] eCW1 ([facility]) Body weight 285 [lb_av] 285 [lb_av] eCW1 ([facility]) Body height 69 [in_i] 69 [in_i] eCW1 ([facility]) Body mass index (BMI) [Ratio] 42.08 kg/m2 42.08 kg/m2 eCW1 ([facility]) Heart rate 103 /min 103 /min eCW1 ([facility]) Respiratory rate 18 /min 18 /min eCW1 ([facility]) Body temperature 97.5 [degF] 97.5 [degF] eCW1 ( [facility]) Systolic blood pressure 108 mm[Hg] 108 mm[Hg] e CW1 ([facility]) Diastolic blood pressure 74 mm[Hg] 74 mm[Hg] eCW1 ([facility]) Body weight 280 [lb_av] 280 [lb_av] eCW1 ([facility]) Body height 69 [in_i] 69 [in_i] eCW1 ([facility]) Body mass index (BMI) [Ratio] 41.34 kg/m2 41.34 kg/m2 eCW1 ([facility]) Heart rate 105 /min 105 /min eCW1 ([facility]) Respiratory rate 18 /min 18 /min eCW1 ([facility]) Body temperature 96.9 [degF] 96.9 [degF] eCW1 ( [facility]) Systolic blood pressure 126 mm[Hg] 126 mm[Hg] e CW1 ([facility]) Diastolic blood pressure 86 mm[Hg] 86 mm[Hg] eCW1 ([facility]) Body weight 276 [lb_av] 276 [lb_av] eCW1 ([facility]) Body height 69 [in_i] 69 [in_i] eCW1 ([facility]) Body mass index (BMI) [Ratio] 40.75 kg/m2 40.75 kg/m2 eCW1 ([facility]) Heart rate 100 /min 100 /min eCW1 ([facility]) Respiratory rate 18 /min 18 /min eCW1 ([facility]) Body temperature 97.5 [degF] 97.5 [degF] eCW1 ( [facility]) Systolic blood pressure 130 mm[Hg] 130 mm[Hg] e CW1 ([facility]) Diastolic blood pressure 78 mm[Hg] 78 mm[Hg] eCW1 ([facility]) Body weight 275 [lb_av] 275 [lb_av] eCW1 ([facility]) Body height 69 [in_i] 69 [in_i] eCW1 ([facility]) Body mass index (BMI) [Ratio] 40.61 kg/m2 40.61 kg/m2 eCW1 ([facility]) Heart rate 82 /min 82 /min eCW1 ([facility]) Respiratory rate 18 /min 18 /min eCW1 ([facility]) Body temperature 97.7 [degF] 97.7 [degF] eCW1 ( [facility]) Systolic blood pressure 138 mm[Hg] 138 mm[Hg] e CW1 ([facility]) Diastolic blood pressure 82 mm[Hg] 82 mm[Hg] eCW1 ([facility]) Patient Treatment Plan of Care Planned Activity Planned Date Details Description Data Source (s) Mirtazapine 15 MG Oral Tablet [Remeron] 05/31/2021 12:00:00 AM EST eCW1 ([facility]) Mirtazapine 15 MG Oral Tablet [Remeron] 05/31/2021 12:00:00 AM EST eCW1 ([facility]) Mirtazapine 15 MG Oral Tablet [Remeron] 05/31/2021 12:00:00 AM EST eCW1 ([facility]) Diphenhydramine Hydrochloride 25 MG Oral Tablet 04/12/2021 12:00:00 AM EDT eCW1 ([facility]) Diphenhydramine Hydrochloride 25 MG Oral Tablet 04/12/2021 12:00:00 AM EDT eCW1 ([facility]) Eucerin - 10/18/2020 12:00:00 AM EDT e CW1 ([facility]) Eucerin - 10/18/2020 12:00:00 AM EDT e CW1 ([facility]) Eucerin - 10/18/2020 12:00:00 AM EDT e CW1 ([facility]) Eucerin - 10/18/2020 12:00:00 AM EDT e CW1 ([facility]) Eucerin - 10/18/2020 12:00:00 AM EDT e CW1 ([facility])
[2021-06-16] MEDS ORDERED: VITA-298 PO (09:44)
[2021-06-16] MEDS ORDERED: MIRT-62 PO (09:44)
--- NOTE | 2021-06-16 09:55 | REPVR ---
PROCEDURE INFORMATION: Exam: CT Head Without Contrast Exam date and time: 06/16/2021 9:46 AM Age: 71 years old Clinical indication: Other: Weakness, generalized TECHNIQUE: Imaging protocol: Computed tomography of the head without contrast. Radiation optimization: All CT scans at this facility use at least one of these dose optimization techniques: automated exposure control; mA and/or kV adjustment per patient size (includes targeted exams where dose is matched to clinical indication); or iterative reconstruction. COMPARISON: MRI-Brain without Contrast 11/03/2020 7:02 PM FINDINGS: Brain: There is no acute intracranial hemorrhage or mass effect. Mild diffuse volume loss is within the range of normal for patient age. There are small vessel ischemic changes within the periventricular and subcortical white matter, but the normal shelton/white matter delineation is maintained. Cerebral ventricles: No ventriculomegaly. Paranasal sinuses: Visualized sinuses are unremarkable. No fluid levels. Mastoid air cells: Visualized mastoid air cells are well aerated. Bones/joints: Unremarkable. No acute fracture. Soft tissues: Unremarkable. IMPRESSION: No acute hemorrhage or edema. Electronically signed by: Tamiko Joy On 06/16/2021 09:55:10 AM
[2021-06-16] MEDS ORDERED: EUCECRE8 TOP (09:56)
[2021-06-16] MEDS ORDERED: HOME MED LIST COMPLETE! XX SCH (10:00)
--- NOTE | 2021-06-16 10:01 | REP ---
INDICATION: generalized weakness COMPARISON: 11/03/2020 TECHNIQUE: Portable AP view of the chest FINDINGS: Examination is limited by portable technique, underpenetration and body habitus. Stable cardiomegaly and stable chronic appearing changes suggested. No obvious acute consolidation. No definite effusion. No pneumothorax. Skeletal structures are intact. IMPRESSION: Limited examination demonstrating chronic stable changes. No obvious acute consolidation or definite effusion. <Electronically signed by Emmanuel Hassan > 06/16/21 [id number]
[2021-06-16 10:35] LABS: BASO % 0.7 % (0.0-1.0); EOS # 0.4 10^3/uL (0.0-0.5); EOS % 10.4 % (0.0-3.0); HEMATOCRIT 44.2 % (42.0-52.0); HEMOGLOBIN 14.4 g/dl (13.5-17.5); LYMPH # 0.8 10^3/uL (1.5-5.0); LYMPH % 18.7 % (24.0-44.0); MEAN CORPUSCULAR HEMOGLOBIN 30.8 pg (27.0-33.0); MEAN CORPUSCULAR HGB CONC 32.6 g/dl (32.0-36.5); MEAN CORPUSCULAR VOLUME 94.4 fl (80.0-96.0); MONO # 0.3 10^3/uL (0.0-0.8); MONO % 7.8 % (2.0-8.0); NEUTROPHILS # 2.6 10^3/uL (1.5-8.5); NEUTROPHILS % 62.2 % (36.0-66.0); PLATELET COUNT, AUTOMATED 205 10^3/uL (150-450); RED BLOOD COUNT 4.68 10^6/uL (4.30-6.10); WHITE BLOOD COUNT 4.2 10^3/uL (4.0-10.0)
[2021-06-16 10:59] LABS: ALBUMIN 3.4 GM/DL (3.2-5.2); ALT/SGPT 12 U/L (12-78); BILIRUBIN,DIRECT 0.1 MG/DL (0.0-0.2); BILIRUBIN,TOTAL 0.6 MG/DL (0.2-1.0); BLOOD UREA NITROGEN 17 MG/DL (7-18); CALCIUM LEVEL 9.2 MG/DL (8.8-10.2); CARBON DIOXIDE LEVEL 31 MEQ/L (21-32); CHLORIDE LEVEL 106 MEQ/L (98-107); CREATININE FOR GFR 0.93 MG/DL (0.70-1.30); GLOMERULAR FILTRATION RATE > 60.0 (>49); GLUCOSE, FASTING 119 MG/DL (70-100); LIPASE 36 U/L (73-393); POTASSIUM SERUM 3.8 MEQ/L (3.5-5.1); SODIUM LEVEL 141 MEQ/L (136-145); TOTAL PROTEIN 6.8 GM/DL (6.4-8.2)
[2021-06-16] MEDS ORDERED: ISOVUE-370 76% 100ML VIAL As Ordered ONE (11:37)
--- NOTE | 2021-06-16 12:43 | REP ---
INDICATION: weakness/sob. COMPARISON: Radiograph today, CT 05/31/2019. TECHNIQUE: CT angiogram chest performed following the intravenous administration of 100 cc of Isovue 370. Sagittal and coronal reconstruction images are performed. FINDINGS: Lungs: Multiple calcified granulomas are seen bilaterally. There are diffuse increased interstitial markings bilaterally which may represent diffuse edema or pneumonitis. There is patchy atelectasis or infiltrate inferiorly in the left lower lobe. Mediastinum: No adenopathy. There are scattered calcified lymph nodes. Pulmonary arteries: No evidence of pulmonary embolism. Rosa Maria: No adenopathy. There are calcified lymph nodes. Axilla: No adenopathy. Pleura: There is a small left pleural effusion. Heart: Mildly enlarged. Thoracic aorta: No aneurysm or dissection. Upper abdominal structures: There is a small hiatal hernia. Visualized osseous structures: There are degenerative changes of the spine without compression fracture. IMPRESSION: No CT evidence of pulmonary embolism. Diffuse increased interstitial markings bilaterally may represent diffuse interstitial edema or pneumonitis. There is patchy atelectasis or infiltrate inferiorly in the left lower lobe, with a small left pleural effusion. Mild cardiomegaly. <Electronically signed by Vipin Resendiz > 06/16/21 [id number]
--- NOTE | 2021-06-16 12:51 | REP ---
INDICATION: weakness, umbilical hernia, abdominal pain COMPARISON: 05/29/2019. TECHNIQUE: CT Scan of the abdomen and pelvis was performed with intravenous administration of 100 cc of Isovue 370, without oral contrast. Sagittal and coronal reconstruction images are performed. FINDINGS: Lung bases: Please see CT chest report. Liver: Normal Gallbladder: Unremarkable. Spleen: Normal. Adrenals: Normal. Pancreas: Normal. Kidneys: There is a 2.5 cm cyst of the lower pole the left kidney. There is a 1.8 cm cyst of the upper pole of the right kidney. Small and large bowel: Unremarkable. No free air or obstruction Free fluid: None. Abdominal aorta: No aneurysm or dissection. Adenopathy: None. Appendix: Prior appendectomy. Osseous structures: There are degenerative changes of the spine without compression deformity. Pelvis: No mass. Small bilateral inguinal hernias contain noninflamed fat. A small umbilical hernia contains noninflamed fat. IMPRESSION: No acute findings. <Electronically signed by Vipin Resendiz > 06/16/21 [id number]
[2021-06-16 13:08] LABS: RSV AMPLIFICATION NEGATIVE (NEGATIVE)
[2021-06-16] MEDS ORDERED: FUROSEMIDE 40MG/4ML VIAL (J1940) IV ONE (14:15)
[2021-06-16] MEDS ORDERED: LOPERAMIDE 2 MG CAPLET PO PRN (15:10)
[2021-06-16] MEDS ORDERED: MECLIZINE 12.5 MG TAB PO PRN (15:10)
[2021-06-16] MEDS ORDERED: ONDANSETRON 4 MG TAB PO PRN (15:10)
[2021-06-16] MEDS ORDERED: ACETAMINOPHEN TAB 650MG DOSE (2X325MG) PO PRN (15:10)
[2021-06-16 15:19] LABS: NT-PRO BNP 1246 PG/ML (<125)
--- OUTSIDE RECORDS SUMMARY | 2021-06-16 15:32 | CCD ---
Author Author [facility] Organization [facility] Address Unknown Phone Unavailable Support Name Relationship Address Phone RETIRED Next Of Kin [address] [place] [address] DISABLED Next Of Kin Unknown Unavailable KENZIEJAX ADRIANYonny CAMPBELL Next Of Kin [address] [place] [address] RE Next Of Kin Unknown Unavailable GOLD STAR FEED Next Of Kin [address] [place] [address] BINA LAM Next Of Kin [address] [place] [address] MARIALUISA, (EX ) BINA Next Of Kin [address] [place] [address] [place] [address] BINA TSANG Next Of Kin [address] [place] [address] BINA GTZ Next Of Kin [address] [place] [address] Bina Strong ECON [address] [facility] [address] [place] [address] Unavailable BINA LAM ECON [address] [place] [address] [phone] Care Team Providers 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 If you continue you may have access to information: Regarding HIV / AIDS; Provided by facilities licensed or operated by the [facility] Office of Mental Health; or Provided by the [facility] Office for People With Developmental Disabilities. If such information is present, then the following [facility] mandated warning applies: This information has been [...] law may result in a fine or [place] health [place] sentence or both. A general authorization for the release of medical or other information is NOT sufficient authorization for further disc losure. Family History Family Member Name Family Member Gender Family Member Status Date o f Status Description Data Source(s) Unknown Unknown Problem MEDENT ([facility]) Bone father Encounters Encounter Providers Location Date Indications Data Source(s ) Unknown [address] [facility] [address] 06/01/2021 12:00:00 AM EST [facility]CW1 ([facility] Unknown [address] [facility] [place] [address] 05/31/2021 12:00:00 AM EST eCW1 ([facility]) Unknown [address] [facility] [place] [address] 05/31/2021 12:00:00 AM EST eCW1 ([facility]) Unknown [address] [facility] [place] [address] 05/19/2021 12:00:00 AM EST eCW1 ([facility]) Unknown [address] [facility] [place] [address] 05/09/2021 12:00:00 AM EDT eCW1 ([facility]) Unknown [address] [facility] [place] [address] 05/09/2021 12:00:00 AM EDT eCW1 ([facility]) Unknown [address] [facility] [place] [address] 05/04/2021 12:00:00 AM EDT eCW1 ([facility]) Unknown [address] [facility] [place] [address] 04/22/2021 12:00:00 AM EDT eCW1 ([facility]) Office Visit, Est Pt., Level [address] [place] [address] 04/19/2021 12:00:00 AM EDT eCW1 ([facility]) Unknown [address] [place] [address] Y [address] 04/12/2021 12:00:00 AM EDT eCW1 ([facility]) Unknown [address] [place] [address] Y [address] 04/11/2021 12:00:00 AM EDT eCW1 ([facility]) Unknown [address] [place] [address] Y [address] 04/08/2021 12:00:00 AM EDT eCW1 ([facility]) Unknown [address] [place] [address] 04/05/2021 12:00:00 AM EDT eCW1 ([facility]) Outpatient [address] [place] [address] 03/23/2021 12:00:00 AM EDT eCW1 ([facility]) Unknown [address] [place] [address] Y [address] 03/07/2021 12:00:00 AM EDT eCW1 ([facility]) Outpatient [address] [place] [address] 02/15/2021 12:00:00 AM EDT eCW1 ([facility]) Unknown [address] [place] [address] 01/25/2021 12:00:00 AM EDT eCW1 ([facility]) Office Visit Attender: Leydi Barry MD Main office - [place] 01/12/2021 02:45:00 PM EDT MEDENT ([facility] martin) Unknown [address] [place] [address] 12/17/2020 12:00:00 AM EDT eCW1 [facility]) (TV_Virtual) Virtual Enc Tel Health Visit [address] [place] [address] 12/15/2020 12:00:00 AM EDT eCW1 ([facility]) Outpatient [address] [facility] [address] 11/19/2020 12:00:00 AM EDT [facility] [address] [facility] [address] 11/19/2020 12:00:00 AM EDT [facility] Office Visit, Est Pt., Level 4 [address] [place] [address] 11/15/2020 12:00:00 AM EDT eCW1 ([facility]) Unknown [address] [facility] [address] 11/11/2020 12:00:00 AM EDT eCW1 [facility] Unknown [address] [facility] [address] 11/09/2020 12:00:00 AM EDT eCW1 [facility] Unknown [address] [facility] [address] 11/04/2020 12:00:00 AM EDT eCW1 [facility] (TV[facility]Virtual) Virtual [facility] Visit [address] [place] [address] 10/26/2020 12:00:00 AM EDT eCW1 ([facility]) Unknown [address] [facility] [address] 10/18/2020 12:00:00 AM EDT eCW1 ([facility]) Outpatient Attender: Leydi Barry MD Main office - [place] 10/12/2020 02:45:00 PM EDT MEDENT ([facility], ) Outpatient [address] [facility] [address] 09/27/2020 12:00:00 AM EDT eCW1 [facility] (TV[facility]Virtual) Virtual [facility] Visit [address] [place] [address] 09/03/2020 12:00:00 AM EST eCW1 ([facility]) (TV_Virtual) Virtual Enc Tel Health Visit [address] [place] [address] 07/27/2020 12:00:00 AM EST [facility]CW[facility] Unknown [address] [facility] [address] 07/19/2020 12:00:00 AM EST eCW1 [facility]) Outpatient [address] [facility] [address] 07/07/2020 12:00:00 AM EST [facility]CW[facility] Unknown [address] [place] [address] 06/22/2020 12:00:00 AM EST [facility]CW1 [facility] Unknown [address] [facility] [address] 06/18/2020 12:00:00 AM EST [facility]CW1 [facility] ([facility]) [facility] Scheduled Visit [address] [place] [address] 06/17/2020 12:00:00 AM EST eCW1 ([facility]) Office Visit, Est Pt., Level 4 PC [address] [place] [address] 05/28/2020 12:00:00 AM EST eCW1 ([facility]) Unknown [address] [facility] [address] 05/21/2020 12:00:00 AM EST [facility]CW1 [facility] Unknown [address] [facility] [address] 05/19/2020 12:00:00 AM EST [facility] [address] [facility] [address] 05/14/2020 12:00:00 AM EST [facility]CW1 [facility] Outpatient Attender: Leydi Barry MD Main office - [place] 05/13/2020 11:30:00 AM EST MEDENT ([facility]) Unknown [address] [facility] [place] [address] 05/12/2020 12:00:00 AM EST eCW1 ([facility]) Unknown [address] [facility] [place] [address] 05/12/2020 12:00:00 AM EST eCW1 ([facility]) Unknown [address] [facility] [place] [address] 05/05/2020 12:00:00 AM EDT eCW1 ([facility]) Unknown [address] [facility] [place] [address] 04/26/2020 12:00:00 AM EDT eCW1 ([facility]) Office Visit, Est Pt., Level 3 PC [address] [place] [address] 04/23/2020 12:00:00 AM EDT eCW1 ([facility]) Unknown [address] [facility] [place] [address] 04/20/2020 12:00:00 AM EDT eCW1 ([facility]) ([facility]) [facility] Scheduled Visit [address] [place] [address] 04/19/2020 12:00:00 AM EDT eCW1 ([facility]) Immunizations Vaccine Date Status Description Data Source(s) COVID-19 VACCINE Pfizer 05/02/2021 12:00:00 AM EDT completed [facility] Vaccine Series Complete: YESThis Data wa s Submitted to [facility] Via [employer]. COVID-19 VACCINE Pfizer 08/23/2020 12:00:00 AM EST completed [facility] Vaccine Series Complete: YESThis Data wa s Submitted to [facility] Via [employer]. COVID-19 VACCINE Pfizer 08/02/2020 12:00:00 AM EST completed [facility] Vaccine Series Complete: NOThis Data was Submitted to [facility] Via [employer]. INFLUENZA VIRUS VACCINE QUADRIVAL SPLIT 2020-21(65 YR UP)/PF 04/22/2020 12:00:00 AM EDT completed [facility] Medications Medication Brand Name Start Date Product Form Dose Route Admi nistrative Instructions Pharmacy Instructions Status Indications Reaction Description Data Source(s) Mirtazapine 15 MG Oral Tablet [Remeron] Remeron 15 MG Remero n 15 MG 05/31/2021 12:00:00 AM EST 1.0 {tablet_at_bedtime} active Remeron 15 MG eCW1 ([facility]) Mirtazapine 15 MG Oral Tablet [Remeron] Remeron 15 MG Remero n 15 MG 05/31/2021 12:00:00 AM EST 1.0 {tablet_at_bedtime} active Remeron 15 MG eCW1 ([facility]) Mirtazapine 15 MG Oral Tablet [Remeron] Remeron 15 MG Remero n 15 MG 05/31/2021 12:00:00 AM EST 1.0 {tablet_at_bedtime} active Remeron 15 MG eCW1 ([facility]) 240 mcg/0.7 mL 05/21/2021 12:00:00 AM EST syringe 0 INJECT DIRECTED INJECT DIRECTED SOLD: 05/21/2021 [facility] Diphenhydramine Hydrochloride 25 MG Oral Tablet diphen hydrAMINE HCl 25 MG diphenhydrAMINE HCl 25 MG 04/12/2021 12:00:00 AM EDT active diphenhydrAMINE HCl 25 MG eCW1 ([facility]) Diphenhydramine Hydrochloride 25 MG Oral Tablet diphen hydrAMINE HCl 25 MG diphenhydrAMINE HCl 25 MG 04/12/2021 12:00:00 AM EDT active diphenhydrAMINE HCl 25 MG eCW1 ([facility]) Diphenhydramine Hydrochloride 25 MG Oral Tablet diphen hydrAMINE HCl 25 MG diphenhydrAMINE HCl 25 MG 04/12/2021 12:00:00 AM EDT active diphenhydrAMINE HCl 25 MG eCW1 ([facility]) Diphenhydramine Hydrochloride 25 MG Oral Tablet diphen hydrAMINE HCl 25 MG diphenhydrAMINE HCl 25 MG 04/12/2021 12:00:00 AM EDT active diphenhydrAMINE HCl 25 MG eCW1 ([facility]) Diphenhydramine Hydrochloride 25 MG Oral Tablet diphen hydrAMINE HCl 25 MG diphenhydrAMINE HCl 25 MG 04/12/2021 12:00:00 AM EDT active diphenhydrAMINE HCl 25 MG eCW1 ([facility]) Diphenhydramine Hydrochloride 25 MG Oral Tablet diphen hydrAMINE HCl 25 MG diphenhydrAMINE HCl 25 MG 04/12/2021 12:00:00 AM EDT active diphenhydrAMINE HCl 25 MG eCW1 ([facility]) Diphenhydramine Hydrochloride 25 MG Oral Tablet diphen hydrAMINE HCl 25 MG diphenhydrAMINE HCl 25 MG 04/12/2021 12:00:00 AM EDT active diphenhydrAMINE HCl 25 MG eCW1 ([facility]) Diphenhydramine Hydrochloride 25 MG Oral Tablet diphen hydrAMINE HCl 25 MG diphenhydrAMINE HCl 25 MG 04/12/2021 12:00:00 AM EDT active diphenhydrAMINE HCl 25 MG eCW1 ([facility]) Diphenhydramine Hydrochloride 25 MG Oral Tablet diphen hydrAMINE HCl 25 MG diphenhydrAMINE HCl 25 MG 04/12/2021 12:00:00 AM EDT active diphenhydrAMINE HCl 25 MG eCW1 ([facility]) Diphenhydramine Hydrochloride 25 MG Oral Tablet diphen hydrAMINE HCl 25 MG diphenhydrAMINE HCl 25 MG 04/12/2021 12:00:00 AM EDT active diphenhydrAMINE HCl 25 MG eCW1 ([facility]) Diphenhydramine Hydrochloride 25 MG Oral Tablet diphen hydrAMINE HCl 25 MG diphenhydrAMINE HCl 25 MG 04/12/2021 12:00:00 AM EDT active diphenhydrAMINE HCl 25 MG eCW1 ([facility]) Diphenhydramine Hydrochloride 25 MG Oral Tablet diphen hydrAMINE HCl 25 MG diphenhydrAMINE HCl 25 MG 04/12/2021 12:00:00 AM EDT active diphenhydrAMINE HCl 25 MG eCW1 ([facility]) Bromocriptine 2.5 MG Oral Tablet Bromocriptine Mesylate 01/2021 12:00:00 AM EDT active MEDENT ([facility]) Eucerin - Eucerin - 10/18/2020 12:00:00 AM EDT suspended Eucerin - eCW1 ([facility]) Eucerin - Eucerin - 10/18/2020 12:00:00 AM EDT suspended Eucerin - eCW1 ([facility]) Eucerin - Eucerin - 10/18/2020 12:00:00 AM EDT suspended Eucerin - eCW1 ([facility]) Eucerin - Eucerin - 10/18/2020 12:00:00 AM EDT suspended Eucerin - eCW1 ([facility]) Eucerin - Eucerin - 10/18/2020 12:00:00 AM EDT suspended Eucerin - eCW1 ([facility]) Eucerin - Eucerin - 10/18/2020 12:00:00 AM EDT suspended Eucerin - eCW1 ([facility]) Eucerin - Eucerin - 10/18/2020 12:00:00 AM EDT suspended Eucerin - eCW1 ([facility]) Eucerin - Eucerin - 10/18/2020 12:00:00 AM EDT suspended Eucerin - eCW1 ([facility]) Eucerin - Eucerin - 10/18/2020 12:00:00 AM EDT act elmer Eucerin - eCW1 ([facility]) Eucerin - Eucerin - 10/18/2020 12:00:00 AM EDT suspended Eucerin - eCW1 ([facility]) Eucerin - Eucerin - 10/18/2020 12:00:00 AM EDT suspended Eucerin - eCW1 ([facility]) Eucerin - Eucerin - 10/18/2020 12:00:00 AM EDT suspended Eucerin - eCW1 ([facility]) Eucerin - Eucerin - 10/18/2020 12:00:00 AM EDT suspended Eucerin - eCW1 ([facility]) Eucerin - Eucerin - 10/18/2020 12:00:00 AM EDT act elmer Eucerin - eCW1 ([facility]) Eucerin - Eucerin - 10/18/2020 12:00:00 AM EDT act elmer Eucerin - eCW1 ([facility]) Eucerin - Eucerin - 10/18/2020 12:00:00 AM EDT act elmer Eucerin - eCW1 ([facility]) Eucerin - Eucerin - 10/18/2020 12:00:00 AM EDT suspended Eucerin - eCW1 ([facility]) Eucerin - Eucerin - 10/18/2020 12:00:00 AM EDT suspended Eucerin - eCW1 ([facility]) Eucerin - Eucerin - 10/18/2020 12:00:00 AM EDT suspended Eucerin - eCW1 ([facility]) Eucerin - Eucerin - 10/18/2020 12:00:00 AM EDT suspended Eucerin - eCW1 ([facility]) Eucerin - Eucerin - 10/18/2020 12:00:00 AM EDT suspended Eucerin - eCW1 ([facility]) Eucerin - Eucerin - 10/18/2020 12:00:00 AM EDT suspended Eucerin - eCW1 ([facility]) Eucerin - Eucerin - 10/18/2020 12:00:00 AM EDT suspended Eucerin - eCW1 ([facility]) Eucerin - Eucerin - 10/18/2020 12:00:00 AM EDT suspended Eucerin - eCW1 ([facility]) Eucerin - Eucerin - 10/18/2020 12:00:00 AM EDT act elmer Eucerin - eCW1 ([facility]) Eucerin - Eucerin - 10/18/2020 12:00:00 AM EDT suspended Eucerin - eCW1 ([facility]) Eucerin - Eucerin - 10/18/2020 12:00:00 AM EDT suspended Eucerin - eCW1 ([facility]) gabapentin 100 MG Oral Capsule Gabapentin 10/12/2020 12:00:00 AM EDT ORAL active MEDENT ([facility] ) Carbidopa 50 MG / Levodopa 200 MG Extended Release Ora l Tablet Carbidopa- Levodopa ER 09/01/2020 12:00:00 AM EST ORAL completed MEDENT ([facility] ) Insurance Providers Payer name Policy type / Coverage type Policy ID Covered green party ID Covered green party's relationship to james Policy James Plan Information DWAYNE WORKERS COMP [id number] SP [id number] OTHER WORKERS COMP [id number] SP [id number] MEDICARE [id number] SP [id number] A MEDICARE [id number] SP [id number] [employer]AR [employer] CARE OPTIONS [id number] SP [id number] AAR [employer] CARE OPTIONS [id number] SP [id number] MEDICAID [id number] S [id number] MEDICARE C [id number] S [id number] [facility] OPTIONS [id number] SP [id number] [facility] [id number] ANS-Medicare Part B [id number] ANSI-Commercial [id number] ANS-Medicaid [id number] ANS-Medicare Part B [id number] ANSI-Commercial [id number] ANS-Medicaid [id number] ANSI-Medicare Part B [id number] ANSI-Commercial [id number] ANSI-Commercial [id number] ANSI-Medicare Part B [id number] ANSI-Medicaid [id number] ANSI-Medicaid [id number] ANSI-Medicare Part B [id number] ANSI-Commercial [id number] ANSI-Commercial [id number] ANSI-Medicare Part B [id number] ANSI-Commercial [id number] ANSI-Medicare Part B [id number] SELF PAY ANSI-Commercial [id number] ANSI-Medicare Part B [id number] ANSI-Commercial [id number] ANSI-Medicare Part B [id number] ANSI-Medicare Part B [id number] ANSI-Commercial [id number] ANSI-Commercial [id number] ANSI-Medicare Part B [id number] ANSI-Medicare Part B [id number] ANSI-Commercial [id number] ANSI-Medicare Part B [id number] ANSI-Commercial [id number]-[id number]-[id number] ANSI-Commercial [id number]-[id number]-409600lwlozq ANSI-Medicare Part B [id number] ANSI-Medicare Part B [id number] ANSI-Commercial [id number] ANSI-Medicare Part B [id number] ANSI-Commercial [id number] ANSI-Medicare Part B [id number] ANSI-Commercial [id number]-[id number] [id number]-06t1-325u-9su5-[id number] ANSI-Medicare Part B [id number]-[id number]-[id number] ANSI-Commercial [id number] ANSI-Commercial [id number]-1975-[id number] ANSI-Medicare Part B [id number] ANSI-Medicare Part B [id number] ANSI-Commercial [id number]-[id number] ANSI-Commercial [id number] ANSI-Medicare Part B [id number] ANSI-Commercial [id number] ANSI-Medicare Part B [id number] ANSI-Commercial [id number] zlm5t0ue-4dr5-1l3n-26ph-70z1981c1481 ANSI-Medicare Part B m38598c8-c5g2-7m64-5ab9-r01et5y4g8i3 b60951x1-q2j6-8t82-0eg5-u57rz2h3h2l5 ANSI-Commercial hti52axm-jo69-5810-9c65-y10ri9j86w7r dyd19ajt-he63-9962-9w95-y42vc7j99i3d ANSI-Medicare Part B zvd2k8nc-00y5-9t26-34fz-561306djjct7 jpz9g7qu-04i1-4g86-12sf-396778pfzjj6 ANSI-Commercial 66ln12j9-2o11-3w30-ji5v-z780g555y56l 66gs51d7-8t67-6t24-rv1w-y967z310r14u ANSI-Medicare Part B 6d558329-y479-3d96-53o3-77235iz3x9ni 9j390443-n606-1x02-06c0-55358ym3o8go ANSI-Commercial 13p9d867-91x1-0408-n483-933c621u638i 94z0x673-86v9-1869-u624-104q752k081i ANSI-Medicare Part B f5lhd43m-46g0-1fnv-j4az-006wl73v6s25 o8qnj80u-27j6-4gfv-m0hq-509kd49i0q10 ANSI-Commercial 7496p693-rsy0-0w57-a33c-0r35032x1708 3035e477-mkl4-5k67-b00e-2h74827o9617 ANSI-Medicare Part B 5zm3yv9k-n2h1-20jz-95nt-1x6r644090dj 5uz9ly0b-m7v9-50ta-12sx-6i1i211992rd ANSI-Medicare Part B 3t492myn-1e4a-4u71-2238-58561al2o878 9c565tay-4f9y-1o93-7816-30201av5k048 ANSI-Commercial 9989f415-166t-6372-0300-4p18957j865o 7761y220-867l-7391-1401-7v00204v356l ANSI-Commercial x7035g72-7cc6-4d17-btl1-4h5w1dh8v247 o1409v90-1xg2-4f01-whe8-0w2p0xi3t023 ANSI-Medicare Part B 38lh8715-ao7a-1550-a918-6p8ihh5l07pn 65nt2985-dg3h-3746-s401-1f9ezc1i58wh ANSI-Commercial m29921y0-r00i-0176-w98y-1316m70974to m23000y8-v06e-4007-g67y-0184n13205je ANSI-Medicare Part B z091127t-tc39-68ya-y0s0-8wh099e2fx29 s334639m-hi34-45ny-g9b6-4qc637n0se61 ANSI-Commercial 5ggi8915-9634-1g11-d9k2-4phz34896n42 3qhj9261-3500-1v59-h0t3-0kww54695n88 ANSI-Medicare Part B 3cxdt132-3n11-6k10-ir24-22su01535704 8osnc701-9m97-2b58-ao87-79bt00511009 ANSI-Medicare Part B 96aghdj6-m3j7-62am-h95q-39kayw6758du 05qwwzi8-m8l7-19pq-y12k-13gclq3852vk ANSI-Commercial gg0u9i6v-19tt-8q99-4757-6k6wk854470b dz1a0q5o-40rr-9e73-4564-3t2df745272t [facility] Part B [id number] Self [id number] Medicare [place] Medicare Primary [id number] Self [id number] MEDICARE [id number] ANSI-Medicare Part B 31d1fn18-01hx-40hz-4aa1-9agi77szn276 39g4nw75-61cq-09nu-4dl2-6eno87hsg825 ANSI-Commercial 28f92630-7718-9nvl-l42b-s0qb7z428q76 36j17093-0065-9zfb-y99w-j5va4s211s15 ANSI-Commercial h3759458-2932-557o-j746-617217ot5466 f4844401-0648-547j-c580-997691fy7765 ANSI-Medicare Part B tz5p817d-9163-9357-4teg-11012pcr2x7p ze1h277i-2651-5542-6evh-95751ijj1u2n ANSI-Medicare Part B 28ib5q4s-1266-653a-yn15-82z2gnf488f3 09av6g7p-4920-568t-dp40-56t0sgl554k8 ANSI-Commercial 05y14l9g-d8hp-7534-32c3-589h4216731o 61t43a8e-i8aj-3599-37q8-136d0854954m ANSI-Commercial kf08bse6-e657-36q7-2w84-qt63m982a4z0 pb04tff0-z939-39f0-9e78-xx29r954e2y7 ANSI-Medicare Part B 5v01js5n-1484-4w8z-0518-8343t7331cml 7q12ii7i-4954-9n8v-3550-9284v6570cmz AARP O [id number] S [id number] [address] [facility] PART B C [id number] S [id number] ANSI-Commercial 6708v9t0-z2u6-9o01-e65p-2q7qp0244l03 2097k9v9-o3g1-6k22-i54o-1z1vi7200w96 ANSI-Medicare Part B 3p8b5361-t42s-3001-75zh-b58r40t13495 9s9v6467-r53h-8253-54gd-u04m00i62052 ANSI-[employer] [id number] ANSI-Medicare Part B [id number] MEDICARE C [id number] S [id number] A [facility] [id number] SP [id number] [place] [id number] S [id number] [place] [id number] S [id number] [place] [id number] P [id number] S [id number] [place] [id number] SP [id number] A [id number] MEDICARE [id number] SP [id number] EMED[place] [id number] SP [id number] MEDICAID -O/P EMERGENCY ROOM [id number] 18 [id number] MEDICARE PART A -O/P [id number] 18 [id number] MEDICAID [id number] SP [id number] Problems, Conditions, and Diagnoses Code Display Name Description Problem Type Effective Dates Data Source(s) E11.9 [id number] Type 2 diabetes justin itus without complication, without long-term current use of insulin Problem 04/19/2021 12:00:00 AM EDT eCW1 ([facility]) R41.82 [id number] Altered mental status, unspecifi ed altered mental status type Problem 04/12/2021 12:00:00 AM EDT eCW1 ([facility]) H93.13 [id number] Tinnitus of both ears Problem 02/16/2021 12:00:00 AM EDT eCW1 ([facility]) F41.1 [id number] Generalized anxiety disorder Problem 021 12:00:00 AM EDT eCW ([facility]) Surgeries/Procedures Procedure Description Date Indications Data Source(s) PHYSICIAN TELEPHONE EVALUATION 11-20 MIN 01/12/2021 12 :00:00 AM EDT MEDENT ([facility], ) INITIAL HOSPITAL CARE/DAY 70 MINUTES 11/04/2020 12:00: 00 AM EDT [facility]ENT ([facility], ) OFFICE OUTPATIENT VISIT 15 MINUTES 10/12/2020 12:00:00 AM EDT MEDENT ([facility], ) Results ID Date Data Source [id number] 04/19/2021 12:00:00 AM EDT [facility] ([facility]) Name Value Range Interpretation Code Description Data Erinn rce(s) Supporting Document(s) Microalbumin/Creatinine [Mass Ratio] in Urine 86.5 CREATININE, URINE eCW1 ([facility]) Albumin/Creatinine [Mass Ratio] in Urine 8.7 MALB URINE SIEMENS eCW1 ([facility]) Microalbumin/Creatinine [Ratio] in Urine 10.0 0.0-30.0 SIENNA/CREAT RATIO [facility] ([facility]) ID Date Data Source TSH 04/19/2021 12:00:00 AM EDT eCW1 ([facility]) Name Value Range Interpretation Code Description Data Erinn rce(s) Supporting Document(s) 2.040 0.358-3.740 THYROID STIMULATING HORM ONE eCW1 ([facility]) ID Date Data Source LIPID PANEL (CARDIAC RISK) 04/19/2021 12:00:00 AM EDT eCW1 ( [facility]) Name Value Range Interpretation Code Description Data Erinn rce(s) Supporting Document(s) Triglyceride [Mass/volume] in Serum or Plasma by calculation 178 <150 TRIGLYCERIDES LEVEL eCW1 ([facility]) Cholesterol in HDL [Moles/volume] in Serum or Plasma 33 >40 HDL CHOLESTEROL eCW1 ([facility]) Cholesterol [Moles/volume] in Serum or Plasma 197 <200 CHOLESTEROL LEVEL eCW1 ([facility]) Cholesterol in LDL [Mass/volume] in Serum or Plasma by calculation 128 <100 LDL CHOLESTEROL eCW1 ([facility]) 5.969 <5 CHOLESTEROL RISK RATIO eCW1 ([facility]) 164 NON-HDL-C eCW1 ([facility]) ID Date Data Source [id number] 04/19/2021 12:00:00 AM EDT eCW1 ([facility]) Name Value Range Interpretation Code Description Data Erinn rce(s) Supporting Document(s) Hemoglobin A1c/Hemoglobin.total in Blood 6.3 HEMOGLOBIN A1c eCW1 ([facility]) ID Date Data Source Comprehensive Metabolic Profile (CMP) 04/19/2021 12:00:00 AM EDT eCW1 ([facility]) Name Value Range Interpretation Code Description Data Erinn rce(s) Supporting Document(s) 84 70-100 GLUCOSE, FASTING eCW1 ([facility]) 21 7-18 BLOOD UREA NITROGEN eCW1 ([facility]) > 60.0 >49 GLOMERULAR FILTRATION RATE eCW 1 ([facility]) 145 136-145 SODIUM LEVEL eCW1 ([facility]) 1.16 0.70-1.30 CREATININE FOR GFR eCW1 ([facility]) 108 98-107 CHLORIDE LEVEL eCW1 ([facility]) 4.0 3.5-5.1 POTASSIUM SERUM eCW1 ([facility]) 34 21-32 CARBON DIOXIDE LEVEL eCW1 ([facility]) 17 7-37 AST/SGOT eCW1 ([facility]) 9.6 8.8-10.2 CALCIUM LEVEL eCW1 ([facility]) 16 12-78 ALT/SGPT eCW1 ([facility]) 41 45-117 ALKALINE PHOSPHATASE eCW1 ([facility]) 6.7 6.4-8.2 TOTAL PROTEIN eCW1 ([facility]) 0.5 0.2-1.0 BILIRUBIN,TOTAL eCW1 ([facility]) 3.7 3.2-5.2 ALBUMIN eCW1 ([facility]) 1.2 ALBUMIN/GLOBULIN RATIO eCW1 ([facility]) ID Date Data Source CBC with Differential 04/19/2021 12:00:00 AM EDT eCW1 ([facility]) Name Value Range Interpretation Code Description Data Erinn rce(s) Supporting Document(s) 4.93 4.30-6.10 RED BLOOD COUNT eCW1 ([facility]) 15.4 13.5-17.5 HEMOGLOBIN eCW1 ([facility]) 4.8 4.0-10.0 WHITE BLOOD COUNT eCW1 ([facility]) 96.6 80.0-96.0 MEAN CORPUSCULAR VOLUME e CW1 ([facility]) 31.2 27.0-33.0 MEAN CORPUSCULAR HEMOGLOB IN eCW1 ([facility]) 47.6 42.0-52.0 HEMATOCRIT eCW1 ([facility]) 32.4 32.0-36.5 MEAN CORPUSCULAR HGB CONC eCW1 ([facility]) 13.5 11.5-14.5 RED CELL DISTRIBUTION WID TH eCW1 ([facility]) 185 150-450 PLATELET COUNT, AUTOMATED eCW1 ([facility]) 5.9 0.0-3.0 EOS % eCW1 ([facility]) 10.1 2.0-8.0 MONO % eCW1 ([facility]) 20.0 24.0-44.0 LYMPH % eCW1 ([facility]) 63.2 36.0-66.0 NEUTROPHILS % eCW1 ([facility]) 3.0 1.5-8.5 NEUTROPHILS # eCW1 ([facility]) 0.4 0.0-1.0 BASO % eCW1 ([facility]) 1.0 1.5-5.0 LYMPH # eCW1 ([facility]) 0.5 0.0-0.8 MONO # eCW1 ([facility]) 0.3 0.0-0.5 EOS # eCW1 ([facility]) 0.0 0.0-0.2 BASO # eCW1 ([facility]) ID Date Data Source VITAMIN B12 LEVEL 04/19/2021 12:00:00 AM EDT eCW1 ([facility]) Name Value Range Interpretation Code Description Data Erinn rce(s) Supporting Document(s) 683 226-385 VITAMIN B12 LEVEL eCW1 ([facility]) ID Date Data Source VITAMIN D [id number] 04/19/2021 12:00:00 AM EDT eCW1 ([facility]) Name Value Range Interpretation Code Description Data Erinn rce(s) Supporting Document(s) 28.6 30.0-100.0 TOTAL 25(OH) VITAMIN D eC W1 ([facility]) ID Date Data Source [id number] 11/03/2020 01:02:00 PM EDT [facility] Name Value Range Interpretation Code Description Data Erinn rce(s) Supporting Document(s) SARS coronavirus 2 RNA [Presence] in Res piratory specimen by GISELE with probe detection NEGATIVE [facility] This lab was ordered by [facility] a nd reported by [facility]. ID Date Data Source [id number] 08/23/2020 10:00:00 AM EST [facility] Name Value Range Interpretation Code Description Data Erinn rce(s) Supporting Document(s) SARS coronavirus 2 RNA Not Detected [facility] This lab was ordered by [facility] and reported by [facility]. ID Date Data Source [id number] 08/16/2020 06:20:00 AM EST [facility] Name Value Range Interpretation Code Description Data Erinn rce(s) Supporting Document(s) SARS coronavirus 2 RNA Not Detected [facility] This lab was ordered by [facility] and reported by [facility]. ID Date Data Source [id number] 08/09/2020 09:00:00 AM EST [facility] Name Value Range Interpretation Code Description Data Erinn rce(s) Supporting Document(s) SARS coronavirus 2 RNA Not Detected [facility] This lab was ordered by [facility] and reported by [facility]. ID Date Data Source [id number] 08/02/2020 01:00:00 PM EST [facility] Name Value Range Interpretation Code Description Data Erinn rce(s) Supporting Document(s) SARS coronavirus 2 RNA Not Detected [facility] This lab was ordered by [facility] and reported by [facility]. ID Date Data Source [id number] 07/26/2020 06:25:00 AM EST [facility] Name Value Range Interpretation Code Description Data Erinn rce(s) Supporting Document(s) SARS coronavirus 2 RNA Not Detected [facility] This lab was ordered by [facility] and reported by [facility]. ID Date Data Source [id number] 07/19/2020 06:00:00 AM EST [facility] Name Value Range Interpretation Code Description Data Erinn rce(s) Supporting Document(s) SARS coronavirus 2 RNA Not Detected [facility] This lab was ordered by [facility] and reported by [facility]. ID Date Data Source [id number] 07/12/2020 07:30:00 AM EST [facility] Name Value Range Interpretation Code Description Data Erinn rce(s) Supporting Document(s) SARS coronavirus 2 RNA [facility] This lab was ordered by [facility] and reported by [facility]. ID Date Data Source [id number] 07/05/2020 07:35:00 AM EST [facility] Name Value Range Interpretation Code Description Data Erinn rce(s) Supporting Document(s) SARS coronavirus 2 RNA [facility] This lab was ordered by [facility] and reported by [facility]. ID Date Data Source [id number] 06/28/2020 09:30:00 AM EST [facility] Name Value Range Interpretation Code Description Data Erinn rce(s) Supporting Document(s) SARS coronavirus 2 RNA [facility] This lab was ordered by [facility] and reported by [facility]. ID Date Data Source [id number] 06/23/2020 11:35:00 AM EST [facility] Name Value Range Interpretation Code Description Data Erinn rce(s) Supporting Document(s) SARS coronavirus 2 RNA [facility] This lab was ordered by [facility] and reported by [facility]. ID Date Data Source [id number] 06/23/2020 12:00:00 AM EST [facility] Name Value Range Interpretation Code Description Data Erinn rce(s) Supporting Document(s) SARS-CoV2 Rapid Antigen [facility] This lab was ordered by [facility] and reported by [facility]. ID Date Data Source [id number] 06/18/2020 02:42:00 PM EST [facility] Name Value Range Interpretation Code Description Data Erinn rce(s) Supporting Document(s) SARS coronavirus 2 RNA [facility] This lab was ordered by [facility] and reported by [facility]. Procedure Social History Code Duration Value Status Description Data Source(s ) Smoking 04/19/2021 12:00:00 AM EDT Never Smoker completed Never S moker eCW1 ([facility]) Smoking 04/19/2021 12:00:00 AM EDT Never Smoker completed Never S moker eCW1 ([facility]) Smoking 04/19/2021 12:00:00 AM EDT Never Smoker completed Never S moker eCW1 ([facility]) Smoking 04/19/2021 12:00:00 AM EDT Never Smoker completed Never S moker eCW1 ([facility]) Smoking 04/19/2021 12:00:00 AM EDT Never Smoker completed Never S moker eCW1 ([facility]) Smoking 04/19/2021 12:00:00 AM EDT Never Smoker completed Never S moker eCW1 ([facility]) Smoking 04/19/2021 12:00:00 AM EDT Never Smoker completed Never S moker eCW1 ([facility]) Smoking 04/19/2021 12:00:00 AM EDT Never Smoker completed Never S moker eCW1 ([facility]) Smoking 04/19/2021 12:00:00 AM EDT Never Smoker completed Never S moker eCW1 ([facility]) Smoking 04/19/2021 12:00:00 AM EDT Never Smoker completed Never S moker eCW1 ([facility]) Smoking 03/23/2021 12:00:00 AM EDT Never Smoker completed Never S moker eCW1 ([facility]) Smoking 03/23/2021 12:00:00 AM EDT Never Smoker completed Never S moker eCW1 ([facility]) Smoking 03/23/2021 12:00:00 AM EDT Never Smoker completed Never S moker eCW1 ([facility]) Smoking 03/23/2021 12:00:00 AM EDT Never Smoker completed Never S moker eCW1 ([facility]) Smoking 02/15/2021 12:00:00 AM EDT Never Smoker completed Never S moker eCW1 ([facility]) Smoking 02/15/2021 12:00:00 AM EDT Never Smoker completed Never S moker eCW1 ([facility]) Smoking 01/27/2021 12:00:00 AM EDT Never Smoker completed Never S moker eCW1 ([facility]) Smoking 11/15/2020 12:00:00 AM EDT Never Smoker completed Never S moker eCW1 ([facility]) Smoking 11/15/2020 12:00:00 AM EDT Never Smoker completed Never S moker eCW1 ([facility]) Smoking 11/15/2020 12:00:00 AM EDT Never Smoker completed Never S moker eCW1 ([facility]) Smoking 11/15/2020 12:00:00 AM EDT Never Smoker completed Never S moker eCW1 ([facility]) Smoking 11/15/2020 12:00:00 AM EDT Never Smoker completed Never S moker eCW1 ([facility]) Smoking 05/28/2020 12:00:00 AM EST Never Smoker completed Never S moker eCW1 ([facility]) Smoking 05/28/2020 12:00:00 AM EST Never Smoker completed Never S moker eCW1 ([facility]) Smoking 05/28/2020 12:00:00 AM EST Never Smoker completed Never S moker eCW1 ([facility]) Smoking 05/28/2020 12:00:00 AM EST Never Smoker completed Never S moker eCW1 ([facility]) Smoking 05/28/2020 12:00:00 AM EST Never Smoker completed Never S moker eCW1 ([facility]) Smoking 05/28/2020 12:00:00 AM EST Never Smoker completed Never S moker eCW1 ([facility]) Smoking 05/28/2020 12:00:00 AM EST Never Smoker completed Never S moker eCW1 ([facility]) Smoking 05/28/2020 12:00:00 AM EST Never Smoker completed Never S moker eCW1 ([facility]) Smoking 05/28/2020 12:00:00 AM EST Never Smoker completed Never S moker eCW1 ([facility]) Smoking 05/28/2020 12:00:00 AM EST Never Smoker completed Never S moker eCW1 ([facility]) Smoking 05/28/2020 12:00:00 AM EST Never Smoker completed Never S moker eCW1 ([facility]) Smoking 05/28/2020 12:00:00 AM EST Never Smoker completed Never S moker eCW1 ([facility]) Smoking 05/28/2020 12:00:00 AM EST Never Smoker completed Never S moker eCW1 ([facility]) Smoking 05/28/2020 12:00:00 AM EST Never Smoker completed Never S moker eCW1 ([facility]) Smoking 05/28/2020 12:00:00 AM EST Never Smoker completed Never S moker eCW1 ([facility]) Smoking 04/23/2020 12:00:00 AM EDT Never Smoker completed Never S moker eCW1 ([facility]) Smoking 04/23/2020 12:00:00 AM EDT Never Smoker completed Never S moker eCW1 ([facility]) Smoking 04/23/2020 12:00:00 AM EDT Never Smoker completed Never S moker eCW1 ([facility]) Smoking 04/23/2020 12:00:00 AM EDT Never Smoker completed Never S moker eCW1 ([facility]) Smoking 04/23/2020 12:00:00 AM EDT Never Smoker completed Never S moker eCW1 ([facility]) Smoking 04/23/2020 12:00:00 AM EDT Never Smoker completed Never S moker eCW1 ([facility]) Smoking 04/23/2020 12:00:00 AM EDT Never Smoker completed Never S moker eCW1 ([facility]) Vital Signs ID Date Data Source UNK Name Value Range Interpretation Code Description Data Source(s) Body weight 282.2 [lb_av] 282.2 [lb_av] eCW1 ([facility]) Body height 69 [in_i] 69 [in_i] eCW1 ([facility]) Body mass index (BMI) [Ratio] 41.67 kg/m2 41.67 kg/m2 W1 ([facility]) Heart rate 92 /min 92 /min eCW1 ([facility]) Respiratory rate 18 /min 18 /min eCW1 ([facility]) Body temperature 98 [degF] 98 [degF] eCW1 ([facility]) Systolic blood pressure 130 mm[Hg] 130 mm[Hg] e CW1 ([facility]) Diastolic blood pressure 80 mm[Hg] 80 mm[Hg] eCW1 ([facility]) Body weight 286.8 [lb_av] 286.8 [lb_av] eCW1 ([facility]) Body height 69 [in_i] 69 [in_i] eCW1 ([facility]) Body mass index (BMI) [Ratio] 42.35 kg/m2 42.35 kg/m2 eCW1 ([facility]) Heart rate 82 /min 82 /min eCW1 ([facility]) Respiratory rate 18 /min 18 /min eCW1 ([facility]) Body temperature 98.7 [degF] 98.7 [degF] eCW1 ( [facility]) Systolic blood pressure 148 mm[Hg] 148 mm[Hg] e CW1 ([facility]) Diastolic blood pressure 80 mm[Hg] 80 mm[Hg] eCW1 ([facility]) Body weight 285 [lb_av] 285 [lb_av] eCW1 ([facility]) Body height 69 [in_i] 69 [in_i] eCW1 ([facility]) Body mass index (BMI) [Ratio] 42.08 kg/m2 42.08 kg/m2 eCW1 ([facility]) Heart rate 103 /min 103 /min eCW1 ([facility]) Respiratory rate 18 /min 18 /min eCW1 ([facility]) Body temperature 97.5 [degF] 97.5 [degF] eCW1 ( [facility]) Systolic blood pressure 108 mm[Hg] 108 mm[Hg] e CW1 ([facility]) Diastolic blood pressure 74 mm[Hg] 74 mm[Hg] eCW1 ([facility]) Body weight 280 [lb_av] 280 [lb_av] eCW1 ([facility]) Body height 69 [in_i] 69 [in_i] eCW1 ([facility]) Body mass index (BMI) [Ratio] 41.34 kg/m2 41.34 kg/m2 eCW1 ([facility]) Heart rate 105 /min 105 /min eCW1 ([facility]) Respiratory rate 18 /min 18 /min eCW1 ([facility]) Body temperature 96.9 [degF] 96.9 [degF] eCW1 ( [facility]) Systolic blood pressure 126 mm[Hg] 126 mm[Hg] e CW1 ([facility]) Diastolic blood pressure 86 mm[Hg] 86 mm[Hg] eCW1 ([facility]) Body weight 276 [lb_av] 276 [lb_av] eCW1 ([facility]) Body height 69 [in_i] 69 [in_i] eCW1 ([facility]) Body mass index (BMI) [Ratio] 40.75 kg/m2 40.75 kg/m2 eCW1 ([facility]) Heart rate 100 /min 100 /min eCW1 ([facility]) Respiratory rate 18 /min 18 /min eCW1 ([facility]) Body temperature 97.5 [degF] 97.5 [degF] eCW1 ( [facility]) Systolic blood pressure 130 mm[Hg] 130 mm[Hg] e CW1 ([facility]) Diastolic blood pressure 78 mm[Hg] 78 mm[Hg] eCW1 ([facility]) Body weight 275 [lb_av] 275 [lb_av] eCW1 ([facility]) Body height 69 [in_i] 69 [in_i] eCW1 ([facility]) Body mass index (BMI) [Ratio] 40.61 kg/m2 40.61 kg/m2 eCW1 ([facility]) Heart rate 82 /min 82 /min eCW1 ([facility]) Respiratory rate 18 /min 18 /min eCW1 ([facility]) Body temperature 97.7 [degF] 97.7 [degF] eCW1 ( [facility]) Systolic blood pressure 138 mm[Hg] 138 mm[Hg] e CW1 ([facility]) Diastolic blood pressure 82 mm[Hg] 82 mm[Hg] eCW1 ([facility]) Patient Treatment Plan of Care Planned Activity Planned Date Details Description Data Source (s) Mirtazapine 15 MG Oral Tablet [Remeron] 05/31/2021 12:00:00 AM EST eCW1 ([facility]) Mirtazapine 15 MG Oral Tablet [Remeron] 05/31/2021 12:00:00 AM EST eCW1 ([facility]) Mirtazapine 15 MG Oral Tablet [Remeron] 05/31/2021 12:00:00 AM EST eCW1 ([facility]) Diphenhydramine Hydrochloride 25 MG Oral Tablet 04/12/2021 12:00:00 AM EDT eCW1 ([facility]) Diphenhydramine Hydrochloride 25 MG Oral Tablet 04/12/2021 12:00:00 AM EDT eCW1 ([facility]) Eucerin - 10/18/2020 12:00:00 AM EDT e CW1 ([facility]) Eucerin - 10/18/2020 12:00:00 AM EDT e CW1 ([facility]) Eucerin - 10/18/2020 12:00:00 AM EDT e CW1 ([facility]) Eucerin - 10/18/2020 12:00:00 AM EDT e CW1 ([facility]) Eucerin - 10/18/2020 12:00:00 AM EDT e CW1 ([facility])
[2021-06-16] MEDS ORDERED: diazePAM 5MG TABLET PO ONE (15:35)
[2021-06-16] MEDS ORDERED: diazePAM 2 MG TAB PO ONE (15:35)
--- NOTE | 2021-06-16 15:57 | HPEPDOC ---
[facility] Medical History & Physical Date of Admission Jun 16, 2021 Date of Service: Jun 16, 2021 Primary Care Physician: LILIANA LORENZ PA-C Attending Physician: PORSHA CAMACHO DO History and Physical CHIEF COMPLAINT: Altered mental status, weakness HISTORY OF PRESENT ILLNESS: Patient is a 71-year-old male presented to the hospital via EMS after he was found unresponsive by providers at [facility] assisted living. According to the patient's , the reports she received was that the patient was not answering questions and appeared to have passed out while on the toilet so 911 was called. Patient reports to the hospital. Patient is not complaining of any pain. In talking with patient's , she states that they recently changed one of his medication from buspirone to Remeron about 5 days ago and since then, the patient's been acting very strangely. Patient has been hallucinating according the patient's stating that he just had lunch with his daughter who is off to college and just had a business meeting with a friend in the room that he is in. Patient also was telling his that he was seeing people out in the hallway that were friends and family. Patient denies any shortness of breath. Patient denies any chest pain. Patient denies any recollection of the events but states he does not think hit his head. According to the report I received, there was no seizure-like activity. Patient has been acting strangely for the past 5 days according to his since the medication change and she thinks that he may have had a urinary tract infection a few days ago but states that they hydrated him and then retested the urine and it was normal. Patient denies any dysuria but says he has been wetting himself more than usual which is corroborates. In the emergency department, CT scan was performed of the head, chest, abdomen and pelvis and only showed interstitial edema and possible early pneumonia in the left lower lung. PAST MEDICAL HISTORY: 1. Parkinson's disease. 2. Morbid obesity. 3. Vitamin D deficiency. 4. Vitamin B12 deficiency 5. Atrial fibrillation, chronic, refuses anticoagulation 6. CHF, chronic diastolic 7. Type 2 diabetes mellitus 8. Chronic venous insufficiency edema 9. Chronic constipation 10. Severe ALEXI noncompliant with BiPAP 11. Umbilical hernia PAST SURGICAL HISTORY: 1. Appendectomy. 2. Tonsillectomy. 3. Left ankle surgery. 4. Colonoscopy SOCIAL HISTORY: Patient denies smoking cigarettes or using illicit drugs. Patient does occasionally use alcohol FAMILY HISTORY: Patient has a sister with diabetes mellitus ALLERGIES: Please see below. REVIEW OF SYSTEMS: General: Patient denies fevers HEENT: Patient denies headaches Cardiovascular: Patient denies chest pain Respiratory: Patient denies shortness of breath, cough GI: Patient denies abdominal pain, nausea, vomiting, diarrhea : Patient denies increased frequency or pain with urination Extremities: Patient reports swelling in his bilateral lower extremities Neurological: Patient denies numbness or tingling in legs Skin: Patient denies any new rashes or lesions. Hematologic: Patient denies any easy bruising. Lymphatic: Patient denies any lumps lumps or bumps in neck, axilla, or groin HOME MEDICATIONS: Please see below. PHYSICAL EXAMINATION: VITAL SIGNS: Temperature 96.8, pulse 86, respiratory rate 20, blood pressure 152/89, pulse oximetry 96% on room air. General: Alert and oriented but very anxious male patient who was laying in bed when I walked in the room. Patient not appear to be in any acute distress. HEENT: Normocephalic, atraumatic, moist mucous membranes. Neck: No lymphadenopathy or thyromegaly Cardiac: Regular rate and rhythm, no murmurs, normal S1, normal S2 Pulm: Bibasilar crackles otherwise clear to auscultation bilaterally Abd: Nondistended, nontender to palpation, normal bowel sounds Ext: 2+ pitting edema in the bilateral lower extremities up to level of the mid hardy with 1+ pitting edema from the mid hardy up to the level of the knee Neuro: Patient was able to move all 4 extremities on command and reported equal sensation light touch in all 4 extremities. Skin: Skin of the head, neck, upper and lower extremities was examined did not show any evidence of rash or wounds. LABORATORY DATA: See below. IMAGING: Chest x-ray performed on 06/16/2021 is reported to show limited examination demonstrating chronic stable changes. No obvious acute consolidation or definite infiltrate. CT of the head performed without contrast on 06/16/2021 is reported to show no acute hemorrhage or edema. CT of the abdomen pelvis with IV contrast only performed on 06/16/2021 is reported to show no acute findings. CT angiogram of the chest performed on 06/16/2021 was reported to show no CT evidence of pulmonary embolism. Diffuse increase in the residual markings bilaterally may resent diffuse interstitial edema or pneumonitis. There is patchy atelectasis or infiltrate inferiorly in the left lower lobe with small pleural effusion. Mild cardiomegaly MICROBIOLOGY: Please see below. ASSESSMENT: 71-year-old male who presented to the hospital after being found nonresponsive or slow only responding to questions at [facility] living who his says the patient's been acting very strangely for last 5 days since changing his medication from buspirone to Remeron who was also found to have a mild CHF exacerbation . PLAN: 1. Altered mental status. Patient has been acting strangely hallucinating since patient had a medication change. We will hold Remeron at this time. Patient also may have a pneumonia and/or urinary tract infection according to the . Possible patchy atelectasis or infiltrate was seen on CT. Patient will receive a dose of ceftriaxone. Procalcitonin is been ordered. MRI has been ordered. 2. Congestive heart failure exacerbation last known ejection fraction was preserved at 60%. Patient will be given a dose of IV Lasix. We will continue IV Lasix at 40 mg twice daily as patient is on 40 mg of p.o. Lasix twice daily. We will continue with strict I's and O's with a fluid restriction and 2 g sodium diet. Echocardiogram is also been ordered as last echocardiogram was performed in 2018. 3. Possible pneumonia. Patient may have a community-acquired pneumonia. Patient was started on ceftriaxone and procalcitonin has been ordered. Patient is afebrile does not leukocytosis at this time. 4. Parkinson's disease. We will continue patient on medications. 5. Atrial fibrillation. Patient appears rate controlled at the moment. According to outpatient notes that I reviewed, patient has been refusing anticoagulation who is not currently on any anticoagulation. 6. Type 2 diabetes mellitus. Consistent carbohydrate diet with sliding scale insulin. 7. Obstructive sleep apnea. Patient will need to be monitored closely as he does not wear BiPAP. DVT prophylaxis: Heparin CODE STATUS: Full code patient has a MOLST form that he brought with him stating full code with trial of intubation if necessary. Disposition: Patient will be admitted to medical surgical floor I expect the patient to be discharged after greater than or equal to 2 midnight stay. Vital Signs Vital Signs Date Time Temp Pulse Resp B/P (MAP) Pulse Ox O2 Delivery O2 Flow Rate FiO2 06/16/21 15:30 86 20 152/89 (110) 96 Room Air 06/16/21 14:52 96.8 Laboratory Data Labs 24H Laboratory Tests 2 06/16/21 10:02: Immature Granulocyte % (Auto) 0.2, Neutrophils (%) (Auto) 62.2, Lymphocytes (%) (Auto) 18.7L, Monocytes (%) (Auto) 7.8, Eosinophils (%) (Auto) 10.4H, Basophils (%) (Auto) 0.7, Neutrophils # (Auto) 2.6, Lymphocytes # (Auto) 0.8L, Monocytes # (Auto) 0.3, Eosinophils # (Auto) 0.4, Basophils # (Auto) 0.0, Nucleated Red Blood Cells % (auto) 0.0, Anion Gap 4L, Glomerular Filtration Rate > 60.0, Lactic Acid Level 1.0, Calcium Level 9.2, Total Bilirubin 0.6, Direct Bilirubin 0.1, Aspartate Amino Transf (AST/SGOT) 16, Alanine Aminotransferase (ALT/SGPT) 12, Alkaline Phosphatase 45, TT-Qhv-Y-Type Natriuretic Peptide 1246H, Total Protein 6.8, Albumin 3.4, Albumin/Globulin Ratio 1.0, Lipase 36L 06/16/21 10:25: POC Troponin I (Misc) 0.00 06/16/21 12:15: Coronavirus (COVID-19)(PCR) NEGATIVE, Influenza Type A (RT-PCR) NEGATIVE, Influenza Type B (RT-PCR) NEGATIVE, Respiratory Syncytial Virus (PCR) NEGATIVE CBC/BMP Laboratory Tests 06/16/21 10:02 Microbiology Microbiology 06/16/21 Blood Culture, Received Pending Home Medications Scheduled Aspirin (Aspirin EC) 81 Mg Tablet.dr, 81 MG PO DAILY Benztropine Mesylate (Benztropine Mesylate) 2 Mg Tab, 2 MG PO BID 0600, 1800 Calcium Carbonate (Calcium) 500 Mg Tablet, 500 MG PO BID Carbidopa/Levodopa (Carbidopa-Levodopa 25-100 Tab) 1 Tab Tab, 2 TAB PO 5XD 0600, 0900, 1200, 1700, 2100 Entacapone (Entacapone) 200 Mg Tablet, 200 MG PO QID 0600, 0900, 1200, 1500 Furosemide (Furosemide) 40 Mg Tablet, 40 MG PO BID Gabapentin (Gabapentin) 100 Mg Capsule, 100 MG PO TID Lanolin Alcohol/Mo/W.pet/[place] (Eucerin Creme) 454 Gm Cream..g., 454 GM TP DAILY BILATERALLY TO LOWER LEGS AFTER CLEANING WITH SOAP AND WATER. RESIDENT DOES THIS HIMSELF. VERIFY COMPLETION DAILY. Mirtazapine (Remeron) 15 Mg Tablet, 15 MG PO QHS Multivitamins (Thera M Plus Tablet) 1 Each Tablet, 1 TAB PO DAILY Vitamin B Complex (Vitamin B Complex) 1 Each Tablet, 1 TAB PO DAILY Vitamin E Mixed (Vitamin E) 400 Unit Capsule, 400 UNIT PO DAILY Scheduled PRN Acetaminophen (Tylenol) 325 Mg Tablet, 650 MG PO Q4H PRN for PAIN Bismuth Subsalicylate (Pepto-Bismol) 525 Mg/15 Ml Oral.susp, 30 ML PO QID PRN for DYSPEPSIA Loperamide HCl (Imodium A-D) 2 Mg Tablet, 2 MG PO Q12H PRN for DIARRHEA Meclizine HCl (Meclizine HCl) 12.5 Mg Tablet, 12.5 MG PO Q8H PRN for DIZZINESS Milk Of Magnesia (Milk of Magnesia) 2,400 Mg/10 Ml Oral.susp, 10 ML PO DAILY PRN for CONSTIPATION Ondansetron HCl (Zofran) 4 Mg Tablet, 4 MG PO Q4H PRN for NAUSEA Allergies Coded Allergies: No Known Allergies (Verified , 04/23/18) A-FIB/CHADSVASC A-FIB History Current/History of A-Fib/PAF?: Yes Current PO Anticoag Therapy: No Treatment Treatment ordered: NONE Reason Anticoagulant not given: Other Other reason anticoagulant not: Patient refuses PORSHA CAMACHO DO Jun 16, 2021 15:57
[2021-06-16] MEDS ORDERED: cefTRIAXone SOD 1 GM in D5W MINI-BAG PLUS 50 ML IV ONE (16:00)
[2021-06-16 16:56] VITALS: BP 123/69
[2021-06-16] MEDS: GABAPENTIN 100 MG CAP PO SCH ×2 (17:38→20:09)
[2021-06-16] MEDS: ASPIRIN 81MG ENTERIC TABLET PO SCH (17:38)
[2021-06-16] MEDS: MULTIVITAMINS/MINERALS THERAP 1 TAB PO SCH (17:38)
[2021-06-16] MEDS: SINEMET 25-100 MG TAB PO SCH ×2 (17:38→20:10)
[2021-06-16] MEDS: BENZTROPINE 2 MG TAB PO SCH (18:03)
[2021-06-16] MEDS: ENTACAPONE 200MG TABLET (COMTAN) PO SCH (18:03)
--- NOTE | 2021-06-16 19:06 | ECGEPIP ---
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
[2021-06-16] MEDS: CALCIUM CARBONATE 500 MG CHEW U/D PO SCH (20:09)
[2021-06-16] MEDS: HEPARIN SOD (PORCINE) 5000UNITS/ML 1ML VIAL/SYRINGE SC SCH (20:10)
[2021-06-16] MEDS ORDERED: OYSTER SHELL CALCIUM 500 MG TAB PO SCH (21:00)
--- NOTE | 2021-06-16 21:44 | REPVR ---
PROCEDURE INFORMATION: Exam: MR Head Without Contrast Exam date and time: 06/16/2021 8:01 PM Age: 71 years old Clinical indication: Weakness, extremity; Bilateral; Additional info: AMS, hallucinations TECHNIQUE: Imaging protocol: MR of the head without contrast. COMPARISON: CT Head without contrast 06/16/2021 9:33 AM FINDINGS: Brain: Multiple foci of T2 lengthening are demonstrated in the subcortical, periventricular and centrum semiovale white matter consistent with age-related small vessel gliosis. Mild diffuse parenchymal atrophy. Cerebral ventricles: Mild ventriculomegaly related to underlying atrophy. Bones/joints: Unremarkable. Paranasal sinuses: Normal as visualized. No acute sinusitis. Mastoid air cells: Normal as visualized. No mastoid effusion. Orbital cavity: Unremarkable. Soft tissues: Unremarkable. IMPRESSION: 1. Multiple foci of T2 lengthening are demonstrated in the subcortical, periventricular and centrum semiovale white matter consistent with age-related small vessel gliosis. 2. Mild diffuse parenchymal atrophy. No acute intracranial findings. Electronically signed by: Tae Bliss On 06/16/2021 21:43:50 PM
[2021-06-16 22:00] VITALS: BP 120/69
[2021-06-17] MEDS: ENTACAPONE 200MG TABLET (COMTAN) PO SCH ×4 (05:37→16:04)
[2021-06-17] MEDS: SINEMET 25-100 MG TAB PO SCH ×5 (05:37→20:53)
[2021-06-17] MEDS: BENZTROPINE 2 MG TAB PO SCH ×2 (05:37→17:31)
[2021-06-17 06:00] VITALS: BP 125/63
--- NOTE | 2021-06-17 06:34 | ECHO ---
ECHOCARDIOGRAM DATE OF PROCEDURE: 06/16/2021 Age: Gender: M Height: 175 cm Weight: 129 kg REFERRING PHYSICIAN: Dr. Matt Noriega INDICATION: Heart failure, unspecified. MEASUREMENTS: 2D Measurements: Left atrium: 7.6 cm Aortic root: 3.4 Interventricular septum: 1.63 cm Posterior wall: 1.31 cm Left ventricle diastole: 5.0 cm Proximal ascending aorta: 3.1 cm Left atrial volume index: 108 Inferior vena cava: 2.6 cm with marked reduction of respiratory variation Doppler Measurements: No aortic regurgitation No aortic stenosis Aortic valve velocity: 123 cm/s LVOT velocity: 62.7 cm/s Moderate mitral regurgitation No mitral stenosis Very mild tricuspid regurgitation No pulmonic regurgitation Pulmonary artery systolic pressure: 41 mmHg DESCRIPTION: Rhythm was atrial fibrillation. This was a moderately technically difficult echocardiogram. No pericardial effusion. This was a 2D, M-mode, color flow Doppler, and pulsed-wave Doppler examination and included mitral annular tissue Doppler. CONCLUSIONS: 1. Mild-moderate concentric left ventricle hypertrophy. Akinesis of the inferior basal left ventricle segment. Normal left ventricle wall motion and thickening elsewhere. Preserved overall left ventricular systolic function. Left ventricular ejection fraction (LVEF) 60% by visual estimate. 2. Normal right ventricle size and systolic function. 3. Severe left atrial dilatation. 4. Probably moderate mitral regurgitation. Suboptimal visualization of aortic cusps for complete morphology assessment. No apparent flail segments or broken chordae. 5. Suggestive of moderate elevation of pulmonary artery systolic pressure. Normal right ventricle size and systolic function. 6. Suggestive of elevated central venous pressure (CVP) of at least 20 mmHg. 7. Mild aortic valve sclerosis of a 3-cuspid aortic valve. No aortic regurgitation.
[2021-06-17 08:01] LABS: HEMATOCRIT 42.9 % (42.0-52.0); HEMOGLOBIN 14.1 g/dl (13.5-17.5); MEAN CORPUSCULAR HEMOGLOBIN 31.3 pg (27.0-33.0); MEAN CORPUSCULAR HGB CONC 32.9 g/dl (32.0-36.5); MEAN CORPUSCULAR VOLUME 95.3 fl (80.0-96.0); PLATELET COUNT, AUTOMATED 212 10^3/uL (150-450); WHITE BLOOD COUNT 5.2 10^3/uL (4.0-10.0)
[2021-06-17 08:24] LABS: BLOOD UREA NITROGEN 20 MG/DL (7-18); CALCIUM LEVEL 8.6 MG/DL (8.8-10.2); CARBON DIOXIDE LEVEL 29 MEQ/L (21-32); CHLORIDE LEVEL 106 MEQ/L (98-107); CREATININE FOR GFR 0.95 MG/DL (0.70-1.30); GLOMERULAR FILTRATION RATE > 60.0 (>49); GLUCOSE, FASTING 101 MG/DL (70-100); MAGNESIUM LEVEL 2.3 MG/DL (1.8-2.4); POTASSIUM SERUM 3.7 MEQ/L (3.5-5.1); SODIUM LEVEL 141 MEQ/L (136-145)
[2021-06-17] MEDS: CALCIUM CARBONATE 500 MG CHEW U/D PO SCH ×2 (09:43→20:53)
[2021-06-17] MEDS: ASPIRIN 81MG ENTERIC TABLET PO SCH (09:43)
[2021-06-17] MEDS: GABAPENTIN 100 MG CAP PO SCH ×3 (09:43→20:53)
[2021-06-17] MEDS: MULTIVITAMINS/MINERALS THERAP 1 TAB PO SCH (09:43)
[2021-06-17] MEDS: HEPARIN SOD (PORCINE) 5000UNITS/ML 1ML VIAL/SYRINGE SC SCH ×2 (09:44→20:53)
--- NOTE | 2021-06-17 09:46 | IPNPDOC ---
Text Note Date of Service The patient was seen on 06/17/21. NOTE Subjective: Patient is on hospital day 1, presenting from [facility] due to altered mental status, decreased responsiveness. This a.m., patient reports that he was able to sleep well last night and is fully cooperative during medical interview. Patient and nursing staff report no overnight events. Nursing staff reports that urine could not be collected as patient was initially incontinent. Patient has a Friend catheter placed and nursing staff is working on getting urine for urinalysis at this time. Objective: Vital signs: See below. General: Patient is sitting up in bedside chair in no acute distress. Patient is alert and oriented x3. HEENT: Normocephalic, atraumatic, moist mucous membranes. Neck: No lymphadenopathy or thyromegaly Cardiac: Atrial fibrillation rate controlled, no murmurs, normal S1, normal S2 Pulm: Bibasilar crackles auscultated. No wheezes, rhonchi, rales. : Friend catheter in place Abd: Nondistended, nontender to palpation, normal bowel sounds Ext: Bilateral pedal edema appreciated with chronic venous stasis hyperpigmentation around ankles. Imaging: Chest x-ray, 06/16/2021imited examination demonstrating chronic stable changes. No obvious acute consolidation or definite effusion. Head CT, 06/16/2021no acute hemorrhage or edema. Abdomen/pelvis CT, 06/16/2021no acute findings. CT angiography, 06/16/2021No CT evidence of pulmonary embolism. Diffuse increased interstitial markings bilaterally may represent diffuse interstitial edema or pneumonitis. There is patchy atelectasis or infiltrate inferiorly in the left lower lobe, with a small left pleural effusion. Mild cardiomegaly. Brain MRI, . Multiple foci of T2 lengthening are demonstrated in the subcortical, periventricular and centrum semiovale white matter consistent with age-related small vessel gliosis. 2. Mild diffuse parenchymal atrophy. No acute intracranial findings. Echocardiogram, 06/17/2021 1. Mild-moderate concentric left ventricle hypertrophy. Akinesis of the inferior basal left ventricle segment. Normal left ventricle wall motion and thickening elsewhere. Preserved overall left ventricular systolic function. Left ventricular ejection fraction (LVEF) 60% by visual estimate. 2. Normal right ventricle size and systolic function. 3. Severe left atrial dilatation. 4. Probably moderate mitral regurgitation. Suboptimal visualization of aortic cusps for complete morphology assessment. No apparent flail segments or broken chordae. 5. Suggestive of moderate elevation of pulmonary artery systolic pressure. Normal right ventricle size and systolic function. 6. Suggestive of elevated central venous pressure (CVP) of at least 20 mmHg. 7. Mild aortic valve sclerosis of a 3-cuspid aortic valve. No aortic regurgitation. Assessment/Plan: Patient is a 71-year-old male with a history of diabetes type 2 mellitus, atrial fibrillation without chronic use of anticoagulation who presents with altered mental status. #Altered mental status, resolved. Upon admission, patient was acting strangely hallucinating since patient had a medication change to Remeron. Remeron was held upon admission. Urinary tract infection cannot be held excluded at this time. Urinalysis pending. Chest x-ray upon admission does not show lobar consolidation Procalcitonin less than 0.05 Patient received IV ceftriaxone 1 dose yesterday Consider continuing ceftriaxone if urinalysis shows possibility of UTI. Brain MRI only shows age-related findings as above #Congestive heart failure exacerbation, in the setting of chronic heart failure with preserved ejection fraction at 60%. Upon admission, patient was given IV Lasix 40 mg Continue strict I's and O's Continue fluid restriction to less than 1900 cc Continue salt restricted diet to 2 g Start IV Lasix at 40 mg twice daily to correlate with patient's home dose of 40 mg p.o. Lasix twice daily. #Parkinson's disease Continue home medications: Entacapone, Sinemet, and benztropine #Atrial fibrillation Patient continues to be rate controlled at this time Patient is not on an anticoagulant because the patient refused in the outpatient setting. #Type 2 diabetes mellitus Continue consistent carbohydrate diet with sliding scale insulin. #Obstructive sleep apnea ALEXI protocol in place Patient does not wear his BiPAP at home. DVT prophylaxis: Heparin 5000 units every 12 hours CODE STATUS: Full code patient has a MOLST form that he brought with him stating full code with trial of intubation if necessary. Disposition: Admit to medical surgical floor, expect at least 2 midnight stay. VS,Fishbone, I+O VS, Fishbone, I+O Laboratory Tests 06/16/21 10:02 06/17/21 06:59 Vital Signs Date Time Temp Pulse Resp B/P (MAP) Pulse Ox O2 Delivery O2 Flow Rate FiO2 06/17/21 06:00 98.3 71 16 125/63 (83) 94 Room Air I&O- Last 24 Hours up to 6 AM 06/17/21 06:00 Intake Total 945 ml Output Total 475 ml Balance 470 ml GME ATTESTATION GME ATTESTATION My faculty preceptor for this patient encounter was physically present during the encounter and was fully available. All aspects of the patient interview, examination, medical decision making process, and medical care plan development were reviewed and approved by the faculty preceptor. The faculty preceptor is aware and concurs with the plan as stated in the body of this note and will attest to such by his/her cosignature. ATTENDING NOTE I, Matt Noriega DO, have independently examined this patient and performed my own physical exam, as well as reviewed the documentation and edited where necessary. I have discussed in detail with the resident the findings and plan of treatment as documented by the resident and edited their note. I agree with their findings and treatment plan and have edited their documentation. I will continue to follow the patient during this hospital stay. Teto Caro DO Jun 17, 2021 09:46 MATT NORIEGA DO Jun 17, 2021 16:59
[2021-06-17] MEDS: FUROSEMIDE 40MG/4ML VIAL (J1940) IV SCH ×2 (10:47→17:32)
[2021-06-17 14:00] VITALS: BP 118/70
[2021-06-17 22:00] VITALS: BP 103/60
[2021-06-18] MEDS: BENZTROPINE 2 MG TAB PO SCH ×2 (05:03→17:21)
[2021-06-18] MEDS: SINEMET 25-100 MG TAB PO SCH ×5 (05:03→20:52)
[2021-06-18] MEDS: ENTACAPONE 200MG TABLET (COMTAN) PO SCH ×4 (05:03→17:21)
[2021-06-18 06:00] VITALS: BP 127/81
[2021-06-18 06:39] LABS: HEMATOCRIT 45.4 % (42.0-52.0); HEMOGLOBIN 14.7 g/dl (13.5-17.5); MEAN CORPUSCULAR HEMOGLOBIN 31.1 pg (27.0-33.0); MEAN CORPUSCULAR HGB CONC 32.4 g/dl (32.0-36.5); PLATELET COUNT, AUTOMATED 215 10^3/uL (150-450); RED BLOOD COUNT 4.73 10^6/uL (4.30-6.10); WHITE BLOOD COUNT 4.5 10^3/uL (4.0-10.0)
[2021-06-18 06:47] LABS: BLOOD UREA NITROGEN 24 MG/DL (7-18); CALCIUM LEVEL 8.8 MG/DL (8.8-10.2); CARBON DIOXIDE LEVEL 31 MEQ/L (21-32); CHLORIDE LEVEL 108 MEQ/L (98-107); CREATININE FOR GFR 0.99 MG/DL (0.70-1.30); GLOMERULAR FILTRATION RATE > 60.0 (>49); GLUCOSE, FASTING 122 MG/DL (70-100); MAGNESIUM LEVEL 2.4 MG/DL (1.8-2.4); POTASSIUM SERUM 3.7 MEQ/L (3.5-5.1); SODIUM LEVEL 144 MEQ/L (136-145)
--- NOTE | 2021-06-18 08:55 | IPNPDOC ---
Subjective Date Seen The patient was seen on 06/18/21. Subjective Chief Complaint/HPI Patient is examined in the morning and again around 1 PM. He reported that he is able to urinate on his own and able to clean up on his own afterwards. Patient denies chest pain, dyspnea, nausea, vomiting, abdominal pain, urinary urgency, urinary frequency, or hematuria. He reported constipation. He reported fever and dysuria for a week. He reported chronic bilateral lower extremity numbness for years. Upon re-examination this afternoon. Patient was answering questions appropriately. He reported his lower extremity are feeling better than in the morning. Denies numbness, tingling, or loss of sensation now. General: Denies: Chills Constitutional: Denies: Chills, Fever Pulmonary: Denies: Dyspnea Cardiovascular: Denies: Chest Pain Gastrointestinal: Denies: Nausea, Vomiting, Abdominal Pain Genitourinary: Reports: Other Symptoms (spontaneous urination); Denies: Frequency, Incontinence Musculoskeletal: Reports: Leg Pain (Right calf pain for a week) Neurological: Reports: Numbness (Chronic bilateral lower extremity numbness) Objective Physical Examination General Exam: Positive: Alert, Cooperative, No Acute Distress Eye Exam: Positive: Conjunctiva & lids normal; Negative: Sclera icteric ENT Exam: Positive: Atraumatic, Mucous membr. moist/pink Neck Exam: Positive: Supple Chest Exam: Positive: Clear to auscultation, Normal air movement; Negative: Rales, Rhonchi, Wheezing, Diminished Heart Exam: Positive: Rate Normal, Regular Rhythm; Negative: Murmurs Telemetry: Positive: Sinus Abdomen Exam: Positive: Normal bowel sounds, Soft, Other (no guarding); Negative: Tenderness Extremity Exam: Positive: Edema (1+ pitting edema on right lower extremity. No swelling on left lower extremity), Normal pulses; Negative: Cyanosis Skin Exam: Positive: Nl turgor and temperature, Other skin issue (Bilateral hyperpigmentation in bilateral ankle region consistent with venous stasis dermatitis) Neuro Exam: Positive: Normal Speech, Normal Tone Psych Exam: Positive: Mood NL; Negative: Anxiety Other physical findings Upon re-examination at 1PM on 06/18/2021, patient is A&OX3. He is answering questions appropriately. He is able to follow commands for cranial nerve exams. CN 2-12 intact. Extremity strength 5/5 in all four extremities Assessment /Plan Assessment #Altered mental status, resolved -Upon admission patient was acting strangely hallucinating since patient had a medication change to Remeron -Remeron was discontinued upon admission -UA showed no signs of UTI -Chest x-ray upon admission does not show lobar consolidation -Procalcitonin less than 0.05, indicating there is unlikely infectious etiology -Brain MRI showed "1. Multiple foci of T2 lengthening are demonstrated in the subcortical, periventricular and centrum semiovale white matter consistent with age-related small vessel gliosis. 2. Mild diffuse parenchymal atrophy. No acute intracranial findings." -Decrease Gabapentin to 100mg BID -Altered mental status may secondary to patient's Parkinson's disease or medication changes to Remeron. They will need to continue to monitor the patient however, no other organic causes have been found to explain the patient's episodic staring off into space. #Congestive heart failure exacerbation, in the setting of chronic heart failure with preserved ejection fraction at 60%, resolved -No dyspnea. Lungs clear to auscultation bilaterally. Improving leg edema -Upon admission, patient was given IV Lasix 40 mg. Patient also received IV lasix 40mg BID. D/c IV lasix 40mg BID and resume home med PO Lasix 40mg BID as CHF exacerbation has resolved -Continue strict I&O's -Continue fluid restriction to less than 1900 cc and 2g daily salt restriction #Parkinson's disease -Continue home medications Entacapone, Sinemet, and Benztropine #Atrial fibrillation, paroxysmal -Patient is regular rate and rhythm at the time of examination -Patient not on an anticoagulant because the patient refused in the outpatient setting -Upon record review, it was also noted that his anticoagulation was stopped due to GI bleed #NIDDM -Patient not on diabetic medication at home -Glucose checks ACHS, insulin sliding scale, and hypoglycemia protocol -Continue consistent carbohydrate diet #Obstructive sleep apnea -ALEXI protocol -Patient does not wear his BiPAP at home DVT prophylaxis: Heparin SC CODE STATUS: Full code with trial of intubation if necessary Disposition: Altered mental status resolved. Patient is made ALC status pending placement Plan/VTE VTE Prophylaxis Ordered?: Yes VS, I&O, 24H, Fishbone Vital Signs/I&O Vital Signs Date Time Temp Pulse Resp B/P (MAP) Pulse Ox O2 Delivery O2 Flow Rate FiO2 06/18/21 06:00 98.1 79 18 127/81 (96) 93 Room Air I&O- Last 24 Hours up to 6 AM 06/18/21 06:00 Intake Total 1440 ml Output Total 2500 ml Balance -1060 ml Laboratory Data 24H LABS Laboratory Tests 2 06/17/21 11:00: Urine Color YELLOW, Urine Appearance CLEAR, Urine pH 8.0, Urine Specific [place] 1.008, Urine Protein NEGATIVE, Urine Glucose (UA) NEGATIVE, Urine Ketones NEGATIVE, Urine Blood NEGATIVE, Urine Nitrite NEGATIVE, Urine Bilirubin NEGATIVE, Urine Urobilinogen 0.2, Urine Leukocyte Esterase NEGATIVE, Urine WBC (Auto) 0, Urine RBC (Auto) 0, Urine Hyaline Casts (Auto) 0, Urine Bacteria (Auto) NEGATIVE, Urine Squamous Epithelial Cells 0, Urine Mucus (Auto) SMALL, Urine Sperm (Auto) 06/18/21 06:03: Nucleated Red Blood Cells % (auto) 0.0, Anion Gap 5L, Glomerular Filtration Rate > 60.0, Calcium Level 8.8, Magnesium Level 2.4 CBC/BMP Laboratory Tests 06/18/21 06:03 Microbiology Microbiology 06/16/21 Blood Culture - Preliminary, Resulted No growth after 24 hours . All specim... GME ATTESTATION GME ATTESTATION My faculty preceptor for this patient encounter was physically present during the encounter and was fully available. All aspects of the patient interview, examination, medical decision making process, and medical care plan development were reviewed and approved by the faculty preceptor. The faculty preceptor is aware and concurs with the plan as stated in the body of this note and will attest to such by his/her cosignature. ATTENDING NOTE I, Matt Camacho DO, have independently examined this patient and performed my own physical exam, as well as reviewed the documentation and edited where necessary. I have discussed in detail with the resident the findings and plan of treatment as documented by the resident and edited their note. I agree with their findings and treatment plan and have edited their documentation. I will continue to follow the patient during this hospital stay. ILYA ANTUNEZ DO Jun 18, 2021 08:55 MATT CAMACHO DO Jun 18, 2021 15:55
[2021-06-18] MEDS: MULTIVITAMINS/MINERALS THERAP 1 TAB PO SCH (09:37)
[2021-06-18] MEDS: CALCIUM CARBONATE 500 MG CHEW U/D PO SCH ×2 (09:37→20:52)
[2021-06-18] MEDS: GABAPENTIN 100 MG CAP PO SCH ×2 (09:37→20:52)
[2021-06-18] MEDS: ASPIRIN 81MG ENTERIC TABLET PO SCH (09:37)
[2021-06-18] MEDS: HEPARIN SOD (PORCINE) 5000UNITS/ML 1ML VIAL/SYRINGE SC SCH ×2 (09:38→20:52)
[2021-06-18] MEDS: FUROSEMIDE 40MG/4ML VIAL (J1940) IV SCH (09:38)
[2021-06-18] MEDS ORDERED: MIRALAX *UNIT DOSE* 17GM PACKET PO PRN (11:30)
[2021-06-18] MEDS ORDERED: GLUCOSE 4GM CHEW TABLET PO PRN (11:50)
[2021-06-18] MEDS ORDERED: DEXTROSE 50% 50 ML SYRINGE IV PRN (11:50)
[2021-06-18] MEDS ORDERED: GLUCAGON INJ 1MG VIAL SC PRN (11:50)
--- NOTE | 2021-06-18 12:05 | REP ---
INDICATION: Right calf tenderness. Wells criteria 3. COMPARISON: None. TECHNIQUE: Ultrasound evaluation of the deep venous system of the right lower extremity was performed including pulse duplex and color Doppler ultrasound. FINDINGS: There is no evidence of deep venous thrombosis of the right lower extremity. IMPRESSION: No evidence of deep venous thrombosis of the right lower extremity. <Electronically signed by Vargas Caba > 06/18/21 [id number]
[2021-06-18] MEDS: HumaLOG INSULIN (NovoLOG) PER UNIT SC SCH ×3 (14:11→21:00)
[2021-06-18] MEDS: FUROSEMIDE 40 MG TAB PO SCH (17:21)
[2021-06-19 02:09] VITALS: BP 143/92
[2021-06-19] MEDS ORDERED: haloperidoL 1 MG TAB PO ONE (02:20)
[2021-06-19] MEDS: SINEMET 25-100 MG TAB PO SCH ×5 (05:11→21:07)
[2021-06-19] MEDS: BENZTROPINE 2 MG TAB PO SCH ×2 (05:11→18:07)
[2021-06-19] MEDS: ENTACAPONE 200MG TABLET (COMTAN) PO SCH ×4 (05:11→15:54)
[2021-06-19 06:00] VITALS: BP 108/63
[2021-06-19 06:30] LABS: HEMATOCRIT 45.9 % (42.0-52.0); HEMOGLOBIN 14.9 g/dl (13.5-17.5); MEAN CORPUSCULAR HEMOGLOBIN 31.4 pg (27.0-33.0); MEAN CORPUSCULAR HGB CONC 32.5 g/dl (32.0-36.5); MEAN CORPUSCULAR VOLUME 96.6 fl (80.0-96.0); PLATELET COUNT, AUTOMATED 205 10^3/uL (150-450); RED BLOOD COUNT 4.75 10^6/uL (4.30-6.10); WHITE BLOOD COUNT 4.9 10^3/uL (4.0-10.0)
[2021-06-19] MEDS: MOM 30ML SUSPENSION UDC PO PRN (06:49)
[2021-06-19 06:55] LABS: BLOOD UREA NITROGEN 22 MG/DL (7-18); CARBON DIOXIDE LEVEL 31 MEQ/L (21-32); CHLORIDE LEVEL 108 MEQ/L (98-107); CREATININE FOR GFR 0.88 MG/DL (0.70-1.30); GLOMERULAR FILTRATION RATE > 60.0 (>49); GLUCOSE, FASTING 112 MG/DL (70-100); MAGNESIUM LEVEL 2.5 MG/DL (1.8-2.4); POTASSIUM SERUM 3.7 MEQ/L (3.5-5.1); SODIUM LEVEL 143 MEQ/L (136-145)
[2021-06-19] MEDS: HumaLOG INSULIN (NovoLOG) PER UNIT SC SCH ×4 (07:30→20:51)
[2021-06-19] MEDS: ASPIRIN 81MG ENTERIC TABLET PO SCH (09:26)
[2021-06-19] MEDS: FUROSEMIDE 40 MG TAB PO SCH ×2 (09:26→18:05)
[2021-06-19] MEDS: HEPARIN SOD (PORCINE) 5000UNITS/ML 1ML VIAL/SYRINGE SC SCH ×2 (09:26→21:07)
[2021-06-19] MEDS: CALCIUM CARBONATE 500 MG CHEW U/D PO SCH ×2 (09:26→21:07)
[2021-06-19] MEDS: MULTIVITAMINS/MINERALS THERAP 1 TAB PO SCH (09:26)
[2021-06-19] MEDS: GABAPENTIN 100 MG CAP PO SCH ×2 (09:26→21:07)
[2021-06-20] MEDS: SINEMET 25-100 MG TAB PO SCH ×5 (05:05→20:53)
[2021-06-20] MEDS: ENTACAPONE 200MG TABLET (COMTAN) PO SCH ×4 (05:05→15:31)
[2021-06-20] MEDS: BENZTROPINE 2 MG TAB PO SCH ×2 (05:05→17:33)
[2021-06-20] MEDS: MOM 30ML SUSPENSION UDC PO PRN (05:17)
[2021-06-20 06:00] VITALS: BP 126/86
[2021-06-20 06:52] LABS: HEMOGLOBIN 14.8 g/dl (13.5-17.5); MEAN CORPUSCULAR HEMOGLOBIN 31.1 pg (27.0-33.0); MEAN CORPUSCULAR HGB CONC 32.9 g/dl (32.0-36.5); MEAN CORPUSCULAR VOLUME 94.5 fl (80.0-96.0); PLATELET COUNT, AUTOMATED 225 10^3/uL (150-450); RED BLOOD COUNT 4.76 10^6/uL (4.30-6.10); WHITE BLOOD COUNT 4.9 10^3/uL (4.0-10.0)
[2021-06-20 07:22] LABS: BLOOD UREA NITROGEN 21 MG/DL (7-18); CALCIUM LEVEL 9.2 MG/DL (8.8-10.2); CARBON DIOXIDE LEVEL 30 MEQ/L (21-32); CHLORIDE LEVEL 106 MEQ/L (98-107); CREATININE FOR GFR 0.88 MG/DL (0.70-1.30); GLOMERULAR FILTRATION RATE > 60.0 (>49); GLUCOSE, FASTING 128 MG/DL (70-100); MAGNESIUM LEVEL 2.5 MG/DL (1.8-2.4); POTASSIUM SERUM 3.8 MEQ/L (3.5-5.1); SODIUM LEVEL 140 MEQ/L (136-145)
[2021-06-20] MEDS: MULTIVITAMINS/MINERALS THERAP 1 TAB PO SCH (08:35)
[2021-06-20] MEDS: CALCIUM CARBONATE 500 MG CHEW U/D PO SCH ×2 (08:35→20:54)
[2021-06-20] MEDS: HEPARIN SOD (PORCINE) 5000UNITS/ML 1ML VIAL/SYRINGE SC SCH ×2 (08:35→20:53)
[2021-06-20] MEDS: GABAPENTIN 100 MG CAP PO SCH ×2 (08:35→20:53)
[2021-06-20] MEDS: ASPIRIN 81MG ENTERIC TABLET PO SCH (08:35)
[2021-06-20] MEDS: HumaLOG INSULIN (NovoLOG) PER UNIT SC SCH ×4 (08:35→19:55)
[2021-06-20] MEDS: FUROSEMIDE 40 MG TAB PO SCH ×2 (08:36→17:33)
[2021-06-21] MEDS: BENZTROPINE 2 MG TAB PO SCH ×2 (06:13→17:29)
[2021-06-21] MEDS: SINEMET 25-100 MG TAB PO SCH ×5 (06:13→20:16)
[2021-06-21] MEDS: ENTACAPONE 200MG TABLET (COMTAN) PO SCH ×4 (06:13→15:36)
[2021-06-21 06:24] VITALS: BP 110/65
[2021-06-21 07:17] LABS: HEMATOCRIT 44.7 % (42.0-52.0); HEMOGLOBIN 14.5 g/dl (13.5-17.5); MEAN CORPUSCULAR HGB CONC 32.4 g/dl (32.0-36.5); MEAN CORPUSCULAR VOLUME 95.7 fl (80.0-96.0); PLATELET COUNT, AUTOMATED 192 10^3/uL (150-450); RED BLOOD COUNT 4.67 10^6/uL (4.30-6.10); WHITE BLOOD COUNT 4.6 10^3/uL (4.0-10.0)
[2021-06-21 07:54] LABS: BLOOD UREA NITROGEN 20 MG/DL (7-18); CALCIUM LEVEL 9.1 MG/DL (8.8-10.2); CARBON DIOXIDE LEVEL 31 MEQ/L (21-32); CHLORIDE LEVEL 108 MEQ/L (98-107); GLOMERULAR FILTRATION RATE > 60.0 (>49); GLUCOSE, FASTING 94 MG/DL (70-100); MAGNESIUM LEVEL 2.7 MG/DL (1.8-2.4); POTASSIUM SERUM 4.2 MEQ/L (3.5-5.1); SODIUM LEVEL 142 MEQ/L (136-145)
[2021-06-21] MEDS: HumaLOG INSULIN (NovoLOG) PER UNIT SC SCH ×4 (08:30→21:00)
[2021-06-21] MEDS: FUROSEMIDE 40 MG TAB PO SCH ×2 (09:39→17:28)
[2021-06-21] MEDS: MULTIVITAMINS/MINERALS THERAP 1 TAB PO SCH (09:39)
[2021-06-21] MEDS: ASPIRIN 81MG ENTERIC TABLET PO SCH (09:39)
[2021-06-21] MEDS: CALCIUM CARBONATE 500 MG CHEW U/D PO SCH ×2 (09:40→20:16)
[2021-06-21] MEDS: GABAPENTIN 100 MG CAP PO SCH ×2 (09:40→20:16)
[2021-06-21] MEDS: HEPARIN SOD (PORCINE) 5000UNITS/ML 1ML VIAL/SYRINGE SC SCH ×2 (09:40→20:16)
[2021-06-22] MEDS: SINEMET 25-100 MG TAB PO SCH ×2 (05:02→10:01)
[2021-06-22] MEDS: BENZTROPINE 2 MG TAB PO SCH (05:02)
[2021-06-22] MEDS: ENTACAPONE 200MG TABLET (COMTAN) PO SCH ×2 (05:02→10:01)
[2021-06-22 05:27] VITALS: BP 124/80
[2021-06-22 07:26] LABS: HEMATOCRIT 44.2 % (42.0-52.0); HEMOGLOBIN 14.3 g/dl (13.5-17.5); MEAN CORPUSCULAR HGB CONC 32.4 g/dl (32.0-36.5); MEAN CORPUSCULAR VOLUME 95.9 fl (80.0-96.0); PLATELET COUNT, AUTOMATED 198 10^3/uL (150-450); RED BLOOD COUNT 4.61 10^6/uL (4.30-6.10); WHITE BLOOD COUNT 4.2 10^3/uL (4.0-10.0)
[2021-06-22] MEDS: HumaLOG INSULIN (NovoLOG) PER UNIT SC SCH (07:30)
[2021-06-22 08:02] LABS: BLOOD UREA NITROGEN 22 MG/DL (7-18); CALCIUM LEVEL 9.1 MG/DL (8.8-10.2); CARBON DIOXIDE LEVEL 31 MEQ/L (21-32); CHLORIDE LEVEL 105 MEQ/L (98-107); CREATININE FOR GFR 0.85 MG/DL (0.70-1.30); GLOMERULAR FILTRATION RATE > 60.0 (>49); GLUCOSE, FASTING 103 MG/DL (70-100); MAGNESIUM LEVEL 2.6 MG/DL (1.8-2.4); POTASSIUM SERUM 3.7 MEQ/L (3.5-5.1); SODIUM LEVEL 141 MEQ/L (136-145)
[2021-06-22] MEDS: ASPIRIN 81MG ENTERIC TABLET PO SCH (10:00)
[2021-06-22] MEDS: HEPARIN SOD (PORCINE) 5000UNITS/ML 1ML VIAL/SYRINGE SC SCH (10:00)
[2021-06-22] MEDS: MULTIVITAMINS/MINERALS THERAP 1 TAB PO SCH (10:01)
[2021-06-22] MEDS: CALCIUM CARBONATE 500 MG CHEW U/D PO SCH (10:01)
[2021-06-22] MEDS: GABAPENTIN 100 MG CAP PO SCH (10:02)
[2021-06-22] MEDS: FUROSEMIDE 40 MG TAB PO SCH (10:02)
[2021-06-22] MEDS ORDERED: GABA-1171 PO ×2 (10:07→23:30)
--- NOTE | 2021-06-22 11:29 | DS.PDOC ---
Discharge Summary General Date of Admission Jun 16, 2021 at 15:10 Date of Discharge 06/22/2021 Discharge Summary PROCEDURES PERFORMED DURING STAY: [None]. ADMITTING DIAGNOSES / DISCHARGE DIAGNOSES: s/p Acute metabolic encephalopathy - possibly 2/2 medication changes Possible Diastolic CHF exacerbation Parkinson's disease Paroxysmal Atrial fibrillation NIDDM2 ALEXI Morbid Obesity DVT prophylaxis COMPLICATIONS/CHIEF COMPLAINT: AMS / Weakness HISTORY OF PRESENT ILLNESS: Patient is a 71-year-old male with a PMHx of Parkinson's disease, A. fib (not on anticoagulation), Diastolic CHF, Severe ALEXI (non-compliant with BIPAP), DM2, Chronic venous insufficiency edema, Morbid Obesity, presented to [facility] ER on 06/16 from [facility] after he was found unresponsive. Based on the record. Patient appeared to have passed out while sitting on the toilet. Patient denied any pain, shortness of breath, cough. Patient's had reported that he was having some hallucinations while at home. . She was admitted to the hospitalist service for further evaluation and treatment. Patient was seen and examined at the bedside this morning patient was able to answer questions appropriately was oriented to person, place, time and president. He denied any pain, shortness breath, cough, diarrhea. Reports that his legs are swollen but have always been swollen. HOSPITAL COURSE: s/p Acute metabolic encephalopathy - possibly 2/2 medication changes - Currently patient appears to be functioning his baseline - Hemodynamically stable and afebrile - No focal deficits on exam - UA negative / PCT negative - Imaging noted below - I discussed with [facility] assisted living and charge nurse to help determine his current baseline status of mentation; currently appears to be there - Will DC Mirtazapine on discharge to [facility] - Will reduce dose of Gabapentin to BID - Will have outpatient follow-up with neurology within the next 7 days Possible Diastolic CHF exacerbation - Clinically patient does not experience any shortness of breath, or cough - LE reveal chronic venous stasis changes - Saturating well on room air - CXR noted below - c/w Furosemide based on outpatient regimen Parkinson's disease - c/w Entacapone, Levodopa/Carbidopa, and Benztropine Paroxysmal Atrial fibrillation - Currently is in sinus rhythm - Patient is currently not on any rate control medications - Patient is not currently on full anticoagulation; had refused in the outpatient setting to be initiated / Review indicates it was stopped when he experienced a GI bleed NIDDM2 - c/w ISS while inpatient - As an outpatient, he is not on any medications - c/w consistent carbohydrate diet ALEXI - Patient is noncompliant with his BiPAP at home Morbid Obesity - BMI of 42.0 - Complicating medical care DVT prophylaxis - c/w Heparin SC DISCHARGE MEDICATIONS: Please see below. ALLERGIES: Please see below. PHYSICAL EXAMINATION ON DISCHARGE: Vitals (See below) General: Lying in bed, no acute distress, comfortable, AAOx3 HEENT: NC, AT CVS: RRR, +S1S2 Lungs: Fair air entry b/l, no evidence of wheezing, rales or rhonchi Abdomen: Soft, ND, NT Extremities: - Edema, - Calf tenderness LABORATORY DATA: Please see below. IMAGING: CXR 06/16: Limited examination demonstrating chronic stable changes. No obvious acute consolidation or definite effusion. CT Head 06/16: No acute hemorrhage or edema. CT abdomen / pelvis 06/16: No acute findings. CTA chest 06/16: No CT evidence of pulmonary embolism. Diffuse increased interstitial markings bilaterally may represent diffuse interstitial edema or pneumonitis. There is patchy atelectasis or infiltrate inferiorly in the left lower lobe, with a small left pleural effusion. Mild cardiomegaly. MRI Brain 06/16: 1. Multiple foci of T2 lengthening are demonstrated in the subcortical, periventricular and centrum semiovale white matter consistent with age-related small vessel gliosis. 2. Mild diffuse parenchymal atrophy. No acute intracranial findings. Vascular US 06/18: No evidence of deep venous thrombosis of the right lower extremity. ACTIVITY: [As tolerated]. DISCHARGE PLAN: Follow-up with primary care provider and neurology within the next 7 days Remain compliant with treatment plan and medications Return to the ER if you experience any problems DISPOSITION: SSV AL DISCHARGE CONDITION: [Stable]. TIME SPENT ON DISCHARGE: 35 minutes. Vital Signs/I&Os Vital Signs Date Time Temp Pulse Resp B/P (MAP) Pulse Ox O2 Delivery O2 Flow Rate FiO2 06/22/21 05:27 98.1 76 18 124/80 (95) 95 Room Air I&O- Last 24 Hours up to 6 AM 06/22/21 06:00 Intake Total 1540 ml Output Total 200 ml Balance 1340 ml Laboratory Data Labs 24H Laboratory Tests 2 06/21/21 11:24: Bedside Glucose (Misc Panel) 158H 06/21/21 16:26: Bedside Glucose (Misc Panel) 129H 06/21/21 20:26: Bedside Glucose (Misc Panel) 192H 06/22/21 06:17: Nucleated Red Blood Cells % (auto) 0.0, Anion Gap 5L, Glomerular Filtration Rate > 60.0, Calcium Level 9.1, Magnesium Level 2.6H 06/22/21 07:53: Bedside Glucose (Misc Panel) 99 06/22/21 10:08: Coronavirus (COVID-19)(PCR) NEGATIVE CBC/BMP Laboratory Tests 06/22/21 06:17 FSBS Laboratory Tests Test 06/21/21 11:24 06/21/21 16:26 06/21/21 20:26 06/22/21 07:53 Range/Units Bedside Glucose (Misc Panel) 158 129 192 99 80-115 MG/DL Microbiology Microbiology 06/16/21 Blood Culture - Final, Complete NO GROWTH AFTER 5 DAYS Discharge Medications Scheduled Aspirin (Aspirin EC) 81 Mg Tablet.dr, 81 MG PO DAILY, (Reported) Benztropine Mesylate (Benztropine Mesylate) 2 Mg Tab, 2 MG PO BID, (Reported) 0600, 1800 Calcium Carbonate (Calcium) 500 Mg Tablet, 500 MG PO BID, (Reported) Carbidopa/Levodopa (Carbidopa-Levodopa 25-100 Tab) 1 Tab Tab, 2 TAB PO 5XD, (Reported) 0600, 0900, 1200, 1700, 2100 Entacapone (Entacapone) 200 Mg Tablet, 200 MG PO QID, (Reported) 0600, 0900, 1200, 1500 Furosemide (Furosemide) 40 Mg Tablet, 40 MG PO BID, (Reported) Gabapentin (Gabapentin) 100 Mg Capsule, 100 MG PO BID Lanolin Alcohol/Mo/W.pet/[place] (Eucerin Creme) 454 Gm Cream..g., 454 GM TP DAILY, (Reported) BILATERALLY TO LOWER LEGS AFTER CLEANING WITH SOAP AND WATER. RESIDENT DOES THIS HIMSELF. VERIFY COMPLETION DAILY. Mirtazapine (Remeron) 15 Mg Tablet, 15 MG PO QHS, (Reported) Multivitamins (Thera M Plus Tablet) 1 Each Tablet, 1 TAB PO DAILY, (Reported) Vitamin B Complex (Vitamin B Complex) 1 Each Tablet, 1 TAB PO DAILY, (Reported) Vitamin E Mixed (Vitamin E) 400 Unit Capsule, 400 UNIT PO DAILY, (Reported) Scheduled PRN Acetaminophen (Tylenol) 325 Mg Tablet, 650 MG PO Q4H PRN for PAIN, (Reported) Bismuth Subsalicylate (Pepto-Bismol) 525 Mg/15 Ml Oral.susp, 30 ML PO QID PRN for DYSPEPSIA, (Reported) Meclizine HCl (Meclizine HCl) 12.5 Mg Tablet, 12.5 MG PO Q8H PRN for DIZZINESS, (Reported) Milk Of Magnesia (Milk of Magnesia) 2,400 Mg/10 Ml Oral.susp, 10 ML PO DAILY PRN for CONSTIPATION, (Reported) Ondansetron HCl (Zofran) 4 Mg Tablet, 4 MG PO Q4H PRN for NAUSEA, (Reported) Allergies Coded Allergies: No Known Allergies (Verified , 04/23/18) LEIA TOBAR MD Jun 22, 2021 11:29
[2021-06-22] MEDS ORDERED: MOM30SS PO (23:30)
[2021-06-22] MEDS ORDERED: TUMS500C PO (23:35)
== END 2021-06-22 11:55 | DRG 91 ==
LOC: M ED 07:58 → EDBD 07:58 → M ED INP 15:10 → ENRESERV 15:38 → M MSPAV 16:40
PROVIDERS: ADMIT Family Medicine; ATTEND Internal Medicine
DX: G92.8 Other toxic encephalopathy (principal); I50.33 Acute on chronic diastolic (congestive) heart failure; I48.20 Chronic atrial fibrillation, unspecified; K55.9 Vascular disorder of intestine, unspecified; Z68.41 Body mass index [BMI] 40.0-44.9, adult; G20 Parkinson's disease; E66.01 Morbid (severe) obesity due to excess calories; E55.9 Vitamin D deficiency, unspecified; E53.8 Deficiency of other specified B group vitamins; E11.9 Type 2 diabetes mellitus without complications; K59.09 Other constipation; G47.33 Obstructive sleep apnea (adult) (pediatric); Z91.19 Patient's noncompliance with other medical treatment and regimen; Z90.49 Acquired absence of other specified parts of digestive tract; Z20.822 Contact with and (suspected) exposure to COVID-19; Z79.82 Long term (current) use of aspirin; Z79.899 Other long term (current) drug therapy; R41.82 Altered mental status, unspecified

== ENCOUNTER 2021-06-22 17:24 | Inpatient (IN) | payer MEDICARE, MEDICAID ==
[~2021-06-22] VITALS: Ht 180.3 cm; Wt 126.2 kg
[~2021-06-22 17:24] MED LIST changes: +EUCECRE8 TOP; +MIRT-62 PO; +VITA-298 PO
[2021-06-22 20:47] LABS: BASO # 0.1 10^3/uL (0.0-0.2); BASO % 0.8 % (0.0-1.0); EOS # 0.5 10^3/uL (0.0-0.5); EOS % 8.1 % (0.0-3.0); HEMATOCRIT 45.6 % (42.0-52.0); LYMPH % 16.8 % (24.0-44.0); MEAN CORPUSCULAR HEMOGLOBIN 30.9 pg (27.0-33.0); MEAN CORPUSCULAR HGB CONC 32.9 g/dl (32.0-36.5); MONO # 0.5 10^3/uL (0.0-0.8); MONO % 7.5 % (2.0-8.0); NEUTROPHILS % 66.6 % (36.0-66.0); PLATELET COUNT, AUTOMATED 211 10^3/uL (150-450); RED BLOOD COUNT 4.85 10^6/uL (4.30-6.10)
[2021-06-22 21:18] LABS: ALBUMIN 3.8 GM/DL (3.2-5.2); ALT/SGPT 21 U/L (12-78); BILIRUBIN,DIRECT 0.1 MG/DL (0.0-0.2); BLOOD UREA NITROGEN 22 MG/DL (7-18); CALCIUM LEVEL 9.2 MG/DL (8.8-10.2); CARBON DIOXIDE LEVEL 27 MEQ/L (21-32); CHLORIDE LEVEL 105 MEQ/L (98-107); CREATININE FOR GFR 1.01 MG/DL (0.70-1.30); GLOMERULAR FILTRATION RATE > 60.0 (>49); GLUCOSE, FASTING 122 MG/DL (70-100); POTASSIUM SERUM 3.8 MEQ/L (3.5-5.1); SODIUM LEVEL 140 MEQ/L (136-145); TOTAL PROTEIN 7.1 GM/DL (6.4-8.2)
[2021-06-22 21:22] LABS: OSMOLALITY SERUM 295 MOSM/KG (280-301)
--- NOTE | 2021-06-22 21:44 | ECGEPIP ---
[facility] - ED Test Date: 2021-06-22 Pat Name: MOSES TSANG Department: Room: - Gender: Male [employer]: efrain : 1950 Requested By: CLARK Clnie Order Number: [id number] Reading MD: Clay Brambila Measurements Intervals [place] Rate: 98 P: VT: QRS: 12 QRSD: 94 T: -22 QT: 334 QTc: 426 Interpretive Statements Atrial fibrillation Low voltage QRS Cannot rule out Anterior infarct , age undetermined SIMILAR TO 06/16/21 Electronically Signed on 06-22-2021 21:44:07 EST by Clay Brambila
--- NOTE | 2021-06-22 21:49 | REPVR ---
PROCEDURE INFORMATION: Exam: XR Chest Exam date and time: 06/22/21 (8:42pm) Age: 71 years old Clinical indication: AMS TECHNIQUE: Imaging protocol: Portable CXR Views: 1 view COMPARISON: Portable CXR of 06/16/21 FINDINGS: Comparison is made with a portable CXR done on 06/16/21. Stable cardiomegaly (probable multichamber cardiac enlargement). No significant vascular congestion. No focal infiltrates. No pleural effusions. Degenerative changes at each shoulder joint. IMPRESSION: No acute findings. Stable cardiomegaly. A similar appearance was noted 6 days ago. Electronically signed by: Sparkle Swan On 06/22/2021 21:49:09 PM
--- NOTE | 2021-06-22 22:18 | REPVR ---
PROCEDURE INFORMATION: Exam: CT Head Without Contrast Exam date and time: 06/22/21 (9:01pm) Age: 71 years old Clinical indication: Altered mental status / memory loss TECHNIQUE: Imaging protocol: Computed tomography of the head without contrast Radiation optimization: All CT scans at this facility use at least one of these dose optimization techniques: automated exposure control; mA and/or kV adjustment per patient size (includes targeted exams where dose is matched to clinical indication); or iterative reconstruction. COMPARISON: MRI BRAIN of 06/16/21 CT HEAD of 06/16/21 FINDINGS: Brain: No acute hemorrhage. No cerebral edema. No mass effect. Age-related atrophic changes are noted. Periventricular and subcortical areas of low attenuation, compatible with chronic small vessel microischemic changes. Cerebral ventricles: No ventriculomegaly. Paranasal sinuses: Visualized sinuses are unremarkable. No air-fluid levels. Mastoid air cells: Visualized mastoid air cells are well aerated. Bones/joints: Unremarkable. No acute fracture. Soft tissues: Unremarkable. IMPRESSION: No acute intracranial pathology is appreciated. Chronic atrophic and microischemic changes. The brain had a similar appearance 6 days ago. Electronically signed by: Sparkle Swan On 06/22/2021 22:17:59 PM
[2021-06-22] MEDS ORDERED: GABA-1171 PO (23:30)
[2021-06-22] MEDS ORDERED: MOM30SS PO (23:30)
[2021-06-22] MEDS ORDERED: HOME MED LIST COMPLETE! XX SCH (23:30)
[2021-06-22] MEDS ORDERED: TUMS500C PO (23:35)
[2021-06-23] VITALS (9 sets, daily range): BP systolic 88–142; BP diastolic 49–84
[2021-06-23] MEDS ORDERED: BENZTROPINE 2 MG TAB PO SCH (06:00)
[2021-06-23 06:46] LABS: HEMATOCRIT 44.4 % (42.0-52.0); HEMOGLOBIN 14.6 g/dl (13.5-17.5); MEAN CORPUSCULAR HEMOGLOBIN 31.1 pg (27.0-33.0); MEAN CORPUSCULAR HGB CONC 32.9 g/dl (32.0-36.5); MEAN CORPUSCULAR VOLUME 94.5 fl (80.0-96.0); PLATELET COUNT, AUTOMATED 182 10^3/uL (150-450)
[2021-06-23 07:10] LABS: BLOOD UREA NITROGEN 22 MG/DL (7-18); CARBON DIOXIDE LEVEL 28 MEQ/L (21-32); CHLORIDE LEVEL 106 MEQ/L (98-107); CREATININE FOR GFR 0.94 MG/DL (0.70-1.30); GLOMERULAR FILTRATION RATE > 60.0 (>49); GLUCOSE, FASTING 125 MG/DL (70-100); POTASSIUM SERUM 3.7 MEQ/L (3.5-5.1); SODIUM LEVEL 139 MEQ/L (136-145)
[2021-06-23] MEDS ORDERED: ONDANSETRON 4 MG TAB PO PRN (07:10)
[2021-06-23] MEDS ORDERED: MECLIZINE 12.5 MG TAB PO PRN (07:10)
[2021-06-23] MEDS ORDERED: GABAPENTIN 100 MG CAP PO SCH (09:00)
[2021-06-23] MEDS: ACETAMINOPHEN TAB 650MG DOSE (2X325MG) PO PRN (09:32)
[2021-06-23] MEDS: CALCIUM CARBONATE 500 MG CHEW U/D PO SCH ×2 (09:32→20:36)
[2021-06-23] MEDS: MULTIVITAMINS/MINERALS THERAP 1 TAB PO SCH (09:33)
[2021-06-23] MEDS: ENTACAPONE 200MG TABLET (COMTAN) PO SCH ×3 (09:33→15:00)
[2021-06-23] MEDS: ASPIRIN 81MG ENTERIC TABLET PO SCH (09:33)
[2021-06-23] MEDS: FUROSEMIDE 40 MG TAB PO SCH ×2 (09:33→16:26)
[2021-06-23] MEDS: SINEMET 25-100 MG TAB PO SCH ×4 (09:33→20:36)
[2021-06-23] MEDS: ENOXAPARIN 40MG/0.4ML SYRINGE (J1650 PER 10MG) SC SCH (09:33)
--- NOTE | 2021-06-23 13:47 | IPNPDOC ---
Subjective Date Seen The patient was seen on 06/23/21. Subjective Chief Complaint/HPI Mr. Chaudhari is a 71 year old male with Parkinson's disease and diet-controlled diabetes who presents with hallucination. At this time, H&P is not. Chart review mentions that on 06/22/2021 patient was discharged to [facility]. He had hallucinations, and he was sent back to the hospital. On readmission, he said that he spoke with Jose Maria the other day and God today. He also reports having a sensation that an electrical current has gone from his head to his feet. His gabapentin strength was recently decreased and this electrical curre nt may be neuropathy. When I saw him this morning, he was appropriate. He is alert and orientated x4. He remembers having heart failure in his previous hospitalization. He told me that he only saw Jose Maria and God, they did not speak to him. Per nursing and PFS, his hallucinations are baseline. PFS working on placement. Otherwise, I reached out to neurology. Dr. Barry is familiar with patient, and patient has a follow up appointment in 5 days. Recommending discontinuation of benztropine. Objective Physical Examination General Exam: Positive: Alert, Cooperative Eye Exam: Negative: Sclera icteric ENT Exam: Positive: Atraumatic Neck Exam: Positive: Supple Chest Exam: Positive: Clear to auscultation Heart Exam: Positive: Tachycardic, Regular Rhythm Abdomen Exam: Positive: Normal bowel sounds, Soft; Negative: Tenderness Extremity Exam: Negative: Edema Neuro Exam: Positive: Normal Speech Psych Exam: Positive: Mood NL, Oriented x 3 Assessment /Plan Assessment Mr. Chaudhari is a 71 year old male with Parkinson's disease and diet-controlled diabetes who presents with hallucination. I spoke with neurology, Dr. Barry. Recommended discontinuing benztropine. Patient has outpatient follow up with Dr. Barry in 5 days. Otherwise, patient's electrical current sensations is most likely neuropathy. Will increase gabapentin from 100mg BID to 100mg TID. Plan/VTE VTE Prophylaxis Ordered?: Yes Plan 1. Parkinsonism with hallucination Follows with Dr. Barry outpatient. Recommended discontinuing the benztropine. Patient has outpatient follow up with Dr. Barry in 5 days. Continue carbidopa/levodopa and entacapone 2. Neuropathy Patient reporting having electrical current going through him This is most likely neuropathy We will increase gabapentin from 100 twice daily 200 3 times daily 3. Suspected yyq-[id number]-ywinrolxt diabetes mellitus Patient is on diabetic medications. Diet controlled Last HbA1c was 6.2 Carb consistent diet 4. Paroxysmal atrial fibrillation On chart review, it was noted that anticoagulation was stopped due to GI bleed Also on chart review, patient had refused anticoagulation in the outpatient setting 5. Heart failure with preserved ejection fraction Echocardiogram 06/16/2021 demonstrates an EF of 60% Patient appears compensated Continue Lasix 6. DVT prophylaxis Lovenox Disposition: PFS working on placement. Patient should follow-up with neurology at scheduled appointment VS, I&O, 24H, Fernanda Vital Signs/I&O Vital Signs Date Time Temp Pulse Resp B/P (MAP) Pulse Ox O2 Delivery O2 Flow Rate FiO2 06/23/21 06:00 97.4 92 19 140/78 (98) 96 Room Air I&O- Last 24 Hours up to 6 AM 06/23/21 06:00 Intake Total 0 ml Output Total 1000 ml Balance -1000 ml Laboratory Data 24H LABS Laboratory Tests 2 06/22/21 20:17: Immature Granulocyte % (Auto) 0.2, Neutrophils (%) (Auto) 66.6H, Lymphocytes (%) (Auto) 16.8L, Monocytes (%) (Auto) 7.5, Eosinophils (%) (Auto) 8.1H, Basophils (%) (Auto) 0.8, Neutrophils # (Auto) 4.0, Lymphocytes # (Auto) 1.0L, Monocytes # (Auto) 0.5, Eosinophils # (Auto) 0.5, Basophils # (Auto) 0.1, Nucleated Red Blood Cells % (auto) 0.0, Anion Gap 8, Glomerular Filtration Rate > 60.0, Osmolality 295, Lactic Acid Level 1.5, Calcium Level 9.2, Total Bilirubin 1.0, Direct Bilirubin 0.1, Aspartate Amino Transf (AST/SGOT) 31, Alanine Aminotransferase (ALT/SGPT) 21, Alkaline Phosphatase 44L, Total Protein 7.1, Albumin 3.8, Albumin/Globulin Ratio 1.2, Thyroid Stimulating Hormone (TSH) 8.580H 06/22/21 20:29: Procalcitonin <0.05 06/22/21 20:44: Ammonia 13 06/22/21 20:49: POC Troponin I (Misc) 0.00 06/23/21 06:27: Nucleated Red Blood Cells % (auto) 0.0, Anion Gap 5L, Glomerular Filtration Rate > 60.0, Calcium Level 9.0 06/23/21 11:49: Bedside Glucose (Misc Panel) 123H CBC/BMP Laboratory Tests 06/22/21 20:17 06/23/21 06:27 Microbiology Microbiology 06/22/21 Respiratory Virus Panel (PCR) (JORGE) - Final, Complete 06/22/21 Blood Culture, Received Pending 06/22/21 Blood Culture, Received Pending VINCE PINEDA DO Jun 23, 2021 13:47
[2021-06-23] MEDS ORDERED: SODIUM CHLORIDE 0.9% 1000ML IV ONE ×2 (15:10→16:20)
[2021-06-23] MEDS: GABAPENTIN 100 MG CAP PO SCH ×2 (16:00→20:36)
[2021-06-23] MEDS ORDERED: NS 500 ML IV ONE ×2 (17:25→18:40)
[2021-06-24] MEDS: ENTACAPONE 200MG TABLET (COMTAN) PO SCH ×5 (05:05→16:39)
[2021-06-24] MEDS: SINEMET 25-100 MG TAB PO SCH ×6 (05:05→20:08)
[2021-06-24 05:29] LABS: HEMATOCRIT 41.2 % (42.0-52.0); HEMOGLOBIN 13.4 g/dl (13.5-17.5); MEAN CORPUSCULAR HEMOGLOBIN 31.2 pg (27.0-33.0); MEAN CORPUSCULAR HGB CONC 32.5 g/dl (32.0-36.5); PLATELET COUNT, AUTOMATED 173 10^3/uL (150-450); RED BLOOD COUNT 4.29 10^6/uL (4.30-6.10); WHITE BLOOD COUNT 4.1 10^3/uL (4.0-10.0)
[2021-06-24 05:50] LABS: BLOOD UREA NITROGEN 24 MG/DL (7-18); CALCIUM LEVEL 8.8 MG/DL (8.8-10.2); CARBON DIOXIDE LEVEL 28 MEQ/L (21-32); CHLORIDE LEVEL 110 MEQ/L (98-107); GLOMERULAR FILTRATION RATE > 60.0 (>49); GLUCOSE, FASTING 104 MG/DL (70-100); SODIUM LEVEL 142 MEQ/L (136-145)
[2021-06-24 06:00] VITALS: BP 106/62
[2021-06-24] MEDS: FUROSEMIDE 40 MG TAB PO SCH ×2 (09:00→16:43)
[2021-06-24] MEDS: CALCIUM CARBONATE 500 MG CHEW U/D PO SCH ×2 (09:51→20:08)
[2021-06-24] MEDS: MULTIVITAMINS/MINERALS THERAP 1 TAB PO SCH (09:51)
[2021-06-24] MEDS: ASPIRIN 81MG ENTERIC TABLET PO SCH (09:51)
[2021-06-24] MEDS: ENOXAPARIN 40MG/0.4ML SYRINGE (J1650 PER 10MG) SC SCH (09:53)
[2021-06-24 09:54] VITALS: BP 110/56
[2021-06-24] MEDS ORDERED: GABA-1171 PO (09:54)
[2021-06-24] MEDS ORDERED: FURO40TA2 PO (09:54)
[2021-06-24] MEDS: GABAPENTIN 100 MG CAP PO SCH ×3 (09:55→20:08)
--- NOTE | 2021-06-24 12:54 | REPVR ---
PROCEDURE INFORMATION: Exam: CT Head Without Contrast Exam date and time: 06/24/2021 12:06 PM Age: 71 years old Clinical indication: Other: Suddenly nonverbal, weak, ; additional info: Suddenly nonverbal, weak, concern for hemorrhagic CVA TECHNIQUE: Imaging protocol: Computed tomography of the head without contrast. Radiation optimization: All CT scans at this facility use at least one of these dose optimization techniques: automated exposure control; mA and/or kV adjustment per patient size (includes targeted exams where dose is matched to clinical indication); or iterative reconstruction. Other technique: STROKE PROTOCOL was implemented. COMPARISON: 1. MRI-Brain without Contrast 06/16/2021 7:09:[address] Head without contrast 06/22/2021 9:00 PM FINDINGS: Brain: There is mild, diffuse parenchymal volume loss. The cortical/white matter interfaces are preserved throughout the brain. There is no evidence of intracranial hemorrhage. There is again mild symmetric prominence of the extra-axial spaces in the anterior frontal regions, probably related to parenchymal volume loss. Cerebral ventricles: The ventricular system demonstrates mild diffuse compensatory enlargement. Paranasal sinuses: The visualized paranasal sinuses are clear. Mastoid air cells: The mastoid air cells are clear. Vasculature: Atherosclerotic calcifications are seen in the cerebral arteries at the skull base. Bones/joints: No acute fractures of the skull are identified. Soft tissues: The soft tissues appear unremarkable. IMPRESSION: 1. No evidence of acute infarct or hemorrhage. 2. Mild diffuse parenchymal volume loss, unchanged. ASSESSMENT: ASPECTS (Harriet Stroke Program Early CT Score) is 10. Electronically signed by: Francesca Reardon On 06/24/2021 12:54:31 PM
[2021-06-24 14:00] VITALS: BP 152/85
[2021-06-24] MEDS: levETIRAcetam 250MG TABLET (KEPPRA) PO SCH ×2 (14:33→20:08)
--- NOTE | 2021-06-24 15:21 | IPNPDOC ---
Subjective Date Seen The patient was seen on 06/24/21. Subjective Chief Complaint/HPI Mr. Chaudhari is a 71 year old male with Parkinson's disease and diet-controlled diabetes who presents with hallucination. Patient was seen in the smoking tobacco packer hand. He was alert and orientated. He felt well. Later in the morning, he had an episode. Nurse called me to evaluate patient. He was staring off into space. He may have had nystagmus as his eyes was looking at the TV and me the back to the TV. It was faint and slow. His pupils were dilated. He had a pill-rolling tremor. He could barely squeeze my fingers bilaterally. His voice was soft and he struggled to say something. I was concerned for stroke and ordered a stat CT head. By the time he got down to the CT scanner, he started to come out of it. It may have lasted about 10 to 15 minutes. When I saw him after the CT, is back to normal. He had good and strong anesthesiologist and critical care strength. His pupils did not look fixed and he was speaking without difficulty. I reached out to neurology. Patient may have had a focal complex seizure. Recommend starting patient on Keppra 250 twice daily and obtaining EEG. Objective Physical Examination General Exam: Positive: Alert, Cooperative Eye Exam: Negative: Sclera icteric ENT Exam: Positive: Atraumatic Neck Exam: Positive: Supple Chest Exam: Positive: Clear to auscultation Heart Exam: Positive: Rate Normal, Regular Rhythm Abdomen Exam: Positive: Normal bowel sounds, Soft; Negative: Tenderness Extremity Exam: Negative: Edema Neuro Exam: Positive: Normal Speech Psych Exam: Positive: Mood NL, Oriented x 3 Assessment /Plan Assessment Mr. Chaudhari is a 71 year old male with Parkinson's disease and diet-controlled diabetes who presents with hallucination. I spoke with neurology, Dr. Barry. Recommended discontinuing benztropine. Patient has outpatient follow up with Dr. Barry next week. On 06/24/2021, anticipated discharge to [facility], patient had an event where he was staring off into space and minimally responsive. This may be focal complex seizure. Spoke with neurology, recommend Keppra and EEG. Plan/VTE VTE Prophylaxis Ordered?: Yes Plan 1. Parkinsonism with hallucination Follows with Dr. Barry outpatient. Recommended discontinuing the benztropine. Patient has outpatient follow up with Dr. Barry next week Continue carbidopa/levodopa and entacapone 2. Focal complex seizure On 06/24/2021 patient may have had a focal complex seizure CT head negative Spoke with Dr. Barry, recommended EEG and Keppra 250 twice daily 3. Neuropathy Patient reporting having electrical current going through him This is most likely neuropathy Continue gabapentin 4. Suspected fef-kqcmijo-oakmpfemn diabetes mellitus Patient is on diabetic medications. Diet controlled Last HbA1c was 6.2 Carb consistent diet 5. Paroxysmal atrial fibrillation On chart review, it was noted that anticoagulation was stopped due to GI bleed Also on chart review, patient had refused anticoagulation in the outpatient setting 6. Heart failure with preserved ejection fraction Echocardiogram 06/16/2021 demonstrates an EF of 60% Patient appears compensated Continue Lasix 7. DVT prophylaxis Lovenox Disposition: Pending EEG VS, I&O, 24H, Fishbone Vital Signs/I&O Vital Signs Date Time Temp Pulse Resp B/P (MAP) Pulse Ox O2 Delivery O2 Flow Rate FiO2 06/24/21 09:54 110/56 (74) 06/24/21 06:00 97.6 71 18 94 Room Air I&O- Last 24 Hours up to 6 AM 06/24/21 06:00 Intake Total 686 ml Output Total 200 ml Balance 486 ml Laboratory Data 24H LABS Laboratory Tests 2 06/23/21 16:24: Bedside Glucose (Misc Panel) 127H 06/23/21 19:58: Bedside Glucose (Misc Panel) 117H 06/24/21 05:09: Nucleated Red Blood Cells % (auto) 0.0, Anion Gap 4L, Glomerular Filtration Rate > 60.0, Calcium Level 8.8 06/24/21 11:43: Bedside Glucose (Misc Panel) 99 CBC/BMP Laboratory Tests 06/24/21 05:09 Microbiology Microbiology 06/22/21 Respiratory Virus Panel (PCR) (JORGE) - Final, Complete 06/22/21 Blood Culture - Preliminary, Resulted No growth after 24 hours . All specim... 06/22/21 Blood Culture - Preliminary, Resulted No growth after 24 hours . All specim... VINCE PINEDA DO Jun 24, 2021 15:21
[2021-06-24 21:45] VITALS: BP 109/60
[2021-06-25] MEDS: SINEMET 25-100 MG TAB PO SCH ×5 (05:02→20:07)
[2021-06-25] MEDS: ENTACAPONE 200MG TABLET (COMTAN) PO SCH ×4 (05:03→15:43)
[2021-06-25 06:00] VITALS: BP 112/62
[2021-06-25 06:25] LABS: HEMOGLOBIN 13.4 g/dl (13.5-17.5); MEAN CORPUSCULAR HEMOGLOBIN 31.3 pg (27.0-33.0); MEAN CORPUSCULAR HGB CONC 31.9 g/dl (32.0-36.5); MEAN CORPUSCULAR VOLUME 98.1 fl (80.0-96.0); PLATELET COUNT, AUTOMATED 170 10^3/uL (150-450); RED BLOOD COUNT 4.28 10^6/uL (4.30-6.10); WHITE BLOOD COUNT 3.9 10^3/uL (4.0-10.0)
[2021-06-25 06:40] LABS: BLOOD UREA NITROGEN 24 MG/DL (7-18); CALCIUM LEVEL 8.5 MG/DL (8.8-10.2); CARBON DIOXIDE LEVEL 25 MEQ/L (21-32); CHLORIDE LEVEL 111 MEQ/L (98-107); CREATININE FOR GFR 0.83 MG/DL (0.70-1.30); GLOMERULAR FILTRATION RATE > 60.0 (>49); GLUCOSE, FASTING 114 MG/DL (70-100); POTASSIUM SERUM 3.8 MEQ/L (3.5-5.1); SODIUM LEVEL 142 MEQ/L (136-145)
[2021-06-25] MEDS: CALCIUM CARBONATE 500 MG CHEW U/D PO SCH ×3 (08:56→20:09)
[2021-06-25] MEDS: ASPIRIN 81MG ENTERIC TABLET PO SCH (08:57)
[2021-06-25] MEDS: MULTIVITAMINS/MINERALS THERAP 1 TAB PO SCH (08:57)
[2021-06-25] MEDS: levETIRAcetam 250MG TABLET (KEPPRA) PO SCH ×2 (08:57→20:07)
[2021-06-25] MEDS: GABAPENTIN 100 MG CAP PO SCH ×3 (08:57→20:07)
[2021-06-25] MEDS: FUROSEMIDE 40 MG TAB PO SCH ×2 (08:57→17:56)
[2021-06-25] MEDS: ENOXAPARIN 40MG/0.4ML SYRINGE (J1650 PER 10MG) SC SCH (08:58)
[2021-06-25 13:01] LABS: ABG BASE EXCESS 1.2 (-2.0-2.0); ABG HCO3 25.4 MEQ/L (22.0-26.0); ABG O2 SATURATION 95.2 % (95.0-99.0); ABG PARTIAL PRESSURE CO2 39.2 mmHg (35.0-45.0); ABG PARTIAL PRESSURE O2 72.4 mmHg (75.0-100.0); ABG STANDARD HCO3 25.5 MEQ/L (22.0-26.0); ABG TOTAL CO2 26.6 MEQ/L (23.0-31.0)
--- NOTE | 2021-06-25 13:26 | IPNPDOC ---
Subjective Date Seen The patient was seen on 06/25/21. Subjective Chief Complaint/HPI Mr. Chaudhari is a 71 year old male with Parkinson's disease and diet-controlled diabetes who presents with hallucination. Patient was seen this morning. He denies any chest pain or dyspnea. No seizure like episodes since then. EEG has been performed, pending read. Objective Physical Examination General Exam: Positive: Alert, Cooperative Eye Exam: Negative: Sclera icteric ENT Exam: Positive: Atraumatic Neck Exam: Positive: Supple Chest Exam: Positive: Clear to auscultation Heart Exam: Positive: Rate Normal, Regular Rhythm Abdomen Exam: Positive: Normal bowel sounds, Soft; Negative: Tenderness Extremity Exam: Negative: Edema Neuro Exam: Positive: Normal Speech Psych Exam: Positive: Mood NL, Oriented x 3 Assessment /Plan Assessment Mr. Chaudhari is a 71 year old male with Parkinson's disease and diet-controlled diabetes who presents with hallucination. I spoke with neurology, Dr. Barry. Recommended discontinuing benztropine. Patient has outpatient follow up with Dr. Barry next week. On 06/24/2021, anticipated discharge to [facility], patient had an event where he was staring off into space and minimally responsive. This may be focal complex seizure. Spoke with neurology, recommend Keppra and EEG. Plan/VTE VTE Prophylaxis Ordered?: Yes Plan 1. Parkinsonism with hallucination Follows with Dr. Barry outpatient. Recommended discontinuing the benztropine. Patient has outpatient follow up with Dr. Barry next week Continue carbidopa/levodopa and entacapone 2. Focal complex seizure On 06/24/2021 patient may have had a focal complex seizure CT head negative -Ordered for MRI brain Spoke with Dr. Barry, recommended EEG and Keppra 250 twice daily 3. Neuropathy Patient reporting having electrical current going through him This is most likely neuropathy Continue gabapentin 4. Suspected ien-ipikbtv-iizrwbgor diabetes mellitus Patient is on diabetic medications. Diet controlled Last HbA1c was 6.2 Carb consistent diet 5. Paroxysmal atrial fibrillation On chart review, it was noted that anticoagulation was stopped due to GI bleed Also on chart review, patient had refused anticoagulation in the outpatient setting 6. Heart failure with preserved ejection fraction Echocardiogram 06/16/2021 demonstrates an EF of 60% Patient appears compensated Continue Lasix 7. DVT prophylaxis Lovenox Disposition: Pending MRI brain. EEG has been performed and pending read VS, I&O, 24H, Fishbone Vital Signs/I&O Vital Signs Date Time Temp Pulse Resp B/P (MAP) Pulse Ox O2 Delivery O2 Flow Rate FiO2 06/25/21 06:00 97.3 76 22 112/62 (79) 96 Room Air I&O- Last 24 Hours up to 6 AM 06/25/21 05:59 Intake Total 830 ml Balance 830 ml Laboratory Data 24H LABS Laboratory Tests 2 06/24/21 17:01: Bedside Glucose (Misc Panel) 115 06/24/21 20:13: Bedside Glucose (Misc Panel) 134H 06/25/21 05:58: Nucleated Red Blood Cells % (auto) 0.0, Anion Gap 6L, Glomerular Filtration Rate > 60.0, Calcium Level 8.5L 06/25/21 11:51: Bedside Glucose (Misc Panel) 109 06/25/21 12:56: Blood Gas Bicarbonate Standard 25.5, Arterial Blood pH 7.430, Arterial Blood Partial Pressure CO2 39.2, Arterial Blood Partial Pressure O2 72.4L, Arterial Blood Total CO2 26.6, Arterial Blood HCO3 25.4, Arterial Blood Base Excess 1.2, Arterial Blood Oxygen Saturation 95.2 CBC/BMP Laboratory Tests 06/25/21 05:58 Microbiology Microbiology 06/22/21 Respiratory Virus Panel (PCR) (JORGE) - Final, Complete 06/22/21 Blood Culture - Preliminary, Resulted No Growth after 48 hours. All Specime... 06/22/21 Blood Culture - Preliminary, Resulted No Growth after 48 hours. All Specime... VINCE PINEDA DO Jun 25, 2021 13:26
[2021-06-25] MEDS: VANICREAM MOISTURIZING SKIN CREAM 113GM TUBE TOP SCH ×2 (13:33→20:07)
[2021-06-25 14:00] VITALS: BP 123/70
--- NOTE | 2021-06-25 15:12 | REPVR ---
PROCEDURE INFORMATION: Exam: MR Head Without Contrast Exam date and time: 06/25/2021 2:34 PM Age: 71 years old Clinical indication: Pain; Headache not specified; Additional info: Seizure TECHNIQUE: Imaging protocol: MR of the head without contrast. COMPARISON: CT Head without contrast 06/24/2021 12:36 PM FINDINGS: Brain: There is mild patchy increased T2 signal intensity within the bilateral cerebral periventricular white matter, consistent with chronic microvascular ischemic changes. There are few small focal areas of chronic ischemia in bilateral frontal, parietal and periatrial white matter. There is no abnormal diffusion weighted signal intensity to suggest an acute ischemic event. There is mild diffuse cerebral atrophy present, consistent with this patient's age. Cerebral ventricles: The ventricular system demonstrates mild diffuse compensatory enlargement. Bones/joints: Unremarkable. Paranasal sinuses: Normal as visualized. No acute sinusitis. Mastoid air cells: Normal as visualized. No mastoid effusion. Orbital cavity: Unremarkable. Soft tissues: Unremarkable. IMPRESSION: 1. No acute infarction, masses or hemorrhage is seen. No acute intracranial abnormality is identified. 2. Diffuse age-related cerebral atrophy and mild chronic microvascular white matter ischemic changes, without evidence of an acute intracranial abnormality. Electronically signed by: Evelio Chaney On 06/25/2021 15:11:23 PM
--- NOTE | 2021-06-25 16:20 | REP ---
INDICATION: left leg swelling COMPARISON: None. TECHNIQUE: Resendiz scale and color Doppler evaluation using linear high frequency transducer. FINDINGS: Ultrasound examination of the left lower extremity deep venous structures from the common femoral vein through the popliteal vein demonstrates normal compressibility, flow and wave patterns in response to respiration and augmentation. There is no evidence for deep venous thrombosis. Evaluation of the calf veins is incomplete and nondiagnostic due to edema and body habitus. Contralateral CFV is patent and normal. IMPRESSION: No evidence for deep venous thrombosis from the common femoral vein to the popliteal vein. <Electronically signed by Emmanuel Hassan > 06/25/21 1973
[2021-06-25 22:00] VITALS: BP 120/74
[2021-06-26] MEDS: ENTACAPONE 200MG TABLET (COMTAN) PO SCH ×4 (05:00→15:20)
[2021-06-26] MEDS: SINEMET 25-100 MG TAB PO SCH ×5 (05:00→20:21)
[2021-06-26 06:00] VITALS: BP 123/75
[2021-06-26 06:51] LABS: HEMATOCRIT 43.6 % (42.0-52.0); HEMOGLOBIN 14.2 g/dl (13.5-17.5); MEAN CORPUSCULAR HEMOGLOBIN 31.3 pg (27.0-33.0); MEAN CORPUSCULAR HGB CONC 32.6 g/dl (32.0-36.5); PLATELET COUNT, AUTOMATED 178 10^3/uL (150-450); RED BLOOD COUNT 4.54 10^6/uL (4.30-6.10); WHITE BLOOD COUNT 4.7 10^3/uL (4.0-10.0)
[2021-06-26 07:16] LABS: BLOOD UREA NITROGEN 20 MG/DL (7-18); CALCIUM LEVEL 8.5 MG/DL (8.8-10.2); CARBON DIOXIDE LEVEL 30 MEQ/L (21-32); CHLORIDE LEVEL 107 MEQ/L (98-107); CREATININE FOR GFR 1.02 MG/DL (0.70-1.30); GLOMERULAR FILTRATION RATE > 60.0 (>49); GLUCOSE, FASTING 113 MG/DL (70-100); POTASSIUM SERUM 3.7 MEQ/L (3.5-5.1); SODIUM LEVEL 142 MEQ/L (136-145)
[2021-06-26] MEDS: ENOXAPARIN 40MG/0.4ML SYRINGE (J1650 PER 10MG) SC SCH (08:36)
[2021-06-26] MEDS: VANICREAM MOISTURIZING SKIN CREAM 113GM TUBE TOP SCH ×2 (08:36→20:21)
[2021-06-26] MEDS: GABAPENTIN 100 MG CAP PO SCH ×3 (08:37→20:21)
[2021-06-26] MEDS: levETIRAcetam 250MG TABLET (KEPPRA) PO SCH ×2 (08:37→20:21)
[2021-06-26] MEDS: CALCIUM CARBONATE 500 MG CHEW U/D PO SCH ×2 (08:37→20:21)
[2021-06-26] MEDS: MULTIVITAMINS/MINERALS THERAP 1 TAB PO SCH (08:37)
[2021-06-26] MEDS: FUROSEMIDE 40 MG TAB PO SCH ×2 (08:37→17:39)
[2021-06-26] MEDS: ASPIRIN 81MG ENTERIC TABLET PO SCH (08:37)
--- NOTE | 2021-06-26 12:31 | IPNPDOC ---
Subjective Date Seen The patient was seen on 06/26/21. Subjective Chief Complaint/HPI Mr. Chaudhari is a 71 year old male with Parkinson's disease and diet-controlled diabetes who presents with hallucination. Yesterday, there was concern for his mentation. He had an MRI and ABG which did not suggest an acute process. He slept well last night. This morning, he was at his baseline and appropriate. Denies any chest pain or dyspnea. Objective Physical Examination General Exam: Positive: Alert, Cooperative Eye Exam: Negative: Sclera icteric ENT Exam: Positive: Atraumatic Neck Exam: Positive: Supple Chest Exam: Positive: Clear to auscultation Heart Exam: Positive: Rate Normal, Regular Rhythm Abdomen Exam: Positive: Normal bowel sounds, Soft; Negative: Tenderness Extremity Exam: Negative: Edema Neuro Exam: Positive: Normal Speech Psych Exam: Positive: Mood NL, Oriented x 3 Assessment /Plan Assessment Mr. Chaudhari is a 71 year old male with Parkinson's disease and diet-controlled diabetes who presents with hallucination. I spoke with neurology, Dr. Barry. Recommended discontinuing benztropine. Patient has outpatient follow up with Dr. Barry next week. On 06/24/2021, anticipated discharge to [facility], patient had an event where he was staring off into space and minimally responsive. This may be focal complex seizure. Spoke with neurology, recommend Keppra and EEG. Plan/VTE VTE Prophylaxis Ordered?: Yes Plan 1. Parkinsonism with hallucination Follows with Dr. Barry outpatient. Recommended discontinuing the benztropine. Patient has outpatient follow up with Dr. Barry next week Continue carbidopa/levodopa and entacapone 2. Focal complex seizure On 06/24/2021 patient may have had a focal complex seizure CT head negative Spoke with Dr. Barry, recommended EEG and Keppra 250 twice daily -MRI does not demonstrate acute process. There is diffuse age related cerebral atrophy and mild chronic microvascular white matter ischemic changes. 3. Neuropathy Patient reporting having electrical current going through him. Resolved This is most likely neuropathy Continue gabapentin 4. Suspected cxa-kmashez-ljtdkayjd diabetes mellitus Patient is on diabetic medications. Diet controlled Last HbA1c was 6.2 Carb consistent diet 5. Paroxysmal atrial fibrillation On chart review, it was noted that anticoagulation was stopped due to GI bleed Also on chart review, patient had refused anticoagulation in the outpatient setting 6. Heart failure with preserved ejection fraction Echocardiogram 06/16/2021 demonstrates an EF of 60% Patient appears compensated Continue Lasix 7. DVT prophylaxis Lovenox Disposition: EEG has been performed and pending read. Anticipate discharge to [facility] tomorrow VS, I&O, 24H, Fishbone Vital Signs/I&O Vital Signs Date Time Temp Pulse Resp B/P (MAP) Pulse Ox O2 Delivery O2 Flow Rate FiO2 06/26/21 06:00 97.2 75 18 123/75 (91) 95 Room Air I&O- Last 24 Hours up to 6 AM 06/26/21 06:00 Intake Total 0 ml Output Total 375 ml Balance -375 ml Laboratory Data 24H LABS Laboratory Tests 2 06/25/21 12:56: Blood Gas Bicarbonate Standard 25.5, Arterial Blood pH 7.430, Arterial Blood Partial Pressure CO2 39.2, Arterial Blood Partial Pressure O2 72.4L, Arterial Blood Total CO2 26.6, Arterial Blood HCO3 25.4, Arterial Blood Base Excess 1.2, Arterial Blood Oxygen Saturation 95.2 06/25/21 16:31: Bedside Glucose (Misc Panel) 127H 06/25/21 20:58: Bedside Glucose (Misc Panel) 128H 06/26/21 06:18: Nucleated Red Blood Cells % (auto) 0.0, Anion Gap 5L, Glomerular Filtration Rate > 60.0, Calcium Level 8.5L 06/26/21 11:34: Bedside Glucose (Misc Panel) 90 CBC/BMP Laboratory Tests 06/26/21 06:18 Microbiology Microbiology 06/22/21 Respiratory Virus Panel (PCR) (JORGE) - Final, Complete 06/22/21 Blood Culture - Preliminary, Resulted No Growth after 72 hours. All specime... 06/22/21 Blood Culture - Preliminary, Resulted No Growth after 72 hours. All specime... VINCE PINEDA DO Jun 26, 2021 12:31
[2021-06-26 14:00] VITALS: BP 105/61
[2021-06-26 22:00] VITALS: BP 114/66
[2021-06-27] MEDS: ACETAMINOPHEN TAB 650MG DOSE (2X325MG) PO PRN (02:03)
[2021-06-27] MEDS: ENTACAPONE 200MG TABLET (COMTAN) PO SCH ×3 (05:22→12:33)
[2021-06-27] MEDS: SINEMET 25-100 MG TAB PO SCH ×3 (05:22→12:33)
[2021-06-27 06:00] VITALS: BP 122/70
[2021-06-27 06:39] LABS: HEMATOCRIT 44.7 % (42.0-52.0); HEMOGLOBIN 14.6 g/dl (13.5-17.5); MEAN CORPUSCULAR HEMOGLOBIN 31.3 pg (27.0-33.0); MEAN CORPUSCULAR HGB CONC 32.7 g/dl (32.0-36.5); MEAN CORPUSCULAR VOLUME 95.7 fl (80.0-96.0); PLATELET COUNT, AUTOMATED 178 10^3/uL (150-450); RED BLOOD COUNT 4.67 10^6/uL (4.30-6.10); WHITE BLOOD COUNT 4.8 10^3/uL (4.0-10.0)
[2021-06-27 06:54] LABS: BLOOD UREA NITROGEN 18 MG/DL (7-18); CALCIUM LEVEL 8.9 MG/DL (8.8-10.2); CARBON DIOXIDE LEVEL 30 MEQ/L (21-32); CHLORIDE LEVEL 106 MEQ/L (98-107); CREATININE FOR GFR 0.83 MG/DL (0.70-1.30); GLOMERULAR FILTRATION RATE > 60.0 (>49); GLUCOSE, FASTING 106 MG/DL (70-100); POTASSIUM SERUM 3.8 MEQ/L (3.5-5.1); SODIUM LEVEL 141 MEQ/L (136-145)
[2021-06-27] MEDS ORDERED: BISACODYL 10 MG SUPP PR PRN (08:15)
[2021-06-27] MEDS: FUROSEMIDE 40 MG TAB PO SCH (09:00)
[2021-06-27] MEDS ORDERED: MIRALAX *UNIT DOSE* 17GM PACKET PO SCH (09:00)
[2021-06-27] MEDS ORDERED: DOCUSATE SODIUM 100MG CAPSULE PO SCH (09:00)
[2021-06-27] MEDS: CALCIUM CARBONATE 500 MG CHEW U/D PO SCH (09:13)
[2021-06-27] MEDS: ASPIRIN 81MG ENTERIC TABLET PO SCH (09:13)
[2021-06-27] MEDS: ENOXAPARIN 40MG/0.4ML SYRINGE (J1650 PER 10MG) SC SCH (09:13)
[2021-06-27] MEDS: VANICREAM MOISTURIZING SKIN CREAM 113GM TUBE TOP SCH (09:14)
[2021-06-27] MEDS: MULTIVITAMINS/MINERALS THERAP 1 TAB PO SCH (09:14)
[2021-06-27] MEDS: GABAPENTIN 100 MG CAP PO SCH (09:14)
[2021-06-27] MEDS: levETIRAcetam 250MG TABLET (KEPPRA) PO SCH (09:14)
[2021-06-27] MEDS ORDERED: COLA100C5 PO (10:57)
[2021-06-27] MEDS ORDERED: MIRA1POW3 PO (10:57)
[2021-06-27] MEDS ORDERED: KEPP250T5 PO (10:57)
[2021-06-27] MEDS ORDERED: FUROSEMIDE 40MG/4ML VIAL (J1940) IV SCH ×2 (11:20→17:00)
--- NOTE | 2021-06-27 22:45 | DS.PDOC ---
Discharge Summary General Date of Admission June 23, 2021 Date of Discharge June 27, 2021 Discharge Summary PROCEDURES PERFORMED DURING STAY: None ADMITTING DIAGNOSES: 1. Parkinsonism with hallucination 2. Neuropathy 3. Suspected euw-gpddvlb-jdxugxetr diabetes mellitus 4. Paroxysmal atrial fibrillation 5. Heart failure with preserved ejection fraction DISCHARGE DIAGNOSES: 1. Parkinsonism with hallucination 2. Neuropathy 3. Suspected vnw-lsnihsh-ttyxhjpnp diabetes mellitus 4. Paroxysmal atrial fibrillation 5. Heart failure with preserved ejection fraction 6. Focal complex seizure COMPLICATIONS/CHIEF COMPLAINT: Metabolic Encephalopathy. HISTORY OF PRESENT ILLNESS: Mr. Chaudhari is a 71 year old male with Parkinson's disease and diet-controlled diabetes who presents with hallucination. At this time, H&P is not. Chart review mentions that on 06/22/2021 patient was discharged to [facility]. He had hallucinations, and he was sent back to the hospital. On readmission, he said that he spoke with Jose Maria the other day and God today. He also reports having a sensation that an electrical current has gone from his head to his feet. His gabapentin strength was recently dec reased and this electrical current may be neuropathy. When I saw him this morning, he was appropriate. He is alert and orientated x4. He remembers having heart failure in his previous hospitalization. He told me that he only saw Jose Maria and God, they did not speak to him. Per nursing and PFS, his hallucinations are baseline. PFS working on placement. Otherwise, I reached out to neurology. Dr. Barry is familiar with patient, and patient has a follow up appointment in 5 days. Recommending discontinuation of benztropine. HOSPITAL COURSE: Day after admission, patient had episode where he was staring off into space. He may have had nystagmus as his eyes was looking at the TV and me the back to the TV. It was faint and slow. His pupils were dilated. He had a pill-rolling tremor. He could barely squeeze my fingers bilaterally. His voice was soft and he struggled to say something. I was concerned for stroke and ordered a stat CT head. By the time he got down to the CT scanner, he star virgen to come out of it. It may have lasted about 10 to 15 minutes. When I saw him after the CT, is back to normal. He had good and strong oracle etl developer strength. His pupils did not look fixed and he was speaking without difficulty. I reached out to neurology, Dr. Barry. Patient may have had a focal complex seizure. He recommended an EEG and Keppra 250 mg twice daily. EEG returned within normal limits. Since then patient had done well. Today, is noted that his weight increased from 120 kg on 06/23/21 to 135 kg on 06/27/21. Patient also has not had a bowel movement. Nurse disimpacted patient and reviewed with patient. After BM, he weighed 126 kg. Looking at his weight from October 2020 to now, patient weight has generally been between 124 kg and 129 kg. His lungs are clear and he did not have any pitting edema. Patient was medically stable to go to [facility]. This morning, patient denied any chest pain or dyspnea. He was discharged to [facility] today. DISCHARGE MEDICATIONS: Please see below. ALLERGIES: Please see below. PHYSICAL EXAMINATION ON DISCHARGE: VITAL SIGNS: Please see below. GENERAL: Comfortable, in no apparent distress. HEENT: EOMI, sclera clear. NECK: Supple. RESPIRATORY: Lungs clear to auscultation bilaterally, no rales, wheeze or rhonchi. CARDIOVASCULAR: Regular rate and rhythm. ABDOMEN: Soft, nontender, no guarding or rebound tenderness. Normal bowel sounds. MUSCLE SKELETAL: Movement is slow. NEUROLOGICAL: He does have pill-rolling tremor. PSYCHOLOGICAL: Normal mood and affect. LABORATORY DATA: Please see below. IMAGING: Radiology report MRI brain 1. No acute infarction, masses or hemorrhage is seen. No acute intracranial abnormality is identified. 2. Diffuse age-related cerebral atrophy and mild chronic microvascular white matter ischemic changes, without evidence of an acute intracranial abnormality. Ultrasound left leg No evidence for deep venous thrombosis from the common femoral vein to the popliteal vein. PROGNOSIS: Good ACTIVITY: As tolerated. DIET: Carbohydrate consistent diet DISCHARGE PLAN: [facility] keep home DISPOSITION: [facility] Home. DISCHARGE INSTRUCTIONS: 1. Follow-up with PCP in a week 2. Keep appointment with neurology, Dr. Barry ITEMS TO FOLLOWUP ON ON OUTPATIENT: 1. Keppra level 2. Neurology recommendations on Parkinson's meds and Keppra DISCHARGE CONDITION: Stable. Total time spent discharge planning, discharge summary, and medication reconciliation: 45 minutes Vital Signs/I&Os Vital Signs Date Time Temp Pulse Resp B/P (MAP) Pulse Ox O2 Delivery O2 Flow Rate FiO2 06/27/21 06:00 97.5 66 18 122/70 (87) 95 Room Air I&O- Last 24 Hours up to 6 AM 06/27/21 06:00 Intake Total 360 ml Output Total 820 ml Balance -460 ml Laboratory Data Labs 24H Laboratory Tests 2 06/27/21 06:10: Nucleated Red Blood Cells % (auto) 0.0, Anion Gap 5L, Glomerular Filtration Rate > 60.0, Calcium Level 8.9 06/27/21 09:23: Coronavirus (COVID-19)(PCR) NEGATIVE 06/27/21 11:45: Bedside Glucose (Misc Panel) 112 CBC/BMP Laboratory Tests 06/27/21 06:10 FSBS Laboratory Tests Test 06/27/21 11:45 Range/Units Bedside Glucose (Misc Panel) 112 80-115 MG/DL Microbiology Microbiology 06/22/21 Respiratory Virus Panel (PCR) (JORGE) - Final, Complete 06/22/21 Blood Culture - Final, Complete NO GROWTH AFTER 5 DAYS 06/22/21 Blood Culture - Final, Complete NO GROWTH AFTER 5 DAYS Discharge Medications Scheduled Aspirin (Aspirin EC) 81 Mg Tablet.dr, 81 MG PO DAILY, (Reported) Calcium Carbonate (Tums) 200 Mg Tab.chew, 500 MG PO BID, (Reported) Carbidopa/Levodopa (Carbidopa-Levodopa 25-100 Tab) 1 Tab Tab, 2 TAB PO 5XD, (Reported) 0600, 0900, 1200, 1700, 2100 Docusate Sodium (Colace) 100 Mg Capsule, 100 MG PO BID Entacapone (Entacapone) 200 Mg Tablet, 200 MG PO QID, (Reported) 0600, 0900, 1200, 1500 Furosemide (Furosemide) 40 Mg Tablet, 40 MG PO DAILY Gabapentin (Gabapentin) 100 Mg Capsule, 100 MG PO TID Lanolin Alcohol/Mo/W.pet/[place] (Eucerin Creme) 454 Gm Cream..g., 1 DOSE TOP DAILY, (Reported) BILATERALLY TO LOWER LEGS AFTER CLEANING WITH SOAP AND WATER. RESIDENT DOES THIS HIMSELF. VERIFY COMPLETION DAILY. Levetiracetam (Keppra) 250 Mg Tablet, 250 MG PO BID Multivitamins (Thera M Plus Tablet) 1 Each Tablet, 1 TAB PO DAILY, (Reported) Vitamin B Complex (Vitamin B Complex) 1 Each Tablet, 1 TAB PO DAILY, (Reported) Vitamin E Mixed (Vitamin E) 400 Unit Capsule, 400 UNIT PO DAILY, (Reported) Scheduled PRN Acetaminophen (Tylenol) 325 Mg Tablet, 650 MG PO Q4H PRN for MILD DISCOMFORT, (Reported) Bismuth Subsalicylate (Pepto-Bismol) 525 Mg/15 Ml Oral.susp, 30 ML PO QID PRN f or DYSPEPSIA, (Reported) Meclizine HCl (Meclizine HCl) 12.5 Mg Tablet, 12.5 MG PO Q8H PRN for DIZZINESS, (Reported) Milk Of Magnesia (Milk of Magnesia) 2,400 Mg/10 Ml Oral.susp, 2,400 MG PO DAILY PRN for CONSTIPATION, (Reported) Ondansetron HCl (Zofran) 4 Mg Tablet, 4 MG PO Q4H PRN for NAUSEA, (Reported) Polyethylene Glycol 3350 (Miralax) 17 Gm Powd.pack, 1 PKT PO DAILYPRN PRN for CONSTIPATION Allergies Coded Allergies: No Known Allergies (Verified , 04/23/18) VINCE PINEDA DO Jun 27, 2021 22:45
[2021-06-28] MEDS ORDERED: FUROSEMIDE 40 MG TAB PO SCH (09:00)
== END 2021-06-27 14:04 | DRG 57 ==
LOC: M ED 17:24 → EDBD 17:24 → M ED INP 17:25 → M MSPAV 06-23 00:36 → OBSVTOIN 06-24 21:25
PROVIDERS: ADMIT Family Medicine; ATTEND Internal Medicine
DX: G20 Parkinson's disease (principal); R44.0 Auditory hallucinations; I50.32 Chronic diastolic (congestive) heart failure; E11.40 Type 2 diabetes mellitus with diabetic neuropathy, unspecified; I48.0 Paroxysmal atrial fibrillation; R56.9 Unspecified convulsions; Z79.899 Other long term (current) drug therapy; Z79.84 Long term (current) use of oral hypoglycemic drugs; Z20.822 Contact with and (suspected) exposure to COVID-19; Z79.82 Long term (current) use of aspirin

== ENCOUNTER → 2021-06-30 | Outpatient (REF) | payer MEDICAID, MEDICARE ==
[~2021-06-30] MED LIST changes: +COLA100C5 PO; +KEPP250T5 PO; +MIRA1POW3 PO; +TUMS500C PO
[2021-06-30 08:58] LABS: THYROID STIMULATING HORMONE 3.95 uIU/ML (0.358-3.740)
[2021-06-30 11:41] LABS: PROLACTIN 4.2 NG/ML (2.1-17.7)
== END ==
LOC: SKLAB5 07:00
PROVIDERS: ATTEND Internal Medicine
DX: G20 Parkinson's disease (principal)

== ENCOUNTER → 2021-07-05 | Outpatient (REF) | payer MEDICAID, MEDICARE ==
[2021-07-05 08:49] LABS: HEMATOCRIT 45.4 % (42.0-52.0); HEMOGLOBIN 14.6 g/dl (13.5-17.5); MEAN CORPUSCULAR HEMOGLOBIN 30.9 pg (27.0-33.0); MEAN CORPUSCULAR HGB CONC 32.2 g/dl (32.0-36.5); PLATELET COUNT, AUTOMATED 198 10^3/uL (150-450); RED BLOOD COUNT 4.73 10^6/uL (4.30-6.10); WHITE BLOOD COUNT 5.9 10^3/uL (4.0-10.0)
[2021-07-05 09:17] LABS: ALBUMIN 3.7 GM/DL (3.2-5.2); ALT/SGPT 9 U/L (12-78); BILIRUBIN,TOTAL 0.7 MG/DL (0.2-1.0); BLOOD UREA NITROGEN 21 MG/DL (7-18); CALCIUM LEVEL 9.3 MG/DL (8.8-10.2); CARBON DIOXIDE LEVEL 30 MEQ/L (21-32); CHLORIDE LEVEL 109 MEQ/L (98-107); GLOMERULAR FILTRATION RATE > 60.0 (>49); GLUCOSE, FASTING 108 MG/DL (70-100); POTASSIUM SERUM 4.4 MEQ/L (3.5-5.1); SODIUM LEVEL 143 MEQ/L (136-145); TOTAL PROTEIN 6.8 GM/DL (6.4-8.2)
== END ==
LOC: SKLAB5 07:00
PROVIDERS: ATTEND Internal Medicine
DX: I50.9 Heart failure, unspecified (principal); Z51.81 Encounter for therapeutic drug level monitoring; Z79.899 Other long term (current) drug therapy

== ENCOUNTER → 2021-07-06 | Outpatient (REF) | LOC: SKLAB5 11:11 | PROVIDERS: ATTEND Internal Medicine | DX: Z20.822 Contact with and (suspected) exposure to COVID-19 (principal) ==

== ENCOUNTER 2021-08-18 12:29 | Inpatient (IN) | payer MEDICARE, MEDICAID ==
[~2021-08-18] VITALS: Ht 175.3 cm; Wt 127.0 kg
[2021-08-18 13:48] LABS: BASO % 0.8 % (0.0-1.0); EOS # 0.7 10^3/uL (0.0-0.5); HEMATOCRIT 38.7 % (42.0-52.0); HEMOGLOBIN 12.4 g/dl (13.5-17.5); LYMPH # 0.6 10^3/uL (1.5-5.0); LYMPH % 12.1 % (24.0-44.0); MEAN CORPUSCULAR HEMOGLOBIN 30.9 pg (27.0-33.0); MEAN CORPUSCULAR VOLUME 96.5 fl (80.0-96.0); MONO # 0.5 10^3/uL (0.0-0.8); MONO % 9.4 % (2.0-8.0); NEUTROPHILS # 3.3 10^3/uL (1.5-8.5); NEUTROPHILS % 63.5 % (36.0-66.0); PLATELET COUNT, AUTOMATED 175 10^3/uL (150-450); RED BLOOD COUNT 4.01 10^6/uL (4.30-6.10); WHITE BLOOD COUNT 5.2 10^3/uL (4.0-10.0)
[2021-08-18] MEDS ORDERED: FUROSEMIDE 40MG/4ML VIAL (J1940) IV ONE (14:20)
[2021-08-18 14:25] LABS: ALBUMIN 3.5 GM/DL (3.2-5.2); ALT/SGPT 9 U/L (12-78); BILIRUBIN,DIRECT 0.1 MG/DL (0.0-0.2); BILIRUBIN,TOTAL 0.5 MG/DL (0.2-1.0); BLOOD UREA NITROGEN 20 MG/DL (7-18); CALCIUM LEVEL 9.2 MG/DL (8.8-10.2); CARBON DIOXIDE LEVEL 31 MEQ/L (21-32); CHLORIDE LEVEL 104 MEQ/L (98-107); CREATININE FOR GFR 0.98 MG/DL (0.70-1.30); GLOMERULAR FILTRATION RATE > 60.0 (>49); GLUCOSE, FASTING 98 MG/DL (70-100); NT-PRO BNP 1728 PG/ML (<125); POTASSIUM SERUM 4.3 MEQ/L (3.5-5.1); SODIUM LEVEL 140 MEQ/L (136-145); THYROXINE (T4) 6.3 UG/DL (4.5-12.0); TOTAL PROTEIN 6.5 GM/DL (6.4-8.2)
[2021-08-18 15:07] LABS: RSV AMPLIFICATION NEGATIVE (NEGATIVE)
[2021-08-18] MEDS ORDERED: ACETAMINOPHEN TAB 650MG DOSE (2X325MG) PO PRN (15:55)
[2021-08-18] MEDS ORDERED: MIRA3350 PO (16:05)
[2021-08-18] MEDS ORDERED: LEVE250T5 PO (16:05)
[2021-08-18] MEDS ORDERED: HOME MED LIST COMPLETE! XX SCH (16:05)
[2021-08-18] MEDS ORDERED: COLA100C5 PO (16:05)
[2021-08-18] MEDS ORDERED: FURO40TA2 PO (16:05)
[2021-08-18] MEDS ORDERED: MOM 30ML SUSPENSION UDC PO PRN (17:05)
[2021-08-18] MEDS ORDERED: MIRALAX *UNIT DOSE* 17GM PACKET PO PRN (17:05)
[2021-08-18] MEDS ORDERED: MECLIZINE 12.5 MG TAB PO PRN (17:05)
[2021-08-18] MEDS: FUROSEMIDE 40MG/4ML VIAL (J1940) IV SCH ×2 (18:00→23:42)
[2021-08-18] MEDS: SINEMET 25-100 MG TAB PO SCH ×2 (18:00→23:41)
[2021-08-18] MEDS ORDERED: GLUCOSE 4GM CHEW TABLET PO PRN (19:55)
[2021-08-18] MEDS ORDERED: GLUCAGON INJ 1MG VIAL SC PRN (19:55)
[2021-08-18] MEDS ORDERED: DEXTROSE 50% 50 ML SYRINGE IV PRN (19:55)
[2021-08-18] MEDS: HumaLOG INSULIN (NovoLOG) PER UNIT SC SCH (21:00)
[2021-08-18 21:45] VITALS: BP 116/81
[2021-08-18] MEDS: DOCUSATE SODIUM 100MG CAPSULE PO SCH (23:41)
[2021-08-18] MEDS: levETIRAcetam 250MG TABLET (KEPPRA) PO SCH (23:41)
[2021-08-18] MEDS: HEPARIN SOD (PORCINE) 5000UNITS/ML 1ML VIAL/SYRINGE SQ SCH (23:41)
[2021-08-18] MEDS: CALCIUM CARBONATE 500 MG CHEW U/D PO SCH (23:42)
[2021-08-19] MEDS: ENTACAPONE 200MG TABLET (COMTAN) PO SCH ×5 (00:21→21:12)
[2021-08-19] MEDS: FUROSEMIDE 40MG/4ML VIAL (J1940) IV SCH ×6 (03:39→21:12)
[2021-08-19 05:33] VITALS: BP 114/56
[2021-08-19] MEDS: HEPARIN SOD (PORCINE) 5000UNITS/ML 1ML VIAL/SYRINGE SQ SCH ×3 (06:37→21:13)
[2021-08-19] MEDS: SINEMET 25-100 MG TAB PO SCH ×5 (06:37→21:12)
[2021-08-19 07:13] LABS: HEMATOCRIT 37.3 % (42.0-52.0); HEMOGLOBIN 12.1 g/dl (13.5-17.5); MEAN CORPUSCULAR HEMOGLOBIN 31.2 pg (27.0-33.0); MEAN CORPUSCULAR HGB CONC 32.4 g/dl (32.0-36.5); MEAN CORPUSCULAR VOLUME 96.1 fl (80.0-96.0); PLATELET COUNT, AUTOMATED 175 10^3/uL (150-450); RED BLOOD COUNT 3.88 10^6/uL (4.30-6.10); WHITE BLOOD COUNT 4.7 10^3/uL (4.0-10.0)
[2021-08-19] MEDS: HumaLOG INSULIN (NovoLOG) PER UNIT SC SCH ×4 (07:30→21:00)
[2021-08-19 08:22] LABS: BLOOD UREA NITROGEN 16 MG/DL (7-18); CALCIUM LEVEL 8.5 MG/DL (8.8-10.2); CARBON DIOXIDE LEVEL 31 MEQ/L (21-32); CHLORIDE LEVEL 104 MEQ/L (98-107); GLOMERULAR FILTRATION RATE > 60.0 (>49); GLUCOSE, FASTING 103 MG/DL (70-100); POTASSIUM SERUM 3.1 MEQ/L (3.5-5.1); SODIUM LEVEL 142 MEQ/L (136-145)
[2021-08-19 09:00] VITALS: O2SAT 93
[2021-08-19] MEDS: CALCIUM CARBONATE 500 MG CHEW U/D PO SCH ×2 (10:09→21:12)
[2021-08-19] MEDS: levETIRAcetam 250MG TABLET (KEPPRA) PO SCH ×2 (10:09→21:12)
[2021-08-19] MEDS: DOCUSATE SODIUM 100MG CAPSULE PO SCH ×2 (10:10→21:12)
[2021-08-19] MEDS: ASPIRIN 81MG ENTERIC TABLET PO SCH (10:10)
[2021-08-19 11:40] LABS: MAGNESIUM LEVEL 2.3 MG/DL (1.8-2.4)
[2021-08-19 14:00] VITALS: BP 107/59
[2021-08-19] MEDS: DIMETHICONE 2% OINTMENT(VANICREAM) 70GM TUBE TOP SCH ×2 (14:16→21:13)
[2021-08-19] MEDS ORDERED: POTASSIUM CHLORIDE 10MEQ SR TABLET PO ONE (17:05)
[2021-08-19 17:27] VITALS: BP 119/92
[2021-08-20] VITALS (7 sets, daily range): BP systolic 117–134; BP diastolic 55–80; O2SAT 90–92
[2021-08-20] MEDS: FUROSEMIDE 40MG/4ML VIAL (J1940) IV SCH ×4 (02:03→23:33)
[2021-08-20 06:16] LABS: BLOOD UREA NITROGEN 19 MG/DL (7-18); CARBON DIOXIDE LEVEL 31 MEQ/L (21-32); CHLORIDE LEVEL 104 MEQ/L (98-107); CREATININE FOR GFR 0.87 MG/DL (0.70-1.30); GLOMERULAR FILTRATION RATE > 60.0 (>49); GLUCOSE, FASTING 106 MG/DL (70-100); POTASSIUM SERUM 3.4 MEQ/L (3.5-5.1); SODIUM LEVEL 141 MEQ/L (136-145)
[2021-08-20 06:17] LABS: CALCIUM LEVEL 8.6 MG/DL (8.8-10.2); MAGNESIUM LEVEL 2.2 MG/DL (1.8-2.4)
[2021-08-20] MEDS: ENTACAPONE 200MG TABLET (COMTAN) PO SCH ×4 (06:46→21:20)
[2021-08-20] MEDS: SINEMET 25-100 MG TAB PO SCH ×5 (06:46→21:20)
[2021-08-20] MEDS: HEPARIN SOD (PORCINE) 5000UNITS/ML 1ML VIAL/SYRINGE SQ SCH ×3 (06:46→21:20)
[2021-08-20] MEDS: HumaLOG INSULIN (NovoLOG) PER UNIT SC SCH ×4 (07:30→21:00)
[2021-08-20 07:41] LABS: HEMATOCRIT 40.4 % (42.0-52.0); HEMOGLOBIN 12.9 g/dl (13.5-17.5); MEAN CORPUSCULAR HEMOGLOBIN 30.7 pg (27.0-33.0); MEAN CORPUSCULAR HGB CONC 31.9 g/dl (32.0-36.5); MEAN CORPUSCULAR VOLUME 96.2 fl (80.0-96.0); PLATELET COUNT, AUTOMATED 185 10^3/uL (150-450); WHITE BLOOD COUNT 5.4 10^3/uL (4.0-10.0)
[2021-08-20] MEDS: POTASSIUM CHLORIDE 10MEQ SR TABLET PO SCH (09:53)
[2021-08-20] MEDS: levETIRAcetam 250MG TABLET (KEPPRA) PO SCH ×2 (09:53→21:20)
[2021-08-20] MEDS: ASPIRIN 81MG ENTERIC TABLET PO SCH (09:53)
[2021-08-20] MEDS: DOCUSATE SODIUM 100MG CAPSULE PO SCH ×2 (09:53→21:20)
[2021-08-20] MEDS: DIMETHICONE 2% OINTMENT(VANICREAM) 70GM TUBE TOP SCH ×2 (09:54→21:21)
[2021-08-20] MEDS: CALCIUM CARBONATE 500 MG CHEW U/D PO SCH ×2 (09:54→21:20)
[2021-08-21] MEDS: SINEMET 25-100 MG TAB PO SCH ×5 (05:48→23:02)
[2021-08-21] MEDS: HEPARIN SOD (PORCINE) 5000UNITS/ML 1ML VIAL/SYRINGE SQ SCH ×3 (05:48→23:02)
[2021-08-21] MEDS: ENTACAPONE 200MG TABLET (COMTAN) PO SCH ×4 (05:48→20:02)
[2021-08-21 06:00] VITALS: BP 123/62
[2021-08-21] MEDS: FUROSEMIDE 40MG/4ML VIAL (J1940) IV SCH ×3 (06:46→23:03)
[2021-08-21 06:57] LABS: MEAN CORPUSCULAR HEMOGLOBIN 30.7 pg (27.0-33.0); MEAN CORPUSCULAR HGB CONC 32.5 g/dl (32.0-36.5); MEAN CORPUSCULAR VOLUME 94.6 fl (80.0-96.0); PLATELET COUNT, AUTOMATED 199 10^3/uL (150-450); RED BLOOD COUNT 4.23 10^6/uL (4.30-6.10); WHITE BLOOD COUNT 4.7 10^3/uL (4.0-10.0)
[2021-08-21 07:12] LABS: BLOOD UREA NITROGEN 20 MG/DL (7-18); CARBON DIOXIDE LEVEL 30 MEQ/L (21-32); CHLORIDE LEVEL 103 MEQ/L (98-107); CREATININE FOR GFR 0.87 MG/DL (0.70-1.30); GLOMERULAR FILTRATION RATE > 60.0 (>49); GLUCOSE, FASTING 110 MG/DL (70-100); MAGNESIUM LEVEL 2.3 MG/DL (1.8-2.4); POTASSIUM SERUM 3.3 MEQ/L (3.5-5.1); SODIUM LEVEL 141 MEQ/L (136-145)
[2021-08-21] MEDS: HumaLOG INSULIN (NovoLOG) PER UNIT SC SCH ×4 (08:40→21:00)
[2021-08-21] MEDS: ASPIRIN 81MG ENTERIC TABLET PO SCH (08:41)
[2021-08-21] MEDS: POTASSIUM CHLORIDE 10MEQ SR TABLET PO SCH (08:41)
[2021-08-21] MEDS: DOCUSATE SODIUM 100MG CAPSULE PO SCH ×2 (08:41→20:02)
[2021-08-21] MEDS: CALCIUM CARBONATE 500 MG CHEW U/D PO SCH ×2 (08:41→20:02)
[2021-08-21] MEDS: DIMETHICONE 2% OINTMENT(VANICREAM) 70GM TUBE TOP SCH ×2 (08:42→20:02)
[2021-08-21] MEDS: levETIRAcetam 250MG TABLET (KEPPRA) PO SCH ×2 (08:42→20:02)
[2021-08-21 09:00] VITALS: O2SAT 95
[2021-08-21] MEDS ORDERED: POTASSIUM CHLORIDE 10MEQ SR TABLET PO ONE (10:00)
[2021-08-21 14:00] VITALS: BP 113/55
[2021-08-21 21:00] VITALS: BP 121/51
[2021-08-22 06:00] VITALS: BP 110/66
[2021-08-22 06:13] LABS: HEMATOCRIT 42.8 % (42.0-52.0); HEMOGLOBIN 13.5 g/dl (13.5-17.5); MEAN CORPUSCULAR HEMOGLOBIN 30.5 pg (27.0-33.0); MEAN CORPUSCULAR HGB CONC 31.5 g/dl (32.0-36.5); MEAN CORPUSCULAR VOLUME 96.6 fl (80.0-96.0); PLATELET COUNT, AUTOMATED 195 10^3/uL (150-450); RED BLOOD COUNT 4.43 10^6/uL (4.30-6.10); WHITE BLOOD COUNT 4.8 10^3/uL (4.0-10.0)
[2021-08-22] MEDS: HEPARIN SOD (PORCINE) 5000UNITS/ML 1ML VIAL/SYRINGE SQ SCH ×3 (06:24→21:21)
[2021-08-22] MEDS: SINEMET 25-100 MG TAB PO SCH ×5 (06:24→21:20)
[2021-08-22] MEDS: FUROSEMIDE 40MG/4ML VIAL (J1940) IV SCH (06:25)
[2021-08-22] MEDS: ENTACAPONE 200MG TABLET (COMTAN) PO SCH ×4 (06:38→21:19)
[2021-08-22 06:45] LABS: BLOOD UREA NITROGEN 24 MG/DL (7-18); CALCIUM LEVEL 9.2 MG/DL (8.8-10.2); CARBON DIOXIDE LEVEL 31 MEQ/L (21-32); CHLORIDE LEVEL 103 MEQ/L (98-107); CREATININE FOR GFR 0.97 MG/DL (0.70-1.30); GLOMERULAR FILTRATION RATE > 60.0 (>49); GLUCOSE, FASTING 105 MG/DL (70-100); MAGNESIUM LEVEL 2.3 MG/DL (1.8-2.4); POTASSIUM SERUM 3.7 MEQ/L (3.5-5.1); SODIUM LEVEL 139 MEQ/L (136-145)
[2021-08-22 07:30] VITALS: BP 116/68
[2021-08-22] MEDS: HumaLOG INSULIN (NovoLOG) PER UNIT SC SCH ×4 (08:39→21:00)
[2021-08-22] MEDS: ASPIRIN 81MG ENTERIC TABLET PO SCH (08:40)
[2021-08-22] MEDS: DOCUSATE SODIUM 100MG CAPSULE PO SCH ×2 (08:40→21:20)
[2021-08-22] MEDS: CALCIUM CARBONATE 500 MG CHEW U/D PO SCH ×2 (08:40→21:20)
[2021-08-22] MEDS: levETIRAcetam 250MG TABLET (KEPPRA) PO SCH ×2 (08:40→21:19)
[2021-08-22] MEDS: POTASSIUM CHLORIDE 10MEQ SR TABLET PO SCH (08:40)
[2021-08-22] MEDS: DIMETHICONE 2% OINTMENT(VANICREAM) 70GM TUBE TOP SCH ×2 (08:40→21:20)
[2021-08-22 09:00] VITALS: O2SAT 98
[2021-08-22] MEDS ORDERED: FUROSEMIDE 40 MG TAB PO SCH (09:00)
[2021-08-22 14:00] VITALS: BP 116/69
[2021-08-22] MEDS: FUROSEMIDE 20 MG TAB PO SCH (16:04)
[2021-08-22 22:00] VITALS: BP 120/68
[2021-08-23] MEDS: ENTACAPONE 200MG TABLET (COMTAN) PO SCH ×4 (05:38→21:55)
[2021-08-23] MEDS: HEPARIN SOD (PORCINE) 5000UNITS/ML 1ML VIAL/SYRINGE SQ SCH ×3 (05:38→21:55)
[2021-08-23] MEDS: SINEMET 25-100 MG TAB PO SCH ×5 (05:38→21:55)
[2021-08-23 06:00] VITALS: BP 101/57
[2021-08-23 06:05] LABS: HEMATOCRIT 40.2 % (42.0-52.0); HEMOGLOBIN 13.2 g/dl (13.5-17.5); MEAN CORPUSCULAR HEMOGLOBIN 30.8 pg (27.0-33.0); MEAN CORPUSCULAR HGB CONC 32.8 g/dl (32.0-36.5); MEAN CORPUSCULAR VOLUME 93.7 fl (80.0-96.0); PLATELET COUNT, AUTOMATED 193 10^3/uL (150-450); RED BLOOD COUNT 4.29 10^6/uL (4.30-6.10); WHITE BLOOD COUNT 4.6 10^3/uL (4.0-10.0)
[2021-08-23 06:23] LABS: BLOOD UREA NITROGEN 26 MG/DL (7-18); CALCIUM LEVEL 9.3 MG/DL (8.8-10.2); CARBON DIOXIDE LEVEL 30 MEQ/L (21-32); CHLORIDE LEVEL 104 MEQ/L (98-107); CREATININE FOR GFR 0.88 MG/DL (0.70-1.30); GLOMERULAR FILTRATION RATE > 60.0 (>49); GLUCOSE, FASTING 105 MG/DL (70-100); MAGNESIUM LEVEL 2.3 MG/DL (1.8-2.4); POTASSIUM SERUM 3.5 MEQ/L (3.5-5.1); SODIUM LEVEL 140 MEQ/L (136-145)
[2021-08-23] MEDS: HumaLOG INSULIN (NovoLOG) PER UNIT SC SCH ×4 (07:30→21:00)
[2021-08-23] MEDS: DOCUSATE SODIUM 100MG CAPSULE PO SCH ×2 (09:13→21:55)
[2021-08-23] MEDS: POTASSIUM CHLORIDE 10MEQ SR TABLET PO SCH (09:13)
[2021-08-23] MEDS: FUROSEMIDE 20 MG TAB PO SCH ×2 (09:13→16:38)
[2021-08-23] MEDS: CALCIUM CARBONATE 500 MG CHEW U/D PO SCH ×2 (09:14→21:55)
[2021-08-23] MEDS: ASPIRIN 81MG ENTERIC TABLET PO SCH (09:14)
[2021-08-23] MEDS: levETIRAcetam 250MG TABLET (KEPPRA) PO SCH ×2 (09:14→21:55)
[2021-08-23] MEDS: DIMETHICONE 2% OINTMENT(VANICREAM) 70GM TUBE TOP SCH ×2 (09:14→21:56)
[2021-08-23 14:00] VITALS: BP 102/60
[2021-08-23 22:00] VITALS: BP 115/70
[2021-08-24] MEDS: HEPARIN SOD (PORCINE) 5000UNITS/ML 1ML VIAL/SYRINGE SQ SCH (05:42)
[2021-08-24] MEDS: SINEMET 25-100 MG TAB PO SCH ×2 (05:42→08:50)
[2021-08-24] MEDS: ENTACAPONE 200MG TABLET (COMTAN) PO SCH (05:42)
[2021-08-24 06:00] VITALS: BP 114/69
[2021-08-24 06:05] LABS: HEMATOCRIT 41.2 % (42.0-52.0); MEAN CORPUSCULAR HEMOGLOBIN 30.4 pg (27.0-33.0); MEAN CORPUSCULAR HGB CONC 31.6 g/dl (32.0-36.5); MEAN CORPUSCULAR VOLUME 96.5 fl (80.0-96.0); PLATELET COUNT, AUTOMATED 187 10^3/uL (150-450); RED BLOOD COUNT 4.27 10^6/uL (4.30-6.10); WHITE BLOOD COUNT 4.1 10^3/uL (4.0-10.0)
[2021-08-24 06:29] LABS: BLOOD UREA NITROGEN 23 MG/DL (7-18); CALCIUM LEVEL 9.1 MG/DL (8.8-10.2); CARBON DIOXIDE LEVEL 30 MEQ/L (21-32); CHLORIDE LEVEL 105 MEQ/L (98-107); CREATININE FOR GFR 0.92 MG/DL (0.70-1.30); GLOMERULAR FILTRATION RATE > 60.0 (>49); GLUCOSE, FASTING 99 MG/DL (70-100); MAGNESIUM LEVEL 2.4 MG/DL (1.8-2.4); POTASSIUM SERUM 3.5 MEQ/L (3.5-5.1); SODIUM LEVEL 141 MEQ/L (136-145)
[2021-08-24] MEDS: HumaLOG INSULIN (NovoLOG) PER UNIT SC SCH (07:28)
[2021-08-24] MEDS: FUROSEMIDE 20 MG TAB PO SCH (08:50)
[2021-08-24] MEDS: ASPIRIN 81MG ENTERIC TABLET PO SCH (08:50)
[2021-08-24] MEDS: DOCUSATE SODIUM 100MG CAPSULE PO SCH (08:50)
[2021-08-24] MEDS: POTASSIUM CHLORIDE 10MEQ SR TABLET PO SCH (08:50)
[2021-08-24] MEDS: CALCIUM CARBONATE 500 MG CHEW U/D PO SCH (08:51)
[2021-08-24] MEDS: DIMETHICONE 2% OINTMENT(VANICREAM) 70GM TUBE TOP SCH (08:51)
[2021-08-24] MEDS: levETIRAcetam 250MG TABLET (KEPPRA) PO SCH (08:51)
[2021-08-24 08:53] VITALS: BP 115/68
== END 2021-08-24 11:04 | DRG 292 ==
LOC: M ED 12:29 → M ED INP 15:53 → M MSPAV 21:35
PROVIDERS: ADMIT Family Medicine; ATTEND Family Medicine
DX: I50.33 Acute on chronic diastolic (congestive) heart failure (principal); I48.20 Chronic atrial fibrillation, unspecified; Z68.41 Body mass index [BMI] 40.0-44.9, adult; G20 Parkinson's disease; E66.01 Morbid (severe) obesity due to excess calories; E55.9 Vitamin D deficiency, unspecified; E53.8 Deficiency of other specified B group vitamins; E11.9 Type 2 diabetes mellitus without complications; I87.2 Venous insufficiency (chronic) (peripheral); E87.6 Hypokalemia; K59.09 Other constipation; G47.33 Obstructive sleep apnea (adult) (pediatric); Z91.19 Patient's noncompliance with other medical treatment and regimen; Z90.49 Acquired absence of other specified parts of digestive tract; Z20.822 Contact with and (suspected) exposure to COVID-19; Z79.82 Long term (current) use of aspirin; Z79.899 Other long term (current) drug therapy

== ENCOUNTER → 2021-09-05 | Outpatient (REF) | payer MEDICAID, MEDICARE ==
[~2021-09-05] MED LIST changes: +LEVE250T5 PO; +MIRA3350 PO
[2021-09-05 11:09] LABS: BLOOD UREA NITROGEN 23 MG/DL (7-18); CALCIUM LEVEL 9.3 MG/DL (8.8-10.2); CARBON DIOXIDE LEVEL 32 MEQ/L (21-32); CHLORIDE LEVEL 99 MEQ/L (98-107); CREATININE FOR GFR 1.16 MG/DL (0.70-1.30); GLOMERULAR FILTRATION RATE > 60.0 (>49); GLUCOSE, FASTING 143 MG/DL (70-100); NT-PRO BNP 1050 PG/ML (<125); POTASSIUM SERUM 3.7 MEQ/L (3.5-5.1); SODIUM LEVEL 138 MEQ/L (136-145)
== END ==
PROVIDERS: ATTEND Internal Medicine
DX: I50.9 Heart failure, unspecified (principal)

== ENCOUNTER → 2021-09-07 | Outpatient (REF) ==
[2021-09-07 12:03] LABS: HEMATOCRIT 45.4 % (42.0-52.0); HEMOGLOBIN 14.7 g/dl (13.5-17.5); MEAN CORPUSCULAR HEMOGLOBIN 30.6 pg (27.0-33.0); MEAN CORPUSCULAR HGB CONC 32.4 g/dl (32.0-36.5); MEAN CORPUSCULAR VOLUME 94.4 fl (80.0-96.0); PLATELET COUNT, AUTOMATED 241 10^3/uL (150-450); RED BLOOD COUNT 4.81 10^6/uL (4.30-6.10); WHITE BLOOD COUNT 5.5 10^3/uL (4.0-10.0)
[2021-09-07 13:27] LABS: BLOOD UREA NITROGEN 17 MG/DL (7-18); CALCIUM LEVEL 9.3 MG/DL (8.8-10.2); CARBON DIOXIDE LEVEL 31 MEQ/L (21-32); CHLORIDE LEVEL 101 MEQ/L (98-107); CREATININE FOR GFR 0.97 MG/DL (0.70-1.30); GLOMERULAR FILTRATION RATE > 60.0 (>49); GLUCOSE, FASTING 138 MG/DL (70-100); NT-PRO BNP 1023 PG/ML (<125); POTASSIUM SERUM 3.3 MEQ/L (3.5-5.1); SODIUM LEVEL 138 MEQ/L (136-145)
== END ==
PROVIDERS: ATTEND Physician Assistant
DX: I50.9 Heart failure, unspecified (principal)

== ENCOUNTER → 2021-09-13 | Outpatient (REF) ==
[2021-09-13 16:06] LABS: BLOOD UREA NITROGEN 19 MG/DL (7-18); CALCIUM LEVEL 8.9 MG/DL (8.8-10.2); CARBON DIOXIDE LEVEL 27 MEQ/L (21-32); CHLORIDE LEVEL 106 MEQ/L (98-107); CREATININE FOR GFR 1.06 MG/DL (0.70-1.30); GLOMERULAR FILTRATION RATE > 60.0 (>49); GLUCOSE, FASTING 108 MG/DL (70-100); POTASSIUM SERUM 4.3 MEQ/L (3.5-5.1); SODIUM LEVEL 140 MEQ/L (136-145)
== END ==
PROVIDERS: ATTEND Physician Assistant
DX: E83.51 Hypocalcemia (principal)

== ENCOUNTER → 2021-09-21 | Outpatient (REF) ==
[2021-09-21 09:49] LABS: HEMATOCRIT 46.1 % (42.0-52.0); HEMOGLOBIN 14.9 g/dl (13.5-17.5); MEAN CORPUSCULAR HEMOGLOBIN 30.3 pg (27.0-33.0); MEAN CORPUSCULAR HGB CONC 32.3 g/dl (32.0-36.5); MEAN CORPUSCULAR VOLUME 93.9 fl (80.0-96.0); PLATELET COUNT, AUTOMATED 180 10^3/uL (150-450); RED BLOOD COUNT 4.91 10^6/uL (4.30-6.10); WHITE BLOOD COUNT 4.7 10^3/uL (4.0-10.0)
[2021-09-21 10:35] LABS: BLOOD UREA NITROGEN 23 MG/DL (7-18); CALCIUM LEVEL 9.8 MG/DL (8.8-10.2); CARBON DIOXIDE LEVEL 31 MEQ/L (21-32); CHLORIDE LEVEL 104 MEQ/L (98-107); CREATININE FOR GFR 1.12 MG/DL (0.70-1.30); GLOMERULAR FILTRATION RATE > 60.0 (>49); GLUCOSE, FASTING 140 MG/DL (70-100); NT-PRO BNP 1228 PG/ML (<125); POTASSIUM SERUM 3.7 MEQ/L (3.5-5.1); SODIUM LEVEL 141 MEQ/L (136-145)
== END ==
PROVIDERS: ATTEND Internal Medicine
DX: I50.9 Heart failure, unspecified (principal)

== ENCOUNTER → 2021-10-24 | Outpatient (REF) | payer MEDICARE, MEDICAID ==
[2021-10-24 13:52] LABS: HEMATOCRIT 43.3 % (42.0-52.0); HEMOGLOBIN 14.4 g/dl (13.5-17.5); MEAN CORPUSCULAR HEMOGLOBIN 30.7 pg (27.0-33.0); MEAN CORPUSCULAR HGB CONC 33.3 g/dl (32.0-36.5); MEAN CORPUSCULAR VOLUME 92.3 fl (80.0-96.0); PLATELET COUNT, AUTOMATED 172 10^3/uL (150-450); RED BLOOD COUNT 4.69 10^6/uL (4.30-6.10); WHITE BLOOD COUNT 6.6 10^3/uL (4.0-10.0)
[2021-10-24 14:26] LABS: BLOOD UREA NITROGEN 23 MG/DL (7-18); CALCIUM LEVEL 9.2 MG/DL (8.8-10.2); CARBON DIOXIDE LEVEL 27 MEQ/L (21-32); CHLORIDE LEVEL 105 MEQ/L (98-107); GLOMERULAR FILTRATION RATE > 60.0 (>49); GLUCOSE, FASTING 124 MG/DL (70-100); NT-PRO BNP 1344 PG/ML (<125); POTASSIUM SERUM 4.1 MEQ/L (3.5-5.1); SODIUM LEVEL 138 MEQ/L (136-145)
== END ==
PROVIDERS: ATTEND Internal Medicine
DX: G20 Parkinson's disease (principal); I50.9 Heart failure, unspecified

== ENCOUNTER → 2021-10-25 | Outpatient (REF) | payer MEDICARE, MEDICAID | PROVIDERS: ATTEND Internal Medicine | DX: R09.89 Other specified symptoms and signs involving the circulatory and respiratory systems (principal) ==

== ENCOUNTER → 2021-11-01 | Outpatient (REF) | payer MEDICARE, MEDICAID ==
[2021-11-01 14:21] LABS: BLOOD UREA NITROGEN 20 MG/DL (7-18); CALCIUM LEVEL 9.7 MG/DL (8.8-10.2); CARBON DIOXIDE LEVEL 28 MEQ/L (21-32); CHLORIDE LEVEL 104 MEQ/L (98-107); CREATININE FOR GFR 0.86 MG/DL (0.70-1.30); GLOMERULAR FILTRATION RATE > 60.0 (>49); GLUCOSE, FASTING 151 MG/DL (70-100); POTASSIUM SERUM 4.3 MEQ/L (3.5-5.1); SODIUM LEVEL 138 MEQ/L (136-145)
== END ==
PROVIDERS: ATTEND Internal Medicine
DX: I87.2 Venous insufficiency (chronic) (peripheral) (principal)

== ENCOUNTER → 2021-11-18 | Outpatient (REF) | payer MEDICARE, MEDICAID ==
[2021-11-18 14:05] LABS: HEMATOCRIT 44.7 % (42.0-52.0); HEMOGLOBIN 14.3 g/dl (13.5-17.5); MEAN CORPUSCULAR VOLUME 93.9 fl (80.0-96.0); PLATELET COUNT, AUTOMATED 196 10^3/uL (150-450); RED BLOOD COUNT 4.76 10^6/uL (4.30-6.10); WHITE BLOOD COUNT 6.2 10^3/uL (4.0-10.0)
[2021-11-18 14:37] LABS: BLOOD UREA NITROGEN 23 MG/DL (7-18); CALCIUM LEVEL 9.3 MG/DL (8.8-10.2); CARBON DIOXIDE LEVEL 30 MEQ/L (21-32); CHLORIDE LEVEL 103 MEQ/L (98-107); CREATININE FOR GFR 1.08 MG/DL (0.70-1.30); GLOMERULAR FILTRATION RATE > 60.0 (>49); GLUCOSE, FASTING 164 MG/DL (70-100); NT-PRO BNP 1061 PG/ML (<125); POTASSIUM SERUM 3.9 MEQ/L (3.5-5.1); SODIUM LEVEL 140 MEQ/L (136-145)
== END ==
PROVIDERS: ATTEND Internal Medicine
DX: G20 Parkinson's disease (principal)

== ENCOUNTER → 2021-12-26 | Outpatient (REF) | payer MEDICARE, MEDICAID ==
[2021-12-26 11:22] LABS: HEMATOCRIT 42.6 % (42.0-52.0); HEMOGLOBIN 13.7 g/dl (13.5-17.5); MEAN CORPUSCULAR HEMOGLOBIN 30.3 pg (27.0-33.0); MEAN CORPUSCULAR HGB CONC 32.2 g/dl (32.0-36.5); MEAN CORPUSCULAR VOLUME 94.2 fl (80.0-96.0); PLATELET COUNT, AUTOMATED 184 10^3/uL (150-450); RED BLOOD COUNT 4.52 10^6/uL (4.30-6.10)
[2021-12-26 11:47] LABS: BLOOD UREA NITROGEN 24 MG/DL (7-18); CALCIUM LEVEL 8.9 MG/DL (8.8-10.2); CARBON DIOXIDE LEVEL 28 MEQ/L (21-32); CHLORIDE LEVEL 105 MEQ/L (98-107); CREATININE FOR GFR 0.96 MG/DL (0.70-1.30); GLOMERULAR FILTRATION RATE > 60.0 (>49); GLUCOSE, FASTING 140 MG/DL (70-100); NT-PRO BNP 1016 PG/ML (<125); SODIUM LEVEL 140 MEQ/L (136-145)
== END ==
PROVIDERS: ATTEND Internal Medicine
DX: I50.9 Heart failure, unspecified (principal)

== ENCOUNTER → 2022-01-25 | Outpatient (REF) | payer MEDICARE, MEDICAID ==
[2022-01-25 13:01] LABS: HEMATOCRIT 45.1 % (42.0-52.0); HEMOGLOBIN 14.8 g/dl (13.5-17.5); MEAN CORPUSCULAR HGB CONC 32.8 g/dl (32.0-36.5); MEAN CORPUSCULAR VOLUME 94.4 fl (80.0-96.0); PLATELET COUNT, AUTOMATED 197 10^3/uL (150-450); RED BLOOD COUNT 4.78 10^6/uL (4.30-6.10); WHITE BLOOD COUNT 5.5 10^3/uL (4.0-10.0)
[2022-01-25 13:33] LABS: BLOOD UREA NITROGEN 23 MG/DL (7-18); CALCIUM LEVEL 9.3 MG/DL (8.8-10.2); CARBON DIOXIDE LEVEL 30 MEQ/L (21-32); CHLORIDE LEVEL 105 MEQ/L (98-107); CREATININE FOR GFR 1.19 MG/DL (0.70-1.30); GLOMERULAR FILTRATION RATE > 60.0 (>49); GLUCOSE, FASTING 143 MG/DL (70-100); NT-PRO BNP 1108 PG/ML (<125); POTASSIUM SERUM 3.8 MEQ/L (3.5-5.1); SODIUM LEVEL 138 MEQ/L (136-145)
== END ==
PROVIDERS: ATTEND Internal Medicine
DX: E11.9 Type 2 diabetes mellitus without complications (principal); I50.9 Heart failure, unspecified

== ENCOUNTER → 2022-02-01 | Outpatient (CLI) | payer MEDICARE, MEDICAID | PROVIDERS: ATTEND Internal Medicine | DX: R63.5 Abnormal weight gain (principal) ==

== ENCOUNTER → 2022-02-02 | Outpatient (REF) | payer MEDICARE, MEDICAID | PROVIDERS: ATTEND Internal Medicine | DX: R63.5 Abnormal weight gain (principal); Z53.9 Procedure and treatment not carried out, unspecified reason ==

== ENCOUNTER → 2022-02-08 | Outpatient (CLI) | payer MEDICARE, MEDICAID | PROVIDERS: ATTEND Internal Medicine | DX: I50.9 Heart failure, unspecified (principal) ==

== ENCOUNTER → 2022-02-09 | Outpatient (REF) | payer MEDICARE, MEDICAID ==
[2022-02-09 11:19] LABS: HEMATOCRIT 44.3 % (42.0-52.0); HEMOGLOBIN 14.5 g/dl (13.5-17.5); MEAN CORPUSCULAR HEMOGLOBIN 30.8 pg (27.0-33.0); MEAN CORPUSCULAR HGB CONC 32.7 g/dl (32.0-36.5); MEAN CORPUSCULAR VOLUME 94.1 fl (80.0-96.0); PLATELET COUNT, AUTOMATED 180 10^3/uL (150-450); RED BLOOD COUNT 4.71 10^6/uL (4.30-6.10); WHITE BLOOD COUNT 4.4 10^3/uL (4.0-10.0)
[2022-02-09 13:51] LABS: BLOOD UREA NITROGEN 21 MG/DL (7-18); CARBON DIOXIDE LEVEL 26 MEQ/L (21-32); CHLORIDE LEVEL 101 MEQ/L (98-107); CREATININE FOR GFR 1.24 MG/DL (0.70-1.30); GLOMERULAR FILTRATION RATE > 60.0 (>49); GLUCOSE, FASTING 186 MG/DL (70-100); NT-PRO BNP 1085 PG/ML (<125); POTASSIUM SERUM 3.7 MEQ/L (3.5-5.1); SODIUM LEVEL 136 MEQ/L (136-145)
== END ==
LOC: EDSTATUS 02-10 16:16
PROVIDERS: ATTEND Internal Medicine
DX: I50.9 Heart failure, unspecified (principal)

== ENCOUNTER → 2022-02-10 | Outpatient (REF) | payer MEDICARE, MEDICAID | PROVIDERS: ATTEND Internal Medicine | DX: I50.9 Heart failure, unspecified (principal) ==

== ENCOUNTER → 2022-02-13 | Outpatient (REF) | payer MEDICARE, MEDICAID ==
[2022-02-13 12:37] LABS: BLOOD UREA NITROGEN 17 MG/DL (7-18); CALCIUM LEVEL 9.1 MG/DL (8.8-10.2); CARBON DIOXIDE LEVEL 29 MEQ/L (21-32); CHLORIDE LEVEL 101 MEQ/L (98-107); CREATININE FOR GFR 1.02 MG/DL (0.70-1.30); GLOMERULAR FILTRATION RATE > 60.0 (>49); GLUCOSE, FASTING 136 MG/DL (70-100); POTASSIUM SERUM 3.9 MEQ/L (3.5-5.1); SODIUM LEVEL 136 MEQ/L (136-145)
== END ==
PROVIDERS: ATTEND Internal Medicine
DX: I50.9 Heart failure, unspecified (principal)

== ENCOUNTER → 2022-02-16 | Outpatient (CLI) | payer MEDICARE, MEDICAID | PROVIDERS: ATTEND Internal Medicine | DX: I50.9 Heart failure, unspecified (principal) ==

== ENCOUNTER → 2022-03-21 | Outpatient (REF) | payer MEDICARE, MEDICAID | PROVIDERS: ATTEND Internal Medicine | DX: R05.9 Cough, unspecified (principal) ==

== ENCOUNTER → 2022-03-29 | Outpatient (REF) | payer MEDICARE, MEDICAID ==
[2022-03-29 12:25] LABS: HEMATOCRIT 42.2 % (42.0-52.0); HEMOGLOBIN 13.8 g/dl (13.5-17.5); MEAN CORPUSCULAR HEMOGLOBIN 30.6 pg (27.0-33.0); MEAN CORPUSCULAR HGB CONC 32.7 g/dl (32.0-36.5); MEAN CORPUSCULAR VOLUME 93.6 fl (80.0-96.0); PLATELET COUNT, AUTOMATED 163 10^3/uL (150-450); RED BLOOD COUNT 4.51 10^6/uL (4.30-6.10); WHITE BLOOD COUNT 4.6 10^3/uL (4.0-10.0)
[2022-03-29 13:15] LABS: BLOOD UREA NITROGEN 18 MG/DL (7-18); CALCIUM LEVEL 8.9 MG/DL (8.8-10.2); CARBON DIOXIDE LEVEL 28 MEQ/L (21-32); CHLORIDE LEVEL 103 MEQ/L (98-107); CREATININE FOR GFR 1.02 MG/DL (0.70-1.30); GLOMERULAR FILTRATION RATE > 60.0 (>49); GLUCOSE, FASTING 159 MG/DL (70-100); NT-PRO BNP 1331 PG/ML (<125); POTASSIUM SERUM 3.6 MEQ/L (3.5-5.1); SODIUM LEVEL 138 MEQ/L (136-145)
== END ==
PROVIDERS: ATTEND Internal Medicine
DX: I50.9 Heart failure, unspecified (principal)

== ENCOUNTER → 2022-04-24 | Outpatient (REF) | payer MEDICARE, MEDICAID ==
[2022-04-24 10:30] LABS: HEMATOCRIT 43.4 % (42.0-52.0); HEMOGLOBIN 14.2 g/dl (13.5-17.5); MEAN CORPUSCULAR HEMOGLOBIN 31.2 pg (27.0-33.0); MEAN CORPUSCULAR HGB CONC 32.7 g/dl (32.0-36.5); MEAN CORPUSCULAR VOLUME 95.4 fl (80.0-96.0); PLATELET COUNT, AUTOMATED 182 10^3/uL (150-450); RED BLOOD COUNT 4.55 10^6/uL (4.30-6.10); WHITE BLOOD COUNT 5.3 10^3/uL (4.0-10.0)
[2022-04-24 11:13] LABS: BLOOD UREA NITROGEN 18 MG/DL (7-18); CALCIUM LEVEL 9.2 MG/DL (8.8-10.2); CARBON DIOXIDE LEVEL 29 MEQ/L (21-32); CHLORIDE LEVEL 103 MEQ/L (98-107); CREATININE FOR GFR 1.12 MG/DL (0.70-1.30); GLOMERULAR FILTRATION RATE > 60.0 (>42); GLUCOSE, FASTING 147 MG/DL (70-100); NT-PRO BNP 1095 PG/ML (<125); POTASSIUM SERUM 4.2 MEQ/L (3.5-5.1); SODIUM LEVEL 137 MEQ/L (136-145)
== END ==
PROVIDERS: ATTEND Internal Medicine
DX: I50.9 Heart failure, unspecified (principal)

== ENCOUNTER → 2022-05-22 | Outpatient (REF) | payer MEDICARE, MEDICAID ==
[~2022-05-22] MED LIST changes: +VITA-148 PO; -VITA-298 PO
[2022-05-22 11:44] LABS: HEMOGLOBIN 13.8 g/dl (13.5-17.5); MEAN CORPUSCULAR HEMOGLOBIN 31.4 pg (27.0-33.0); MEAN CORPUSCULAR HGB CONC 32.9 g/dl (32.0-36.5); MEAN CORPUSCULAR VOLUME 95.7 fl (80.0-96.0); PLATELET COUNT, AUTOMATED 216 10^3/uL (150-450); RED BLOOD COUNT 4.39 10^6/uL (4.30-6.10); WHITE BLOOD COUNT 5.9 10^3/uL (4.0-10.0)
[2022-05-22 12:11] LABS: BLOOD UREA NITROGEN 17 MG/DL (7-18); CALCIUM LEVEL 9.3 MG/DL (8.8-10.2); CARBON DIOXIDE LEVEL 28 MEQ/L (21-32); CHLORIDE LEVEL 101 MEQ/L (98-107); CREATININE FOR GFR 1.03 MG/DL (0.70-1.30); GLOMERULAR FILTRATION RATE > 60.0 (>42); GLUCOSE, FASTING 108 MG/DL (70-100); NT-PRO BNP 1215 PG/ML (<125); SODIUM LEVEL 137 MEQ/L (136-145)
== END ==
PROVIDERS: ATTEND Internal Medicine
DX: I50.9 Heart failure, unspecified (principal)

== ENCOUNTER → 2022-06-06 | Outpatient (REF) | payer MEDICARE, MEDICAID | PROVIDERS: ATTEND Internal Medicine | DX: R05.9 Cough, unspecified (principal) ==

== ENCOUNTER → 2022-06-26 | Outpatient (REF) | payer MEDICARE, MEDICAID ==
[2022-06-26 11:17] LABS: HEMATOCRIT 44.6 % (42.0-52.0); HEMOGLOBIN 14.5 g/dl (13.5-17.5); MEAN CORPUSCULAR HGB CONC 32.5 g/dl (32.0-36.5); MEAN CORPUSCULAR VOLUME 95.5 fl (80.0-96.0); PLATELET COUNT, AUTOMATED 189 10^3/uL (150-450); RED BLOOD COUNT 4.67 10^6/uL (4.30-6.10); WHITE BLOOD COUNT 6.7 10^3/uL (4.0-10.0)
[2022-06-26 11:35] LABS: BLOOD UREA NITROGEN 22 MG/DL (9-23); CALCIUM LEVEL 9.1 MG/DL (8.3-10.6); CARBON DIOXIDE LEVEL 23 MMOL/L (20-31); CHLORIDE LEVEL 105 MMOL/L (98-107); CREATININE FOR GFR 0.84 MG/DL (0.70-1.30); GLOMERULAR FILTRATION RATE > 60.0 (>42); GLUCOSE, FASTING 226 MG/DL (74-106); POTASSIUM SERUM 3.9 MMOL/L (3.5-5.1); SODIUM LEVEL 136 MMOL/L (136-145)
== END ==
PROVIDERS: ATTEND Internal Medicine
DX: I50.9 Heart failure, unspecified (principal)

== ENCOUNTER → 2022-07-24 | Outpatient (REF) | payer MEDICARE, MEDICAID ==
[2022-07-24 10:33] LABS: HEMATOCRIT 42.3 % (42.0-52.0); HEMOGLOBIN 13.9 g/dl (13.5-17.5); MEAN CORPUSCULAR HEMOGLOBIN 31.4 pg (27.0-33.0); MEAN CORPUSCULAR HGB CONC 32.9 g/dl (32.0-36.5); MEAN CORPUSCULAR VOLUME 95.7 fl (80.0-96.0); PLATELET COUNT, AUTOMATED 185 10^3/uL (150-450); RED BLOOD COUNT 4.42 10^6/uL (4.30-6.10)
[2022-07-24 11:12] LABS: BLOOD UREA NITROGEN 17 MG/DL (9-23); CALCIUM LEVEL 8.8 MG/DL (8.3-10.6); CARBON DIOXIDE LEVEL 26 MMOL/L (20-31); CHLORIDE LEVEL 100 MMOL/L (98-107); CREATININE FOR GFR 0.93 MG/DL (0.70-1.30); GLOMERULAR FILTRATION RATE > 60.0 (>42); GLUCOSE, FASTING 185 MG/DL (74-106); SODIUM LEVEL 137 MMOL/L (136-145)
== END ==
PROVIDERS: ATTEND Internal Medicine
DX: I50.9 Heart failure, unspecified (principal)

== ENCOUNTER → 2022-07-27 | Outpatient (CLI) | payer MEDICARE, MEDICAID | LOC: M RAD 13:52 | PROVIDERS: ATTEND Physician Assistant | DX: M79.89 Other specified soft tissue disorders (principal) ==

== ENCOUNTER → 2022-07-28 | Outpatient (CLI) | payer MEDICARE, MEDICAID | LOC: M RAD 14:18 | PROVIDERS: ATTEND Physician Assistant | DX: M79.89 Other specified soft tissue disorders (principal) ==

== ENCOUNTER → 2022-08-08 | Outpatient (CLI) | payer MEDICARE, MEDICAID ==
[~2022-08-08] MED LIST changes: +ISOVUE-370 76% 100ML VIAL As Ordered ONE
== END ==
LOC: M RAD 07:52
PROVIDERS: ATTEND Physician Assistant
DX: M79.89 Other specified soft tissue disorders (principal); I73.9 Peripheral vascular disease, unspecified; K44.9 Diaphragmatic hernia without obstruction or gangrene; K40.20 Bilateral inguinal hernia, without obstruction or gangrene, not specified as recurrent; N28.1 Cyst of kidney, acquired; M62.50 Muscle wasting and atrophy, not elsewhere classified, unspecified site
CPT/HCPCS: 75635; Q9967

== ENCOUNTER → 2022-08-14 | Outpatient (REF) | payer MEDICARE, MEDICAID ==
[~2022-08-14] MED LIST changes: -ISOVUE-370 76% 100ML VIAL As Ordered ONE
[2022-08-14 17:52] LABS: HEMOGLOBIN 13.9 g/dl (13.5-17.5); MEAN CORPUSCULAR HGB CONC 32.3 g/dl (32.0-36.5); PLATELET COUNT, AUTOMATED 186 10^3/uL (150-450); RED BLOOD COUNT 4.48 10^6/uL (4.30-6.10); WHITE BLOOD COUNT 5.6 10^3/uL (4.0-10.0)
[2022-08-14 18:16] LABS: BLOOD UREA NITROGEN 22 MG/DL (9-23); CALCIUM LEVEL 8.9 MG/DL (8.3-10.6); CARBON DIOXIDE LEVEL 29 MMOL/L (20-31); CHLORIDE LEVEL 100 MMOL/L (98-107); CREATININE FOR GFR 1.12 MG/DL (0.70-1.30); GLOMERULAR FILTRATION RATE > 60.0 (>42); GLUCOSE, FASTING 118 MG/DL (74-106); POTASSIUM SERUM 4.4 MMOL/L (3.5-5.1); SODIUM LEVEL 137 MMOL/L (136-145)
== END ==
PROVIDERS: ATTEND Internal Medicine
DX: R05.9 Cough, unspecified (principal); R09.89 Other specified symptoms and signs involving the circulatory and respiratory systems

== ENCOUNTER → 2022-08-28 | Outpatient (REF) | payer MEDICARE, MEDICAID ==
[2022-08-28 09:58] LABS: HEMATOCRIT 43.1 % (42.0-52.0); HEMOGLOBIN 13.9 g/dl (13.5-17.5); MEAN CORPUSCULAR HEMOGLOBIN 30.4 pg (27.0-33.0); MEAN CORPUSCULAR HGB CONC 32.3 g/dl (32.0-36.5); MEAN CORPUSCULAR VOLUME 94.3 fl (80.0-96.0); PLATELET COUNT, AUTOMATED 206 10^3/uL (150-450); RED BLOOD COUNT 4.57 10^6/uL (4.30-6.10); WHITE BLOOD COUNT 4.5 10^3/uL (4.0-10.0)
[2022-08-28 10:41] LABS: BLOOD UREA NITROGEN 17 MG/DL (9-23); CALCIUM LEVEL 9.1 MG/DL (8.3-10.6); CARBON DIOXIDE LEVEL 30 MMOL/L (20-31); CHLORIDE LEVEL 102 MMOL/L (98-107); CREATININE FOR GFR 0.87 MG/DL (0.70-1.30); GLOMERULAR FILTRATION RATE > 60.0 (>42); GLUCOSE, FASTING 114 MG/DL (74-106); POTASSIUM SERUM 3.8 MMOL/L (3.5-5.1); SODIUM LEVEL 137 MMOL/L (136-145)
== END ==
PROVIDERS: ATTEND Internal Medicine
DX: I50.9 Heart failure, unspecified (principal)

== ENCOUNTER → 2022-09-06 | Outpatient (REF) | payer MEDICARE, MEDICAID ==
[2022-09-06 12:46] LABS: HEMATOCRIT 43.1 % (42.0-52.0); HEMOGLOBIN 13.8 g/dl (13.5-17.5); MEAN CORPUSCULAR HEMOGLOBIN 30.3 pg (27.0-33.0); MEAN CORPUSCULAR VOLUME 94.7 fl (80.0-96.0); PLATELET COUNT, AUTOMATED 188 10^3/uL (150-450); RED BLOOD COUNT 4.55 10^6/uL (4.30-6.10); WHITE BLOOD COUNT 5.3 10^3/uL (4.0-10.0)
[2022-09-06 13:08] LABS: BLOOD UREA NITROGEN 19 MG/DL (9-23); CALCIUM LEVEL 8.9 MG/DL (8.3-10.6); CARBON DIOXIDE LEVEL 32 MMOL/L (20-31); CHLORIDE LEVEL 103 MMOL/L (98-107); CREATININE FOR GFR 0.84 MG/DL (0.70-1.30); GLOMERULAR FILTRATION RATE > 60.0 (>42); GLUCOSE, FASTING 154 MG/DL (74-106); POTASSIUM SERUM 3.7 MMOL/L (3.5-5.1); SODIUM LEVEL 138 MMOL/L (136-145)
== END ==
PROVIDERS: ATTEND Physician Assistant
DX: I50.9 Heart failure, unspecified (principal)

== ENCOUNTER → 2022-09-25 | Outpatient (REF) | payer MEDICARE, MEDICAID ==
[2022-09-25 13:09] LABS: HEMOGLOBIN 14.2 g/dl (13.5-17.5); MEAN CORPUSCULAR HEMOGLOBIN 30.7 pg (27.0-33.0); MEAN CORPUSCULAR HGB CONC 32.3 g/dl (32.0-36.5); MEAN CORPUSCULAR VOLUME 95.2 fl (80.0-96.0); PLATELET COUNT, AUTOMATED 180 10^3/uL (150-450); RED BLOOD COUNT 4.62 10^6/uL (4.30-6.10); WHITE BLOOD COUNT 5.2 10^3/uL (4.0-10.0)
[2022-09-25 13:34] LABS: BLOOD UREA NITROGEN 18 MG/DL (9-23); CALCIUM LEVEL 8.4 MG/DL (8.3-10.6); CARBON DIOXIDE LEVEL 30 MMOL/L (20-31); CHLORIDE LEVEL 100 MMOL/L (98-107); CREATININE FOR GFR 0.92 MG/DL (0.70-1.30); GLOMERULAR FILTRATION RATE > 60.0 (>42); GLUCOSE, FASTING 119 MG/DL (74-106); POTASSIUM SERUM 3.9 MMOL/L (3.5-5.1); SODIUM LEVEL 137 MMOL/L (136-145)
== END ==
PROVIDERS: ATTEND Internal Medicine
DX: I50.9 Heart failure, unspecified (principal)

== ENCOUNTER → 2022-10-23 | Outpatient (REF) | payer MEDICARE, MEDICAID ==
[~2022-10-23] MED LIST changes: +BENZ2TAB48 PO; -BENZ2TAB5 PO
[2022-10-23 11:52] LABS: HEMATOCRIT 42.3 % (42.0-52.0); HEMOGLOBIN 13.8 g/dl (13.5-17.5); MEAN CORPUSCULAR HEMOGLOBIN 30.6 pg (27.0-33.0); MEAN CORPUSCULAR HGB CONC 32.6 g/dl (32.0-36.5); MEAN CORPUSCULAR VOLUME 93.8 fl (80.0-96.0); PLATELET COUNT, AUTOMATED 182 10^3/uL (150-450); RED BLOOD COUNT 4.51 10^6/uL (4.30-6.10); WHITE BLOOD COUNT 5.3 10^3/uL (4.0-10.0)
[2022-10-23 12:14] LABS: BLOOD UREA NITROGEN 15 MG/DL (9-23); CALCIUM LEVEL 8.8 MG/DL (8.3-10.6); CARBON DIOXIDE LEVEL 28 MMOL/L (20-31); CHLORIDE LEVEL 102 MMOL/L (98-107); CREATININE FOR GFR 0.89 MG/DL (0.70-1.30); GLOMERULAR FILTRATION RATE > 60.0 (>42); GLUCOSE, FASTING 183 MG/DL (74-106); POTASSIUM SERUM 3.6 MMOL/L (3.5-5.1); SODIUM LEVEL 137 MMOL/L (136-145)
== END ==
PROVIDERS: ATTEND Internal Medicine
DX: I50.9 Heart failure, unspecified (principal)

== ENCOUNTER → 2022-11-10 | Outpatient (REF) | payer MEDICARE, MEDICAID | PROVIDERS: ATTEND Internal Medicine | DX: R05.9 Cough, unspecified (principal) ==

== ENCOUNTER → 2022-11-22 | Outpatient (REF) | payer MEDICARE, MEDICAID ==
[2022-11-22 11:01] LABS: HEMATOCRIT 45.8 % (42.0-52.0); HEMOGLOBIN 14.9 g/dl (13.5-17.5); MEAN CORPUSCULAR HEMOGLOBIN 30.6 pg (27.0-33.0); MEAN CORPUSCULAR HGB CONC 32.5 g/dl (32.0-36.5); PLATELET COUNT, AUTOMATED 200 10^3/uL (150-450); RED BLOOD COUNT 4.87 10^6/uL (4.30-6.10); WHITE BLOOD COUNT 5.1 10^3/uL (4.0-10.0)
[2022-11-22 11:35] LABS: BLOOD UREA NITROGEN 15 MG/DL (9-23); CALCIUM LEVEL 8.7 MG/DL (8.3-10.6); CARBON DIOXIDE LEVEL 27 MMOL/L (20-31); CHLORIDE LEVEL 100 MMOL/L (98-107); CREATININE FOR GFR 0.95 MG/DL (0.70-1.30); GLOMERULAR FILTRATION RATE > 60.0 (>42); GLUCOSE, FASTING 191 MG/DL (74-106); POTASSIUM SERUM 3.8 MMOL/L (3.5-5.1); SODIUM LEVEL 137 MMOL/L (136-145)
== END ==
PROVIDERS: ATTEND Internal Medicine
DX: I50.9 Heart failure, unspecified (principal)

== ENCOUNTER → 2022-12-23 | Outpatient (REF) | payer MEDICARE, MEDICAID | PROVIDERS: ATTEND Internal Medicine | DX: I50.9 Heart failure, unspecified (principal); Z53.8 Procedure and treatment not carried out for other reasons ==

== ENCOUNTER 2023-01-04 12:53 | Emergency (ER) | payer MEDICARE, MEDICAID ==
[~2023-01-04] VITALS: Ht 175.3 cm; Wt 132.6 kg
[2023-01-04 16:17] VITALS: BP 124/59; TEMP 96.8; O2SAT 95
== END 2023-01-04 16:22 | disposition home or self-care (01) ==
LOC: M ED 12:53 → EDBD 12:53 → M ED 16:22
DX: R22.42 Localized swelling, mass and lump, left lower limb (principal); M79.672 Pain in left foot; I48.91 Unspecified atrial fibrillation; I50.20 Unspecified systolic (congestive) heart failure; G20 Parkinson's disease; I27.20 Pulmonary hypertension, unspecified; K21.9 Gastro-esophageal reflux disease without esophagitis; F41.9 Anxiety disorder, unspecified; Z79.899 Other long term (current) drug therapy; Z79.82 Long term (current) use of aspirin

== ENCOUNTER → 2023-01-16 | Outpatient (CLI) | payer MEDICARE, MEDICAID | LOC: M RAD 11:34 | PROVIDERS: ATTEND Internal Medicine | DX: I73.9 Peripheral vascular disease, unspecified (principal); Z53.9 Procedure and treatment not carried out, unspecified reason ==

== ENCOUNTER → 2023-01-22 | Outpatient (REF) | payer MEDICARE, MEDICAID ==
[2023-01-22 09:19] LABS: HEMATOCRIT 45.4 % (42.0-52.0); HEMOGLOBIN 14.9 g/dl (13.5-17.5); MEAN CORPUSCULAR HGB CONC 32.8 g/dl (32.0-36.5); MEAN CORPUSCULAR VOLUME 94.6 fl (80.0-96.0); PLATELET COUNT, AUTOMATED 203 10^3/uL (150-450); WHITE BLOOD COUNT 5.9 10^3/uL (4.0-10.0)
[2023-01-22 09:52] LABS: BLOOD UREA NITROGEN 18 MG/DL (9-23); CALCIUM LEVEL 9.2 MG/DL (8.3-10.6); CARBON DIOXIDE LEVEL 27 MMOL/L (20-31); CHLORIDE LEVEL 102 MMOL/L (98-107); CREATININE FOR GFR 0.92 MG/DL (0.70-1.30); GLOMERULAR FILTRATION RATE > 60.0 (>42); GLUCOSE, FASTING 123 MG/DL (74-106); POTASSIUM SERUM 4.2 MMOL/L (3.5-5.1); SODIUM LEVEL 139 MMOL/L (136-145)
== END ==
PROVIDERS: ATTEND Internal Medicine
DX: I50.9 Heart failure, unspecified (principal)

== ENCOUNTER → 2023-01-23 | Outpatient (CLI) | payer MEDICARE, MEDICAID | LOC: M RAD 12:11 | PROVIDERS: ATTEND Internal Medicine | DX: I73.9 Peripheral vascular disease, unspecified (principal) ==

== ENCOUNTER → 2023-04-21 | Outpatient (REF) | payer MEDICARE, MEDICAID ==
[~2023-04-21] MED LIST changes: -MIRT-62 PO; +MIRT-88 PO
== END ==
PROVIDERS: ATTEND Internal Medicine
DX: I50.9 Heart failure, unspecified (principal); Z53.8 Procedure and treatment not carried out for other reasons

== ENCOUNTER → 2023-05-10 | Outpatient (REF) | payer MEDICARE, MEDICAID | PROVIDERS: ATTEND Internal Medicine | DX: R05.9 Cough, unspecified (principal) ==

== ENCOUNTER → 2023-05-10 | Outpatient (REF) | payer MEDICARE, MEDICAID | PROVIDERS: ATTEND Internal Medicine | DX: R05.9 Cough, unspecified (principal) ==

== ENCOUNTER → 2023-05-21 | Outpatient (REF) | payer MEDICARE, MEDICAID ==
[2023-05-21 11:34] LABS: HEMATOCRIT 44.3 % (42.0-52.0); HEMOGLOBIN 14.7 g/dl (13.5-17.5); MEAN CORPUSCULAR HGB CONC 33.2 g/dl (32.0-36.5); MEAN CORPUSCULAR VOLUME 93.5 fl (80.0-96.0); PLATELET COUNT, AUTOMATED 191 10^3/uL (150-450); RED BLOOD COUNT 4.74 10^6/uL (4.30-6.10); WHITE BLOOD COUNT 5.2 10^3/uL (4.0-10.0)
[2023-05-21 12:07] LABS: BLOOD UREA NITROGEN 13 MG/DL (9-23); CALCIUM LEVEL 9.1 MG/DL (8.3-10.6); CARBON DIOXIDE LEVEL 27 MMOL/L (20-31); CHLORIDE LEVEL 99 MMOL/L (98-107); CREATININE FOR GFR 1.03 MG/DL (0.70-1.30); GLOMERULAR FILTRATION RATE > 60.0 (>42); GLUCOSE, FASTING 129 MG/DL (74-106); POTASSIUM SERUM 3.7 MMOL/L (3.5-5.1); SODIUM LEVEL 135 MMOL/L (136-145)
== END ==
PROVIDERS: ATTEND Internal Medicine
DX: I48.91 Unspecified atrial fibrillation (principal); I50.32 Chronic diastolic (congestive) heart failure

== ENCOUNTER → 2023-05-30 | Outpatient (REF) | payer MEDICARE, MEDICAID ==
[2023-05-30 10:27] LABS: BLOOD UREA NITROGEN 11 MG/DL (9-23); CALCIUM LEVEL 9.3 MG/DL (8.3-10.6); CARBON DIOXIDE LEVEL 27 MMOL/L (20-31); CHLORIDE LEVEL 102 MMOL/L (98-107); CREATININE FOR GFR 0.93 MG/DL (0.70-1.30); GLOMERULAR FILTRATION RATE > 60.0 (>42); GLUCOSE, FASTING 128 MG/DL (74-106); POTASSIUM SERUM 4.1 MMOL/L (3.5-5.1); SODIUM LEVEL 137 MMOL/L (136-145)
== END ==
PROVIDERS: ATTEND Internal Medicine
DX: N18.9 Chronic kidney disease, unspecified (principal)

== ENCOUNTER → 2023-06-04 | Outpatient (CLI) | payer MEDICARE, MEDICAID ==
[~2023-06-04] MED LIST changes: +BARIUM SULFATE 700 MG TABLET (E-Z-DISK) As Ordered ONE; +E-Z-PAQUE 96% w/w SUSP 176GM BTL As Ordered ONE; +VARIBAR NECTAR 40% w/v 240ML SUSP BTL As Ordered ONE; +VARIBAR PUDDING 40% w/v 230ML TUBE As Ordered ONE
== END ==
LOC: M RAD 10:39
PROVIDERS: ATTEND Internal Medicine
DX: Z03.822 Encounter for observation for suspected aspirated (inhaled) foreign body ruled out (principal)

== ENCOUNTER → 2023-06-18 | Outpatient (REF) | payer MEDICARE, MEDICAID ==
[~2023-06-18] MED LIST changes: -BARIUM SULFATE 700 MG TABLET (E-Z-DISK) As Ordered ONE; -E-Z-PAQUE 96% w/w SUSP 176GM BTL As Ordered ONE; -VARIBAR NECTAR 40% w/v 240ML SUSP BTL As Ordered ONE; -VARIBAR PUDDING 40% w/v 230ML TUBE As Ordered ONE
[2023-06-18 11:57] LABS: HEMOGLOBIN 15.1 g/dl (13.5-17.5); MEAN CORPUSCULAR HEMOGLOBIN 30.9 pg (27.0-33.0); MEAN CORPUSCULAR HGB CONC 32.8 g/dl (32.0-36.5); MEAN CORPUSCULAR VOLUME 94.3 fl (80.0-96.0); PLATELET COUNT, AUTOMATED 218 10^3/uL (150-450); RED BLOOD COUNT 4.88 10^6/uL (4.30-6.10); WHITE BLOOD COUNT 6.3 10^3/uL (4.0-10.0)
[2023-06-18 12:16] LABS: ALBUMIN 3.7 G/DL (3.2-5.2); ALKALINE PHOSPHATASE 69 U/L (46-116); ALT/SGPT < 9 U/L (7.0-40); AST/SGOT 23 U/L (<34); BILIRUBIN,DIRECT 0.3 MG/DL (<0.4); BILIRUBIN,TOTAL 0.8 MG/DL (0.3-1.2); BLOOD UREA NITROGEN 17 MG/DL (9-23); CALCIUM LEVEL 9.2 MG/DL (8.3-10.6); CARBON DIOXIDE LEVEL 25 MMOL/L (20-31); CHLORIDE LEVEL 102 MMOL/L (98-107); GLOMERULAR FILTRATION RATE > 60.0 (>42); GLUCOSE, FASTING 180 MG/DL (74-106); POTASSIUM SERUM 3.9 MMOL/L (3.5-5.1); SODIUM LEVEL 136 MMOL/L (136-145); TOTAL PROTEIN 6.8 G/DL (5.7-8.2)
[2023-06-18 12:18] LABS: THYROID STIMULATING HORMONE 3.271 uIU/ML (0.55-4.78)
[2023-06-18 12:27] LABS: HEMOGLOBIN A1c 6.7 % (4.0-6.0)
[2023-06-18 21:45] LABS: THYROXINE (T4) 8.7 UG/DL (4.5-10.9)
== END ==
PROVIDERS: ATTEND Internal Medicine
DX: I48.91 Unspecified atrial fibrillation (principal); I50.9 Heart failure, unspecified; Z79.899 Other long term (current) drug therapy

== ENCOUNTER → 2023-08-15 | Outpatient (REF) | payer MEDICARE, MEDICAID ==
[~2023-08-15] MED LIST changes: -ASPI-161 PO; +ASPI-615 PO; -MIRA1POW3 PO; +MIRA33506 PO
[2023-08-15 12:09] LABS: HEMATOCRIT 43.7 % (42.0-52.0); HEMOGLOBIN 14.8 g/dl (13.5-17.5); MEAN CORPUSCULAR HGB CONC 33.9 g/dl (32.0-36.5); MEAN CORPUSCULAR VOLUME 94.4 fl (80.0-96.0); PLATELET COUNT, AUTOMATED 219 10^3/uL (150-450); RED BLOOD COUNT 4.63 10^6/uL (4.30-6.10); WHITE BLOOD COUNT 5.4 10^3/uL (4.0-10.0)
[2023-08-15 12:36] LABS: BLOOD UREA NITROGEN 18 MG/DL (9-23); CALCIUM LEVEL 8.6 MG/DL (8.3-10.6); CARBON DIOXIDE LEVEL 25 MMOL/L (20-31); CHLORIDE LEVEL 100 MMOL/L (98-107); CREATININE FOR GFR 0.98 MG/DL (0.70-1.30); GLOMERULAR FILTRATION RATE > 60.0 (>42); GLUCOSE, FASTING 205 MG/DL (74-106); POTASSIUM SERUM 3.8 MMOL/L (3.5-5.1); SODIUM LEVEL 135 MMOL/L (136-145)
== END ==
PROVIDERS: ATTEND Internal Medicine
DX: I48.91 Unspecified atrial fibrillation (principal); I63.9 Cerebral infarction, unspecified; I50.30 Unspecified diastolic (congestive) heart failure

== ENCOUNTER → 2023-09-22 | Outpatient (REF) | payer MEDICARE, MEDICAID | PROVIDERS: ATTEND Internal Medicine | DX: I48.91 Unspecified atrial fibrillation (principal); Z53.8 Procedure and treatment not carried out for other reasons ==

== ENCOUNTER → 2023-10-22 | Outpatient (REF) | payer MEDICARE, MEDICAID ==
[2023-10-22 11:43] LABS: HEMATOCRIT 45.3 % (42.0-52.0); HEMOGLOBIN 15.1 g/dl (13.5-17.5); MEAN CORPUSCULAR HEMOGLOBIN 31.1 pg (27.0-33.0); MEAN CORPUSCULAR HGB CONC 33.3 g/dl (32.0-36.5); MEAN CORPUSCULAR VOLUME 93.4 fl (80.0-96.0); PLATELET COUNT, AUTOMATED 222 10^3/uL (150-450); RED BLOOD COUNT 4.85 10^6/uL (4.30-6.10); WHITE BLOOD COUNT 6.1 10^3/uL (4.0-10.0)
[2023-10-22 11:54] LABS: HEMOGLOBIN A1c 6.8 % (4.0-6.0)
[2023-10-22 12:06] LABS: ALBUMIN 3.7 G/DL (3.2-5.2); ALKALINE PHOSPHATASE 75 U/L (46-116); ALT/SGPT 14 U/L (7.0-40); AST/SGOT 16 U/L (<34); BILIRUBIN,DIRECT 0.2 MG/DL (<0.4); BILIRUBIN,TOTAL 0.5 MG/DL (0.3-1.2); BLOOD UREA NITROGEN 17 MG/DL (9-23); CARBON DIOXIDE LEVEL 29 MMOL/L (20-31); CHLORIDE LEVEL 101 MMOL/L (98-107); CREATININE FOR GFR 0.98 MG/DL (0.70-1.30); GLOMERULAR FILTRATION RATE > 60.0 (>42); GLUCOSE, FASTING 163 MG/DL (74-106); POTASSIUM SERUM 4.2 MMOL/L (3.5-5.1); SODIUM LEVEL 134 MMOL/L (136-145); TOTAL PROTEIN 6.8 G/DL (5.7-8.2)
[2023-10-22 12:07] LABS: THYROID STIMULATING HORMONE 3.789 uIU/ML (0.55-4.78); THYROXINE (T4) 7.4 UG/DL (4.5-10.9)
== END ==
PROVIDERS: ATTEND Internal Medicine
DX: E11.9 Type 2 diabetes mellitus without complications (principal); I10 Essential (primary) hypertension; G20.C Parkinsonism, unspecified; I50.30 Unspecified diastolic (congestive) heart failure

== ENCOUNTER → 2023-11-07 | Outpatient (REF) | payer MEDICARE, MEDICAID ==
[~2023-11-07] MED LIST changes: +DOXY-323 PO; -DOXY-443 PO
== END ==
PROVIDERS: ATTEND Internal Medicine
DX: R05.9 Cough, unspecified (principal)

== ENCOUNTER → 2023-11-12 | Outpatient (REF) | payer MEDICARE, MEDICAID | PROVIDERS: ATTEND Internal Medicine | DX: M17.12 Unilateral primary osteoarthritis, left knee (principal); M85.862 Other specified disorders of bone density and structure, left lower leg; M79.89 Other specified soft tissue disorders ==

== ENCOUNTER → 2023-11-28 | Outpatient (REF) | payer MEDICARE, MEDICAID ==
[2023-11-28 12:38] LABS: HEMATOCRIT 41.8 % (42.0-52.0); MEAN CORPUSCULAR HEMOGLOBIN 31.2 pg (27.0-33.0); MEAN CORPUSCULAR HGB CONC 33.5 g/dl (32.0-36.5); MEAN CORPUSCULAR VOLUME 93.1 fl (80.0-96.0); PLATELET COUNT, AUTOMATED 202 10^3/uL (150-450); RED BLOOD COUNT 4.49 10^6/uL (4.30-6.10); WHITE BLOOD COUNT 5.9 10^3/uL (4.0-10.0)
[2023-11-28 13:14] LABS: BLOOD UREA NITROGEN 16 MG/DL (9-23); CARBON DIOXIDE LEVEL 26 MMOL/L (20-31); CHLORIDE LEVEL 99 MMOL/L (98-107); CREATININE FOR GFR 0.95 MG/DL (0.70-1.30); GLOMERULAR FILTRATION RATE > 60.0 (>42); GLUCOSE, FASTING 151 MG/DL (74-106); POTASSIUM SERUM 4.3 MMOL/L (3.5-5.1); SODIUM LEVEL 132 MMOL/L (136-145)
== END ==
PROVIDERS: ATTEND Internal Medicine
DX: I48.91 Unspecified atrial fibrillation (principal); I63.9 Cerebral infarction, unspecified; I50.30 Unspecified diastolic (congestive) heart failure

== ENCOUNTER → 2024-02-25 | Outpatient (REF) | payer MEDICARE, MEDICAID ==
[2024-02-25 11:07] LABS: HEMATOCRIT 48.4 % (42.0-52.0); HEMOGLOBIN 16.1 g/dl (13.5-17.5); MEAN CORPUSCULAR HEMOGLOBIN 30.8 pg (27.0-33.0); MEAN CORPUSCULAR HGB CONC 33.3 g/dl (32.0-36.5); MEAN CORPUSCULAR VOLUME 92.5 fl (80.0-96.0); PLATELET COUNT, AUTOMATED 237 10^3/uL (150-450); RED BLOOD COUNT 5.23 10^6/uL (4.30-6.10); WHITE BLOOD COUNT 6.5 10^3/uL (4.0-10.0)
[2024-02-25 11:46] LABS: ALBUMIN 4.2 G/DL (3.2-5.2); ALKALINE PHOSPHATASE 81 U/L (46-116); ALT/SGPT 15 U/L (7.0-40); AST/SGOT 25 U/L (<34); BILIRUBIN,DIRECT 0.3 MG/DL (<0.4); BILIRUBIN,TOTAL 0.8 MG/DL (0.3-1.2); BLOOD UREA NITROGEN 15 MG/DL (9-23); CALCIUM LEVEL 9.7 MG/DL (8.3-10.6); CARBON DIOXIDE LEVEL 26 MMOL/L (20-31); CHLORIDE LEVEL 99 MMOL/L (98-107); CREATININE FOR GFR 1.03 MG/DL (0.70-1.30); GLOMERULAR FILTRATION RATE > 60.0 (>42); GLUCOSE, FASTING 168 MG/DL (74-106); SODIUM LEVEL 131 MMOL/L (136-145); TOTAL PROTEIN 7.6 G/DL (5.7-8.2)
[2024-02-25 11:50] LABS: THYROXINE (T4) 8.7 UG/DL (4.5-10.9)
[2024-02-25 11:51] LABS: THYROID STIMULATING HORMONE 3.438 uIU/ML (0.55-4.78)
[2024-02-25 12:08] LABS: HEMOGLOBIN A1c 6.6 % (4.0-6.0)
== END ==
PROVIDERS: ATTEND Internal Medicine
DX: E11.9 Type 2 diabetes mellitus without complications (principal); I11.0 Hypertensive heart disease with heart failure; G20.C Parkinsonism, unspecified; I50.30 Unspecified diastolic (congestive) heart failure

== ENCOUNTER → 2024-04-14 | Outpatient (REF) | payer MEDICARE, MEDICAID ==
[~2024-04-14] MED LIST changes: -DOXY-323 PO; +DOXY-441 PO
[2024-04-14 15:18] LABS: HEMATOCRIT 43.8 % (42.0-52.0); HEMOGLOBIN 14.6 g/dl (13.5-17.5); MEAN CORPUSCULAR HEMOGLOBIN 30.7 pg (27.0-33.0); MEAN CORPUSCULAR HGB CONC 33.3 g/dl (32.0-36.5); PLATELET COUNT, AUTOMATED 233 10^3/uL (150-450); RED BLOOD COUNT 4.76 10^6/uL (4.30-6.10); WHITE BLOOD COUNT 5.6 10^3/uL (4.0-10.0)
== END ==
PROVIDERS: ATTEND Internal Medicine
DX: R52 Pain, unspecified (principal); Z79.899 Other long term (current) drug therapy

== ENCOUNTER → 2024-05-28 | Outpatient (REF) | payer MEDICARE, MEDICAID ==
[2024-05-28 11:29] LABS: HEMATOCRIT 46.8 % (42.0-52.0); HEMOGLOBIN 15.7 g/dl (13.5-17.5); MEAN CORPUSCULAR HEMOGLOBIN 31.3 pg (27.0-33.0); MEAN CORPUSCULAR HGB CONC 33.5 g/dl (32.0-36.5); MEAN CORPUSCULAR VOLUME 93.2 fl (80.0-96.0); PLATELET COUNT, AUTOMATED 256 10^3/uL (150-450); RED BLOOD COUNT 5.02 10^6/uL (4.30-6.10); WHITE BLOOD COUNT 6.5 10^3/uL (4.0-10.0)
[2024-05-28 11:52] LABS: BLOOD UREA NITROGEN 16 MG/DL (9-23); CARBON DIOXIDE LEVEL 25 MMOL/L (20-31); CHLORIDE LEVEL 98 MMOL/L (98-107); GLOMERULAR FILTRATION RATE > 60.0 (>42); GLUCOSE, FASTING 187 MG/DL (74-106); POTASSIUM SERUM 4.7 MMOL/L (3.5-5.1); SODIUM LEVEL 134 MMOL/L (136-145)
== END ==
PROVIDERS: ATTEND Internal Medicine
DX: I48.91 Unspecified atrial fibrillation (principal); I63.9 Cerebral infarction, unspecified; I50.30 Unspecified diastolic (congestive) heart failure

== ENCOUNTER → 2024-06-30 | Outpatient (REF) | payer MEDICARE, MEDICAID ==
[2024-06-30 10:07] LABS: HEMOGLOBIN A1c 6.3 % (4.0-6.0)
[2024-06-30 10:14] LABS: THYROID STIMULATING HORMONE 3.483 uIU/ML (0.55-4.78); THYROXINE (T4) 7.5 UG/DL (4.5-10.9)
[2024-06-30 10:15] LABS: ALBUMIN 3.8 G/DL (3.2-5.2); ALKALINE PHOSPHATASE 66 U/L (40-129); ALT/SGPT < 9 U/L (7.0-40); AST/SGOT 18 U/L (<34); BILIRUBIN,DIRECT 0.3 MG/DL (<0.4); BILIRUBIN,TOTAL 0.9 MG/DL (0.3-1.2); BLOOD UREA NITROGEN 19 MG/DL (9-23); CALCIUM LEVEL 9.4 MG/DL (8.3-10.6); CARBON DIOXIDE LEVEL 28 MMOL/L (20-31); CHLORIDE LEVEL 101 MMOL/L (98-107); CREATININE FOR GFR 0.95 MG/DL (0.70-1.30); GLOMERULAR FILTRATION RATE > 60.0 (>42); GLUCOSE, FASTING 147 MG/DL (74-106); POTASSIUM SERUM 4.1 MMOL/L (3.5-5.1); SODIUM LEVEL 137 MMOL/L (136-145); TOTAL PROTEIN 6.8 G/DL (5.7-8.2)
== END ==
PROVIDERS: ATTEND Internal Medicine
DX: I48.91 Unspecified atrial fibrillation (principal); Z79.899 Other long term (current) drug therapy

== ENCOUNTER → 2024-07-16 | Outpatient (REF) | payer MEDICARE, MEDICAID | LOC: M LAB REF 17:37 | PROVIDERS: ATTEND Surgery | DX: D03.62 Melanoma in situ of left upper limb, including shoulder (principal) ==

== ENCOUNTER → 2024-08-25 | Outpatient (REF) | payer MEDICARE, MEDICAID ==
[2024-08-25 09:51] LABS: HEMATOCRIT 43.2 % (42.0-52.0); HEMOGLOBIN 14.3 g/dl (13.5-17.5); MEAN CORPUSCULAR HEMOGLOBIN 30.7 pg (27.0-33.0); MEAN CORPUSCULAR HGB CONC 33.1 g/dl (32.0-36.5); MEAN CORPUSCULAR VOLUME 92.7 fl (80.0-96.0); PLATELET COUNT, AUTOMATED 209 10^3/uL (150-450); RED BLOOD COUNT 4.66 10^6/uL (4.30-6.10); WHITE BLOOD COUNT 4.6 10^3/uL (4.0-10.0)
[2024-08-25 10:23] LABS: BLOOD UREA NITROGEN 19 MG/DL (9-23); CALCIUM LEVEL 9.3 MG/DL (8.3-10.6); CARBON DIOXIDE LEVEL 28 MMOL/L (20-31); CHLORIDE LEVEL 101 MMOL/L (98-107); GLOMERULAR FILTRATION RATE > 60.0 (>42); GLUCOSE, FASTING 117 MG/DL (74-106); POTASSIUM SERUM 4.1 MMOL/L (3.5-5.1); SODIUM LEVEL 138 MMOL/L (136-145)
== END ==
PROVIDERS: ATTEND Internal Medicine
DX: I48.91 Unspecified atrial fibrillation (principal); I63.9 Cerebral infarction, unspecified; I50.30 Unspecified diastolic (congestive) heart failure

== ENCOUNTER → 2024-10-27 | Outpatient (REF) | payer MEDICARE, MEDICAID ==
[2024-10-27 11:37] LABS: HEMOGLOBIN A1c 6.6 % (4.0-6.0)
[2024-10-27 11:53] LABS: ALBUMIN 4.2 G/DL (3.2-5.2); BILIRUBIN,DIRECT 0.4 MG/DL (<0.4); BILIRUBIN,TOTAL 1.2 MG/DL (0.3-1.2); CALCIUM LEVEL 9.8 MG/DL (8.3-10.6); CREATININE FOR GFR 1.03 MG/DL (0.70-1.30); GLOMERULAR FILTRATION RATE 77.2 (>42); POTASSIUM SERUM 4.2 MMOL/L (3.5-5.1); TOTAL PROTEIN 7.5 G/DL (5.7-8.2)
[2024-10-27 11:54] LABS: THYROID STIMULATING HORMONE 3.315 uIU/ML (0.55-4.78); THYROXINE (T4) 7.5 UG/DL (4.5-10.9)
== END ==
PROVIDERS: ATTEND Internal Medicine
DX: I10 Essential (primary) hypertension (principal); Z79.899 Other long term (current) drug therapy

== ENCOUNTER → 2024-11-26 | Outpatient (REF) | payer MEDICARE, MEDICAID ==
[2024-11-26 08:41] LABS: HEMATOCRIT 45.8 % (42.0-52.0); HEMOGLOBIN 14.6 g/dl (13.5-17.5); MEAN CORPUSCULAR HEMOGLOBIN 29.4 pg (27.0-33.0); MEAN CORPUSCULAR HGB CONC 31.9 g/dl (32.0-36.5); MEAN CORPUSCULAR VOLUME 92.2 fl (80.0-96.0); PLATELET COUNT, AUTOMATED 205 10^3/uL (150-450); RED BLOOD COUNT 4.97 10^6/uL (4.30-6.10); WHITE BLOOD COUNT 4.4 10^3/uL (4.0-10.0)
[2024-11-26 09:12] LABS: CALCIUM LEVEL 9.4 MG/DL (8.3-10.6); CREATININE FOR GFR 1.02 MG/DL (0.70-1.30); GLOMERULAR FILTRATION RATE 78.1 (>42)
== END ==
PROVIDERS: ATTEND Internal Medicine
DX: I10 Essential (primary) hypertension (principal)

== ENCOUNTER → 2025-01-20 | Outpatient (REF) | payer MEDICARE, MEDICAID ==
[~2025-01-20] MED LIST changes: -EQL50TAB2 PO; +VITA1TAB82 PO
[2025-01-20 14:18] LABS: APPEARANCE, URINE CLEAR (CLEAR); BACTERIA, URINE AUTO NEGATIVE (NEGATIVE); BILIRUBIN, URINE AUTO NEGATIVE (NEGATIVE); BLOOD, URINE BLOOD 2+ (NEGATIVE); GLUCOSE, URINE (UA) AUTO 3+ mg/dL (NEGATIVE); KETONE, URINE AUTO NEGATIVE (NEGATIVE); LEUKOCYTE ESTERASE, URINE AUTO NEGATIVE (NEGATIVE); MUCUS, URINE SMALL (NEGATIVE); NITRITE, URINE AUTO NEGATIVE (NEGATIVE); PROTEIN, URINE AUTO NEGATIVE (NEGATIVE); RBC, URINE AUTO 37 /HPF (0-3); SPECIFIC GRAVITY URINE AUTO 1.009 (1.002-1.035); SQUAMOUS EPITHELIAL CELL UR AU 0 /HPF (0-6); UROBILINOGEN, URINE AUTO 0.2 mg/dL (0.0-2.0); WBC, URINE AUTO 1 /HPF (0-3)
== END ==
PROVIDERS: ATTEND Physician Assistant
DX: R31.9 Hematuria, unspecified (principal)

== ENCOUNTER → 2025-01-21 | Outpatient (REF) | payer MEDICARE, MEDICAID ==
[2025-01-21 10:31] LABS: BASO # 0.0 10^3/uL (0.0-0.2); BASO % 0.6 % (0.0-1.0); EOS # 0.2 10^3/uL (0.0-0.5); EOS % 4.0 % (0.0-3.0); LYMPH # 0.9 10^3/uL (1.5-5.0); LYMPH % 16.5 % (24.0-44.0); MONO # 0.4 10^3/uL (0.0-0.8); MONO % 7.5 % (2.0-8.0); NEUTROPHILS # 3.9 10^3/uL (1.5-8.5); NEUTROPHILS % 71.2 % (36.0-66.0); PLATELET COUNT, AUTOMATED 208 10^3/uL (150-450)
[2025-01-21 11:03] LABS: PROSTATIC SPECIFIC AG MONITOR 1.86 NG/ML (< 4.00)
[2025-01-21 11:06] LABS: CALCIUM LEVEL 9.4 MG/DL (8.3-10.6); CARBON DIOXIDE LEVEL 29.0 MMOL/L (20-31); CHLORIDE LEVEL 98.0 MMOL/L (98-107); CREATININE FOR GFR 1.07 MG/DL (0.70-1.30); GLOMERULAR FILTRATION RATE 73.7 (>42); POTASSIUM SERUM 3.9 MMOL/L (3.5-5.1); SODIUM LEVEL 140.0 MMOL/L (136-145)
== END ==
PROVIDERS: ATTEND Internal Medicine
DX: R31.9 Hematuria, unspecified (principal)

== ENCOUNTER → 2025-02-19 | Outpatient (REF) | payer MEDICARE, MEDICAID ==
[~2025-02-19] MED LIST changes: +ATOR80TA59 PO; +CEPH500C PO; +ELIQ5TAB PO; +JARD1TAB PO; +SPIR-10 PO; +TORS20TA2 PO
== END ==
PROVIDERS: ATTEND Physician Assistant
DX: Z01.818 Encounter for other preprocedural examination (principal)

== ENCOUNTER → 2025-02-19 | Outpatient (REF) | payer MEDICARE, MEDICAID ==
[2025-02-19 12:46] LABS: PLATELET COUNT, AUTOMATED 189 10^3/uL (150-450)
[2025-02-19 13:00] LABS: INR 1.34
[2025-02-19 13:09] LABS: ALT/SGPT < 9 U/L (7.0-40); AST/SGOT 23 U/L (<34); CALCIUM LEVEL 8.9 MG/DL (8.3-10.6); CARBON DIOXIDE LEVEL 28 MMOL/L (20-31); CHLORIDE LEVEL 100 MMOL/L (98-107); CREATININE FOR GFR 1.04 MG/DL (0.70-1.30); GLOMERULAR FILTRATION RATE 76.3 (>42); POTASSIUM SERUM 3.8 MMOL/L (3.5-5.1); SODIUM LEVEL 139 MMOL/L (136-145)
== END ==
PROVIDERS: ATTEND Internal Medicine
DX: Z01.818 Encounter for other preprocedural examination (principal); Z79.01 Long term (current) use of anticoagulants; I48.91 Unspecified atrial fibrillation; R94.31 Abnormal electrocardiogram [ECG] [EKG]

== ENCOUNTER → 2025-02-19 | Outpatient (CLI) | payer MEDICARE, MEDICAID | LOC: M EKG 12:09 | PROVIDERS: ATTEND Internal Medicine | DX: Z01.818 Encounter for other preprocedural examination (principal); I48.91 Unspecified atrial fibrillation; R94.31 Abnormal electrocardiogram [ECG] [EKG] ==

== ENCOUNTER → 2025-02-20 | Outpatient (REF) | payer MEDICARE, MEDICAID | PROVIDERS: ATTEND Internal Medicine | DX: Z01.818 Encounter for other preprocedural examination (principal); C43.61 Malignant melanoma of right upper limb, including shoulder ==

== ENCOUNTER → 2025-02-23 | Outpatient (REF) | payer MEDICARE, MEDICAID ==
[2025-02-23 11:37] LABS: PLATELET COUNT, AUTOMATED 225 10^3/uL (150-450)
[2025-02-23 12:01] LABS: ESTIMATED AVERAGE GLUCOSE 148.0 MG/DL (60-110)
[2025-02-23 12:10] LABS: THYROXINE (T4) 7.2 UG/DL (4.5-10.9)
[2025-02-23 12:12] LABS: ALT/SGPT < 9 U/L (7.0-40); AST/SGOT 25 U/L (<34); CALCIUM LEVEL 10.0 MG/DL (8.3-10.6); CARBON DIOXIDE LEVEL 28 MMOL/L (20-31); CHLORIDE LEVEL 101 MMOL/L (98-107); CREATININE FOR GFR 1.06 MG/DL (0.70-1.30); GLOMERULAR FILTRATION RATE 74.6 (>42); POTASSIUM SERUM 4.3 MMOL/L (3.5-5.1); SODIUM LEVEL 140 MMOL/L (136-145)
== END ==
PROVIDERS: ATTEND Internal Medicine
DX: G20.A1 Parkinson's disease without dyskinesia, without mention of fluctuations (principal); I11.0 Hypertensive heart disease with heart failure; E11.9 Type 2 diabetes mellitus without complications; I50.9 Heart failure, unspecified

== ENCOUNTER → 2025-02-23 | Outpatient (REF) | payer MEDICARE, MEDICAID | PROVIDERS: ATTEND Physician Assistant | DX: I50.9 Heart failure, unspecified (principal) ==

== ENCOUNTER → 2025-03-16 | Outpatient (REF) | payer MEDICARE, MEDICAID ==
[~2025-03-16] MED LIST changes: +FLUTISP
[2025-03-16 11:43] LABS: BASO # 0.0 10^3/uL (0.0-0.2); BASO % 0.8 % (0.0-1.0); EOS # 0.2 10^3/uL (0.0-0.5); EOS % 4.8 % (0.0-3.0); LYMPH # 0.7 10^3/uL (1.5-5.0); LYMPH % 14.3 % (24.0-44.0); MONO # 0.4 10^3/uL (0.0-0.8); MONO % 8.1 % (2.0-8.0); NEUTROPHILS # 3.6 10^3/uL (1.5-8.5); NEUTROPHILS % 71.8 % (36.0-66.0); PLATELET COUNT, AUTOMATED 184 10^3/uL (150-450)
[2025-03-16 11:49] LABS: ERYTHROCYTE SEDIMENTATION RATE 39 mm/hr (0-20)
[2025-03-16 12:11] LABS: C REACTIVE PROTEIN QUANTITATIV < 0.50 MG/DL (<1.0)
[2025-03-16 12:12] LABS: CALCIUM LEVEL 9.1 MG/DL (8.3-10.6); CARBON DIOXIDE LEVEL 26 MMOL/L (20-31); CHLORIDE LEVEL 101 MMOL/L (98-107); CREATININE FOR GFR 0.99 MG/DL (0.70-1.30); GLOMERULAR FILTRATION RATE 80.9 (>42); POTASSIUM SERUM 3.9 MMOL/L (3.5-5.1); SODIUM LEVEL 138 MMOL/L (136-145)
== END ==
PROVIDERS: ATTEND Internal Medicine
DX: L03.90 Cellulitis, unspecified (principal)

== ENCOUNTER → 2025-03-24 | Outpatient (CLI) | payer MEDICARE, MEDICAID | LOC: M EKG 10:51 | PROVIDERS: ATTEND Internal Medicine | DX: Z01.818 Encounter for other preprocedural examination (principal) ==

== ENCOUNTER → 2025-03-25 | Outpatient (REF) | payer MEDICARE, MEDICAID ==
[2025-03-25 13:21] LABS: PLATELET COUNT, AUTOMATED 194 10^3/uL (150-450)
[2025-03-25 13:23] LABS: INR 1.1
[2025-03-25 13:55] LABS: CALCIUM LEVEL 9.2 MG/DL (8.3-10.6); CARBON DIOXIDE LEVEL 29.0 MMOL/L (20-31); CHLORIDE LEVEL 102.0 MMOL/L (98-107); CREATININE FOR GFR 1.07 MG/DL (0.70-1.30); GLOMERULAR FILTRATION RATE 73.7 (>42); POTASSIUM SERUM 4.2 MMOL/L (3.5-5.1); SODIUM LEVEL 137.0 MMOL/L (136-145)
== END ==
PROVIDERS: ATTEND Internal Medicine
DX: Z01.818 Encounter for other preprocedural examination (principal); I50.9 Heart failure, unspecified

== ENCOUNTER → 2025-04-02 | Day surgery (SDC) | payer MEDICARE, MEDICAID ==
[~2025-04-02] VITALS: Ht 175.3 cm; Wt 111.0 kg
[~2025-04-02] MED LIST changes: +LIDOCAINE 2% 100 MG/5 ML SDV (FOR ANES.) As Ordered ONE; +MIDAZOLAM INJ 2 MG/2 ML VIAL As Ordered ONE; +ONDANSETRON 4MG 2ML VIAL As Ordered ONE; +ceFAZolin SOD 2 GM IV ONCE IV ONE; +ceFAZolin SOD 3 GM in DEXTROSE 5% (D5W) MINI-BAG PLU 1... IV ONE; +dexmedeTOMIDine (4 MCG/ML) 200 MCG/50 ML BTL As Ordered ONE
[2025-04-02 10:46] VITALS: BP 99/67; TEMP 96.9; O2SAT 99
== END | disposition home or self-care (01) ==
LOC: M SDC 09:42
PROVIDERS: ATTEND Plastic Surgery Surgery of the Hand
DX: C43.61 Malignant melanoma of right upper limb, including shoulder (principal); Z53.09 Procedure and treatment not carried out because of other contraindication

== ENCOUNTER 2025-04-07 06:19 | Day surgery (SDC) | payer MEDICARE, MEDICAID ==
[~2025-04-07] VITALS: Ht 175.3 cm; Wt 111.0 kg
[~2025-04-07 06:19] MED LIST changes: -LIDOCAINE 2% 100 MG/5 ML SDV (FOR ANES.) As Ordered ONE; -MIDAZOLAM INJ 2 MG/2 ML VIAL As Ordered ONE; -ONDANSETRON 4MG 2ML VIAL As Ordered ONE; -ceFAZolin SOD 2 GM IV ONCE IV ONE; -ceFAZolin SOD 3 GM in DEXTROSE 5% (D5W) MINI-BAG PLU 1... IV ONE; -dexmedeTOMIDine (4 MCG/ML) 200 MCG/50 ML BTL As Ordered ONE
[2025-04-07] MEDS ORDERED: LR 1,000 ML IV SCH (07:00)
[2025-04-07] MEDS: LIDOCAINE 2% W/EPINEPHrine 20 ML VIAL **PRES FREE As Ordered ONE (07:08)
[2025-04-07] MEDS ORDERED: ONDANSETRON 4MG 2ML VIAL As Ordered ONE (07:21)
[2025-04-07] MEDS ORDERED: MIDAZOLAM INJ 2 MG/2 ML VIAL As Ordered ONE (07:21)
[2025-04-07] MEDS ORDERED: dexAMETHasone 4 MG/ML 1 ML VIAL As Ordered ONE (07:21)
[2025-04-07] MEDS ORDERED: LIDOCAINE 2% 100 MG/5 ML SDV (FOR ANES.) As Ordered ONE (07:21)
[2025-04-07] MEDS ORDERED: dexmedeTOMIDine (4 MCG/ML) 200 MCG/50 ML BTL As Ordered ONE (07:41)
[2025-04-07] MEDS: ceFAZolin SOD 3 GM in DEXTROSE 5% (D5W) MINI-BAG PLU 1... IV ONE (07:50)
[2025-04-07] MEDS: LIDOCAINE W/EPINEPHrine 1% 20 ML VIAL As Ordered ONE (08:00)
[2025-04-07] MEDS ORDERED: ACETAMINOPHEN 1000MG/100ML IV BAG As Ordered ONE (08:03)
[2025-04-07 09:35] VITALS: BP 132/62; TEMP 98; O2SAT 97
== END 2025-04-07 09:42 | disposition home or self-care (01) ==
LOC: M SDC 06:19
PROVIDERS: ATTEND Plastic Surgery Surgery of the Hand
DX: L90.5 Scar conditions and fibrosis of skin (principal); L57.8 Other skin changes due to chronic exposure to nonionizing radiation; I48.91 Unspecified atrial fibrillation; E11.9 Type 2 diabetes mellitus without complications; G47.30 Sleep apnea, unspecified; Z79.899 Other long term (current) drug therapy
CPT/HCPCS: 11603; 12032; 88305; 88307; J0131; J0688; J2250; J2405; J3010

== ENCOUNTER → 2025-05-20 | Outpatient (REF) | payer MEDICARE, MEDICAID ==
[2025-05-20 10:58] LABS: PLATELET COUNT, AUTOMATED 177 10^3/uL (150-450)
[2025-05-20 11:22] LABS: CALCIUM LEVEL 8.7 MG/DL (8.3-10.6); CARBON DIOXIDE LEVEL 30.0 MMOL/L (20-31); CHLORIDE LEVEL 102.0 MMOL/L (98-107); CREATININE FOR GFR 1.03 MG/DL (0.70-1.30); GLOMERULAR FILTRATION RATE 76.7 (>42); POTASSIUM SERUM 4.7 MMOL/L (3.5-5.1); SODIUM LEVEL 138.0 MMOL/L (136-145)
== END ==
PROVIDERS: ATTEND Internal Medicine
DX: I11.0 Hypertensive heart disease with heart failure (principal); I50.9 Heart failure, unspecified

== ENCOUNTER → 2025-06-12 | Outpatient (REF) | payer MEDICARE, MEDICAID | PROVIDERS: ATTEND Physician Assistant | DX: R05.9 Cough, unspecified (principal); I51.7 Cardiomegaly ==

== ENCOUNTER → 2025-06-12 | Outpatient (REF) | payer MEDICARE, MEDICAID | PROVIDERS: ATTEND Physician Assistant | DX: R05.9 Cough, unspecified (principal); I51.7 Cardiomegaly ==

== ENCOUNTER → 2025-06-22 | Outpatient (REF) | payer MEDICARE, MEDICAID ==
[2025-06-22 13:00] LABS: PLATELET COUNT, AUTOMATED 175 10^3/uL (150-450)
[2025-06-22 13:33] LABS: CALCIUM LEVEL 8.9 MG/DL (8.3-10.6); CARBON DIOXIDE LEVEL 27.0 MMOL/L (20-31); CHLORIDE LEVEL 106.0 MMOL/L (98-107); CREATININE FOR GFR 1.09 MG/DL (0.70-1.30); GLOMERULAR FILTRATION RATE 71.7 (>42); POTASSIUM SERUM 3.8 MMOL/L (3.5-5.1); SODIUM LEVEL 139.0 MMOL/L (136-145)
== END ==
PROVIDERS: ATTEND Internal Medicine
DX: E11.9 Type 2 diabetes mellitus without complications (principal); I50.9 Heart failure, unspecified

== ENCOUNTER → 2025-06-29 | Outpatient (REF) | payer MEDICARE, MEDICAID | PROVIDERS: ATTEND Internal Medicine | DX: R06.02 Shortness of breath (principal); I51.7 Cardiomegaly; J98.11 Atelectasis ==

== ENCOUNTER → 2025-06-30 | Outpatient (REF) | payer MEDICARE, MEDICAID | PROVIDERS: ATTEND Internal Medicine | DX: R06.02 Shortness of breath (principal); Z53.8 Procedure and treatment not carried out for other reasons ==

== ENCOUNTER → 2025-07-06 | Outpatient (CLI) | payer MEDICARE, MEDICAID | LOC: M PLAIMG 07:44 | PROVIDERS: ATTEND Nurse Practitioner Family | DX: I34.0 Nonrheumatic mitral (valve) insufficiency (principal) ==

== ENCOUNTER → 2025-07-06 | Outpatient (REF) | payer MEDICARE, MEDICAID | LOC: M PLAIMG 07:58 | PROVIDERS: ATTEND Physician Assistant | DX: I50.9 Heart failure, unspecified (principal) ==